=== PATIENT | male | born 1945 | race Caucasian/White ===

== ENCOUNTER 2018-01-16 21:28 | Emergency (ER) | payer MEDICARE, SELFPAY ==
[2016-04-09 09:01] VITALS: BMI 28.3
[2018-01-16 21:29] VITALS: BP 158/81; PULSE 61; RESP 16; TEMP 36.6; O2SAT 98; BMI 26.7
[2018-01-16] MEDS: Fluorescein 1 MG STRIP 1 STRIP RIGHT EYE (21:57)
[2018-01-16] MEDS: Tetracaine 0.5% Ophthalmic Bottle 1 DRP RIGHT EYE (21:57)
--- NOTE | 2018-01-16 22:01 | ED.DCSUM_ITS ---
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 Several hours later he felt a foreign body sensation in his right eye. Family noted a black foreign body and tried to use eyedrops without improvement. Patient denies significant light sensitivity. Patient states he has poor vision at baseline secondary to macular degeneration. Physical Examination: Vital signs unremarkable. Patient sitting well at room in no acute distress. Head neck examination reveals no eyelid edema or erythema. Examination of the right eye reveals a black metallic looking foreign body at approximately 3 o'clock position. There is no significant injection. 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 On exam this appears to be deep in the coloration portion of the eye, not representing an acute foreign body. Test Results: [] Emergency Department Course and Treatment: Blood metallic foreign body was easily removed with a cotton tip swab. Tetracaine is applied to the eye and fluorescein is applied which reveals a small focal area of dye uptake. Tetanus update will be provided and patient be given gentamicin drops. Patient is known to Dr. Schultz and will follow up as needed. Treatment Plan: [] Disposition: Discharge Impression: Foreign body right eye, improved Corneal abrasion This note was generated with [employer] dictation software. It may contain incorrect words, spelling, and punctuation that were not noted in review of the chart prior to signing ED Disposition - Plan for ED Patient: Disposition: Home or Assisted Living Chief Complaint: Eye Problem Instructions: ED Eye Injury Corneal Abrasion, ED Foreign Body Cornea Referrals: Sanjiv Schultz MD [STAFF PHYSICIAN] - 1-2 Days if not improving Additional Instructions: 2 drops Gentamicin to right eye 3 times daily for 3 days
[2018-01-16] MEDS: Gentamicin Sulfate 1 OPTH.BTL 2 DRP RIGHT EYE (22:06)
[2018-01-16] MEDS: Diphth,Pertuss(Acell),Tet Vac 0.5 ML Vial IM (22:10)
[2018-01-16 22:12] VITALS: BP 149/78; PULSE 56; RESP 18; O2SAT 96
[2018-01-16 22:28] VITALS: RESP 16
== END 2018-01-16 22:35 | disposition home or self-care (01) ==
PROVIDERS: Emergency Provider Emergency Medicine; Family Provider Family Medicine; PCP Family Medicine
DX: T15.01XA Foreign body in cornea, right eye, initial encounter (principal); S00.251A Superficial foreign body of right eyelid and periocular area, initial encounter; W45.8XXA Other foreign body or object entering through skin, initial encounter; Y93.9 Activity, unspecified; Y92.89 Other specified places as the place of occurrence of the external cause; Y99.9 Unspecified external cause status; I25.10 Atherosclerotic heart disease of native coronary artery without angina pectoris; I10 Essential (primary) hypertension; E78.00 Pure hypercholesterolemia, unspecified; J44.9 Chronic obstructive pulmonary disease, unspecified; H35.30 Unspecified macular degeneration; I25.2 Old myocardial infarction; Z72.0 Tobacco use; Z85.51 Personal history of malignant neoplasm of bladder; Z95.1 Presence of aortocoronary bypass graft
CPT/HCPCS: 90471; 90715; 99283

== ENCOUNTER → 2018-03-03 10:46 | Outpatient (CLI) | payer MEDICARE, SELFPAY ==
[2016-04-09 09:01] VITALS: BMI 28.3
--- NOTE | 2018-03-03 10:48 | RAD_ITS ---
STUDY: X-RAY - RIGHT HIP REASON FOR EXAM: Male, 73 years old. Pain TECHNIQUE: 3 views of the hip. COMPARISON: None. FINDINGS: Mild degenerative lower lumbar changes. Normal femoral head, neck, intertrochanteric region and visualized proximal femur. Normal acetabulum. Normal hip joint. Normal visualized superior and inferior pubic rami and ischial tuberosities. RAD/HIP, UNI W/ Pelvis 2-3 Views IMPRESSION: No acute bony injury of the hip. Electronically Signed: Vickey Newman DO at 9:13 EST Tel [phone], Service support ,
--- OUTSIDE RECORDS SUMMARY | 2018-04-28 06:52 | XMS RPT_ITS ---
:1945 External Reference #:[id number] Author Organization OHIP Support Name Relationship Address Phone NIDHI VILLANUEVA Unavailable [address] + [place] [address] R Unavailable Unavailable Unavailable VILLANUEVA, NIDHI Unavailable [address] + [place] [address] R Unavailable Unavailable Unavailable VILLANUEVA, NIDHI Unavailable [address] +[phone] [place] [address] R Unavailable Unavailable Unavailable VILLANUEVA, NIDHI Unavailable [address] + [place] [address] R Unavailable Unavailable Unavailable VILLANUEVA, NIDHI Unavailable [address] + [place] [address] R Unavailable Unavailable Unavailable VILLANUEVA, NIDHI Unavailable [address] + [place] [address] R Unavailable Unavailable Unavailable VILLANUEVA, NIDHI Unavailable [address] + [place] [address] R Unavailable Unavailable Unavailable VILLANUEVA, NIDHI Unavailable [address] + [place] [address] R Unavailable Unavailable Unavailable VILLANUEVA, NIDHI Unavailable [address] +[phone] [place] [address] R Unavailable Unavailable Unavailable VILLANUEVA, NIDHI Unavailable [address] + [place] [address] R Unavailable Unavailable Unavailable VILLANUEVA, NIDHI Unavailable [address] + [place] [address] R Unavailable Unavailable Unavailable VILLANUEVA, NIDHI Unavailable [address] + [place] [address] R Unavailable Unavailable Unavailable VILLANUEVA, NIDHI Unavailable [address] + [place] [address] R Unavailable Unavailable Unavailable VILLANUEVA, NIDHI Unavailable [address] + [place] [address] R Unavailable Unavailable Unavailable VILLANUEVA, NIDHI Unavailable [address] + [place] [address] R Unavailable Unavailable Unavailable VILLANUEVA, NIDHI Unavailable [address] + [place] [address] R Unavailable Unavailable Unavailable VILLANUEVA, NIDHI Unavailable [address] + [place] [address] R Unavailable Unavailable Unavailable VILLANUEVA, NIDHI Unavailable [address] + [place] [address] R Unavailable Unavailable Unavailable VILLANUEVA, NIDHI Unavailable [address] + [place] [phone] R Unavailable Unavailable Unavailable VILLANUEVA, NIDHI Unavailable [address] + [place] [address] R Unavailable Unavailable Unavailable Care Team Providers Name Role Phone Hosea Bueno Attending Unavailable Andrea Means Referring Unavailable Hosea Bueno Attending Unavailable Fay Mcnulty Attending Unavailable Hosea Bueno Attending Unavailable Miguelangel, Andrea Primary Care Unavailable Deidre Hudson Attending Unavailable Deidre Hudson Attending Unavailable Deidre Hudson Referring Unavailable Miguelangel, Andrea Primary Care Unavailable Miguelangel, Andrea Primary Care Unavailable Hosea Shukla Admitting Unavailable Faraz Ken Attending Unavailable Hosea Shukla Attending Unavailable Miguelangel, Andrea Primary Care Unavailable Hosea Shukla Admitting Unavailable Faraz Ken Attending Unavailable Miguelangel, Andrea Primary Care Unavailable Faraz Ken Consulting Unavailable Hosea Bueno Attending Unavailable Andrea Means Referring Unavailable Kian Vaughn Attending Unavailable Faraz Ken Referring Unavailable Inez Leger Attending Unavailable Inez Leger Attending Unavailable Fay Mcfadden Attending Unavailable MiguelangelAndrea Referring Unavailable Efe Mcclellan Attending Unavailable Miguelangel, Andrea Referring Unavailable Miguelangel, Andrea Primary Care Unavailable Deidre Hudson Attending Unavailable MiguelangelAndrea Attending Unavailable Miguelangel, Andrea Primary Care Unavailable Aldair Jimenez Attending Unavailable MiguelangelAndrea Referring Unavailable Aldair Jimenez Attending Unavailable JacintotAldair Referring Unavailable Miguelangel, Andrea Primary Care Unavailable Aldair Jimenez Attending Unavailable Jacintot, Aldair Referring Unavailable Miguelangel, Andrea Primary Care Unavailable PROBLEMS PROBLEMS DATE TYPE CONDITION / CODE ATTENDING STATUS SOURCE 03/03/2018 Unknown M25.551 - Pain in Aldair Jimenez right hip / Community M25.551(ICD-10) Hospital Repository 03/03/2018 Unknown M25.571 - Pain in Aldair Jimenez right ankle and Community joints of right foot Hospital / M25.571(ICD-10) Repository 01/30/2018 Unknown I25.10 - Andrea Means Atherosclerotic heart Community disease of [facility] coronary artery Repository without angina pectoris / I25.10(ICD-10) 01/30/2018 Unknown I10 - Essential Andrea Means (primary) [facility] hypertension / Hospital I10(ICD-10) Repository 01/30/2018 Unknown Z12.5 - Encounter for Andrea Means screening for [facility] malignant neoplasm of [facility] prostate / Repository Z12.5(ICD-10) 10/17/2017 Unknown E78.5 - [facility] [place] Hyperlipidemia, [facility] unspecified / Hospital E78.5(ICD-10) Repository 10/17/2017 Unknown I34.0 - Nonrheumatic [facility] [place] mitral (valve) [facility] insufficiency / Hospital I34.0(ICD-10) Repository 10/17/2017 Unknown I48.0 - Paroxysmal [facility] atrial fibrillation / [facility] I48.0(ICD-10) Hospital Repository 10/17/2017 Unknown G47.00 - Insomnia, Efe Mcclellan Active [facility] unspecified / Community G47.00(ICD-10) Hospital Repository 10/17/2017 Unknown I50.31 - Acute [facility] diastolic [facility] (congestive) heart Hospital failure / Repository I50.31(ICD-10) 04/07/2017 Unknown I27.20 - Pulmonary MoodispaHosea michelle Active [facility] hypertension, [facility] unspecified / Hospital I27.20(ICD-10) Repository PROCEDURES PROCEDURES No Procedure Records FoundRESULTS RESULTS ANKLE MIN 3 VIEWS Observed: 03/03/2018 Status: F Source: [place] 11:27 AM [facility] HOSPITAL REPOSITORY [facility] Imaging Services [address] [place] [address] [place] [address] Ankle min 3 Views MR#: [id number] Acct: [id number] Name: JONY VILLANUEVA Rep #: [id number] : 1945 M 73 From: Aldair Iyer MD PCP: Andrea Means DO Status: REG CLI Study: Ankle min 3 Views Date of Exam: 03/03/18 Exam# [id number] Ordering Dr: Aldair Jimenez HISTORY: LATERAL PAIN POST FALLING COMPARISON: None FINDINGS: 3 views right ankle: No fracture or dislocation. The tibiotalar joint space appears preserved. The ankle mortise is not widened. As visualized, the soft tissues are negative. IMPRESSION: Negative for fracture or acute osseous abnormality at 0725 Reported and signed by: Aldair Iyer MD Electronically Signed: Aldair Iyer, at 7:23 EST Tel , Service support , RAD/Ankle min 3 Views CC: ISABEL Jimenez; Andrea Means DO Solar Sales Consultant: Signed HIP, UNI W/ PELVIS Observed: 03/03/2018 Status: F Source: [facility] 2-3 VIEWS 10:48 AM [facility] REPOSITORY [facility] Imaging Services [address] [place] [address] HIP, UNI W/ Pelvis 2-3 Views MR#: [id number] Acct: [id number] Name: JONY VILLANUEVA Rep #: [id number] : 1945 M 73 From: Vickey Newman DO PCP: Andrea Means DO Status: REG CLI Study: HIP, UNI W/ Pelvis 2-3 Views Date of Exam: 03/03/18 Exam# [id number] Ordering Dr: Aldair Jimenez STUDY: X-RAY - RIGHT HIP REASON FOR EXAM: Male, 73 years old. Pain TECHNIQUE: 3 views of the hip. COMPARISON: None. FINDINGS: Mild degenerative lower lumbar changes. Normal femoral head, neck, intertrochanteric region and visualized proximal femur. Normal acetabulum. Normal hip joint. Normal visualized superior and inferior pubic rami and ischial tuberosities. RAD/HIP, UNI W/ Pelvis 2-3 Views IMPRESSION: No acute bony injury of the hip. Electronically Signed: Vickey Newman DO at 9:13 EST Tel [phone], Service support , CC: ISABEL Jimenez; Andrea Means DO Solar Sales Consultant: Signed EMERGENCY DEPARTMENT Observed: 01/16/2018 Status: F Source: [place] SUMMARY 11:38 PM [facility] REPOSITORY [facility] Medical Records Department [address] [place] [address] Emergency Department Summary 01/16/18 2200 MR#: [id number] Acct: [id number] Name: JONY VILLANUEVA Rep #: [id number] : 1945 72 From: Deidre Hudson MD PCP: Andrea Means DO Status: DEP ER - ER Visit Summary Date of Service: 01/16/18 Chief Complaint: Foreign body sensation right eye History of Present Illness: The patient is a 72 M who was using a metal technician and a saw today. Several hours later he felt a foreign body sensation in his right eye. Family noted a black foreign body and tried to use eyedrops without improvement. Patient denies significant light sensitivity. Patient states he has poor vision at baseline secondary to macular degeneration. Physical Examination: Vital signs unremarkable. Patient sitting well at room in no acute distress. Head neck examination reveals no eyelid edema or erythema. Examination of the right eye reveals a black metallic looking foreign body at approximately 3 o'clock position. There is no significant injection. Patient does have a tire design engineer brown speck noted on the 1 o'clock position in the iris. On exam this appears to be deep in the coloration portion of the eye, not representing an acute foreign body. Test Results: [] Emergency Department Course and Treatment: Blood metallic foreign body was easily removed with a cotton tip swab. Tetracaine is applied to the eye and fluorescein is applied which reveals a small focal area of dye uptake. Tetanus update will be provided and patient be given gentamicin drops. Patient is known to Dr. Schultz and will follow up as needed. Treatment Plan: [] Disposition: Discharge Impression: Foreign body right eye, improved Corneal abrasion This note was generated with 8hands dictation software. It may contain incorrect words, spelling, and punctuation that were not noted in review of the chart prior to signing ED Disposition - Plan for ED Patient: Disposition: Home or Assisted Living Chief Complaint: Eye Problem Instructions: ED Eye Injury Corneal Abrasion, ED Foreign Body Cornea Referrals: Sanjiv Schultz MD [STAFF PHYSICIAN] - 1-2 Days if not improving Additional Instructions: 2 drops Gentamicin to right eye 3 times daily for 3 days What to do if you have Problems For any increased pain, shortness of breath, bleeding, nausea or vomiting, chest pain, or any unexpected problems, contact your Primary Care Provider. Call [facility] ([phone]) or report to the closest Emergency Room. Call 911 if necessary. 01/16/18 4288 <Electronically signed by Deidre Hudson MD> Date Deidre Hudson MD Cosigner Signature (If Indicated): Date CC: Andrea Means DO DISCHARGE INSTRUCTION Observed: 01/16/2018 Status: F Source: [place] 10:02 PM [facility] REPOSITORY [facility] Medical Records Department [address] [place] [address] Discharge Instruction 01/16/181 MR#: [id number] Acct: [id number] Name: JONY VILLANUEVA Shruti Rep #: [id number] : 1945 72 From: Deidre Hudson MD PCP: Andrea Means DO Status: PRE ER ED Disposition - Plan for ED Patient: Disposition: Home or Assisted Living Chief Complaint: Eye Problem Instructions: ED Foreign Body Cornea, ED Eye Injury Corneal Abrasion Referrals: Sanjiv Schultz MD [STAFF PHYSICIAN] - 1-2 Days if not improving Additional Instructions: 2 drops Gentamicin to right eye 3 times daily for 3 days What to do if you have Problems For any increased pain, shortness of breath, bleeding, nausea or vomiting, chest pain, or any unexpected problems, contact your Primary Care Provider. Call [facility] ([phone]) or report to the closest Emergency Room. Call 911 if necessary. 01/16/182201 <Electronically signed by Deidre Hudson MD> Date Deidre Hudson MD Cosigner Signature (If Indicated): Date CC: Andrea Means DO CARDIOLOGY VISIT Observed: 10/18/2017 Status: F Source: [place] REPORT 7:19 AM [facility] RE[facility]ITORY [facility] [address] [place] [address] OFFICE VISIT Date of Service: 10/17/17 MR#: [id number] Acct: [id number] Name: JONY VILLANUEVA Rep #: [id number] : 1945 Provider: JORDAN Mcclellan Age/Sex: 72/M [place] [facility] [place]: Signed HPI HPI Details: JONY VILLANUEVA, is a 72 M who presents to the office today for history of underlying CAD status post remote CABG and previous RCA PTCA/YAMILET (April 2016) superimposed upon a history of underlying mitral valve regurgitation, tricuspid valve regurgitation, aortic valve sclerosis, atrial fibrillation-paroxysmal, hyperlipidemia, and hypertension. He states overall from a cardiac standpoint he has been doing well. Pt denies chest, arm, jaw, or neck discomfort. Prior to PCI and he had a heart burn sensation that did not resolve with antacid. His exercise tolerance is stable. Pt denies symptoms of CHF, palpitations, lightheadedness, near syncopal or syncopal episodes. Pt denies edema or claudication issues. Pt. denies orthopnea, PND, fever, chills, blood in urine, blood in stool, myalgia, or unexplainable fatigue. He states one episode of dizziness after working under his truck and stood up quickly. 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 Required: No Accompanied by: Is patient in pain?: No Allergies simvastatin Adverse Reaction (Severe, Verified 10/17/17 09:06) myalgias Medications Amiodarone HCl 200 mg PO DAILY 04/19/17 [History Confirmed 10/17/17] Aspirin [Adult Low Dose Aspirin EC] 81 mg PO DAILY 04/19/17 [History Confirmed 10/17/17] Finasteride [Proscar] 5 mg PO QHS 04/19/17 [History Confirmed 10/17/17] Gabapentin [Neurontin] 300 mg PO QHS 04/19/17 [History Confirmed 10/17/17] Metoprolol Succinate 25 mg PO DAILY 04/19/17 [History Confirmed 10/17/17] Simvastatin [Zocor] 20 mg PO QHS 04/19/17 [History Confirmed 10/17/17] Tamsulosin HCl [Flomax] 0.4 mg PO QHS 04/19/17 [History Confirmed 10/17/17] Temazepam [Restoril] 30 mg PO QHS 04/19/17 [History Confirmed 10/17/17] oxycodone ER 15 mg tablet,crush resistant,extended release 12 hr 7.5 mg PO Q4H PRN tab 10/17/17 [History Confirmed 10/17/17] Ejection fraction %: 65 to 70 PFSH Medical History Hyperlipidemia (Chronic) Atherosclerotic heart disease of ute coronary artery without angina pectoris (Chronic) Long-term use of high-risk medication (Chronic) Nonrheumatic mitral valve insufficiency (Chronic) Pulmonary hypertension (Chronic) Paroxysmal atrial fibrillation (Chronic) COPD (chronic obstructive pulmonary disease) with acute bronchitis (Chronic) HTN (hypertension) (Chronic) CHF NYHA class III (symptoms with mildly strenuous activities) (Chronic) Mitral valve insufficiency (Chronic) Chest pain (Resolved) Aortic dilatation (Acute) BPH (benign prostatic hyperplasia) (Acute) Dysgeusia (Acute) Intercostal myalgia (Acute) Tobacco abuse (Acute) Atherosclerosis of coronary artery of ute heart without angina pectoris (Inactive) Atrial fibrillation with rapid ventricular response (Inactive) Dyslipidemia (Inactive) Surgical History Aortocoronary bypass status (Resolved 06/2006) History of arthroscopic knee surgery (Resolved) History of cystoscopy (Resolved) History of hemorrhoidectomy (Resolved) History of lumbar surgery (Resolved) History of transurethral resection of prostate (Resolved) Family History Mother CVA (cerebral vascular accident) Brother CAD (coronary artery disease) Brother CAD (coronary artery disease) Social History Smoking Status: Current some day smoker alcohol intake: never substance use type: does not use ROS Const Const: Negative for weakness, body ache, fever(s), chills or fatigue ENT ENT: Positive for dizziness Cardio Chest Pain: No Palpitations: No Edema: None Muscle aches with walking: None Resp Respiratory: Negative for SOB with activity, SOB at rest, SOB orthopnea\SOB lying down or paroxysmal nocturnal dyspnea GI GI: Negative nausea, black,tarry stools, bright, red blood in stools or vomiting blood/hematemesis : Negative for hematuria or frequent nighttime urination/ nocturia Musc Musc: Positive for joint pain (back pain); negative for muscle aches/ myalgia Skin Skin: Negative non-healing lesions or rash Neuro Neuro: Positive for dizziness; negative for lightheadedness, near syncope, syncope, orthostatic symptoms or weakness Endo Endo: Negative for fatigue Allergy Allergy/Immunology: Negative for rash Cardiology Exam Const Appearance: cooperative, healthy appearing, well developed, well groomed and other (uncomfortable appearing (secondary to back / hip issues)) Nutritional Appearance: average body habitus and well nourished Orientation: alert, awake and oriented x3 Head Head: normal to inspection and normocephalic Ears: hearing grossly normal bilaterally Nose: external nose normal Face and Sinus: face symmetric Mouth: oral mucosae normal Eyes General: appearance normal, both eyes and all related structures Eyelids: eyelids normal Conjunctivae: conjunctivae normal Pupils: PERRL EOM: EOM intact bilaterally Neck Neck: normal visual inspection Carotids: normal carotid upstroke Chest Chest inspection: normal inspection of the chest and symmetric chest movement Auscultation: Bilateral: Clear to Auscultation Cardio Palpation: normal PMI Rate: regular rate Rhythm: regular rhythm Heart sounds: S1 normal and S2 normal GI GI: normal to inspection, bowel sounds present, soft and no hepatosplenomegaly Neuro General: alert, awake and oriented x3 Skin Skin: no rashes or lesions noted Extremities Pulses: Normal: Right Radial Pulse, Left Radial Pulse Lower Extremity Edema: None: Bilateral Musculoskel Back / hip discomfort Psych Psychological: normal affect Supplemental Info Echocardiogram from April 2017 showed an estimated ejection fraction of 65%, stage I diastolic dysfunction, mildly enlarged left atrium, and no comparison study available Stress test from May 2015 was negative for stress-induced myocardial ischemia or previous myocardial injury/infarction with an ejection fraction reported of 55%. Heart catheterization from April 2016 resulted in YAMILET to RCA. Assessment AND Plan 1. Atherosclerosis of ute coronary artery of ute heart without angina pectoris I25.10 CABG x4; PARKER to LAD, SVG sequentially to 1st and 2nd diag branches of anterior descending and to CX with suture repair of small ASD 06/2006 Plan Patient's most recent echocardiogram in April 2017 showed estimated ejection fraction of 65%. His most recent stress test in May 2015 was negative for stress-induced myocardial ischemia. Patient denies any chest pain, arm pain, jaw pain, neck pain, shortness of breath, or fatigue suggestive of angina at this time. We will continue to monitor this. We will not make any medication regimen changes and will continue risk factor modification. Orders Orders: 2. S/P angioplasty with stent Z95.9 04/08/16, [facility] w/PCI AND YAMILET to RCA X 2; Plan He will continue current treatment plan as outlined above. 3. Paroxysmal atrial fibrillation I48.0 Plan He appears to be maintaining regular rhythm. His heart rate is well controlled. He will continue with antiarrhythmic and beta rema. We will continue to monitor this. Orders Orders: 4. Essential hypertension I10 Plan Patient blood pressure slightly elevated today in office. He states it has been better controlled. He was asked to continue to monitor and contact our office if it increases or remains elevated. Orders Orders: 5. Nonrheumatic mitral valve insufficiency I34.0 Plan Patient's most recent echocardiogram in April 2017 did not show any mitral valve prolapse or stenosis. Patient states this is a old diagnosis. He will continue current medications and we will continue to monitor. Orders Orders: 6. Long-term use of high-risk medication Z79.899 Plan Patient is currently on amiodarone therapy. He will undergo laboratory evaluation with a thyroid function test and liver function test. He has recently undergone chest x-ray and pulmonary function test. He was instructed to contact our office if he developed any unexplainable shortness of breath. 7. Pure hypercholesterolemia E78.00; E78.0 Plan Patient will have both liver and lipid profile laboratory work done for further evaluation. He believes this has been done by primary care physician in the past, but he has no upcoming/scheduled appointment. He will continue with current statin medication. We will wait for the results for further recommendation. Plan Detail Other Orders Orders: Additional Comments Thank you for allowing us to participate in the patients plan of care, if you have any questions please do not hesitate to call. This note was generated using a voice recognition system and there may be incorrect words, spelling or punctuation that were not noted when reviewing the office note prior to saving. Follow Up 12 Months (PFM) Coding Level of Care Code Off vis,est,level 3 Diagnoses Atherosclerosis of ute coronary artery of ute heart without angina pectoris I25.10 [place] vs. transplanted heart: ute heart S/P angioplasty with stent Z95.9 Paroxysmal atrial fibrillation I48.0 Essential hypertension I10 Hypertension type: essential hypertension Nonrheumatic mitral valve insufficiency I34.0 Long-term use of high-risk medication Z79.899 Pure hypercholesterolemia E78.00; E78.0 Hyperlipidemia type: pure hypercholesterolemia Coding Level of Care Code Off vis,est,level 3 Diagnoses Atherosclerosis of ute coronary artery of ute heart without angina pectoris I25.10 [place] vs. transplanted heart: ute heart S/P angioplasty with stent Z95.9 Paroxysmal atrial fibrillation I48.0 Essential hypertension I10 Hypertension type: essential hypertension Nonrheumatic mitral valve insufficiency I34.0 Long-term use of high-risk medication Z79.899 Pure hypercholesterolemia E78.00; E78.0 Hyperlipidemia type: pure hypercholesterolemia 10/18/17 0719 <Electronically signed by Efe H Roof LITIGATION ASSOCIATE-C> Date Efe Owen Roof LITIGATION ASSOCIATE-C Cosigner Signature: Date (if applicable) CC: Andrea Means DO 12 LEAD ELECTROCARDIOGRAM Observed: 04/21/2017 Status: F Source: [place] 11:44 AM [facility] RE[facility] Cardiovascular Services [address] [place] [address] 12 Lead EKG 04/19/17 0008 MR#: [id number] Acct: [id number] Name: JONY VILLANUEVA Rep #: [id number] : 1945 72 From: Kian Vaughn MD Attending Dr: Faraz Ken MD Status: DIS IN Ordering Dr: Anam Morgan MD Date: 04/19/17 Location: [facility] [place] Sex: M C Admitted: 04/19/17 Test Reason : CHEST PAIN Blood Pressure : / mmHG Vent. Rate : 084 BPM Atrial Rate : 084 BPM P-R Int : 130 ms QRS Dur : 086 ms QT Int : 386 ms P-R-T Axes : 031 013 043 degrees QTc Int : 456 ms Normal sinus rhythm Nonspecific ST abnormality Abnormal ECG Confirmed by KIAN VAUGHN ([id number]), video editor CODEY PAUL ([id number]) on 04/21/2017 11:43:33 AM Referred By: Deidre Hudson Confirmed By:KIAN VAUGHN 04/21/17 1143 Date Kian Vaughn MD CC: Andrea Means DO Signed DISCHARGE SUMMARY Observed: 04/21/2017 Status: F Source: [place] 7:15 AM [facility] RE[facility] Medical Records Department [address] [place] [address] Discharge Summary 04/20/17 0931 MR#: [id number] Acct: [id number] Name: JONY VILLANUEVA Rep #: [id number] : 1945 72 From: Faraz Ken MD PCP: Andrea Means DO Status: DIS IN Y Location: [place] [id number] Discharge Date and Diagnosis - Problem List Patient Problems: Active and Suspected Problems (Last Updated 04/20/17 @ 09:29 by Faraz Ken MD) Acute diastolic (congestive) heart failure (Acute) HCAP (healthcare-associated pneumonia) (Acute) Date of Admission: 04/19/17 Date of Discharge: 04/20/17 - Primary Discharge Diagnosis Active and Suspected Problems (Last Reviewed 04/07/17 @ 13:07 by Fay Mcnulty) Acute diastolic (congestive) heart failure (Acute) HCAP (healthcare-associated pneumonia) (Acute) - Secondary Discharge Diagnosis Chronic Problems (Last Reviewed 04/07/17 @ 13:07 by Fay Mcnulty) Smoker (Chronic) Hyperlipidemia (Chronic) Atherosclerotic heart disease of ute coronary artery without angina pectoris (Chronic) CABG x4; PARKER to LAD, SVG sequentially to 1st and 2nd diag branches of anterior descending and to CX with suture repair of small ASD 06/2006 Long-term use of high-risk medication (Chronic) Nonrheumatic mitral valve insufficiency (Chronic) Pulmonary hypertension (Chronic) Paroxysmal atrial fibrillation (Chronic) COPD (chronic obstructive pulmonary disease) with acute bronchitis (Chronic) HTN (hypertension) (Chronic) CHF NYHA class III (symptoms with mildly strenuous activities) (Chronic) Mitral valve insufficiency (Chronic) Hospital Course and Treatment Imaging Results: Clinical Impression(s) from Imaging Studies Chest X-Ray 04/19/17 00:15 IMPRESSION: No acute findings in the lungs. Chronic interstitial changes bilaterally. Mild cardiomegaly. Electronically Signed: Stefano Barnes, at 2:23 EST Tel , Service support , Chest CTA 04/19/17 00:56 IMPRESSION: Normal CTA chest examination, without a demonstrated pulmonary embolism or arterial dissection. Bibasilar consolidations. More on the left than the right. Pneumonia is suspected Electronically Signed: Stefano Barnes, at 2:47 EST Tel , Service support , Operations: None Summary of Care Provided: Patient is a 72-year-old gentleman presented with shortness of breath imaging studies obtained on admission demonstrated bibasilar consolidation suspicious for pneumonia admitted to regular nursing floor patient has been managed as a case of healthcare acquired pneumonia 1. Healthcare acquired pneumonia: Admitted to regular nursing floor managed per protocol in addition to supplemental oxygen after cultures have been sent 2. Acute diastolic congestive heart failure patient was managed with Lasix ordered an echo EF was 65% 3. Recent back surgery adequately start clinic on 04/14/15 4. CAD status post CABG 5. Pulmonary hypertension 6. COPD currently not in exacerbation 7. Dyslipidemia-patient is on statin therapy, continued at home dose 8. BPH patient is on Flomax 9. Hypertension-blood pressure controlled, home medications continued with dose adjustment as needed 10. DVT prophylaxis SCDs Discharge Diet: Low fat/ Low Cholesterol, 8 Cup Fluid Restriciton, 2000 mg Sodium Diet Discharge Activity: May not drive while taking narcotic pain medications. Home Medications: Medications to take at Discharge Amiodarone HCl 200 mg PO DAILY 04/19/17 Aspirin [Adult Low Dose Aspirin EC] 81 mg PO DAILY 04/19/17 Fentanyl [Duragesic] 50 mcg TRANSDERM. Q72H 04/19/17 Finasteride [Proscar] 5 mg PO QHS 04/19/17 Gabapentin [Neurontin] 300 mg PO QHS 04/19/17 Metoprolol Succinate 25 mg PO DAILY 04/19/17 Oxycodone CR [Oxycontin] 15 mg PO Q4H PRN 04/19/17 Simvastatin [Zocor] 20 mg PO QHS 04/19/17 Tamsulosin HCl [Flomax] 0.4 mg PO QHS 04/19/17 Temazepam [Restoril] 30 mg PO QHS 04/19/17 Albuterol IH (ProAir) [Proair Hfa] 2 puff INHALATION Q4H PRN PRN #1 inhaler 04/20/17 Amoxicillin/Potassium Clav [Augmentin 500-125 Tablet] 1 ea PO BID #14 tab 04/20/17 Furosemide [Lasix] 20 mg PO DAILY #30 tab 04/20/17 Guaifenesin [Mucinex] 1,200 mg PO BID #14 tbmp.12hr 04/20/17 Prednisone [Deltasone] 20 mg PO BID #10 tab 04/20/17 Following Prescrptions Were Given to Patient: Albuterol IH (ProAir) [Proair Hfa] 2 puff INHALATION Q4H PRN PRN #1 inhaler PRN Reason: Dyspnea/Wheezing/Sob Amoxicillin/Potassium Clav [Augmentin 500-125 Tablet] 1 ea PO BID #14 tab Furosemide [Lasix] 20 mg PO DAILY #30 tab Guaifenesin [Mucinex] 1,200 mg PO BID #14 tbmp.12hr Prednisone [Deltasone] 20 mg PO BID #10 tab Primary Care Physician: Andrea Means DO [Primary Care Provider] - Please follow up with your Primary Care Physician in: in 5- 7 days Disposition: Home Minutes spent on discharge:: 35 Patient Condition:: Stable Meaningful Use Info Meaningful Use Diagnoses (Choose all that apply): CHF - CHF JOSEMANUEL/ARB ordered at discharge?: No Reason JOSEMANUEL/ARB not ordered?: Worsening renal disease Documented LVEF (%): 65 Code Visit Inpatient E AND M: [id number] Disch Hosp 04/21/17 0715 <Electronically signed by Faraz Ken MD> Date Faraz Ken MD Cosigner Signature (if applicable): Date CC: Faraz Ken MD; Andrea Means DO Signed ECHOCARDIOGRAM COMPLETE Observed: 04/20/2017 Status: F Source: [place] 3:37 PM [facility] Cardiovascular Services [address] [place] [address] Echo Complete 04/20/17 1442 MR#: [id number] Acct: [id number] Name: VILLANUEVAJONY Rep #: [id number] : 1945 72 From: Kian Vaughn MD Attending Dr: Faraz Ken MD Status: ADM IN Ordering Dr: Faraz Ken MD Date: 04/20/17 Location: [facility] Sex: M C Admitted: 04/19/17 Reason For Study: CHF Procedure This was a 2D Doppler, Color Flow transthoracic echocardiogram. Echo done with patient sitting up, patient had back surgery not even one week ago and is still unable to lay on back or side. Exam performed in department. Left Ventricle Normal size and thickness. The estimated ejection fraction is 65 %. Stage 1 diastolic dysfunction. No regional wall motion abnormalities noted. Right Ventricle Normal size and thickness. Normal systolic function. Atria The left atrium is mildly enlarged. Normal right atrium. Normal atrial septum. Mitral Valve The mitral valve is structurally normal. No prolapse or stenosis seen. Tricuspid Valve Normal tricuspid valve. Unable to estimate RV systolic pressure/pulmonary artery pressure due to technically difficult study. Aortic Valve Normal aortic valve. Trisinus/trileaflet aortic valve. Pulmonic Valve Normal pulmonic valve. Great Vessels Normal aortic root. Normal arch. Normal inferior vena cava. Inferior vena cava collapse with sniff. Pericardium/Pleural No pericardial effusion. MMode/2D Measurements AND Calculations LVIDd: 4.1 cm IVSd: 1.6 cm Ao root diam: 3.7 cm LVIDs: 2.2 cm LVPWd: 1.8 cm LA dimension: 3.9 cm FS: 45.5 % LAV(MOD-bp): 83.6 ml LA A4 area: 24.3 cm2 LAV(MOD-bp) Indexed: 41.1 ml/m2 LAV(MOD-sp2): 78.1 ml LAV(MOD-sp4): 76.4 ml Time Measurements MV dec time: 0.24 sec Doppler Measurements AND Calculations MV E max bryon: 81.5 cm/sec Lat Peak E' Bryon: 10.9 cm/sec Med Peak E' Bryon: 12.9 cm/sec MV A max bryon: 93.6 cm/sec E/E' lat: 7.5 E/E' med: 6.3 MV E/A: 0.87 MV V2 max: 108.8 cm/sec MV P1/2t max bryon: 104.0 cm/sec Ao V2 max: 201.3 cm/sec MV max P.7 mmHg MV P1/2t: 56.0 msec Ao max P.2 mmHg MV V2 mean: 66.2 cm/sec MV dec slope: 544.4 cm/sec2 Ao V2 mean: 125.1 cm/sec MV mean P.0 mmHg MVA(P1/2t): 3.9 cm2 Ao mean P.4 mmHg MV V2 VTI: 29.2 cm Ao V2 VTI: 32.6 cm LV V1 max: 119.1 cm/sec PA V2 max: 110.7 cm/sec LV V1 max P.7 mmHg LV V1 mean P.7 mmHg LV V1 mean: 76.4 cm/sec LV V1 VTI: 18.3 cm Interpretation Summary The estimated ejection fraction is 65 %. Stage 1 diastolic dysfunction. The left atrium is mildly enlarged. Unable to estimate RV systolic pressure/pulmonary artery pressure due to technically difficult study. There is no comparison study available. Ordering Physician: Faraz Ken Referring Physician: Deidre Hudson Performed By: Daniel Moreno RCS 04/20/17 1537 Date Kian Vaughn MD CC: Faraz Ken MD; Andrea Means DO Date Dictated: 04/20/17 1442 Date Transcribed: 04/20/17 153 Solar Sales Consultant: Signed DISCHARGE INSTRUCTION Observed: 04/20/2017 Status: F Source: [place] 9:31 AM [facility] Medical Records Department [address] [place] [id number] Instructions for Home/Discharge Instructions 04/20/17 0928 MR#: [id number] Acct: [id number] Name: JONY VILLANUEVA Shruti Rep #: [id number] : 1945 72 From: Faraz Ken MD PCP: Andrea Means DO Status: ADM IN - Discharge Diagnoses Current Active Problems: Current Active and Chronic Problems (Last Reviewed 04/07/17 @ 13:07 by Fay Mcnulty) Smoker (Chronic) You will use the following diet at home:: Fluid restricted (specify 2000 mls, 1500 mls) - 2000 Your food should be the consistency of: Regular Discharge Activity: May not drive while taking narcotic pain medications. Allergies/Adverse Reactions: Allergies simvastatin Adverse Reaction (Severe, Verified 04/19/17 00:12) myalgias Medications to take at Discharge Amiodarone HCl 200 mg PO DAILY 04/19/17 Aspirin [Adult Low Dose Aspirin EC] 81 mg PO DAILY 04/19/17 Fentanyl [Duragesic] 50 mcg TRANSDERM. Q72H 04/19/17 Finasteride [Proscar] 5 mg PO QHS 04/19/17 Gabapentin [Neurontin] 300 mg PO QHS 04/19/17 Metoprolol Succinate 25 mg PO DAILY 04/19/17 Oxycodone CR [Oxycontin] 15 mg PO Q4H PRN 04/19/17 Simvastatin [Zocor] 20 mg PO QHS 04/19/17 Tamsulosin HCl [Flomax] 0.4 mg PO QHS 04/19/17 Temazepam [Restoril] 30 mg PO QHS 04/19/17 Albuterol IH (ProAir) [Proair Hfa] 2 puff INHALATION Q4H PRN PRN #1 inhaler 04/20/17 Amoxicillin/Potassium Clav [Augmentin 500-125 Tablet] 1 ea PO BID #14 tab 04/20/17 Furosemide [Lasix] 20 mg PO DAILY #30 tab 04/20/17 Guaifenesin [Mucinex] 1,200 mg PO BID #14 tbmp.12hr 04/20/17 Prednisone [Deltasone] 20 mg PO BID #10 tab 04/20/17 The following prescriptions were given: Albuterol IH (ProAir) [Proair Hfa] 2 puff INHALATION Q4H PRN PRN #1 inhaler PRN Reason: Dyspnea/Wheezing/Sob Amoxicillin/Potassium Clav [Augmentin 500-125 Tablet] 1 ea PO BID #14 tab Furosemide [Lasix] 20 mg PO DAILY #30 tab Guaifenesin [Mucinex] 1,200 mg PO BID #14 tbmp.12hr Prednisone [Deltasone] 20 mg PO BID #10 tab Primary Care Physician: Andrea Means DO [Primary Care Provider] - Please follow up with your Primary Care Physician in: in 5- 7 days Proposed Discharge Date: 04/20/17 04/20/17 0931 <Electronically signed by Faraz Ken MD> Date Faraz Ken MD CC: Andrea Means DO VENOUS DUPLEX LOWER Observed: 04/19/2017 Status: F Source: [place] EXTREMITY 5:42 PM [facility] [place] Cardiovascular Services [address] [place] [address] Venous Duplex - Timmy Extrem 04/18/17 1052 MR#: [id number] Acct: [id number] Name: JONY VILLANUEVA Rep #: [id number] : 1945 72 From: Dave Moore MD Attending Dr: Deidre Hudson MD Status: REG CLI Ordering Dr: Deidre Hudson MD Date: 04/18/17 Location: [facility] Sex: M C Admitted: Reason For Study: LEG PAIN RIGHT LEFT CFV is compressible, spontaneous, phasic, CFV is compressible, spontaneous, phasic, competent and demonstrates normal competent, and demonstrates normal augmentation. augmentation. FV is compressible, spontaneous, phasic, FV is compressible, spontaneous, phasic, competent and demonstrates normal competent and demonstrates normal augmentation. augmentation. POP V is compressible, spontaneous, phasic, POP V is compressible, spontaneous, phasic, competent and demonstrates normal competent and demonstrates normal augmentation. augmentation. T/P Trunk is compressible. T/P Trunk is compressible. PTV is compressible. PTV is compressible. RT PerV is compressible. LT PerV is compressible. GSV harvested. GSV harvested. Procedure Exam performed in department. Interpretation Summary Deep veins of the lower extremities are bilaterally patent and compressible segmentally. There is no evidence of deep vein thrombosis on either side. Valvular competence appears intact within the proximal deep venous systems bilaterally. The greater saphenous veins are absent bilaterally, having been previously harvested. Ordering Physician: Deidre Hudson Referring Physician: Andrea Means Performed By: Delia Leija RVT 04/19/17 1742 Date Dave Moore MD CC: Deidre Hudson MD; Andrea Means DO Date Dictated: 04/18/17 1052 Date Transcribed: 04/19/171741 Solar Sales Consultant: Signed STREP Observed: 04/19/2017 Status: F Source: [place] PNEUMONIAE ANTIG(UR,CSF) 8:55 AM [facility] S pneumo Ag URINE INTERPRETATION Negative Urine Presumptive negative for pneumococcal pneumonia, suggesting no current or recent pneumococcal infection. Infection due to S pneumoniae cannot be ruled out since the antigen present in the sample may be below the detection limit of the test. Strep pneumo Test Negative URINE (See interpretation below) Performed By: #### [id number] #### [facility] [address] [place], [address] EMERGENCY DEPARTMENT Observed: 04/19/2017 Status: F Source: [place] SUMMARY 3:15 AM [facility] Medical Records Department [address] [place] [address] Emergency Department Summary 04/19/17 0023 MR#: [id number] Acct: [id number] Name: JONY VILLANUEVA Shruti Rep #: [id number] : 1945 72 From: Anam Morgan MD PCP: Andrea Means DO Status: ADM IN - ER Visit Summary Date of Service: 04/19/17 Chief Complaint: Chest pain, shortness of breath History of Present Illness: The patient is a 72 M resents to the emergency department left-sided chest pain and dyspnea. The patient is 5 days status post posterior lumbar discectomy by Dr. Spain at the [facility] in [place]. The patient states that he was actually seen here yesterday. He had some swelling in his right lower extremity. It was after hours and no ultrasound was available. He was ordered an outpatient Doppler. He had a done today and family states it was negative for clot. He still had some pain in his right foot. He states that today, he had sudden onset pain in his left chest with fevers, chills, myalgias. He states that he feels like he cannot take a deep breath because of pain. Patient denies any history of prior DVT or pulmonary embolus. He has had a scant cough. Patient does have significant history of coronary vascular disease. He has had four-vessel CABG. He does follow with Dr. [place]. He states this feels different than his cardiac pain that he had in the past. Physical Examination: Vital signs reviewed General: Well-nourished, well-developed Head: Normocephalic, atraumatic Eyes: Pupils equal and reactive, extraocular muscles intact Neck, supple, no lymphadenopathy Heart: Regular rate and rhythm Respiratory: Mild distress, diminished throughout Abdomen: Soft, nontender, nondistended, no peritoneal signs Back: Incision is clean, dry, intact Extremities: No tenderness right lateral ankle, normal pulses, no edema, no cords Skin: Normal color no rash Neuro: Alert and oriented, no focal or lateralizing deficits Test Results: EKG was sinus rhythm without acute ischemic change. Screening labs relatively unremarkable. Emergency Department Course and Treatment: Presents with left- sided pleuritic chest pain. He Had cough, fever, chills and myalgias. His incision shows no edema or erythema. There is no drainage. Screening labs were obtained. The patient was started on breathing treatments. His x-ray does not show focal infiltrate. Given his pleuritic pain, recent surgery, dyspnea I did obtain a CTA. This does confirm bilateral pneumonia but no evidence of PE. The patient is started on Levaquin. With analgesics, breathing treatments, and steroids his respiratory distress has resolved. He is resting comfortably. With his new oxygen requirement, the patient will be admitted for further respiratory care. He is discussed with the hospitalist. Treatment Plan: [] Disposition: Admission Impression: 1. Bilateral community-acquired pneumonia 2. Dyspnea 3. Left-sided chest pain This note was generated with 8hands dictation software. It may contain incorrect words, spelling, and punctuation that were not noted in review of the chart prior to signing ED Disposition - Plan for ED Patient: Chief Complaint: Shortness of Breath What to do if you have Problems For any increased pain, shortness of breath, bleeding, nausea or vomiting, chest pain, or any unexpected problems, contact your Primary Care Provider. Call [facility] ([phone]) or report to the closest Emergency Room. Call 911 if necessary. 04/19/17 0315 <Electronically signed by Anam Morgan MD> Date Anam oMrgan MD Cosigner Signature (If Indicated): Date CC: Andrea Means DO HISTORY AND PHYSICAL Observed: 04/19/2017 Status: F Source: [place] EXAM 2:53 AM [facility] Medical Records Department [address] [place] [address] History and Physical 04/19/17 0238 MR#: [id number] Acct: [id number] Name: JONY VILLANUEVA Rep #: [id number] : 1945 72 From: Hosea Shukla MD PCP: Andrea Means DO Status: REG ER Y Location: ED Problem List (1) Smoker Status: Chronic (2) Hyperlipidemia Status: Chronic Qualifiers: (3) Atherosclerotic heart disease of ute coronary artery without angina pectoris Status: Chronic Qualifiers: Comment: CABG x4; PARKER to LAD, SVG sequentially to 1st and 2nd diag branches of anterior descending and to CX with suture repair of small ASD 06/2006 (4) Nonrheumatic mitral valve insufficiency Status: Chronic (5) Pulmonary hypertension Status: Chronic (6) Paroxysmal atrial fibrillation Status: Acute (7) COPD (chronic obstructive pulmonary disease) with acute bronchitis Status: Chronic (8) HTN (hypertension) Status: Chronic Qualifiers: (9) Mitral valve insufficiency Status: Chronic (10) Chest pain Status: Acute Qualifiers: Chest pain type: chest pain on breathing Qualified Code(s): R07.1 - Chest pain on breathing; R07.81 - Pleurodynia History of Present Illness Date of Admission: 04/19/17 Chief Complaint: shortness of breath The patient is a 72 year old male patient who had back surgery five days ago at the [facility] who presents for acute shortness of breath and chest pain on the left lower side. He has not been compliant with his spirometer post surgery and continues to smoke despite an extensive cardiac history. Chest X-ray is unremarkable, however, focal consolidation is noted in the left lower lobe. While his CBC is within normal limits the patients is tachypneic and now has an oxygen requirement to maintain his pulse oximetry in the 90% range. He will be admitted for HCAP. Past Medical History Past Medical History (Chronic Problems): Chronic Problems (Last Reviewed 04/07/17 @ 13:07 by Fay Mcnulty) Smoker (Chronic) Hyperlipidemia (Chronic) Atherosclerotic heart disease of ute coronary artery without angina pectoris (Chronic) CABG x4; PARKER to LAD, SVG sequentially to 1st and 2nd diag branches of anterior descending and to CX with suture repair of small ASD 06/2006 Nonrheumatic mitral valve insufficiency (Chronic) Pulmonary hypertension (Chronic) COPD (chronic obstructive pulmonary disease) with acute bronchitis (Chronic) HTN (hypertension) (Chronic) CHF NYHA class III (symptoms with mildly strenuous activities) (Chronic) Mitral valve insufficiency (Chronic) Allergies simvastatin Adverse Reaction (Severe, Verified 04/19/17 00:12) myalgias Home Medications: Ambulatory Orders Medication Instructions Recorded Amiodarone HCl 200 mg PO DAILY 04/19/17 Surgical History: coronary bypass surgery, - - foot surgery, toe surgery, lipoma on wrist. Smoking Status: Current every day smoker - *Family History Maternal Family History: Family History (Last Reviewed 04/07/17 @ 13:07 by Fay Mcnulty) Mother CVA (cerebral vascular accident) Brother CAD (coronary artery disease) Brother CAD (coronary artery disease) History Items: No pertinent history Sibling Family History: Family History (Last Reviewed 04/07/17 @ 13:07 by Fay Mcnulty) Mother CVA (cerebral vascular accident) Brother CAD (coronary artery disease) Brother CAD (coronary artery disease) History Items: - - brothers with heart surgery. Review of Systems Constitutional: Reports: Chills, Fever, Weakness, Fatigue. Denies: Weight Change HEENT: Denies: Head Aches, Sinus Congestion, Sinus Drainage Cardiovascular: Reports: Chest Pain. Denies: Palpitations Respiratory: Reports: Shortness of breath at rest. Denies: Cough, Sputum production Gastrointestinal: Denies: Abdominal Pain, Nausea, Vomiting Genitourinary: Denies: Dysuria Musculoskeletal: Reports: Back Pain. Denies: Joint Pain, Joint Tenderness Skin: Denies: Rash, Wounds Neurological: Denies: Numbness, Tingling, Focal weakness Psychiatric: Denies: Anxiety, Depression, Homicidal Ideations, Suicidal Ideations Hematologic/ Lymphatic: Denies: Easy Bruising, Easy Bleeding VTE Information - Inpt Only VTE Present on Admission: No VTE Mechan Device Prophylaxis: SCD's VTE Pharm Prophylaxis ordered?: No - Physical Exam General: Alert, Oriented x3, Cooperative HEENT: Atraumatic, Normocephalic Neck: Supple Lungs: No wheeze, Diminished, Rhonchi Cardiovascular: Regular rate, Regular Rhythm, Normal S1, Normal S2 Abdomen: Bowel Sounds Present, Soft, Non Tender Extremities: No edema, Capillary Refill Less than 3 Seconds Skin: No rashes Musculoskeletal: No Tenderness to Palpation of Joints or Extremities, Tenderness - lower back Neurological: Neuro grossly intact Psych/Mental Status: Normal Affect, Appropriate Vital Signs Temp Pulse Resp BP Pulse Ox 100.5 F H 99 28 H 145/61 H 94 04/19/17 00:08 04/19/17 02:00 04/19/17 02:00 04/19/17 02:00 04/19/17 02:00 Oxygen Flow Rate 2 Oxygen Delivery Method Nasal Cannula Weight: 180 lb Body Mass Index (BMI) 25.8 Microbiology Past 72 Hours 04/19/17 00:30 Influenza Types A,B Direct FA (TASNEEM) - Final Mucosa - Nasopharyngeal Laboratory Tests Past 24 Hrs WBC RBC Hgb Hct MCV MCH MCHC RDW RDW Differential Plt Count MPV Immature Gran % (Auto) Neut % (Auto) Lymph % (Auto) Assessment/Plan Assessment - hospital acquired pneumonia Chronic Problems (Last Reviewed 04/07/17 @ 13:07 by Fay Mcnulty) Atherosclerotic heart disease of ute coronary artery without angina pectoris (Chronic) CABG x4; PARKER to LAD, SVG sequentially to 1st and 2nd diag branches of anterior descending and to CX with suture repair of small ASD 06/2006 Pulmonary hypertension (Chronic) COPD (chronic obstructive pulmonary disease) with acute bronchitis (Chronic) HTN (hypertension) (Chronic) CHF NYHA class III (symptoms with mildly strenuous activities) (Chronic) Mitral valve insufficiency (Chronic) Plan - admit to medical surgical floor - initiate zosyn and cipro - cbc, bmp in am - duoneb inh q 4 hrs - solumedrol 60mg IV q 6hrs - oxygen per routine - morphine 4mg iv q 2 hrs prn pain - SCDs for DVT prophylaxis - smoking cessation discussed Code Visit Inpatient E AND M: [id number] Init Hosp L3 04/19/17 0253 <Electronically signed by Hosea Shukla MD> Date Hosea Shukla MD [facility] Signature: Date (if applicable) CC: Andrea Means DO; Hosea Shukla MD Signed CTA CHEST W/WO Observed: 04/19/2017 Status: F Source: [place] CONTRAST 12:56 AM [facility] Imaging Services [address] [place] [address] CTA Chest W/WO Contrast MR#: [id number] Acct: [id number] Name: JONY VILLANUEVA Rep #: [id number] : 1945 M 72 From: Stefano Barnes MD PCP: Andrea Means DO Status: REG ER Study: CTA Chest W/WO Contrast Date of Exam: 04/19/17 Exam# [id number] Ordering Dr: Anam Morgan MD STUDY: CTA CHEST REASON FOR EXAM: Male, 72 years old. Shortness of breath. Bladder cancer. RADIATION DOSAGE (If Supplied By Facility): CTDIvol = ( 16.55 ) mGy, DLP = ( 607.40 ) mGycm TECHNIQUE: The examination was performed with the intravenous administration of 100ML ml of Isovue 370 contrast material. Post-processing of the angiographic images was performed, with multiplanar reformation and 3D reconstruction. Individualized dose optimization techniques were used for this CT. COMPARISON: None. FINDINGS: : TRACHEA, THYROID, ESOPHAGUS: No tracheomalacia,stricture or wall thickening. Thyroid and esophagus are normal CARDIOVASCULAR SYSTEM:The thoracic aorta is normal with no aneurysm, dissection or developmental anomalies. The pulmonary trunk and the left and right pulmonary arteries and their lobar and segmental branches do not show any abnormal and persistent filling defects in them. There is therefore no evidence of pulmonary embolism. The heart is normal. There are no venous anomalies AWAIS AND LYMPH NODES: No hilar masses and no mediastinal, hilar, axillary or supraclavicular adenopathy LUNGS, LOW-ATTENUATION: No traction bronchiectasis, honeycombing,emphysema, lung cysts or cavitations LUNGS, HIGH ATTENUATION: There are areas of consolidations in both lung bases. The small the left than the right. LUNGS, MOSAIC/CRAZY PAVING: Not evident PLEURA AND CHEST WALL: No plural effusions, pneumothoraces,rib fractures or any osteolytic/osteoblastic changes . The soft tissue chest wall including the breasts are normal UPPER ABDOMEN: Unremarkable .. CT/CTA Chest W/WO Contrast IMPRESSION: Normal CTA chest examination, without a demonstrated pulmonary embolism or arterial dissection. Bibasilar consolidations. More on the left than the right. Pneumonia is suspected Electronically Signed: Stefano Barnes, at 2:47 EST Tel , Service support , CC: Andrea Means DO; Anam Morgan MD Solar Sales Consultant: Signed LACTIC ACID Collected: 04/19/2017 Status: F Source: [place] 12:40 AM [facility] Order Comment: Yes/No query for Sepsis Lactate Rule Y TYPE CODE TESTS RESULT OUT OF RANGE REFERENCE UNITS LAB L503.6005 0.4-2.0 mmol/L Normal LACTIC ACID 0.6 Performed By: #### L503.6005 #### [facility] [address] [place], [place], [address] Observed: 04/19/2017 Status: F Source: [place] CULTURE, BLOOD (WB) 12:40 AM [facility] BC No growth in 5 days. Performed By: #### M200.1000 #### [facility] [address] [place], [address] Observed: 04/19/2017 Status: F Source: XIMENA CULTURE, BLOOD (WB) 12:35 AM [facility] BC No growth in 5 days. Performed By: #### M200.1000 #### [facility] [address] [place], [address] Observed: 04/19/2017 Status: F Source: [place] INFLUENZA A+B (RAPID 12:30 AM [facility]) REPOSITORY FLU A/B Rapid Negative test results should be confirmed by culture. Order Rapid Viral Culture for Influenzae A+B ([id number]) if clinically indicated. Influenza Ag, Direct Presumptive NEGATIVE for Influenza A/B Antigen (See Note) Performed By: #### M101.0101 #### [facility] [address] [place], [address] CHEST 1 VIEW Observed: 04/19/2017 Status: F Source: [place] (PORTABLE) 12:16 AM [facility] Imaging Services [address] [place] [address] Chest 1 View (Portable) MR#: [id number] Acct: [id number] Name: JONY VILLANUEVA Shruti Rep #: [id number] : 1945 M 72 From: Stefano Barnes MD PCP: Andrea Means DO Status: REG ER Study: Chest 1 View (Portable) Date of Exam: 04/19/17 Exam# [id number] Ordering Dr: Anam Morgan MD STUDY: X-RAY CHEST REASON FOR EXAM: Male, 72 years old. Shortness of breath TECHNIQUE: 1 view COMPARISON: April 07, 2016 FINDINGS: There is no acute pneumonia or failure. Chronic interstitial changes are seen bilaterally. Median sternotomy wires are noted. The heart is slightly enlarged. Normal visualized thoracic spine. Normal visualized ribs, clavicles, and shoulders. There is no demonstrated abnormality of the visualized soft tissue structures of the upper abdomen. RAD/Chest 1 View (Portable) IMPRESSION: No acute findings in the lungs. Chronic interstitial changes bilaterally. Mild cardiomegaly. Electronically Signed: Stefano Barnes, at 2:23 EST Tel , Service support , CC: Andrea Means DO; Anam Morgan MD Solar Sales Consultant: Signed CBC W/DIFF, AUTOMATED Collected: 04/19/2017 Status: F Source: XIMENA 12:15 AM [facility] TYPE CODE TESTS RESULT OUT OF RANGE REFERENCE UNITS LAB L100.1000 4.4-11.0 K/mm3 Normal WBC 10.6 LAB L100.1200 4.6-6.2 M/mm3 Low RBC 4.37 LAB L100.1300 13.0-16.5 g/dl Low HGB 12.8 LAB L100.1400 40-54 % Low HCT 38.3 LAB L100.1500 80-94 fL Normal MCV 87.6 LAB L100.1600 27.0-32.0 pg Normal MCH 29.3 LAB L100.1700 32-36 g/gl Normal MCHC 33.4 LAB L100.1810 11.6-14.6 % Normal RDW CV 13.6 LAB L100.1820 35.1-43.9 fl Normal RDW SD 43.7 LAB L100.1900 150-450 K/mm3 Normal PLT 262 LAB L100.2000 6.2-12.0 fl Normal MPV 9.0 LAB L100.2100 47-70 % Normal NEUT% 69.0 LAB L100.2200 19-41 % Normal LY% 19.1 LAB L100.2300 0-10 % High MONO% 11.0 LAB L100.2400 0-5 % Normal EO% 0.4 LAB L100.2500 0-1 % Normal BASO% 0.1 LAB L100.2550 0.0-0.9 % Normal IM GRAN % 0.400 Result Comment: IG% - Immature Granulocytes (promyelocytes, myelocytes and metamyelocytes) > 1% indicates that a LEFT SHIFT is Present. LAB L100.2620 2.0-7.7 X10 3/uL Normal Absolute Neut 7.3 LAB L100.2720 0.83-4.51 X10 3/ul Normal Absolute Lymph 2.02 Performed By: #### L100.0100 #### [facility] [address] [place], [address] BASIC METABOLIC Collected: 04/19/2017 Status: F Source: [place] PROFILE (BMP) 12:15 AM [facility] Order Comment: 'TROP' Serial specimen #1, #2, #3, or #4: 1 TYPE CODE TESTS RESULT OUT OF RANGE REFERENCE UNITS LAB L501.0100 70-110 mg/dL Normal GLU 102 LAB L501.1000 7-18 mg/dL Normal BUN 16 LAB L501.1100 0.70-1.30 mg/dL Normal 0.90 CREAT,SERUM Result Comment: The validity of the calculated GFR AND GFRAA in patients over 70 years has not been determined. Clinical correlation is essential. LAB L501.1110 >60 mL/min Normal EST GFR 88 Result Comment: Non- GFR Calc LAB L501.1115 >60 mL/min Normal EST GFR - AA 106 Result Comment: GFR Calc LAB L501.1255 ml/min Normal Estimated CRCL 76.60 LAB L501.1300 10-20 RATIO Normal BUN/CRE 17.7 LAB L501.2200 8.5-10 mg/dL Normal .1 CA 8.9 LAB L501.5300 136-14 mmol/L Low 5 NA 135 LAB L501.5600 3.5-5. mmol/L Normal 1 K 4.1 Result Comment: Moderate Hemolysis, Result may be falsely increased. LAB L501.5900 98-107 mmol/L Normal CL 103 LAB L501.6100 21.0-32.0 mmol/L Normal CO2 27.0 LAB L501.6200 5-15 Normal 5 GAP Performed By: #### L500.2500, L501.4010 #### [facility] [address] [place], [address] TROPONIN-I Collected: 04/19/2017 Status: F Source: [place] 12:15 AM [facility] Order Comment: 'TROP' Serial specimen #1, #2, #3, or #4: 1 TYPE CODE TESTS RESULT OUT OF RANGE REFERENCE UNITS LAB L501.4010 <0.06 ng/mL Normal < 0.02 TROPONIN-I Result Comment: TROPONIN-I EXPECTED VALUES <0.05 NEGATIVE 0.06 - 0.59 AT RISK OF TX > OR = 0.60 SUGGEST TX Performed By: #### L500.2500, L501.4010 #### [facility] [address] [place], [address] BNP,B-TYPE NATRIURETIC Collected: 04/19/2017 Status: F Source: [place] PEPTIDE 12:15 AM [facility] TYPE CODE TESTS RESULT OUT OF RANGE REFERENCE UNITS LAB L503.6620 0-100 pg/mL Normal B-TYPE 22.1 SHARATH PEP Performed By: #### L503.6620 #### [facility] [address] [place], [address] EMERGENCY DEPARTMENT Observed: 04/17/2017 Status: F Source: [place] SUMMARY 11:34 PM [facility] Medical Records Department [address] [place] [address] Emergency Department Summary 04/17/172030 MR#: [id number] Acct: [id number] Name: JONY VILLANUEVA Rep #: [id number] : 1945 72 From: Deidre Hudson MD PCP: Andrea Means DO Status: DEP ER - ER Visit Summary Date of Service: 04/17/17 Chief Complaint: Right foot swelling History of Present Illness: The patient is a 72 M who had back surgery 3 days ago the [facility]. Patient today noted increased swelling in his feet right more so than left. He denies chest pain or shortness of breath. Family called [facility] and they advised patient should be seen for possible blood clot. Patient does admit that he has not been elevating his feet as much as normal. He states that the swelling does not seem to be as bad now as it was earlier today. Physical Examination: Vital signs are unremarkable. Head neck examination is normal. Heart is regular rate and rhythm. Lungs are clear. Abdomen is soft nontender. Back examination reveals an incision of the lumbar spine with najma intact. There is no sign of secondary infection. Lower extremity examination reveals 1+ bilateral edema to his feet. There is no erythema or tenderness. He has normal strength and sensation with strong distal pulses. Test Results: [] Emergency Department Course and Treatment: Patient presents on a Tuesday evening when we do not have vascular ultrasound available. This was explained to patient and family. At this point my clinical suspicion for a clot is low and if he does have a clot it is likely below the knee. I feel the risk of giving him an anticoagulant tonight would be greater than observation tonight with outpatient ultrasound tomorrow. Family is in agreement with this. Patient be given a order for outpatient ultrasound return tomorrow for this study. Treatment Plan: [] Disposition: Discharge Impression: Lower extremity edema status post surgery This note was generated with Cirqleation software. It may contain incorrect words, spelling, and punctuation that were not noted in review of the chart prior to signing ED Disposition - Plan for ED Patient: Chief Complaint: Edema Referrals: Andrea Means DO [Primary Care Provider] - What to do if you have Problems For any increased pain, shortness of breath, bleeding, nausea or vomiting, chest pain, or any unexpected problems, contact your Primary Care Provider. Call [facility] ([phone]) or report to the closest Emergency Room. Call 911 if necessary. 04/17/17 1854 <Electronically signed by Deidre Hudson MD> Date Deidre Hudson MD Cosigner Signature (If Indicated): Date CC: Andrea Means DO DISCHARGE INSTRUCTION Observed: 04/17/2017 Status: F Source: XIME[place] 8:35 PM [facility] Medical Records Department [address] [place] [address] Discharge Instruction 04/17/172032 MR#: [id number] Acct: [id number] Name: VILLANUEVAJONY Rep #: [id number] : 1945 72 From: Deidre Hudson MD PCP: Andrea Means DO Status: REG ER ED Disposition - Plan for ED Patient: Disposition: Home or Assisted Living Chief Complaint: Edema Instructions: ED Leg Swelling Bilateral Referrals: Andrea Means DO [Primary Care Provider] - Additional Instructions: Return tomorrow for outpatient ultrasound as discussed. What to do if you have Problems For any increased pain, shortness of breath, bleeding, nausea or vomiting, chest pain, or any unexpected problems, contact your Primary Care Provider. Call [facility] ([phone]) or report to the closest Emergency Room. Call 911 if necessary. 04/17/172034 <Electronically signed by Deidre Hudson MD> Date Deidre Hudson MD Cosigner Signature (If Indicated): Date CC: Andrea Means DO CARDIOLOGY VISIT Observed: 04/07/2017 Status: F Source: [place] REPORT 1:55 PM [facility] [address] [place] [address]. [address] [place] [address] OFFICE VISIT Date of Service: 04/07/17 MR#: [id number] Acct: [id number] Name: JONY VILLANUEVA Rep #: [id number] : 1945 Provider: Hosea Bueno MD Age/Sex: 72/M [place] [facility] [place]: Signed HPI CARDIAC CLEARENCE FOR BACK SURGERY ON 04/14/17: Details: JONY VILLANUEVA, is a 72 M who presents to the office today for for outpatient cardiovascular follow-up and preoperative cardiovascular evaluation. He has a history of underlying CAD status post remote CABG and previous RCA PTCA/YAMILET (April 2016) superimposed upon a history of underlying mitral valve regurgitation, tricuspid valve regurgitation, aortic valve sclerosis, atrial fibrillation-paroxysmal, hyperlipidemia, and hypertension. He states overall from a cardiac standpoint he has been doing well. He is not complaining of any ongoing issues of classic angina pectoris at rest or with exertion. He has not had any overt issues of CHF or pulmonary edema. There has been no near syncope or syncope. He recently developed low back/left hip discomfort. He states it is related to nerve impingement. He is due to have surgery 1 week from today. He states he was evaluated by his primary care physician. An ECG was obtained. Based upon review of a fax copy of the ECG there appeared to be underlying normal sinus rhythm. There were no new acute changes. He did have previous noninvasive and invasive studies performed in 2015 and 2016 respectively. His overall LV systolic function has remained preserved. His last catheter based evaluation and intervention was on 04/08/2016. At that time he underwent RCA YAMILET. He has not required additional cardiovascular studies since that time. Intake Vital Signs04/07/17 Height 5 ft 10 in 04/07/17 Weight: 190 lb 04/07/17 Body Mass Index (BMI) 27.2 04/07/17 Blood Pressure 130/64 Intake Visit Reasons: CARDIAC CLEARENCE FOR BACK SURGERY ON 04/14/17 Allergies simvastatin Adverse Reaction (Severe, Verified 04/06/17 18:26) myalgias Medications Finasteride [Proscar] 5 mg PO QHS 08/04/13 [History Confirmed 04/07/17] Metoprolol(XL)Succ [Toprol Xl (Beta Rema)] 25 mg PO DAILY 08/04/13 [History Confirmed 04/07/17] Tamsulosin HCl [Flomax] 0.4 mg PO DINNER 08/04/13 [History Confirmed 04/07/17] Amiodarone HCl [Cordarone] 200 mg PO DAILY 04/07/16 [History Confirmed 04/07/17] Aspirin E.C. [Ecotrin] 81 mg PO DAILY@0800 tab 04/09/16 [Rx Confirmed 04/07/17] Clopidogrel Bisulfate [Plavix] 75 mg PO DAILY #30 tab 04/09/16 [Rx Confirmed 04/07/17] Gabapentin [Neurontin] 300 mg PO QHS #30 cap 03/11/17 [Rx Confirmed 04/07/17] fentanyl 50 mcg/hr transdermal patch 1 patch TRANSDERMAL Q72H 04/07/17 [History Confirmed 04/07/17] furosemide 20 mg tablet 20 mg PO DAILY PRN tab 04/07/17 [History] oxycodone 15 mg tablet 15 mg PO Q4H PRN tab 04/07/17 [History Confirmed 04/07/17] simvastatin 20 mg tablet 20 mg PO QPM 04/07/17 [History Confirmed 04/07/17] temazepam 15 mg capsule 30 mg PO QHS PRN cap 04/07/17 [History Confirmed 04/07/17] PFSH Medical History Hyperlipidemia (Acute) Atherosclerotic heart disease of ute coronary artery without angina pectoris (Chronic) Long-term use of high-risk medication (Acute) Nonrheumatic mitral valve insufficiency (Acute) Pulmonary hypertension (Chronic) Paroxysmal atrial fibrillation (Acute) COPD (chronic obstructive pulmonary disease) with acute bronchitis (Chronic) HTN (hypertension) (Chronic) CHF NYHA class III (symptoms with mildly strenuous activities) (Chronic) Mitral valve insufficiency (Chronic) Chest pain (Acute) Aortic dilatation (Acute) BPH (benign prostatic hyperplasia) (Acute) Tobacco abuse (Acute) Atherosclerosis of coronary artery of ute heart without angina pectoris (Inactive) Atrial fibrillation with rapid ventricular response (Inactive) BPH (benign prostatic hyperplasia) (Inactive) CAD (coronary artery disease) (Inactive) Dyslipidemia (Inactive) Gupta catheter problem (Inactive) History of coronary artery disease (Inactive) Pneumonia (Inactive) Tobacco dependence (Inactive) Surgical History Aortocoronary bypass status (Resolved 06/2006) History of arthroscopic knee surgery (Resolved) History of cystoscopy (Resolved) History of hemorrhoidectomy (Resolved) History of transurethral resection of prostate (Resolved) Family History Mother CVA (cerebral vascular accident) Brother CAD (coronary artery disease) Brother CAD (coronary artery disease) Social History Smoking Status: Current every day smoker alcohol intake: never substance use type: does not use ROS Const Const: Negative for fatigue, weakness, weight gain, weight loss, frequent falls or excessive sweating Eyes Eyes: Negative for change in vision, blurry vision or transient loss of vision ENT ENT: Negative for dizziness, Negative for balance problems Cardio Chest Pain: No Palpitations: Positive for No Edema: None Muscle aches with walking: None Additional Details: Patient in for cardiac clearance for back surgery; pinched nerve. Patient states that he has been feeling well. Resp Respiratory: Negative for SOB with activity or SOB at rest GI GI: Negative vomiting or vomiting blood/hematemesis : Negative for hematuria Musc Musc: Positive for muscle aches/ myalgia (bilat LE ); negative for balance problems, muscle weakness or joint pain Skin Skin: Negative non-healing lesions or rash Neuro Neuro: Negative for weakness, Negative for blurry vision, Negative for dizziness, Negative for lightheadedness, Negative for frequent falls, Negative for orthostatic symptoms Darvin Hematologic/Lymphatic: Negative for easy bleeding Endo Endo: Negative for fatigue or excessive sweating Psych Psych: Negative for anxiety or depression Allergy Allergy/Immunology: Negative for hives, Negative for rash Cardiology Exam Const Appearance: cooperative, healthy appearing, well developed, well groomed and other (uncomfortable appearing (secondary to back / hip issues)) Nutritional Appearance: average body habitus and well nourished Orientation: alert, awake and oriented x3 Head Head: normal to inspection and normocephalic Ears: hearing grossly normal bilaterally Nose: external nose normal Face and Sinus: face symmetric Mouth: oral mucosae normal Eyes General: appearance normal, both eyes and all related structures Eyelids: eyelids normal Conjunctivae: conjunctivae normal Pupils: PERRL EOM: EOM intact bilaterally Neck Neck: normal visual inspection Carotids: normal carotid upstroke Chest Chest inspection: normal inspection of the chest and symmetric chest movement Auscultation: Bilateral: Clear to Auscultation Cardio Palpation: normal PMI Rate: regular rate Rhythm: regular rhythm Heart sounds: S1 normal and S2 normal GI GI: normal to inspection, bowel sounds present, soft and no hepatosplenomegaly Neuro General: alert, awake and oriented x3 Skin Skin: no rashes or lesions noted Extremities Pulses: Normal: Right Radial Pulse, Left Radial Pulse Lower Extremity Edema: None: Bilateral Musculoskel Back / hip discomfort Psych Psychological: normal affect Assessment AND Plan 1. Atherosclerosis of ute coronary artery of ute heart without angina pectoris I25.10; I25.10; I25.10 CABG x4; PARKER to LAD, SVG sequentially to 1st and 2nd diag branches of anterior descending and to CX with suture repair of small ASD 06/2006 Plan He does have a history of underlying CAD. He is undergone revascularization in the past as previously noted. He has been doing well without any recurrent clinical events. The present time ideally he would continue risk factor modification medical management. Theoretically he is now 1 year out from his most recent PCI and should be able to interrupt his antiplatelet therapy with respect to his clopidogrel/Plavix. With respect to his upcoming noncardiac surgical procedure he states he has been asked to interrupt all agents that affect his blood. Thus he will be allowed to temporarily interrupt his aspirin therapy and his clopidogrel/Plavix therapy. Following his surgery he should resume his aspirin therapy. Ideally he should be able to remain off of his Medical/Plavix therapy now that he is 1 year out from his most recent PCI without additional cardiovascular events. Orders Orders: 2. Nonrheumatic mitral valve insufficiency I34.0 Plan He does have a history of mitral valve regurgitation. He appears to be symptomatically and hemodynamically stable at this time. He will continue to be followed. Orders Orders: 3. Aortic valve sclerosis I35.8 Plan He also has a history of aortic valve sclerosis. He will continue evaluation care and follow-up as deemed appropriate. 4. Paroxysmal atrial fibrillation I48.0 Plan He has a history of paroxysmal atrial fibrillation. It appears he is remaining in sinus rhythm. He will continue rate control therapy and his anti- arrhythmic therapy. He will resume his antiplatelet therapy as soon as possible following his surgical procedure. Orders Orders: 5. Hyperlipidemia, unspecified hyperlipidemia type E78.5; E78.5; E78.5 Plan He does have a history of hyperlipidemia. His previous lipid labs were reviewed. He will continue medical management and follow-up. Orders Orders: 6. Essential hypertension I10; I10; I10 Plan His blood pressure appears to be under good control at this time. He will continue medical therapy and follow-up. Orders Orders: 7. COPD (chronic obstructive pulmonary disease) with acute bronchitis J44.0; J20.9 Plan He has a history of underlying COPD. He will continue to follow with his primary care physician for this. Plan Detail Other Orders Orders: Other Medications Discontinued: Additional Comments Overall, with respect to his upcoming noncardiac surgery, he should have continued close monitoring of his cardiac rate and rhythm and blood pressure. Attempt should be made to avoid significant fluctuations in his vital signs and his volume status. He should continue medical management with exception of temporary interruption of his anti-platelet therapy with respect to his aspirin and his clopidogrel/Plavix therapy. He should resume his aspirin therapy as soon as possible following his surgical procedure. Ideally he should be able to remain off of his clopidogrel/Plavix therapy at this time. He should continue his other cardiovascular medicines in and around the time of his surgery as best as possible. He is at a higher risk for adverse cardiovascular events from noncardiac surgery based upon his previous condition. Hopefully based upon what appears to be a stable clinical course without acute symptoms or objective changes, with close monitoring and follow-up, his risks for adverse cardiovascular events from noncardiac surgery will be kept at a minimum. The above was discussed with the patient. He was agreeable to this approach. Thank you for allowing me to participate in the care of your patient. Please don't hesitate to call if any issues arise. This note was generated using a voice recognition system and there may be incorrect words, spelling or punctuation that were not noted when reviewing the office note prior to saving. Follow Up 6 Months (PA/LITIGATION ASSOCIATE) 04/07/17 8315 <Electronically signed by Hosea Bueno MD> Date Hosea Bueno MD Cosigner Signature: Date (if applicable) CC: Andrea Means DO ALLERGIES ALLERGIES DATE TYPE / CODE NAME / CODE REACTION SEVERITY SOURCE 01/16/2018 Drug No Known Unknown [facility]/4160 Allergies/F00 [place] [id number](SNOMED 7454124(RXNOR Repository CT) M) 10/17/2017 Drug simvastatin/F MYALGIAS SV [facility] Allergy/4160 [id number]([facility] 29199(SNOMED ORM) Repository CT) ENCOUNTERS ENCOUNTERS ADMIT/DISCHARGE ACCOUNT ADMITTING ENCOUNTER LOCATION SOURCE NUMBER CLASS 03/03/2018 [id number] Ambulatory [address] ing:HPRAD Repository 03/03/2018 [id number] Ambulatory [address] ing:HPRAD Repository 03/03/2018/ [id number] Ambulatory BMSBuilding:B [place] [facility] 5 [facility] Repository 01/30/2018 [id number] Ambulatory [place] [facility] ing:LAB.FUTUR Repository E 01/16/2018/ [id number] Emergency [place] [facility] 9 [facility] ing:ED Repository 10/17/2017/ [id number] Ambulatory BMSBuilding:B [place] [facility] 2 [facility] Repository 07/07/2017 [id number] Ambulatory BMSBuilding:B [place] [facility] [place] Repository 07/05/2017 [id number] Ambulatory BMS [place] 2 [facility] Repository 07/05/2017 [id number] Ambulatory BMS [place] 5 [facility] Repository 06/27/2017 [id number] Ambulatory BMSBuilding:B [place] 0 [place] Repository 04/19/2017/ [id number] Hosea Shukla Inpatient [place] [facility] 2 [facility] ing:XG7Corh: Repository [id number]: 1 04/19/2017 [id number] Hosea Shukla Ambulatory BMSBuilding:B [place] [facility] Repository 04/19/2017/ [id number] Ambulatory BMSBuilding:W [place] [facility] 5 [facility] Repository 04/19/2017 [id number] Ambulatory BMSBuilding:B [place] 7 [facility] Repository 04/18/2017 [id number] Ambulatory [place] 1 [facility] ing:[facility] Repository 04/17/2017/ [id number] Emergency [place] [address] 0 [facility] ing:ED Repository 04/08/2017 [id number] Ambulatory BMSBuilding:B [place] 9 [facility] Repository 04/07/2017/ [id number] Ambulatory BMSBuilding:B [place] [facility] 1 [place] [facility] Repository 04/06/2017 [id number] Ambulatory BMSBuilding:B [place] 0 [place].[facility] Repository 04/06/2017 [id number] Ambulatory BMSBuilding:B [place] 9 [place].[facility] Repository PAYERS PAYERS ENCOUNTER GUARANTOR PAYER SUBSCRIBER SOURCE 03/03/2018 JONY Bahena Primary JONY Bueno [id number] Insurance:HUMANA MAGI LYNNSONDOB: [address] MEDICAREPolicy [id number] Number: Repository [address]Bvl: 419 [id number] [phone] (HP) Date:4409-17-26MD [address] [place] [address]WP: 03/03/2018 Secondary NOT GIVENUNK [place] Insurance:SELF PAY [facility] Number: Effective Repository Date:2018-03-03 03/03/2018 JONY Bahena Primary JONY Shruti [place] [id number] Insurance:HUMANA MAGI LYNNSONDOB: [address] MEDICAREPolicy [id number] Number: Repository [id number]: 419 [id number] [phone] (HP) Date:2380-87-89WR [address] [place] [address]SI: 03/03/2018 Secondary NOT GIVENUNK [place] Insurance:SELF PAY [facility] Number: Effective Repository Date:2018-03-03 03/03/2018 JONY Bahena Primary JONY Shruti CordobaXimena [id number] Insurance:HUMANA MAGI LYNNSONDOB: [address] MEDICAREPolicy [id number] Number: Repository [id number]: 419 [id number] [phone] (HP) Date:8209-75-00IA [address] [place] [address]QA: 03/03/2018 Secondary NOT GIVENUNK [place] Insurance:SELF PAY [facility] Number: Effective Repository Date:2018-03-03 01/30/2018 JONY Bahena Primary JONY Cordobaoster [id number] Insurance:HUMANA MAGI LYNNSONDOB: [address] MEDICAREPolicy [id number] Number: Repository [id number]: ([phone] [id number] [phone] (HP) Date:7084-77-96BA [address] [address]EJ: 01/30/2018 Secondary NOT GIVENUNK [place] Insurance:SELF PAY [facility] Number: Effective Repository Date:2018-01-30 01/16/2018 JONY Shruti Primary JONY J [place] [id number] Insurance:HUMANA GOLD DAWSONDOB: [address] MEDICAREPolicy [id number] Number: Repository [id number]: 419 [id number] [phone] (HP) Date:2581-91-86RZ [address] [address]CW: 01/16/2018 Secondary NOT GIVENUNK [place] Insurance:SELF PAY [facility] Number: Effective Repository Date:2018-01-16 10/17/2017 JONY Bahena Primary JONY J [place] [id number] Insurance:HUMANA MAGI DAWSONDOB: [address] MEDICAREPolicy [id number] Number: Repository [id number]: ([phone] [id number] [phone] (HP) Date:6688-90-90EO [address] [address]WH: 10/17/2017 Secondary NOT GIVENUNK [place] Insurance:SELF PAY [facility] Number: Effective Repository Date:2017-10-17 07/07/2017 Jony Bahena Primary Jony J [place] [id number] Cr Insurance:HUMANA GOLD DawsonDOB: [address], [place] MEDICAREPolicy [id number] [address]Naa: (419) Number: Repository [phone] () [id number] Date:4100-78-91XT [address] [address]RS: 07/07/2017 Secondary NOT GIVENUNK [place] Insurance:SELF PAY [facility] Number: Effective Repository Date:2017-05-13 07/05/2017 Jony Bahena Primary Jony Bueno [id number] Cr Insurance:HUMANA MAGI DawsonDOB: [address], [place] MEDICAREPolicy [id number] [address]Cpj: (419) Number: Repository [phone] () [id number] Date:6346-96-93LK [address]: 07/05/2017 Secondary NOT GIVENUNK [place] Insurance:SELF PAY [facility] Number: Effective Repository Date:2017-07-05 07/05/2017 Jony Bahena Primary Jony Bueno [id number] [address] Insurance:HUMANA MAGI DawsonDOB: [address], [place] MEDICAREPolicy [id number] [address]Tel: (419) Number: Repository [phone] () [id number] Date:8709-56-92VG [place] [address]WP: 07/05/2017 Secondary NOT GIVENUNK [place] Insurance:SELF PAY [facility] Number: Effective Repository Date:2017-07-05 06/27/2017 Jony Bahena Primary Jony Bueno [id number] [address] Insurance:HUMANA MAGI DawsonDOB: [address] MEDICAREPolicy [id number] [address]Iim: (419) Number: Repository [phone] () [id number] Date:7938-88-77HM [address] [address]FN: 06/27/2017 Secondary NOT GIVENUNK [place] Insurance:SELF PAY [facility] Number: Effective Repository Date:2017-03-16 04/19/2017 Jony Bahena Primary Jony Bueno [id number] [address] Insurance:HUMANA GOLD DawsonDOB: [address] MEDICAREPolicy [id number] [address]Zpu: (419) Number: Repository [phone] () [id number] Date:6218-20-10ZR [address] [address]TL: 04/19/2017 Secondary NOT GIVENUNK [place] Insurance:SELF PAY [facility] Number: Effective Repository Date:2017-04-19 04/19/2017 Jony Bahena Primary Jony Bueno [id number] [address] Insurance:HUMANA GOLD DawsonDOB: [address] MEDICAREPolicy [id number] [address]Tme: (419) Number: Repository [phone] () [id number] Date:8496-89-35SC [address] [address]KY: 04/19/2017 Secondary NOT GIVENUNK [place] Insurance:SELF PAY [facility] Number: Effective Repository Date:2017-04-19 04/19/2017 Jony Bahena Primary Jony Bahena [place] [id number] [address] Insurance:HUMANA GOLD DawsonDOB: [address], [place] MEDICAREPolicy 1945[address] [address]Tel: (419) Number: Repository [phone] () [id number] Date:3248-97-58LK [address] [address]VZ: 04/19/2017 Secondary NOT GIVENUNK [place] Insurance:SELF PAY [facility] Number: Effective Repository Date:2017-04-19 04/19/2017 Jony Bahena Primary Jony Bahena [place] [id number] [address] Insurance:HUMANA GOLD DawsonDOB: [address] MEDICAREPolicy [id number] [address]Pkl: (419) Number: Repository [phone] () [id number] Date:3370-32-95EE [address] [address]SJ: 04/19/2017 Secondary NOT GIVENUNK [place] Insurance:SELF PAY [facility] Number: Effective Repository Date:2017-04-19 04/18/2017 Jony J Primary Jony Bahena [place] [id number] Cr Insurance:HUMANA GOLD DawsonDOB: [address] MEDICAREPolicy [id number] Hospital [address]Jxl: (419) Number: Repository [phone] () [id number] Date:5096-50-76AQ [address]46[address]WP: 04/18/2017 Secondary NOT GIVENUNK [place] Insurance:SELF PAY [facility] Number: Effective Repository Date:2017-04-18 04/17/2017 Jony J Primary Jony J [place] [id number] Cr Insurance:HUMANMahi VillanuevaDOB: [address] MEDICAREPolicy [id number] Hospital [address]Yuq: (419) Number: Repository [phone] () [id number] Date:5674-93-86RX [address]46[address]WP: 04/17/2017 Secondary NOT GIVENUNK [place] Insurance:SELF PAY [facility] Number: Effective Repository Date:2017-04-17 04/08/2017 Jony J Primary Jony J [place] [id number] Cr Insurance:FELISHA LynnsonDOB: [address] MEDICAREPolicy [id number] Hospital [address]Mvs: (419) Number: Repository [phone] () [id number] Date:3605-93-72TO [address] [address]PS: 04/08/2017 Secondary NOT GIVENUNK [place] Insurance:SELF PAY [facility] Number: Effective Repository Date:2017-03-25 04/07/2017 Jony J Primary Jony J [place] [id number] Cr Insurance:FELISHA VillanuevaDOB: [address] MEDICAREPolicy [id number] Hospital [address]Vxd: (419) Number: Repository [phone] () [id number] Date:1699-42-04PU [address] [address]BW: 04/07/2017 Secondary NOT GIVENUNK [place] Insurance:SELF PAY [facility] Number: Effective Repository Date:2017-03-25 04/06/2017 Jony Bueno [id number] [address] Insurance:FELISHA VillanuevaDOB: [address] MEDICAREPolicy [id number] Hospital [address]Egn: (419) Number: Repository [phone] () [id number] Date:3353-56-06IT [address] [address]PD: 04/06/2017 Secondary NOT GIVENUNK [place] Insurance:SELF PAY [facility] Number: Effective Repository Date:2017-04-06 04/06/2017 Jony Bueno [id number] [address] Insurance:FELISHA VillanuevaDOB: [address] MEDICAREPolicy [id number] Hospital [address]Xhm: (419) Number: Repository [phone] () [id number] Date:9669-41-89GY[address] [address]JZ: 04/06/2017 Secondary NOT GIVENUNK [place] Insurance:SELF PAY [facility] Number: Effective Repository Date:2017-03-16
== END ==
PROVIDERS: Family Provider Family Medicine; PCP Family Medicine; Referring Provider Physician Assistant; Visit Provider Physician Assistant
DX: M25.551 Pain in right hip (principal)
CPT/HCPCS: 73502

== ENCOUNTER → 2018-03-03 11:23 | Outpatient (CLI) | payer MEDICARE, SELFPAY ==
[2016-04-09 09:01] VITALS: BMI 28.3
--- NOTE | 2018-03-03 11:27 | RAD_ITS ---
HISTORY: LATERAL PAIN POST FALLING COMPARISON: None FINDINGS: 3 views right ankle: No fracture or dislocation. The tibiotalar joint space appears preserved. The ankle mortise is not widened. As visualized, the soft tissues are negative. IMPRESSION: Negative for fracture or acute osseous abnormality at 1271 Reported and signed by: Aldair Iyer MD Electronically Signed: Aldair Iyer, at 7:23 EST Tel , Service support , RAD/Ankle min 3 Views
--- OUTSIDE RECORDS SUMMARY | 2018-04-28 09:42 | XMS RPT_ITS ---
:1945 External Reference #:[id number] Author Organization OHIP Support Name Relationship Address Phone NIDHI VILLANUEVA Unavailable [address] + [place] [address] R Unavailable Unavailable Unavailable VILLANUEVA, NIDHI Unavailable [address] + [place] [address] R Unavailable Unavailable Unavailable VILLANUEVA, NIDHI Unavailable [address] +[phone] [place] [address] R Unavailable Unavailable Unavailable VILLANUEVA, NIDHI Unavailable [address] + [place] [address] R Unavailable Unavailable Unavailable VILLANUEVA, NIDHI Unavailable [address] + [place] [address] R Unavailable Unavailable Unavailable VILLANUEVA, NIDHI Unavailable [address] + [place] [address] R Unavailable Unavailable Unavailable VILLANUEVA, NIDHI Unavailable [address] + [place] [address] R Unavailable Unavailable Unavailable VILLANUEVA, NIDHI Unavailable [address] + [place] [address] R Unavailable Unavailable Unavailable VILLANUEVA, NIDHI Unavailable [address] +[phone] [place] [address] R Unavailable Unavailable Unavailable VILLANUEVA, NIDHI Unavailable [address] + [place] [address] R Unavailable Unavailable Unavailable VILLANUEVA, NIDHI Unavailable [address] + [place] [address] R Unavailable Unavailable Unavailable VILLANUEVA, NIDHI Unavailable [address] + [place] [address] R Unavailable Unavailable Unavailable VILLANUEVA, NIDHI Unavailable [address] + [place] [address] R Unavailable Unavailable Unavailable VILLANUEVA, NIDHI Unavailable [address] + [place] [address] R Unavailable Unavailable Unavailable VILLANUEVA, NIDHI Unavailable [address] + [place] [address] R Unavailable Unavailable Unavailable VILLANUEVA, NIDHI Unavailable [address] + [place] [address] R Unavailable Unavailable Unavailable VILLANUEVA, NIDHI Unavailable [address] + [place] [address] R Unavailable Unavailable Unavailable VILLANUEVA, NIDHI Unavailable [address] + [place] [address] R Unavailable Unavailable Unavailable VILLANUEVA, NIDHI Unavailable [address] + [place] [phone] R Unavailable Unavailable Unavailable VILLANUEVA, NIDHI Unavailable [address] + [place] [address] R Unavailable Unavailable Unavailable Care Team Providers [...] Unknown I10 - Essential Andrea Means (primary) [facility] hypertension / Hospital I10(ICD-10) Repository 01/30/2018 Unknown Z12.5 - Encounter for Andrea Means screening for [facility] malignant neoplasm of [facility] prostate / Repository Z12.5(ICD-10) 10/17/2017 Unknown E78.5 - RoofEfe Active [place] Hyperlipidemia, [facility] unspecified / Hospital E78.5(ICD-10) Repository 10/17/2017 Unknown I34.0 - Nonrheumatic RoofEfe Active [place] mitral (valve) [facility] insufficiency / Hospital I34.0(ICD-10) Repository 10/17/2017 Unknown I48.0 - Paroxysmal RoofEfe Active [place] atrial fibrillation / [facility] I48.0(ICD-10) Hospital Repository 10/17/2017 Unknown G47.00 - Insomnia, Efe Mcclellan Active [place] unspecified / Community G47.00(ICD-10) Hospital Repository 10/17/2017 Unknown I50.31 - Acute RoofEfe Active [place] diastolic [facility] (congestive) heart Hospital failure / Repository I50.31(ICD-10) 04/07/2017 Unknown I27.20 - Pulmonary MoodispaHosea michelle Active [place] hypertension, [facility] unspecified / Hospital I27.20(ICD-10) Repository PROCEDURES PROCEDURES No Procedure Records FoundRESULTS RESULTS ANKLE MIN 3 VIEWS Observed: 03/03/2018 Status: F Source: [place] 11:27 AM [facility] REPOSITORY [facility] Imaging Services [address] [place] [address] [place] [address] Ankle min 3 Views MR#: [id number] Acct: [id number] Name: JONY VILLANUEVA Rep #: [id number] : 1945 M 73 From: Aldair Iyer MD PCP: Andrea Means DO Status: REG CLI Study: Ankle min 3 Views Date of Exam: 03/03/18 Exam# [id number] Ordering Dr: Aldair Jimenez HISTORY: LATERAL PAIN [...] Views CC: ISABEL Jimenez; Andrea Means DO Chemical Maker: Signed HIP, UNI W/ PELVIS Observed: 03/03/2018 Status: F Source: [place] 2-3 VIEWS 10:48 AM [facility] REPOSITORY [facility] Imaging Services [address] [place] [address] HIP, UNI W/ Pelvis 2-3 Views MR#: [id number] Acct: [id number] Name: JONY VILLANUEVA Rep #: [id number] : 1945 M 73 From: Vickey Newman DO PCP: Andrea Means DO Status: REG CLI Study: HIP, UNI W/ Pelvis 2-3 Views Date of Exam: 03/03/18 Exam# [id number] Ordering Dr: Aldair Jimenez STUDY: X-RAY - [...] Vickey Newman DO at 9:13 EST Tel [phone], Service support , CC: ISABEL Jimenez; Andrea Means DO Chemical Maker: Signed EMERGENCY DEPARTMENT Observed: 01/16/2018 Status: F Source: [place] SUMMARY 11:38 PM [facility] REPOSITORY [facility] Medical Records Department [address] [place] [address] Emergency Department Summary 01/16/18 2200 MR#: [id number] Acct: [id number] Name: JONY VILLANUEVA Rep #: [id number] : 1945 72 From: Deidre Hudson MD PCP: Andrea Means DO Status: DEP ER - ER Visit Summary Date of Service: 01/16/18 Chief Complaint: Foreign body sensation right eye History of Present Illness: The patient is a 72 M who was using a metal sorter and a saw today. Several hours later [...] no significant injection. 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 It may contain incorrect words, [...] your Primary Care Provider. Call [facility] ([phone]) or report to the closest Emergency Room. Call 911 if necessary. 01/16/18 8878 <Electronically signed by Deidre Hudson MD> Date Deidre Hudson MD Cosigner Signature (If Indicated): Date CC: Andrea Means DO DISCHARGE INSTRUCTION Observed: 01/16/2018 Status: F Source: [place] 10:02 PM [facility] REPOSITORY [facility] Medical Records Department [address] [place] [address] Discharge Instruction 01/16/181 MR#: [id number] Acct: [id number] Name: JONY VILLANUEVA Shruti Rep #: [id number] : 1945 72 From: Deidre Hudson MD [...] your Primary Care Provider. Call [facility] ([phone]) or report to the closest Emergency Room. Call 911 if necessary. 01/16/182201 <Electronically signed by Deidre Hudson MD> Date Deidre Hudson MD Cosigner Signature (If Indicated): Date CC: Andrea Means DO CARDIOLOGY VISIT Observed: 10/18/2017 Status: F Source: [place] REPORT 7:19 AM [facility] REPOSITORY [facility] 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 Assessment AND Plan 1. 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 vs. 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 [place] vs. transplanted heart: sycuan heart S/P angioplasty with stent Z95.9 Paroxysmal atrial fibrillation I48.0 Essential hypertension I10 Hypertension type: essential hypertension Nonrheumatic mitral valve insufficiency I34.0 Long-term use of high-risk medication Z79.899 Pure hypercholesterolemia E78.00; E78.0 Hyperlipidemia type: pure hypercholesterolemia 10/18/17 0719 <Electronically signed by Efe H Roof DIRECTOR OF GRANTS-C> Date Efe Owen Roof DIRECTOR OF GRANTS-C Cosigner Signature: Date (if applicable) CC: Andrea Means DO 12 LEAD ELECTROCARDIOGRAM Observed: 04/21/2017 Status: F Source: [place] 11:44 AM [facility] REPOSITORY [facility] Cardiovascular Services [address] [place] [address] 12 Lead EKG 04/19/17 0008 MR#: [id number] Acct: [id number] Name: JONY VILLANUEVA Rep #: [id number] : 1945 72 From: Kian Vaughn MD Attending Dr: Faraz Ken MD Status: DIS IN Ordering Dr: Anam Morgan MD Date: 04/19/17 [place] [facility] [place] M C Admitted: 04/19/17 Test Reason [...] Abnormal ECG Confirmed by KIAN VAUGHN ([id number]), multimedia editor CODEY PAUL ([id number]) on 04/21/2017 11:43:33 AM Referred By: Deidre Hudson Confirmed By:KIAN VAUGHN 04/21/17 1143 Date Kian Vaughn MD CC: Andrea Means DO Signed DISCHARGE SUMMARY Observed: 04/21/2017 Status: F Source: [place] 7:15 AM [facility] REPOSITORY [facility] Medical Records Department [address] [place] [address] Discharge Summary 04/20/17 0931 MR#: [id number] Acct: [id number] Name: JONY VILLANUEVA Rep #: [id number] : 1945 72 From: Faraz Ken MD PCP: Andrea Means DO Status: DIS IN Y Location: [place] [id number] Discharge Date and Diagnosis - Problem List [...] (Chronic) Hyperlipidemia (Chronic) 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 Mild cardiomegaly. Electronically Signed: Stefano Barens, at 2:23 EST Tel , Service support [...] 65 Code Visit Inpatient E AND M: 36932 Disch Hosp 04/21/17 0715 <Electronically signed by Faraz Ken MD> Date Faraz Ken MD Cosigner Signature (if applicable): Date CC: Faraz Ken MD; Andrea Means DO Signed ECHOCARDIOGRAM COMPLETE Observed: 04/20/2017 Status: F Source: [place] 3:37 PM [facility] REPOSITORY [facility] Cardiovascular Services [address] [place] [address] Echo Complete 04/20/17 1442 MR#: [id number] Acct: [id number] Name: VILLANUEVAJONY Rep #: [id number] : 1945 72 From: Kian Vaughn MD [...] Dictated: 04/20/17 1442 Date Transcribed: 04/20/17 153 Chemical Maker: Signed DISCHARGE INSTRUCTION Observed: 04/20/2017 Status: F Source: [place] 9:31 AM [facility] REPOSITORY [facility] Medical Records Department [address] [place] [address] Instructions for Home/Discharge Instructions 04/20/17 0928 MR#: [id number] Acct: [id number] Name: JONY VILLANUEVA Shruti Rep #: [id number] : 1945 72 From: Faraz Ken MD [...] Status: F Source: [place] EXTREMITY 5:42 PM [facility] REPOSITORY [facility] Cardiovascular Services [address] [place] [address] Venous Duplex - Timmy Extrem 04/18/17 1052 MR#: [id number] Acct: [id number] Name: JONY VILLANUEVA Rep #: [id number] : 1945 72 From: Dave Moore MD [...] Date Dictated: 04/18/17 1052 Date Transcribed: 04/19/171741 Chemical Maker: Signed STREP Observed: 04/19/2017 Status: F Source: [place] PNEUMONIAE ANTIG(UR,CSF) 8:55 AM [facility] REPOSITORY S pneumo Ag URINE INTERPRETATION Negative Urine Presumptive negative for pneumococcal pneumonia, suggesting no current or recent pneumococcal infection. Infection due to S pneumoniae cannot be ruled out since the antigen present in the sample may be below the detection limit of the test. Strep pneumo Test Negative URINE (See interpretation below) Performed By: #### M300.4600 #### [facility] [address] [facility] [place], [address] EMERGENCY DEPARTMENT Observed: 04/19/2017 Status: F Source: [place] SUMMARY 3:15 AM [facility] REPOSITORY [facility] Medical Records Department [address] [address] Emergency Department Summary 04/19/17 0023 MR#: [id number] Acct: [id number] Name: JONY VILLANUEVA Shruti Rep #: [id number] : 1945 72 From: Anam Morgan MD [...] lumbar discectomy by Dr. Spain at the [facility] in [place]. The patient states that he was actually [...] chest pain This note was generated with Pycno dictation software. It may contain incorrect words, [...] your Primary Care Provider. Call [facility] ([phone]) or report to the closest Emergency Room. Call 911 if necessary. 04/19/17 0315 <Electronically signed by Anam Morgan MD> Date Anam Morgan MD Cosigner Signature (If Indicated): Date CC: Andrea Means DO HISTORY AND PHYSICAL Observed: 04/19/2017 Status: F Source: [place] EXAM 2:53 AM [facility] REPOSITORY [facility] Medical Records Department [address] [place] [address] History and Physical 04/19/17 0238 MR#: [id number] Acct: [id number] Name: JONY VILLANUEVA Rep #: [id number] : 1945 72 From: Hosea Shukla MD PCP: Andrea Means DO Status: REG ER Y Location: ED Problem List (1) Smoker Status: Chronic (2) Hyperlipidemia Status: Chronic Qualifiers: (3) 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 Status: Chronic [...] back surgery five days ago at the [facility] who presents for acute shortness of breath [...] (Chronic) Hyperlipidemia (Chronic) 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) CABG [...] by Fay Mcnulty) 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) CABG [...] discussed Code Visit Inpatient E AND M: 14310 Init Hosp L3 04/19/17 0253 <Electronically signed by Hosea Shukla MD> Date Hosea Shukla MD [facility] Signature: Date (if applicable) CC: Andrea Means DO; Hosae Shukla MD Signed CTA CHEST W/WO Observed: 04/19/2017 Status: F Source: [place] CONTRAST 12:56 AM [facility] REPOSITORY [facility] Imaging Services [address] [place] [address] CTA Chest W/WO Contrast MR#: [id number] Acct: [id number] Name: JONY VILLANUEVA Rep #: [id number] : 1945 M 72 From: Stefano Barnes MD PCP: Andrea Means DO Status: REG ER Study: CTA Chest W/WO Contrast Date of Exam: 04/19/17 Exam# [id number] Ordering Dr: Anam Morgan MD STUDY: CTA [...] CC: Andrea Means DO; Anam Morgan MD Chemical Maker: Signed LACTIC ACID Collected: 04/19/2017 Status: F Source: [place] 12:40 AM [facility] REPOSITORY Order Comment: Yes/No query for Sepsis Lactate Rule Y TYPE CODE TESTS RESULT OUT OF RANGE REFERENCE UNITS LAB L503.6005 0.4-2.0 mmol/L Normal LACTIC ACID 0.6 Performed By: #### L503.6005 #### [facility] [address] [place], [place], [address] Observed: 04/19/2017 Status: F Source: [place] CULTURE, BLOOD (WB) 12:40 AM [facility] REPOSITORY BC No growth in 5 days. Performed By: #### M200.1000 #### [facility] [address] [place], [address] Observed: 04/19/2017 Status: F Source: [place] CULTURE, BLOOD (WB) 12:35 AM [facility] REPOSITORY BC No growth in 5 days. Performed By: #### M200.1000 #### [facility] [address] [place], [address] Observed: 04/19/2017 Status: F Source: [place] INFLUENZA A+B (RAPID 12:30 AM [facility] DRE) REPOSITORY FLU A/B Rapid Negative test results should be confirmed by culture. Order Rapid Viral Culture for Influenzae A+B (857517) if clinically indicated. Influenza Ag, Direct Presumptive NEGATIVE for Influenza A/B Antigen (See Note) Performed By: #### M101.0101 #### [facility] [address] [place], [address] CHEST 1 VIEW Observed: 04/19/2017 Status: F Source: [place] (PORTABLE) 12:16 AM [facility] REPOSITORY [facility] Imaging Services [address] [place] [address] Chest 1 View (Portable) MR#: [id number] Acct: [id number] Name: JONY VILLANUEVA Shruti Rep #: [id number] : 1945 M 72 From: Stefano Barnes MD PCP: Andrea Means DO Status: REG ER Study: Chest 1 View (Portable) Date of Exam: 04/19/17 Exam# [id number] Ordering Dr: Anam Morgan MD STUDY: X-RAY [...] CC: Andrea Means DO; Anam Morgan MD Chemical Maker: Signed CBC W/DIFF, AUTOMATED Collected: 04/19/2017 Status: F Source: [place] 12:15 AM [facility] REPOSITORY TYPE CODE TESTS RESULT OUT OF [...] Lymph 2.02 Performed By: #### L100.0100 #### [facility] [address] [place], [address] BASIC METABOLIC Collected: 04/19/2017 Status: F Source: [place] PROFILE (BMP) 12:15 AM [facility] REPOSITORY Order Comment: 'TROP' Serial specimen #1, [...] GAP Performed By: #### L500.2500, L501.4010 #### [facility] [address] [place], [address] TROPONIN-I Collected: 04/19/2017 Status: F Source: [place] 12:15 AM [facility] REPOSITORY Order Comment: 'TROP' Serial specimen #1, #2, #3, or #4: 1 TYPE CODE TESTS RESULT OUT OF RANGE REFERENCE UNITS LAB L501.4010 <0.06 ng/mL Normal < 0.02 TROPONIN-I Result Comment: TROPONIN-I EXPECTED VALUES <0.05 NEGATIVE 0.06 - 0.59 AT RISK OF MS > OR = 0.60 SUGGEST MS Performed By: #### L500.2500, L501.4010 #### [facility] [address] [place], [address] BNP,B-TYPE NATRIURETIC Collected: 04/19/2017 Status: F Source: [place] PEPTIDE 12:15 AM [facility] REPOSITORY TYPE CODE TESTS RESULT OUT OF RANGE REFERENCE UNITS LAB L503.6620 0-100 pg/mL Normal B-TYPE 22.1 SHARATH PEP Performed By: #### L503.6620 #### [facility] [address] [place], [address] EMERGENCY DEPARTMENT Observed: 04/17/2017 Status: F Source: [place] SUMMARY 11:34 PM [facility] REPOSITORY [facility] Medical Records Department [address] [facility] [place] [address] Emergency Department Summary 04/17/172030 MR#: [id number] Acct: [id number] Name: JONY VILLANUEVA Rep #: [id number] : 1945 72 From: Deidre Hudson MD PCP: Andrea Means DO Status: DEP ER - ER Visit Summary Date of Service: 04/17/17 Chief Complaint: Right foot swelling History of Present Illness: The patient is a 72 M who had back surgery 3 days ago the [facility]. Patient today noted increased swelling in his feet right more so than left. He denies chest pain or shortness of breath. Family called [facility] and they advised patient should be seen [...] post surgery This note was generated with Revance Therapeuticsation software. It may contain incorrect words, spelling, [...] problems, contact your Primary Care Provider. Call [facility] ([phone]) or report to the closest Emergency Room. Call 911 if necessary. 04/17/17 0174 <Electronically signed by Deidre Hudson MD> Date Deidre Hudson MD Cosigner Signature (If Indicated): Date CC: Andrea Means DO DISCHARGE INSTRUCTION Observed: 04/17/2017 Status: F Source: [place] 8:35 PM [facility] REPOSITORY [facility] Medical Records Department [address] [place] [address] Discharge Instruction 04/17/172032 MR#: [id number] Acct: [id number] Name: VILLANUEVAJONY Rep #: [id number] : 1945 72 From: Deidre Hudson MD [...] your Primary Care Provider. Call [facility] ([phone]) or report to the closest Emergency Room. Call 911 if necessary. 04/17/172034 <Electronically signed by Deidre Hudson MD> Date Deidre Hudson MD Cosigner Signature (If Indicated): Date CC: Andrea Means DO CARDIOLOGY VISIT Observed: 04/07/2017 Status: F Source: [place] REPORT 1:55 PM [facility] REPOSITORY [facility] [address] [place] [address]. 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 Atherosclerosis of sycuan coronary artery of sycuan heart without angina pectoris I25.10; I25.10; I25.10 [...] prior to saving. Follow Up 6 Months (PA/DIRECTOR OF GRANTS) 04/07/17 9248 <Electronically signed by Hosea Bueno MD> Date Hosea Bueno MD Cosigner Signature: Date (if applicable) CC: Andrea Means DO ALLERGIES ALLERGIES DATE TYPE / CODE NAME / CODE REACTION SEVERITY SOURCE 01/16/2018 Drug No Known Unknown [facility] Allergy/4160 Allergies/F00 [place] 0652902(SNOMED 9693875(RXNOR Repository CT) M) 10/17/2017 Drug simvastatin/F MYALGIAS SV [facility] Allergy/4160 481703479([facility] [address](SNOMED ORM) Repository CT) ENCOUNTERS ENCOUNTERS ADMIT/DISCHARGE ACCOUNT ADMITTING ENCOUNTER LOCATION SOURCE NUMBER CLASS 03/03/2018 [id number] Ambulatory [address] ing:HPRAD Repository 03/03/2018 [id number] Ambulatory [address] ing:HPRAD Repository 03/03/2018/ [id number] Ambulatory BMSBuilding:B [place] 8 5 [facility] Repository 01/30/2018 [id number] Ambulatory [place] 5 [facility] ing:LAB.FUTUR Repository E 01/16/2018/ [id number] Emergency [place] 8 9 [facility] ing:ED Repository 10/17/2017/ [id number] Ambulatory BMSBuilding:B [place] 8 2 [facility] Repository 07/07/2017 [id number] Ambulatory BMSBuilding:B [place] 4 [facility] Repository 07/05/2017 [id number] Ambulatory BMS [place] 2 [facility] Repository 07/05/2017 [id number] Ambulatory BMS [place] 5 [facility] Repository 06/27/2017 [id number] Ambulatory BMSBuilding:B [place] 0 [facility] Repository 04/19/2017/ [id number] Hosea Shukla Inpatient [place] 8 2 [facility] ing:CT1Qarv: Repository TE232Yqm: 1 04/19/2017 [id number] Hosea Shukla Ambulatory BMSBuilding:B [place] 7 [facility] Repository 04/19/2017/ [id number] Ambulatory BMSBuilding:W [place] [address] [facility] Repository 04/19/2017 [id number] Ambulatory BMSBuilding:B [place] 7 [facility] Repository 04/18/2017 [id number] Ambulatory [place] 1 [facility] ing:[facility]S Repository 04/17/2017/ [id number] Emergency [place] 8 0 [facility] ing:ED Repository 04/08/2017 [id number] Ambulatory BMSBuilding:B [place] 9 [facility] Repository 04/07/2017/ [id number] Ambulatory BMSBuilding:B [place] 8 1 [facility] Repository 04/06/2017 [id number] Ambulatory BMSBuilding:B [place] 0 [facility] Repository 04/06/2017 [id number] Ambulatory BMSBuilding:B [place] 9 [place] Repository PAYERS PAYERS ENCOUNTER GUARANTOR PAYER SUBSCRIBER SOURCE 03/03/2018 JONY Bahena Primary JONY Bueno [id number] Insurance:HUMANA MAGI LYNNSONDOB: [address] MEDICAREPolicy [id number] Number: Repository [id number]: [id number] [phone] (HP) Date:[id number] [address] [place] [address]WP: 03/03/2018 Secondary NOT GIVENUNK [place] Insurance:SELF PAY [facility] [place] Number: Effective Repository Date:2018-03-03 03/03/2018 JONY Bahena Primary JONY Shruti Milan [id number] Insurance:HUMANA MAGI LYNNSONDOB: [address] MEDICAREPolicy [id number] Number: Repository [phone]: [phone] [id number] [phone] (HP) Date:4769-87-95OS [address] [place] [address]XX: 03/03/2018 Secondary NOT GIVENUNK [place] Insurance:SELF PAY [facility] Number: Effective Repository Date:2018-03-03 03/03/2018 JONY Bahena Primary JONY Shruti CordobaXimena [id number] Insurance:HUMANA MAGI LYNNSONDOB: [address] MEDICAREPolicy [id number] Number: Repository [phone]: [phone] [id number] [phone] (HP) Date:3073-55-06PY [address] [place] [address]PL: 03/03/2018 Secondary NOT GIVENUNK Ximena Insurance:SELF PAY [facility] Number: Effective Repository Date:2018-03-03 01/30/2018 JONY Bahena Primary JONY Cordobaoster [id number] Insurance:HUMANA MAGI LYNNSONDOB: [address] MEDICAREPolicy [id number] Number: Repository [phone]: [phone] [id number] [phone] (HP) Date:8533-18-56UH [address] [address]EF: 01/30/2018 Secondary NOT GIVENUNK [place] Insurance:SELF PAY [facility] Number: Effective Repository Date:2018-01-30 01/16/2018 JONY Shruti Primary JONY J Milan [id number] Insurance:HUMANA GOLD DAWSONDOB: Community [address] MEDICAREPolicy [id number] Number: Repository [phone]: [phone] [id number] [phone] (HP) Date:4796-15-68HC [address] [address]UR: 01/16/2018 Secondary NOT GIVENUNK [place] Insurance:SELF PAY [facility] Number: Effective Repository Date:2018-01-16 10/17/2017 JONY Bahena Primary JONY J Ximena [id number] Insurance:HUMANA MAGI DAWSONDOB: [address] MEDICAREPolicy [id number] Number: Repository [phone]: [phone] [id number] [phone] (HP) Date:2543-93-58EM [address] [address]DJ: 10/17/2017 Secondary NOT GIVENUNK Ximena Insurance:SELF PAY [facility] Number: Effective Repository Date:2017-10-17 07/07/2017 Jony Bahena Primary Jony J [place] [id number] [address] Insurance:HUMANA GOLD DawsonDOB: [place] [address], [place] MEDICAREPolicy [id number] [address]Gmt: (419) Number: Repository [phone] () [id number] Date:9462-21-13OU [address] [address]TG: 07/07/2017 Secondary NOT GIVENUNK Ximena Insurance:SELF PAY [facility] Number: Effective Repository Date:2017-05-13 07/05/2017 Jony Bahena Primary Jony Bueno [id number] [address] Insurance:HUMANA MAGI DawsonDOB: [address], [place] MEDICAREPolicy [id number] [address]Pix: (419) Number: Repository [phone] () [id number] Date:8119-44-04WL [address]: 07/05/2017 Secondary NOT GIVENUNK [place] Insurance:SELF PAY [facility] Number: Effective Repository Date:2017-07-05 07/05/2017 Jony Bahena Primary Jony Bueno [id number] [address] Insurance:HUMANA MAGI DawsonDOB: [address], [place] MEDIC[place]Policy [id number] [address]12[address]Tel: (419) Number: Repository [phone] () [id number] Date:9370-80-30HM [place] [address]WP: 07/05/2017 Secondary NOT GIVENUNK [place] Insurance:SELF PAY [facility] Number: Effective Repository Date:2017-07-05 06/27/2017 Jony Bahena Primary Jony Bueno [id number] [address] Insurance:HUMANA MAGI DawsonDOB: [address], [place] MEDICAREPolicy [id number] [address]Evk: (419) Number: Repository [phone] () [id number] Date:3307-91-81JU [address] [address]WA: 06/27/2017 Secondary NOT GIVENUNK Ximena Insurance:SELF PAY [facility] Number: Effective Repository Date:2017-03-16 04/19/2017 Jony Bahena Primary Jony Bueno [id number] [address] Insurance:HUMANA GOLD DawsonDOB: [address], [place] MEDICAREPolicy [id number] [address]Kcb: (419) Number: Repository [phone] () [id number] Date:9631-18-71FX [address] [address]QZ: 04/19/2017 Secondary NOT GIVENUNK [place] Insurance:SELF PAY [facility] Number: Effective Repository Date:2017-04-19 04/19/2017 Jony Bahena Primary Jony Bueno [id number] [address] Insurance:HUMANA GOLD DawsonDOB: [address] MEDICAREPolicy [id number] [address]Fnk: (419) Number: Repository [phone] () [id number] Date:1494-04-92WW [address] [address]JZ: 04/19/2017 Secondary NOT GIVENUNK Ximena Insurance:SELF PAY [facility] Number: Effective Repository Date:2017-04-19 04/19/2017 Jony Bahena Primary Jony Bahena Ximena [id number] [address] Insurance:HUMANA GOLD DawsonDOB: [place] [address], [place] MEDICAREPolicy [id number] [address]12[address]Tel: (419) Number: Repository [phone] () [id number] Date:3365-98-20QO [address] [address]NM: 04/19/2017 Secondary NOT GIVENUNK Ximena Insurance:SELF PAY [facility] Number: Effective Repository Date:2017-04-19 04/19/2017 Jony Bahena Primary Jony Bahena Ximena [id number] [address] Insurance:HUMANA GOLD DawsonDOB: [place] [address], [place] MEDICAREPolicy [id number] [address]Ohs: (419) Number: Repository [phone] () [id number] Date:8507-16-86WM [address] [address]JE: 04/19/2017 Secondary NOT GIVENUNK [place] Insurance:SELF PAY [facility] Number: Effective Repository Date:2017-04-19 04/18/2017 Jony J Primary Jony Bahena [place] [id number] Cr Insurance:HUMANA GOLD DawsonDOB: [place] [address], [place] MEDICAREPolicy [id number] [address]Bhh: (419) Number: Repository [phone] () [id number] Date:7155-54-67SH [address]46[address]WP: 04/18/2017 Secondary NOT GIVENUNK [place] Insurance:SELF PAY [facility] Number: Effective Repository Date:2017-04-18 04/17/2017 Jony J Primary Jony J Ximena [id number] Cr Insurance:HUMANMahi VillanuevaDOB: [address], [place] MEDICAREPolicy [id number] [address]Fhh: (419) Number: Repository [phone] () [id number] Date:1124-51-06QQ [address]46[address]WP: 04/17/2017 Secondary NOT GIVENUNK Ximena Insurance:SELF PAY [facility] Number: Effective Repository Date:2017-04-17 04/08/2017 Jony J Primary Jony J Ximena [id number] Cr Insurance:FELISHA LynnsonDOB: [address], [place] MEDICAREPolicy [id number] [address]Krv: (419) Number: Repository [phone] () [id number] Date:5090-98-76UO [address] [address]GJ: 04/08/2017 Secondary NOT GIVENUNK [place] Insurance:SELF PAY [facility] Number: Effective Repository Date:2017-03-25 04/07/2017 Jony J Primary Jony J [place] [id number] Cr Insurance:FELISHA VillanuevaDOB: [address], [place] MEDICAREPolicy [id number] [facility] [address]Lzh: (419) Number: Repository [phone] () [id number] Date:9631-81-30EC [address] [address]CQ: 04/07/2017 Secondary NOT GIVENUNK [place] Insurance:SELF PAY [facility] Number: Effective Repository Date:2017-03-25 04/06/2017 Jony Bueno [id number] Cr Insurance:FELISHA VillanuevaDOB: [address] MEDICAREPolicy [id number] [address]Eea: (419) Number: Repository [phone] () [id number] Date:7164-79-89KK [address] [address]KC: 04/06/2017 Secondary NOT GIVENUNK [place] Insurance:SELF PAY [facility] Number: Effective Repository Date:2017-04-06 04/06/2017 Jony Bueno [id number] Cr Insurance:FELISHA VillanuevaDOB: [place] [address] MEDICAREPolicy [id number] [address]Rfc: (419) Number: Repository [phone] () [id number] Date:9363-47-04YY[address] [address]JY: 04/06/2017 Secondary NOT GIVENUNK [place] Insurance:SELF PAY [facility] Number: Effective Repository Date:2017-03-16
== END ==
PROVIDERS: Family Provider Family Medicine; PCP Family Medicine; Referring Provider Physician Assistant; Visit Provider Physician Assistant
DX: M25.571 Pain in right ankle and joints of right foot (principal); M25.551 Pain in right hip
CPT/HCPCS: 73502; 73610

== ENCOUNTER → 2018-04-19 09:14 | Outpatient (CLI) | payer MEDICARE, SELFPAY ==
[2016-04-09 09:01] VITALS: BMI 28.3
[2018-04-19 09:38] LABS: Absolute Lymphocyte Count 2.61 X10^3/ul (0.83-4.51); Absolute Neutrophil Count 5.6 X10^3/uL (2.0-7.7); Basophil# 0.03 X10^3/uL; Basophil% 0.3 % (0-1); Eosinophils% 1.1 % (0-5); Hemoglobin 14.4 g/dl (13.0-16.5); Lymphocyte # 2.61 X10^3/ul (4.0); Lymphocyte % 28.3 % (19-41); Mean Corp Hgb Conc 32.7 g/gl (32-36); Mean Corpuscular Hgb 28.7 pg (27.0-32.0); Mean Corpuscular Volume 87.8 fL (80-94); Mean Platelet Vol. 9.2 fl (6.2-12.0); Monocyte# 0.89 X10^3/uL; Monocyte% 9.6 % (0-10); Neutrophil # 5.57 X10^3/uL (2.7-7.7); Neutrophil % 60.4 % (47-70); POSITIVE COUNT NO; POSITIVE DIFFERENTIAL NO; POSITIVE MORPHOLOGY NO; Platelet Count 293 K/mm3 (150-450); RBC Distribution Width CV 14.6 % (11.6-14.6); RBC Distribution Width SD 46.8 fl (35.1-43.9); Red Blood Count 5.01 M/mm3 (4.6-6.2); White Blood Count 9.2 K/mm3 (4.4-11.0)
[2018-04-19 10:17] LABS: AST(SGOT) 15 U/L (15-37); Alanine Aminotransfer ALT/SGPT 29 U/L (16-61); Albumin, Serum 3.8 g/dL (3.2-5.0); Alkaline Phosphatase 76 U/L (45-117); Anion Gap 8 (5-15); BUN 19 mg/dL (7-18); BUN/Creat Ratio 19.4 RATIO (10-20); Chloride 107 mmol/L (98-107); Cholesterol 202 mg/dL (200); Creatinine, Serum 0.98 mg/dL (0.70-1.30); EST Glomerular Filtration Rate 80 mL/min (>60); Est Glom Filt Rate - Afr Amer 96 mL/min (>60); Glucose 84 mg/dL (74-106); High Density Lipoprotein 55 mg/dL; PSA,Total - Annual Screen 0.81 ng/mL (0.00-4.00); Potassium 4.1 mmol/L (3.5-5.1); Protein, Total 7.8 g/dL (6.4-8.2); Sodium Level 142 mmol/L (136-145); T4 Free Direct 1.14 ng/dL (0.76-1.46); Thyroid Stim Hormone (TSH) 4.39 uIU/mL (0.358-3.74); Triglycerides 117 mg/dL; Very Low Density Lipoprotein 23 mg/dL (5-40)
--- OUTSIDE RECORDS SUMMARY | 2018-06-24 00:48 | XMS RPT_ITS ---
:1945 External Reference #:[id number] Author Organization OHIP Support Name Relationship Address Phone NIDHI VILLANUEVA Unavailable [address] + [place] [address] R Unavailable Unavailable Unavailable VILLANUEVA, NIDHI Unavailable [address] + [place] [address] R Unavailable Unavailable Unavailable VILLANUEVA, NIDHI Unavailable [address] + [place] [address] R Unavailable Unavailable Unavailable VILLANUEVA, NIDHI Unavailable [address] + [place] [address] R Unavailable Unavailable Unavailable VILLANUEVA, NIDHI Unavailable [address] + [place] [address] R Unavailable Unavailable Unavailable VILLANUEVA, NIDHI Unavailable [address] + [place] [address] R Unavailable Unavailable Unavailable VILLANUEVA, NIDHI Unavailable [address] + [place] [address] R Unavailable Unavailable Unavailable VILLANUEVA, NIDHI Unavailable [address] + [place] [address] R Unavailable Unavailable Unavailable VILLANUEVA, NIDHI Unavailable [address] + [place] [address] R Unavailable Unavailable Unavailable VILLANUEVA, NIDHI Unavailable [address] + [place] [address] R Unavailable Unavailable Unavailable Care Team Providers Name Role Phone Hosea Bueno Attending Unavailable Andrea Means Referring Unavailable Inez Leger Attending Unavailable Inez Leger Attending Unavailable Fay Mcfadden Attending Unavailable Andrea Means Referring Unavailable Efe Mcclellan Attending Unavailable Andrea Means Referring Unavailable Andrea Means Primary Care Unavailable Deidre Hudson Attending Unavailable Andrea Means Primary Care Unavailable Efe Mcclellan Attending Unavailable Efe Mcclellan H Referring Unavailable Wayjovi, Aldair Attending Unavailable Miguelangel, Andrea Referring Unavailable Wayt, Aldair Attending Unavailable Wayt, Aldair Referring Unavailable Miguelangel, Andrea Primary Care Unavailable Wayt, Aldari Attending Unavailable Wayt, Aldair Referring Unavailable Miguelangel, Andrea Primary Care Unavailable PROBLEMS PROBLEMS DATE TYPE CONDITION / CODE ATTENDING STATUS SOURCE 04/19/2018 Unknown I25.10 - Efe Mcclellan Active [place] 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 without angina pectoris / I25.10(ICD-10) 04/19/2018 Unknown I10 - Essential Efe Mcclellan Active [place] (primary) [facility] hypertension / Hospital I10(ICD-10) Repository 04/19/2018 Unknown Z12.5 - Encounter for Efe Mcclellan Active [place] screening for [facility] malignant neoplasm of [facility] prostate / Repository Z12.5(ICD-10) 03/03/2018 Unknown M25.551 - [facility] [place] right hip / [facility] M25.551(ICD-10) Hospital Repository 03/03/2018 Unknown M25.571 - Pain in [facility] [place] right ankle and [facility] joints of right foot Hospital / M25.571(ICD-10) Repository 10/17/2017 Unknown G47.00 - Insomnia, Efe Mcclellan Active [place] unspecified / Community G47.00(ICD-10) Hospital Repository 10/17/2017 Unknown I48.0 - Paroxysmal Efe Mcclellan atrial fibrillation / [facility] I48.0(ICD-10) Hospital Repository 10/17/2017 Unknown E78.5 - Efe Mcclellan Active [place] Hyperlipidemia, [facility] unspecified / Hospital E78.5(ICD-10) Repository 10/17/2017 Unknown I34.0 - Nonrheumatic Efe Mcclellan Active [place] mitral (valve) [facility] insufficiency / Hospital I34.0(ICD-10) Repository 10/17/2017 Unknown I50.31 - Acute Efe Mcclellan Active [place] diastolic [facility] (congestive) heart Hospital failure / Repository I50.31(ICD-10) PROCEDURES PROCEDURES No Procedure Records FoundRESULTS RESULTS CBC W/DIFF, AUTOMATED Collected: 04/19/2018 Status: F Source: [place] 9:20 AM [facility] REPOSITORY Order Comment: CMP,CBCD,PSA FOR DR MEANS TYPE CODE TESTS RESULT OUT OF RANGE REFERENCE UNITS LAB L100.1000 4.4-11.0 K/mm3 Normal WBC 9.2 LAB L100.1200 4.6-6.2 M/mm3 Normal RBC 5.01 LAB L100.1300 13.0-16.5 g/dl Normal HGB 14.4 LAB L100.1400 40-54 % Normal HCT 44.0 LAB L100.1500 80-94 fL Normal MCV 87.8 LAB L100.1600 27.0-32.0 pg Normal MCH 28.7 LAB L100.1700 32-36 g/gl Normal MCHC 32.7 LAB L100.1810 11.6-14.6 % Normal RDW CV 14.6 LAB L100.1820 35.1-43.9 fl High RDW SD 46.8 LAB L100.1900 150-450 K/mm3 Normal PLT 293 LAB L100.2000 6.2-12.0 fl Normal MPV 9.2 LAB L100.2100 47-70 % Normal NEUT% 60.4 LAB L100.2200 19-41 % Normal LY% 28.3 LAB L100.2300 0-10 % Normal MONO% 9.6 LAB L100.2400 0-5 % Normal EO% 1.1 LAB L100.2500 0-1 % Normal BASO% 0.3 LAB L100.2550 0.0-0.9 % Normal IM GRAN % 0.300 Result Comment: IG% - Immature Granulocytes (promyelocytes, myelocytes and metamyelocytes) > 1% indicates that a LEFT SHIFT is Present. LAB L100.2620 2.0-7.7 X10 3/uL Normal Absolute Neut 5.6 LAB L100.2720 0.83-4.51 X10 3/ul Normal Absolute Lymph 2.61 Performed By: #### L100.0100 #### [facility] [place], [address] COMPREHENSIVE METABOLIC Collected: 04/19/2018 Status: F [facility] [facility] REPOSITORY Order Comment: CMP,CBCD,PSA FOR DR MEANS TYPE CODE TESTS RESULT OUT OF RANGE REFERENCE UNITS LAB L501.0100 74-106 mg/dL Normal GLU 84 Result Comment: Please note revised GLUCOSE reference range effective 2017. LAB L501.1000 7-18 mg/dL High BUN 19 LAB L501.1100 0.70-1.30 mg/dL Normal CREAT,SERUM 0.98 Result Comment: The validity of the calculated GFR AND GFRAA in patients over 70 years has not been determined. Clinical correlation is essential. LAB L501.1110 >60 mL/min Normal EST GFR 80 Result Comment: Non- GFR Calc LAB L501.1115 >60 mL/min Normal EST GFR - AA 96 Result Comment: GFR Calc LAB L501.1300 10-20 RATIO Normal BUN/CRE 19.4 LAB L501.1500 6.4-8.2 g/dL T Normal PROT 7.8 LAB L501.1800 3.2-5.0 g/dL Normal ALB 3.8 LAB L501.1950 2.2-4.2 g/dL Normal GLOB 4.0 LAB L501.2000 0.9-2.4 RATIO Normal A/G 1.0 LAB L501.2200 8.5-10.1 mg/dL CA Normal 9.0 LAB L501.4100 15-37 U/L Normal AST 15 LAB L501.4305 45-117 U/L Normal ALK P 76 LAB L501.4405 16-61 U/L Normal ALT 29 LAB L501.4600 0.20-1.00 mg/dL T Normal BILI 0.40 LAB L501.5300 136-145 mmol/L NA Normal 142 LAB L501.5600 3.5-5.1 mmol/L K Normal 4.1 LAB L501.5900 98-107 mmol/L CL Normal 107 LAB L501.6100 21.0-32.0 mmol/L Normal CO2 27.0 LAB L501.6200 5-15 Normal GAP 8 Performed By: #### L500.4050, L500.4100, L501.4700, L501.9520, L501.9910, L506.0400 #### [facility] [address] [place], [address] LIPID PROFILE Collected: 04/19/2018 Status: F Source: [place] 9:[address] [facility] REPOSITORY Order Comment: CMP,CBCD,PSA FOR DR MEANS TYPE CODE TESTS RESULT OUT OF RANGE REFERENCE UNITS LAB L501.4900 200 mg/dL High CHOL 202 Result Comment: <200 mg/dL Desirable 200-240 mg/dL Borderline >240 mg/dL High Risk LAB L501.5000 mg/dL Normal TRIG 117 Result Comment: The drugs N-Acetylcysteine and Metamizole may falsely depress this assay. Serum Triglycerides Reference Interval Normal <150 mg/dL Borderline high 150 - 199 mg/dL High 200 - 499 mg/dL Very High > or = 500 mg/dL LAB L501.6400 mg/dL Normal HDL 55 Result Comment: The drugs N-Acetylcysteine and Metamizole may falsely depress this assay. Reference Range HDL <40 mg/dL Low HDL Cholesterol HDL >or= 60 mg/dL High HDL Cholesterol LAB L501.6500 0-130 mg/dL Normal LDL 124 LAB L501.6600 5-40 mg/dL Normal VLDL 23 Performed By: #### L500.4050, L500.4100, L501.4700, L501.9520, L501.9910, L506.0400 #### [facility] [address] [place], [place], [address] BILIRUBIN, DIRECT Collected: 04/19/2018 Status: F Source: [place] 9:[address] [facility] REPOSITORY Order Comment: CMP,CBCD,PSA FOR DR MEANS TYPE CODE TESTS RESULT OUT OF RANGE REFERENCE UNITS LAB L501.4700 0.00-0.30 mg/dL Normal D BILI 0.10 Performed By: #### L500.4050, L500.4100, L501.4700, L501.9520, L501.9910, L506.0400 #### [facility] [address] [place], [place], [address] THYROID STIM HORMONE Collected: 04/19/2018 Status: F Source: [place] (TSH) 9:[address] [facility] REPOSITORY Order Comment: CMP,CBCD,PSA FOR DR MEANS TYPE CODE TESTS RESULT OUT OF RANGE REFERENCE UNITS LAB L501.9520 0.358-3.74 uIU/mL High TSH 4.39 Performed By: #### L500.4050, L500.4100, L501.4700, L501.9520, L501.9910, L506.0400 #### [facility] [address] [place], [address] PSA,TOTAL - ANNUAL Collected: 04/19/2018 Status: F Source: [place] SCREEN 9:[address] [facility] REPOSITORY Order Comment: CMP,CBCD,PSA FOR DR MEANS TYPE HANSA TESTS RESULT OUT OF RANGE REFERENCE UNITS LAB L501.9910 0.00-4.00 ng/mL Normal PSA,TOT 0.81 SCREEN Result Comment: This test was performed using the TPSA assay method for the [employer] chemistry system. Values obtained with different assay methods cannot be used interchangably. When changing PSA assays in the course of monitoring a patient, additional sequential testing should be carried out to confirm baseline values. Performed By: #### L500.4050, L500.4100, L501.4700, L501.9520, L501.9910, L506.0400 #### [facility] [address] [place], [address] T4 FREE DIRECT Collected: 04/19/2018 Status: F Source: [place] 9:[address] [facility] REPOSITORY Order Comment: CMP,CBCD,PSA FOR DR MIGUELANGEL SANTO TESTS RESULT OUT OF RANGE REFERENCE UNITS LAB L506.0400 0.76-1.46 ng/dL Normal T4 FREE 1.14 DIRECT Performed By: #### L500.4050, L500.4100, L501.4700, L501.9520, L501.9910, L506.0400 #### [facility] [address] [place], [address] ORTHOPEDIC VISIT Observed: 04/11/2018 Status: F Source: [place] REPORT 10:[address] [facility] REPOSITORY [facility] [address] [place] [address] OFFICE VISIT Date of Service: 03/03/18 MR#: [id number] Acct: [id number] Name: JONY VILLANUEVA Rep #: [id number] : 1945 Provider: ISABEL Jimenez Age/Sex: 73/M Location: BMS.SMO Status: Signed Intake Intake Visit Reasons: RIGHT HIP Is patient in pain?: Yes Pain scale (1-10): 5 Allergies No Known Allergies Allergy (Verified 01/16/18 21:31) Medications Aspirin [Adult Low Dose Aspirin EC] 81 mg PO DAILY 04/19/17 [History Confirmed 01/16/18] Finasteride [Proscar] 5 mg PO QHS 04/19/17 [History Confirmed 01/16/18] Gabapentin [Neurontin] 300 mg PO BID 04/19/17 [History Confirmed 01/16/18] Metoprolol Succinate 25 mg PO DAILY 04/19/17 [History Confirmed 01/16/18] Simvastatin [Zocor] 20 mg PO QHS 04/19/17 [History Confirmed 01/16/18] Tamsulosin HCl [Flomax] 0.4 mg PO QHS 04/19/17 [History Confirmed 01/16/18] Temazepam [Restoril] 30 mg PO QHS 04/19/17 [History Confirmed 01/16/18] oxycodone ER 15 mg tablet,crush resistant,extended release 12 hr 7.5 mg PO Q4H PRN tab 10/17/17 [History Confirmed 01/16/18] amiodarone 200 mg tablet 200 mg PO DAILY #90 tab 02/16/18 [Rx] PFSH Medical History Hyperlipidemia (Chronic) Atherosclerotic heart disease of [place] coronary artery without angina pectoris (Chronic) Long-term [...] abuse (Acute) Atherosclerosis of coronary artery of [place] heart without angina pectoris (Inactive) Atrial fibrillation [...] never substance use type: does not use HPI RIGHT HIP: Details: JONY VILLANUEVA is a 73 year old M here today for right hip pain. He has history of lumbar spine surgery a year ago at the [facility], he has not had much relief of radiculopathy or back pain since his surgery and does not wish to see his surgeon again. He is here because two weeks ago we was on his mower working on leaves and he bent over to pick remover a stick, his right foot slipped and he hyperextended his hip. He was unable to move it for some time and stayed seated on the mower. Today he has lateral right hip and thigh pain. He has calf pain and foot numbness but that is unchanged since the hip injury. He has increased pain with sitting. ROS Musc Reports abnormal walking, Reports joint pain, Reports muscle weakness, Reports stiffness, Reports body aches, Reports limited joint movement, Reports as per HPI Neuro Yes abnormal walking Ortho Exam Right Ankle Skin/Wound: No Ecchymosis or Soft Tissue Swelling Exam: present TTP Lateral Malleolus; absent TTP ATFL, TTP Medial Malleolus or TTP Deltoid Ligament Compartments: Compartments: soft Tests: Squeeze Test: 1 Motor: Ankle Dorsiflextion: 5, Ankle Plantar Flexion: 5 ANKLE: Patient has no evident abnormalities on inspection of the ankle. He does have some localized tenderness on the distal fibula. No tenderness over the adjacent ATFL. He has normal range of motion and strength comparable to the left ankle. Right Hip Contralateral Normal: Yes Hip: absent eccymosis, absent soft tissue swelling, absent TTP Greater Troch, absent erythema Impingement Test: 1 Special Tests: No pain with log roll, No iliopsoas snap, No IT band snap, No IGLESIA test Homans Sign: No HIP: Patient has no acute abnormalities of the hip. He has no localized or generalized swelling of the hip. His range of motion is actually comparable to the left hip. He has normal 5/5 strength that also again is comparable to the left hip. Patient has no tenderness over the greater trochanter or bursa. He has no tenderness or tightness over the IT band however does point to the lateral thigh as where he has his tenderness. He has no pains with flexion against resistance, no pains with extension against resistance, and no pains with abduction against resistance. He states he does not really have any pains with abduction against resistance but still points to the lateral thigh as where he feels the discomfort Assessment AND Plan Problems 1. Right hip pain M25.551 Plan Obtained Xrays of patient's right hip. Personally reviewed Xrays. There is no obvious fracture, dislocation, or lucency noted. There is minimal degenerative changes of the hip joint. See chart for further details. At this point patient in the office today really does not have any evident abnormalities of the hip. He does not have any groin pains to indicate any arthritic pains of the hip. There is not any evidence of so as snapping/involvement or IT band involvement. He has a full range of motion and strength that is comparable to the left hip. There is no evident greater trochanter bursa pain. He has continued to see improvement since the incident. At this time have to think that this is possibly related more to the back of the hip at this time. Patient really needs to follow-up with his spine surgeon for evaluation of the back. He does have stretches that were given to him previously for his back that I think he needs to continue with at home. I would like to recheck him in 4-6 weeks to make sure he is seeing continued improvement. He can return to the office sooner if he has any increasing pains, swelling, difficulties with gait, any worsening of his numbness and tingling into the leg, Saddleback paresthesias, or any changes in his urinary habits. All of patient's questions were answered today. This note was generated with [employer] dictation software. It may contain incorrect words, spelling, and punctuation that were not noted in checking the note before signing. Orders Orders: Plan Detail Follow Up 6 Weeks Coding Level of Care Code Off vis,est,level 3 Diagnoses Right hip pain M25.551 04/11/18 1017 <Electronically signed by Aldair HALL> Date Aldair HALL Cosigner Signature: Date (if applicable) CC: ANKLE MIN 3 VIEWS Observed: 03/03/2018 Status: F Source: [place] 11:[address] [facility] REPOSITORY [facility] Imaging Services [address] [place] [address] Ankle min 3 Views MR#: [id number] Acct: [id number] Name: JONY VILLANUEVA Rep #: [id number] : 1945 M 73 From: Aldair Iyer MD PCP: Andrea Means DO Status: REG CLI Study: Ankle min 3 Views Date of Exam: 03/03/18 Exam# [id number] Ordering Dr: Aldair Jimenez HISTORY: LATERAL PAIN POST FALLING COMPARISON: None FINDINGS: 3 views right ankle: No fracture or dislocation. The tibiotalar joint space appears preserved. The ankle mortise is not widened. As visualized, the soft tissues are negative. IMPRESSION: Negative for fracture or acute osseous abnormality at 0725 Reported and signed by: Aldair Iyer MD Electronically Signed: Aldari Iyer, at 7:23 EST Tel , Service support , RAD/Ankle min 3 Views CC: ISABEL Jimenez; Andrea Means DO Emblem Maker: Signed HIP, UNI W/ PELVIS Observed: 03/03/2018 Status: F Source: [place] 2-3 VIEWS 10:[address] [facility] REPOSITORY [facility] Imaging Services [address] [place] [address] HIP, UNI W/ Pelvis 2-3 Views MR#: [id number] Acct: [id number] Name: JNOY VILLANUEVA Rep #: [id number] : 1945 M 73 From: Vickey Newman DO PCP: Andrea Means DO Status: REG CLI Study: HIP, UNI W/ Pelvis 2-3 Views Date of Exam: 03/03/18 Exam# [id number] Ordering Dr: Aldair Jimenez STUDY: X-RAY - [...] Vickey Newman DO at 9:13 EST Tel [phone], Service support , CC: ISABEL Jimenez; Andrea Means DO Emblem Maker: Signed EMERGENCY DEPARTMENT Observed: 01/16/2018 Status: F Source: [place] SUMMARY 11:[address] [facility] REPOSITORY [facility] Medical Records Department [address] [place] [address] Emergency Department Summary 01/16/18 2200 MR#: [id number] Acct: [id number] Name: JONY VILLANUEVA Rep #: [id number] : 1945 72 From: Deidre Hudson MD PCP: Andrea Means DO Status: DEP ER - ER Visit Summary Date of Service: 01/16/18 Chief Complaint: Foreign body sensation right eye History of Present Illness: The patient is a 72 M who was using a metal stamper and a saw today. Several hours later [...] no significant injection. 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 It may contain incorrect words, [...] your Primary Care Provider. Call [facility] ([phone]) or report to the closest Emergency Room. Call 911 if necessary. 01/16/18 9665 <Electronically signed by Deidre Hudson MD> Date Deidre Hudson MD Cosigner Signature (If Indicated): Date CC: Andrea Means DO DISCHARGE INSTRUCTION Observed: 01/16/2018 Status: F Source: [place] 10:[address] [facility] REPOSITORY [facility] Medical Records Department [address] [place] [address] Discharge Instruction 01/16/182200 MR#: [id number] Acct: [id number] Name: JONY VILLANUEVA Rep #: [id number] : 1945 72 From: Deidre Hudson MD [...] problems, contact your Primary Care Provider. Call [facility] ([phone]) or report to the closest Emergency Room. Call 911 if necessary. 01/16/182201 <Electronically signed by Deidre Hudson MD> Date Deidre Hudson MD Cosigner Signature (If Indicated): Date CC: Andrea Means DO CARDIOLOGY VISIT Observed: 10/18/2017 Status: F Source: [place] REPORT 7:[address] [facility] REPOSITORY [facility] [address] [place] [address] OFFICE VISIT Date of Service: 10/17/17 MR#: [id number] Acct: [id number] Name: JONY VILLANUEVA Rep #: [id number] : 1945 Provider: JORDAN Mcclellan Age/Sex: 72/M [place] [facility] Status: Signed HPI HPI Details: JONY VILLANUEVA, [...] brachial Intake Visit Reasons: 6 M FU Weigher And Crusher Required: No Accompanied by: Is patient in [...] History Hyperlipidemia (Chronic) Atherosclerotic heart disease of [place] coronary artery without angina pectoris (Chronic) Long-term [...] abuse (Acute) Atherosclerosis of coronary artery of [place] heart without angina pectoris (Inactive) Atrial fibrillation [...] RCA. Assessment AND Plan 1. Atherosclerosis of [place] coronary artery of [place] heart without angina pectoris I25.10 CABG x4; [...] 2. S/P angioplasty with stent Z95.9 04/08/16, [facility] w/PCI AND YAMILET to RCA X 2; Plan He will continue current treatment plan as outlined above. 3. Paroxysmal atrial fibrillation I48.0 Plan He appears to be maintaining regular rhythm. His heart rate is well controlled. He will continue with antiarrhythmic and beta shun. We will continue to monitor this. Orders [...] Code Off vis,est,level 3 Diagnoses Atherosclerosis of [place] coronary artery of [place] heart without angina pectoris I25.10 [place] vs. transplanted heart: [place] heart S/P angioplasty with stent Z95.9 Paroxysmal atrial fibrillation I48.0 Essential hypertension I10 Hypertension type: essential hypertension Nonrheumatic mitral valve insufficiency I34.0 Long-term use of high-risk medication Z79.899 Pure hypercholesterolemia E78.00; E78.0 Hyperlipidemia type: pure hypercholesterolemia Coding Level of Care Code Off vis,est,level 3 Diagnoses Atherosclerosis of [place] coronary artery of [place] heart without angina pectoris I25.10 [place] vs. transplanted heart: [place] heart S/P angioplasty with stent Z95.9 Paroxysmal atrial fibrillation I48.0 Essential hypertension I10 Hypertension type: essential hypertension Nonrheumatic mitral valve insufficiency I34.0 Long-term use of high-risk medication Z79.899 Pure hypercholesterolemia E78.00; E78.0 Hyperlipidemia type: pure hypercholesterolemia 10/18/17 0719 <Electronically signed by Efe ALLISON> Date Efe ALLISON Cosigner Signature: Date (if applicable) CC: Andrea Means DO ALLERGIES ALLERGIES DATE TYPE / CODE NAME / CODE REACTION SEVERITY SOURCE 01/16/2018 Drug No Known Unknown [facility] Allergy/4160 Allergies/F00 [place] [address](SNOMED 3997492(RXNOR Repository CT) M) 10/17/2017 Drug simvastatin/F MYALGIAS SV [facility] Allergy/4160 [id number]([place] [address](SNOMED ORM) Repository CT) ENCOUNTERS ENCOUNTERS ADMIT/DISCHARGE ACCOUNT ADMITTING ENCOUNTER LOCATION SOURCE NUMBER CLASS 04/19/2018 [id number] Ambulatory [place] 5 [facility] ing:LAB.DAYANNA Repository E 03/03/2018 [id number] Ambulatory [place] [facility] ing:HPRAD Repository 03/03/2018 [id number] Ambulatory [place] [facility] ing:HPRAD Repository 03/03/2018/ [id number] Ambulatory BMSBuilding:B [place] 8 5 [facility] Repository 01/16/2018/ [id number] Emergency [place] 8 9 [facility] ing:ED Repository 10/17/2017/ [id number] Ambulatory B[facility]:B [place] 8 2 [facility] Repository 07/07/2017 [id number] Ambulatory [facility]:B [place] 4 [facility] Repository 07/05/2017 [id number] Ambulatory [facility] [address] [facility] Repository 07/05/2017 [id number] Ambulatory [facility] [address] [facility] Repository 06/27/2017 [id number] Ambulatory BMSBuilding:B [place] 0 [facility] Repository PAYERS PAYERS ENCOUNTER GUARANTOR PAYER SUBSCRIBER SOURCE 04/19/2018 JONY [place] Primary JONY [place] [id number] [address] Insurance:HUMANMahi [place]: [place] MEDICAREPolicy [id number] [place] [address]Guu: Number: Repository [id number] (HP) Date:[id number] [address] [address]DO: 04/19/2018 Secondary NOT GIVENUNK [place] Insurance:SELF PAY [facility] Number: Effective Repository Date:2018-01-30 03/03/2018 JONY Bahena Primary JONY [place] [id number] Insurance:HUMANA MAGI WRIGHTSONDOB: Community [address] MEDICAREPolicy 1945[facility], [place] Number: Repository [address]Elz: ([phone] [id number] [phone] (HP) Date:[id number] [address] [address]FW: 03/03/2018 Secondary NOT GIVENUNK [place] Insurance:SELF PAY [facility] Number: Effective Repository Date:2018-03-03 03/03/2018 JONY Bahena Primary JONY Bueno [id number] Insurance:HUMANA MAGI WRIGHTSONDOB: [address] MEDICAREPolicy [id number] Number: Repository [id number]: (673) [id number] [phone] (HP) Date:0531-95-08[address] [place] [address]YV: 03/03/2018 Secondary NOT GIVENUNK [place] Insurance:SELF PAY [facility] Number: Effective Repository Date:2018-03-03 03/03/2018 JONY Bahena Primary JONY Bueno [id number] Insurance:HUMANA GOLD DAWSONDOB: [address] MEDICAREPolicy [id number] Number: Repository [id number]: 419 [id number] [phone] (HP) Date:0541-33-31YX [address] [address]CF: 03/03/2018 Secondary NOT GIVENUNK [place] Insurance:SELF PAY [facility] Number: Effective Repository Date:2018-03-03 01/16/2018 JONY Bahena Primary JONY Moreiraoster [id number] Insurance:HUMANA GOLD DAWSONDOB: [address] MEDICAREPolicy [id number] Number: Repository [id number]: 419 [id number] [phone] (HP) Date:6481-36-60II [address] [address]XF: 01/16/2018 Secondary NOT GIVENUNK [place] Insurance:SELF PAY [facility] Number: Effective Repository Date:2018-01-16 10/17/2017 JONY Bahena Primary JONY Bueno [id number] Insurance:HUMANA GOLD DAWSONDOB: [address] MEDICAREPolicy [id number] Number: Repository [id number]: 419 [id number] [phone] (HP) Date:7940-71-39IV [address] [address]MF: 10/17/2017 Secondary NOT GIVENUNK [place] Insurance:SELF PAY [facility] Number: Effective Repository Date:2017-10-17 07/07/2017 Jony Bahena Primary Jony Bueno [id number] [address] Insurance:HUMANA GOLD DawsonDOB: [place] [address] MEDICAREPolicy [id number] [address]Bxx: (419) Number: Repository [phone] () [id number] Date:3774-27-12YE [address]46[address]WP: 07/07/2017 Secondary NOT GIVENUNK [place] Insurance:SELF PAY [facility] Number: Effective Repository Date:2017-05-13 07/05/2017 Jony J Primary Jony J [place] [id number] [address] Insurance:FELISHA VillanuevaDOB: [place] [address], [place] MEDICAREPolicy [id number] [address]Ech: (419) Number: Repository [phone] () [id number] Date:2192-95-08OC [place] [address]WP: 07/05/2017 Secondary NOT GIVENUNK [place] Insurance:SELF PAY [facility] Number: Effective Repository Date:2017-07-05 07/05/2017 Jony J Primary Jony J [place] [id number] [address] Insurance:FELISHA VillanuevaDOB: [place] [address] MEDICAREPolicy [id number] [address]Dyw: (419) Number: Repository [phone] () [id number] Date:1704-43-66BN [place] [address]WP: 07/05/2017 Secondary NOT GIVENUNK [place] Insurance:SELF PAY [facility] Number: Effective Repository Date:2017-07-05 06/27/2017 Jony J Primary Jony J [place] [id number] [address] Insurance:FELISHA VillanuevaDOB: [place] [address] MEDICAREPolicy [id number] [address]Akm: (419) Number: Repository [phone] () [id number] Date:0770-40-84CH [place] [address]WP: 06/27/2017 Secondary NOT GIVENUNK [place] Insurance:SELF PAY [facility] Effective Repository Date:2017-03-16
== END ==
PROVIDERS: Family Provider Family Medicine; PCP Family Medicine; Referring Provider Nurse Practitioner Family; Visit Provider Nurse Practitioner Family
DX: I25.10 Atherosclerotic heart disease of native coronary artery without angina pectoris (principal); I10 Essential (primary) hypertension; Z12.5 Encounter for screening for malignant neoplasm of prostate; G47.00 Insomnia, unspecified; I48.0 Paroxysmal atrial fibrillation; E78.5 Hyperlipidemia, unspecified; I34.0 Nonrheumatic mitral (valve) insufficiency
CPT/HCPCS: 36415; 80053; 80061; 82248; 84153; 84439; 84443; 85025; G0103

== ENCOUNTER → 2019-02-24 08:17 | Outpatient (CLI) | payer MEDICARE, SELFPAY ==
[2016-04-09 09:01] VITALS: BMI 28.3
--- NOTE | 2019-02-24 08:30 | CT_ITS ---
STUDY: CT CHEST WITHOUT CONTRAST- LOW DOSE SCREENING PROTOCOL REASON FOR EXAM: Male, 74 years old. Current smoker. 55 pack per year history. No current symptoms of lung cancer or pulmonary infection. Shared decision-making with referring PCP documented in patient's record. RADIATION DOSAGE (If Supplied By Facility): CTDIvol = ( 3.02 ) mGy, DLP = ( 110.23 ) mGycm TECHNIQUE: Low dose screening CT examination performed from the base of the neck to the upper abdomen. Sagittal and coronal reformatted images performed. Sagittal and coronal MIP images provided. The measurements provided are average, rounded measurements per ACR guidelines. Individualized dose optimization techniques were used for this CT. COMPARISON: CT chest from 03/05/2015, CTA chest of 04/19/2017 FINDINGS: Moderate centrilobular and paraseptal emphysematous changes predominantly in the mid and upper lung zones. Reticular nodular density in the posterior lingula has an average diameter of 7 mm. No additional pulmonary nodule or localized groundglass opacity. There are granulomata of the right lower lobe. There is no demonstrated pleural abnormality. Normal heart and pericardium. Sternal wires and mediastinal surgical clips compatible with prior CABG. Normal mediastinum. Normal hilar regions. Normal unenhanced pulmonary arteries. There is atherosclerotic calcification of the aortic arch with tortuosity and elongation of the aortic arch and descending thoracic aorta. There are multi-level degenerative changes of the thoracic spine and left shoulder. There is no demonstrated abnormality of the visualized upper abdomen. CT/Low Dose CT Lung Screening IMPRESSION: 1. No significant indeterminate incidental findings requiring additional imaging. 2. Incidental findings include emphysema, CABG, degenerative changes of thoracic spine. ASSESSMENT CATEGORY: LungRADS 4A - Suspicious. New 7 mm (average diameter) nodule in the posterior lingula. Recommend follow up LDCT in 3 months. Electronically Signed: Eliazar Bonds MD (Bro[place]) at 16:43 EST , Service support ,
[2019-02-24 08:55] LABS: Absolute Lymphocyte Count 2.62 X10^3/uL (0.83-4.51); Basophil# 0.04 X10^3/uL; Basophil% 0.4 % (0-1); Eosinophil# 0.16 X10^3/uL; Eosinophils% 1.5 % (0-5); Hematocrit 39.6 % (40-54); Lymphocyte # 2.62 X10^3/ul (4.0); Lymphocyte % 23.9 % (19-41); Mean Corp Hgb Conc 32.8 g/dL (32-36); Mean Corpuscular Hgb 28.8 pg (27.0-32.0); Mean Corpuscular Volume 87.8 fL (80-94); Mean Platelet Vol. 9.3 fl (6.2-12.0); Monocyte# 1.11 X10^3/uL; Monocyte% 10.1 % (0-10); NRBC Flagged by Analyzer 0 % (0-5); Neutrophil # 6.99 X10^3/uL (2.7-7.7); Neutrophil % 63.6 % (47-70); Platelet Count 277 K/mm3 (150-450); RBC Distribution Width CV 14.1 % (11.6-14.6); RBC Distribution Width SD 45.1 fl (35.1-43.9); Red Blood Count 4.51 M/mm3 (4.6-6.2)
[2019-02-24 09:31] LABS: Albumin, Serum 3.4 g/dL (3.2-5.0); BUN 18 mg/dL (7-18); BUN/Creat Ratio 19.2 RATIO (10-20); Creatinine, Serum 0.94 mg/dL (0.70-1.30); EST Glomerular Filtration Rate 84 mL/min (>60); Est Glom Filt Rate - Afr Amer 101 mL/min (>60); Glucose 84 mg/dL (74-106); Protein, Total 7.6 g/dL (6.4-8.2)
[2019-02-24 09:32] LABS: ALB/GLOB Ratio 0.8 RATIO (0.9-2.4); AST(SGOT) 12 U/L (15-37); Alanine Aminotransfer ALT/SGPT 17 U/L (16-61); Alkaline Phosphatase 78 U/L (45-117); Anion Gap 5 (5-15); Calcium,Total 8.9 mg/dL (8.5-10.1); Chloride 106 mmol/L (98-107); Cholesterol 188 mg/dL (200); Globulin 4.2 g/dL (2.2-4.2); High Density Lipoprotein 45 mg/dL; Potassium 3.8 mmol/L (3.5-5.1); Sodium Level 140 mmol/L (136-145); Thyroid Stim Hormone (TSH) 5.02 uIU/mL (0.358-3.74); Triglycerides 135 mg/dL; Very Low Density Lipoprotein 27 mg/dL (5-40)
== END ==
PROVIDERS: Family Provider Family Medicine; PCP Family Medicine; Referring Provider Family Medicine; Visit Provider Family Medicine
DX: Z12.2 Encounter for screening for malignant neoplasm of respiratory organs (principal); Z87.891 Personal history of nicotine dependence; I10 Essential (primary) hypertension; I25.10 Atherosclerotic heart disease of native coronary artery without angina pectoris; E78.5 Hyperlipidemia, unspecified; Z12.5 Encounter for screening for malignant neoplasm of prostate; Z51.81 Encounter for therapeutic drug level monitoring
CPT/HCPCS: 36415; 80053; 80061; 84443; 85025; G0297

== ENCOUNTER 2019-04-03 00:36 | Emergency (ER) | payer MEDICARE, SELFPAY ==
[2016-04-09 09:01] VITALS: BMI 28.3
[2019-04-03 00:38] VITALS: BP 180/82; PULSE 56; RESP 17; TEMP 37; O2SAT 99; BMI 27.8
--- NOTE | 2019-04-03 01:08 | ED.VIS.GEN ---
History of Present Illness Chief Complaint: Back Informant: Patient Narrative: Presents with chronic back pain worsened over the last 5 days. No new injury. He has chronic radiculopathy. He had surgery to repair this 2 years ago but is left with radicular type pain. He does not see pain management but takes 4 Percocet per day. That has not seemed to been helping him over the last 5 days. No loss of bowel or bladder symptoms. No fevers or chills. This feels like similar pain only worse. There is a aching throbbing pain. Requesting pain control so he can rest tonight. - Past Medical History (1) Acute diastolic (congestive) heart failure Status: Acute (2) Atherosclerotic heart disease of [place] coronary artery without angina pectoris Status: Chronic Comment: CABG x4; PARKER to LAD, SVG sequentially to 1st and 2nd diag branches of anterior descending and to CX with suture repair of small ASD 06/2006 (3) CHF NYHA class III (symptoms with mildly strenuous activities) Status: Chronic (4) COPD (chronic obstructive pulmonary disease) with acute bronchitis Status: Chronic (5) Essential hypertension Status: Chronic (6) History of coronary artery bypass surgery Status: Chronic Comment: CABG x4; PARKER to LAD, SVG sequentially to 1st and 2nd diag branches of anterior descending and to CX with suture repair of small ASD 06/2006 (7) Long-term use of high-risk medication Status: Chronic (8) Mitral valve insufficiency Status: Chronic (9) Nonrheumatic mitral valve insufficiency Status: Chronic (10) Paroxysmal atrial fibrillation Status: Chronic (11) Presence of stent in coronary artery Status: Chronic Comment: PCI/YAMILET to RCA X 2 04/08/16 (12) Pulmonary hypertension Status: Chronic (13) Pure hypercholesterolemia Status: Chronic (14) Chest pain Status: Resolved Past Medical History - Allergies and Home Meds Allergies/Adverse Reactions: Allergies No Known Allergies Allergy (Verified 04/03/19 00:37) Primary Care Physician: Andrea Means DO [Primary Care Provider] - Surgical History: coronary bypass surgery, - - foot surgery, toe surgery, lipoma on wrist. Lives: With Family Smoking Status: Current every day smoker Alcohol: None Drugs: None - Family History Maternal Family History: Family History (Last Reviewed 10/17/17 @ 09:07 by Debby Nelson) Mother CVA (cerebral vascular accident) Brother CAD (coronary artery disease) Brother CAD (coronary artery disease) Family History: Reports: No pertinent history Sibling Family History: Family History (Last Reviewed 10/17/17 @ 09:07 by Debby Nelson) Mother CVA (cerebral vascular accident) Brother CAD (coronary artery disease) Brother CAD (coronary artery disease) Family History: Reports: - - brothers with heart surgery. Review of Systems General: Denies: Chills, Fever, Sweats Eyes: Denies: Visual changes - bilaterally, Diplopia ENT: Denies: Rhinorrhea, Sore throat Cardiovascular: Denies: Chest pain, Palpitations Respiratory: Denies: Dyspnea, Cough, Dyspnea on exertion Gastrointestinal: Denies: Abdominal pain, Nausea, Vomiting, Diarrhea, Melena, Hematochezia Genitourinary: Denies: Dysuria, Hematuria, Frequency Musculoskeletal: Reports: Back pain. Denies: Extremity Pain Skin: Denies: Rash, Wounds Neurological: Denies: Headache, Weakness, Numbness Physical Exam Vital Signs/Narrative: Vital Signs Temp Pulse Resp BP Pulse Ox 04/03/19 00:38 98.6 F 56 L 17 180/82 H 99 General: Well nourished, Well developed, No Acute Distress Head: Normocephalic, Atraumatic Eyes: Perrl, EOMI ENT: Moist mucous membranes, No rhinorrhea Neck: Supple, Nontender Cardiovascular: Regular rate, Regular rhythm, No murmurs Respiratory: No distress, CTA bilaterally, Chest nontender Abdomen: Soft, Nontender, Nondistended, Normal bowel sounds Back: Normal Inspection, - - Tender to palpation lumbar right paraspinals without swelling or deformity decreased range of motion secondary to pain.. Negative for: Nontender Extremities: Nontender, No edema Skin: Normal color, No rash Neurological: Alert, Oriented x3, Cranial nerves II-XII grossly intact, Normal Strength, Normal Sensation Psychological: Normal affect, Normal Mood Diagnostic/Tx/Re-eval - Medical Decision Making Appears to be an exacerbation of this chronic musculoskeletal low back pain. I do not think he has an acute aortic aneurysm that would warrant imaging study at this time. I feel that this is similar to his previous pain. He was given injection of morphine and Toradol. He was given a dose of Zofran to prevent nausea. He will follow-up as an outpatient to continue his pain medicine. He may need outpatient MRI or physical therapy ED Disposition - Plan for ED Patient: Disposition: Psych[facility] Hospital [facility] Unit Diagnosis: Acute exacerbation of chronic low back pain Instructions: BACK PAIN (Acute or Chronic) Prescriptions: MethylPREDNISolone DosePak [Medrol DosePak] 4 mg PO UD #1 box Prescription Printed Ondansetron [Zofran Odt] 4 mg PO Q8H PRN PRN #10 tab PRN Reason: Nausea Prescription Printed Referrals: Andrea Means DO [Primary Care Provider] -
[2019-04-03] MEDS: Ondansetron ODT 4 MG Tablet 8 MG PO (01:18)
[2019-04-03] MEDS: Ketorolac 15 MG/ML Vial IM (01:18)
[2019-04-03] MEDS: morphine 8 MG/ML Syringe IM (01:18)
[2019-04-03 01:55] VITALS: BP 149/79; PULSE 60; RESP 17; O2SAT 98
== END 2019-04-03 02:08 | disposition home or self-care (01) ==
LOC: ED 01:15
PROVIDERS: Emergency Provider Emergency Medicine; Family Provider Family Medicine; PCP Family Medicine
DX: M54.5 Low back pain (principal); G89.29 Other chronic pain; I11.0 Hypertensive heart disease with heart failure; I50.31 Acute diastolic (congestive) heart failure; I25.10 Atherosclerotic heart disease of native coronary artery without angina pectoris; J44.9 Chronic obstructive pulmonary disease, unspecified; I34.0 Nonrheumatic mitral (valve) insufficiency; I48.0 Paroxysmal atrial fibrillation; I27.20 Pulmonary hypertension, unspecified; E78.00 Pure hypercholesterolemia, unspecified; Z95.1 Presence of aortocoronary bypass graft; Z79.82 Long term (current) use of aspirin; Z79.899 Other long term (current) drug therapy; F17.200 Nicotine dependence, unspecified, uncomplicated
CPT/HCPCS: 96372; 99282

== ENCOUNTER → 2019-04-19 12:58 | Outpatient (CLI) | payer MEDICARE, SELFPAY ==
[2016-04-09 09:01] VITALS: BMI 28.3
[2019-04-03 00:38] VITALS: BMI 27.8
--- NOTE | 2019-04-19 13:05 | MRI_ITS ---
STUDY: MRI LUMBAR SPINE WITHOUT CONTRAST REASON FOR EXAM: Male, 74 years old. increased low back pain, lower extremity weakness TECHNIQUE: Standardized fat and water weighted pulse sequences were obtained in the sagittal and axial planes. COMPARISON: 02/25/2017 FINDINGS: T12-L1: Normal endplates. Normal disc height, hydration and morphology. Normal bilateral facet joints. Normal central canal and bilateral lateral recesses. Normal bilateral intervertebral neural foramina. Normal lumbar lordosis. There is no substantial scoliosis. Normal conus medullaris that terminates at the T12/L1. L1-2: Mild bilateral facet hypertrophy and moderate ligament flavum hypertrophy. No change in the mild bilobed disc protrusion which produces mild spinal stenosis and mild bilateral neural foraminal stenosis. L2-3: Moderate bilateral facet hypertrophy and severe ligament flavum hypertrophy. No change in a mild broad disc protrusion which produces moderate spinal stenosis and mild bilateral neural foraminal stenosis. L3-4: Mild bilateral facet hypertrophy and moderate ligament flavum hypertrophy. No change in the mild broad disc protrusion which produces mild spinal stenosis and mild bilateral neural foraminal stenosis. L4-5: Mild bilateral facet hypertrophy. No change in the mild broad disc protrusion which produces mild spinal stenosis and mild bilateral neural foraminal stenosis. L5-S1: Normal endplates. Normal disc height, hydration and morphology. Normal bilateral facet joints. Normal central canal and bilateral lateral recesses. Normal bilateral intervertebral neural foramina. Normal visualized sacral ala. Normal visualized paraspinous soft tissue structures. MRI/Spine Lumbar (Routine) IMPRESSION: No change from 02/25/2017. Electronically Signed: Milton Lares MD at 15:28 EST Tel , Service support ,
== END ==
LOC: MRI 13:00
PROVIDERS: Family Provider Family Medicine; PCP Family Medicine; Referring Provider Family Medicine; Visit Provider Family Medicine
DX: M51.16 Intervertebral disc disorders with radiculopathy, lumbar region (principal)
CPT/HCPCS: 72148

== ENCOUNTER → 2019-09-05 | Outpatient (CLI) | payer MEDICARE, SELFPAY ==
[2016-04-09 09:01] VITALS: BMI 28.3
[2019-07-02 11:50] VITALS: BMI 27.8
[2019-09-05 09:40] LABS: Anion Gap 5 (5-15); BUN 13 mg/dL (7-18); BUN/Creat Ratio 15.7 RATIO (10-20); Calcium,Total 9.4 mg/dL (8.5-10.1); Chloride 106 mmol/L (98-107); Creatinine, Serum 0.83 mg/dL (0.70-1.30); EST Glomerular Filtration Rate 97 mL/min (>60); Est Glom Filt Rate - Afr Amer 117 mL/min (>60); Glucose 89 mg/dL (74-106); Potassium 3.9 mmol/L (3.5-5.1); Sodium Level 140 mmol/L (136-145)
== END | disposition home or self-care (01) ==
LOC: LAB 08:46
PROVIDERS: PCP Family Medicine; Referring Provider Internal Medicine Cardiovascular Disease; Visit Provider Internal Medicine Cardiovascular Disease
DX: I10 Essential (primary) hypertension (principal); I25.10 Atherosclerotic heart disease of native coronary artery without angina pectoris; Z95.1 Presence of aortocoronary bypass graft; Z95.5 Presence of coronary angioplasty implant and graft
CPT/HCPCS: 36415; 80048

== ENCOUNTER → 2019-10-02 | Outpatient (CLI) | payer MEDICARE, SELFPAY ==
[2016-04-09 09:01] VITALS: BMI 28.3
[2019-07-02 11:50] VITALS: BMI 27.8
--- NOTE | 2019-10-02 09:00 | ART_ITS ---
Reason For Study: claudication Procedure A bilateral lower extremity continuous wave Doppler with analog waveform analysis,segmental pressures,and ankle brachial indexes with exercise. Left Segmental Pressures Left brachial= 149mmHg. Left posterior tibial artery = 154mmHg. Left dorsalis pedis artery = 147mmHg. The left posterior tibial artery waveforms are triphasic. The left dorsalis pedis waveforms are biphasic. Right Segmental Pressures Right brachial= 139mmHg. Right posterior tibial artery = 151mmHg. Right dorsalis pedis artery = 148mmHg. The right posterior tibial artery waveforms are triphasic. The right dorsalis pedis waveforms are biphasic. Indices The right ankle brachial index by the dorsalis pedis is .99. The right ankle brachial index by the posterior tibial artery is 1.01. The right post exercise ankle brachial index is .94. The left ankle brachial index by the dorsalis pedis is .99. The left ankle brachial index by the posterior tibial artery is 1.03. The left post exercise ankle brachial index is .92. Interpretation Summary Triphasic and biphasic Doppler waveforms are noted at ankle level bilaterally. Pulse-volume recordings appear satisfactory at low-thigh, calf, and ankle levels bilaterally. Resting ankle- brachial indices are normal bilaterally. The patient ambulated for 3 minutes at a moderate pace, following which ankle pressures augmented bilaterally. There is no evidence of significant arterial occlusive disease in the lower extremities bilaterally. Ordering Physician: Medina Calloway Performed By: YVONNE SAHU T
[2019-10-02 11:10] LABS: Creatinine, Serum 0.91 mg/dL (0.70-1.30); EST Glomerular Filtration Rate 87 mL/min (>60); Est Glom Filt Rate - Afr Amer 105 mL/min (>60)
== END | disposition home or self-care (01) ==
PROVIDERS: PCP Family Medicine; Referring Provider Nurse Practitioner Acute Care; Visit Provider Nurse Practitioner Acute Care
DX: I73.9 Peripheral vascular disease, unspecified (principal); M48.062 Spinal stenosis, lumbar region with neurogenic claudication
CPT/HCPCS: 36415; 82565; 93924

== ENCOUNTER → 2019-10-09 | Outpatient (CLI) | payer MEDICARE, SELFPAY ==
[2016-04-09 09:01] VITALS: BMI 28.3
[2019-07-02 11:50] VITALS: BMI 27.8
--- NOTE | 2019-10-09 10:45 | MRI_ITS ---
STUDY: MRI LUMBAR SPINE WITH AND WITHOUT CONTRAST REASON FOR EXAM: Male, 74 years old. Congenital stenosis of lumbar spine, low back pain, bilat leg pain, hx 2 prior surgeries- most recent 05/2019 TECHNIQUE: Standardized fat and water weighted pulse sequences were obtained in the sagittal and axial planes. IV yes yes was administered for the contrast portion of the examination. COMPARISON: April 19, 2019 FINDINGS: Normal lumbar lordosis. There is no substantial scoliosis. Normal conus medullaris that terminates at the T12 L1-2: There is mild disc space narrowing and endplates spondylosis. There is mild disc bulge and moderate facet arthropathy with mild central canal stenosis. There is mild right and mild left foraminal stenosis. There is minimal grade 1 anterolisthesis. Findings are stable since prior examination. L2-3: There is mild disc space narrowing and endplates spondylosis. There is mild disc bulge and moderate facet arthropathy and minimal central canal stenosis. There is mild right and minimal left foraminal stenosis. There is a decompression laminectomy now with improved central patency. L3-4: There is mild disc space narrowing and endplates spondylosis. There is moderate disc bulge and facet arthropathy without central canal stenosis. There is a decompression laminectomy now. There is mild right and mild left foraminal stenosis. L4-5: There is moderate disc space narrowing and endplates spondylosis. There is a moderate disc osteophyte complex and facet arthropathy without central canal stenosis. There is a decompression laminectomy. There is stable moderate right and moderate left foraminal stenosis. L5-S1: There is mild disc space narrowing and endplates spondylosis. There is a moderate disc osteophyte complex and facet arthropathy asymmetric to the right with moderate right foraminal stenosis. There is decompression laminectomy now. There is no significant central canal or left foraminal stenosis. Normal visualized sacral ala. MRI/Spine Lumbar W/WO Contrast IMPRESSION: Interval decompression laminectomies. Electronically Signed: Arely Lyon MD at 10:13 EDT Tel , Service support ,
== END | disposition home or self-care (01) ==
LOC: MRI 10:25
PROVIDERS: PCP Family Medicine; Referring Provider Nurse Practitioner Acute Care; Visit Provider Nurse Practitioner Acute Care
DX: Q76.49 Other congenital malformations of spine, not associated with scoliosis (principal); Z48.89 Encounter for other specified surgical aftercare
CPT/HCPCS: 72158; A9575

== ENCOUNTER 2019-10-25 19:44 | Inpatient (IN) | payer MEDICARE, SELFPAY ==
[2016-04-09 09:01] VITALS: BMI 28.3
[2019-07-02 11:50] VITALS: BMI 27.8
[2019-10-25 19:45] VITALS: BP 202/89; PULSE 78; RESP 19; TEMP 38.1; O2SAT 97; BMI 27.2
[2019-10-25 20:03] VITALS: PULSE 86; RESP 22; O2SAT 94
--- NOTE | 2019-10-25 20:27 | RAD_ITS ---
STUDY: X-RAY CHEST REASON FOR EXAM: Male, 74 years old. Recently diagnosed with pneumonia and three cracked ribs on the right side. Increased shortness of breath and cough. Fever. TECHNIQUE: AP portable COMPARISON: 04-19-17 FINDINGS: Is prominence of the interstitial markings with diffusely increased density in the right upper and lower lobes as well as to a lesser extent the left lower lobe. There is no demonstrated pleural abnormality. Normal size heart. Normal mediastinum and [place]. Normal visualized pulmonary arteries. Normal visualized aortic arch and descending thoracic aorta. Postop change status post median sternotomy and CABG Dorsal spine and shoulders demonstrate degenerative change. Normal visualized ribs, and clavicles There is no demonstrated abnormality of the visualized soft tissue structures of the upper abdomen. RAD/Chest 1 View (Portable) IMPRESSION: Findings highly suggestive of Covid nineteen pneumonia greater on the right. No definitive evidence for focal right rib fracture. Oblique views of the ribs would be helpful for further evaluation if clinically warranted. Electronically Signed: Roney Hunt MD at 21:22 EDT , Service support ,
--- NOTE | 2019-10-25 20:27 | ED.VIS.GEN ---
History of Present Illness Chief Complaint: Shortness of Breath Narrative: Patient presents with fever and cough as well as a subjective feeling of shortness of breath. He states that earlier this week on Tuesday he was cutting a from a tree in ER he had a tied off. This inadvertently hit him in the right side of his chest and he fell off of a ladder. He went to [facility] and was diagnosed with 3 broken ribs. Sent home ultimately and he had pain medication at home which he takes chronically for his back. He states he returned yesterday because he had cough and fever. They did a CT scan of his chest and noted that he had the cracked ribs as well as adjacent pneumonia. They admitted him overnight and gave him an IV antibiotics. I did a COVID swab but not resulted. And continues to have fever and shortness of breath. Past Medical History - Allergies and Home Meds Allergies/Adverse Reactions: Allergies No Known Allergies Allergy (Verified 10/25/19 19:48) Surgical History: coronary bypass surgery, - - foot surgery, toe surgery, lipoma on wrist. Smoking Status: Current every day smoker - Family History Maternal Family History: Family History (Last Reviewed 05/08/19 @ 13:18 by ISABEL Echeverria) Mother CVA (cerebral vascular accident) Brother CAD (coronary artery disease) Brother CAD (coronary artery disease) Family History: Reports: No pertinent history Sibling Family History: Family History (Last Reviewed 05/08/19 @ 13:18 by ISABEL Echeverria) Mother CVA (cerebral vascular accident) Brother CAD (coronary artery disease) Brother CAD (coronary artery disease) Family History: Reports: - - brothers with heart surgery. Review of Systems General: Reports: Chills, Fever Eyes: Denies: Visual changes - bilaterally, Diplopia ENT: Denies: Rhinorrhea, Sore throat Cardiovascular: Reports: Chest pain - Sided Respiratory: Reports: Dyspnea, Cough Gastrointestinal: Denies: Abdominal pain, Nausea Genitourinary: Denies: Dysuria Musculoskeletal: Denies: Myalgias Skin: Denies: Rash Neurological: Denies: Headache Hematologic: Denies: Easy bruising, Easy bleeding Allergy: Denies: Uticaria Physical Exam Vital Signs/Narrative: Vital Signs Temp Pulse Resp BP Pulse Ox 10/25/19 20:03 86 22 H 94 10/25/19 19:45 100.6 F H 78 19 H 202/89 H 97 Inital Vital Signs reviewed: Yes General: Obese, No Acute Distress Head: Normocephalic, Atraumatic Eyes: Perrl ENT: Moist mucous membranes Cardiovascular: Regular rate, Regular rhythm Respiratory: Decreased Air Movement Abdomen: Soft Extremities: Nontender Skin: Normal color, No rash Neurological: Alert, Oriented x3 Psychological: Normal affect Diagnostic/Tx/Re-eval Clinical Impression(s) from Imaging Studies Chest X-Ray 10/25/19 20:27 IMPRESSION: Findings highly suggestive of Covid nineteen pneumonia greater on the right. No definitive evidence for focal right rib fracture. Oblique views of the ribs would be helpful for further evaluation if clinically warranted. Electronically Signed: Roney Hunt MD at 21:22 EDT , Service support , Laboratory Data 10/25/19 10/25/19 10/25/19 20:10 20:48 20:50 WBC 12.2 H RBC 3.99 L Hgb 11.1 L Hct 34.0 L MCV 85.2 MCH 27.8 MCHC 32.6 RDW Std Deviation 45.9 H RDW Coeff of [place] 14.7 H Plt Count 242 MPV 10.0 Immature Gran % (Auto) 0.400 Neut % (Auto) 76.8 H Lymph % (Auto) 14.2 L [place] % (Auto) 8.2 Eos % (Auto) 0.2 Baso % (Auto) 0.2 Absolute Neuts (auto) 9.4 H Absolute Lymphs (auto) 1.73 Nucleated RBC % 0 Sodium Potassium Chloride Carbon Dioxide Anion Gap BUN Creatinine Estim Creat Clear Calc Est GFR (MDRD) Af Amer Est GFR (MDRD) Non-Af BUN/Creatinine Ratio Glucose Lactic Acid Calcium Total Bilirubin AST ALT Alkaline Phosphatase Troponin I Total Protein Albumin Globulin Albumin/Globulin Ratio Procalcitonin Urine Color Yellow Urine Clarity Clear Urine pH 6.0 Ur Specific [employer] 1.010 Urine Protein 30 H Urine Glucose (UA) Normal Urine Ketones 15 H Urine Occult Blood 25 H Urine Nitrite Negative Urine Bilirubin Negative Urine Urobilinogen Normal Ur Leukocyte Esterase Negative COVID-19 ([place]) Negative 0710/25/19 10/25/19 20:50 20:50 22:40 WBC RBC Hgb Hct MCV MCH MCHC RDW Std Deviation RDW Coeff of [place] Plt Count MPV Immature Gran % (Auto) Neut % (Auto) Lymph % (Auto) [place] % (Auto) Eos % (Auto) Baso % (Auto) Absolute Neuts (auto) Absolute Lymphs (auto) Nucleated RBC % Sodium 138 Potassium 3.9 Chloride 109 H Carbon Dioxide 24.0 Anion Gap 5 BUN 20 H Creatinine 0.95 Estim Creat Clear Calc 70.44 Est GFR (MDRD) Af Amer 100 Est GFR (MDRD) Non-Af 82 BUN/Creatinine Ratio 21.1 H Glucose 95 Lactic Acid 0.7 Calcium 9.0 Total Bilirubin 0.60 AST 13 L ALT 20 Alkaline Phosphatase 74 Troponin I < 0.015 Total Protein 7.3 Albumin 3.1 L Globulin 4.2 Albumin/Globulin Ratio 0.7 L Procalcitonin 0.05 Urine Color Urine Clarity Urine pH Ur Specific [employer] Urine Protein Urine Glucose (UA) Urine Ketones Urine Occult Blood Urine Nitrite Urine Bilirubin Urine Urobilinogen Ur Leukocyte Esterase COVID-19 ([place]) - Rhythm Strip Rhythm Strip: Sinus Rhythm Rate: 76 - EKG Initial EKG Interpretation: Sinus Rhythm, No Acute Injury Pattern - Medical Decision Making Patient presents with right-sided chest pain. He states this was traumatic after being struck in the chest with a tree branch. On day of this week and states he had a chest x-ray done which showed rib fractures. He was sent home with no new medication because he is already on medication for pain chronically in his back. He states he developed fevers and cough went back to the ED and had a CT scan which showed these fractures again as well as a pneumonia. He was admitted overnight for IV antibiotics and then tested for COVID and sent home. He has not received the results of his COVID testing. Today with continued right-sided chest pain cough and fever. After further talking to him he states that his pain started a couple of days before he actually was struck in the chest. He had coughing at that time as well. This would make this day 7 a rate for him. And the patient's multiple comorbidities and risk factors for possible having COVID. He was swabbed again with a rapid swab. He will be admitted to the hospital for IV antibiotics. Given that he was recently admitted he will be treated with vancomycin and Zosyn. I discussed this with the hospitalist team was amenable to admission. Patient was admitted for the floor in stable condition. Impression: 1. Pneumonia H CAP versus COVID?19 2. Right-sided chest pain with reported history of rib fractures 3. Febrile illness ED Disposition - Plan for ED Patient: Disposition: Acute Care Hospital [facility]
--- NOTE | 2019-10-25 20:29 | EKG12_ITS ---
Test Reason : SOB Blood Pressure : / mmHG Vent. Rate : 076 BPM Atrial Rate : 076 BPM P-R Int : 154 ms QRS Dur : 088 ms QT Int : 408 ms P-R-T Axes : 055 047 065 degrees QTc Int : 459 ms Normal sinus rhythm Normal ECG Confirmed by RADHA VAUGHN ([id number]), editor in chief newspaper CODEY PAUL ([id number]) on 10/29/2019 11:47:07 AM Referred By: Confirmed By:RADHA VAUGHN
[2019-10-25 20:41] LABS: Color, Urine Yellow (Yellow); Glucose, Dipstick Normal (Normal); Ketone-Dipstick 15 mg/dl (Negative); Leukocyte Esterase-Dipstick Negative /ul (Negative); Nitrite-Dipstick Negative (Negative); Occult Blood-Urine 25 /ul (Negative); Protein-Dipstick 30 mg/dl (Negative); Urine Bilirubin Dipstick Negative (Negative); Urine Clarity Clear (Clear); Urine Urobilinogen Normal (Normal)
[2019-10-25] MEDS: fentaNYL 100 MCG/2 ML Ampul 50 MCG IV (20:48)
[2019-10-25] MEDS: Ondansetron 4 MG/2 ML Vial IV ×2 (20:48→22:40)
[2019-10-25 21:02] LABS: Absolute Lymphocyte Count 1.73 X10^3/uL (0.83-4.51); Absolute Neutrophil Count 9.4 X10^3/uL (2.0-7.7); Basophil# 0.02 X10^3/uL; Basophil% 0.2 % (0-1); Eosinophil# 0.02 X10^3/uL; Eosinophils% 0.2 % (0-5); Hemoglobin 11.1 g/dL (13.0-16.5); Lymphocyte # 1.73 X10^3/ul (4.0); Lymphocyte % 14.2 % (19-41); Mean Corp Hgb Conc 32.6 g/dL (32-36); Mean Corpuscular Hgb 27.8 pg (27.0-32.0); Mean Corpuscular Volume 85.2 fL (80-94); Monocyte% 8.2 % (0-10); NRBC Flagged by Analyzer 0 % (0-5); Neutrophil # 9.35 X10^3/uL (2.7-7.7); Neutrophil % 76.8 % (47-70); Platelet Count 242 K/mm3 (150-450); RBC Distribution Width CV 14.7 % (11.6-14.6); RBC Distribution Width SD 45.9 fl (35.1-43.9); Red Blood Count 3.99 M/mm3 (4.6-6.2); White Blood Count 12.2 K/mm3 (4.4-11.0)
[2019-10-25 21:28] LABS: ALB/GLOB Ratio 0.7 RATIO (0.9-2.4); AST(SGOT) 13 U/L (15-37); Alanine Aminotransfer ALT/SGPT 20 U/L (16-61); Albumin, Serum 3.1 g/dL (3.2-5.0); Alkaline Phosphatase 74 U/L (45-117); Anion Gap 5 (5-15); BUN 20 mg/dL (7-18); BUN/Creat Ratio 21.1 RATIO (10-20); Chloride 109 mmol/L (98-107); Creatinine, Serum 0.95 mg/dL (0.70-1.30); EST Glomerular Filtration Rate 82 mL/min (>60); Est Glom Filt Rate - Afr Amer 100 mL/min (>60); Estimated Creatinine Clearance 70.44 ml/min; Globulin 4.2 g/dL (2.2-4.2); Glucose 95 mg/dL (74-106); Potassium 3.9 mmol/L (3.5-5.1); Protein, Total 7.3 g/dL (6.4-8.2); Sodium Level 138 mmol/L (136-145)
[2019-10-25 21:33] LABS: Procalcitonin 0.05 ng/mL (0.00-0.09)
[2019-10-25 22:00] VITALS: RESP 18
--- NOTE | 2019-10-25 22:04 | PCM.HP.STD ---
Problem List (1) Presence of stent in coronary artery Status: Chronic Comment: PCI/YAMILET to RCA X 2 04/08/16 (2) Pure hypercholesterolemia Status: Chronic (3) History of coronary artery bypass surgery Status: Chronic Comment: CABG x4; PARKER to LAD, SVG sequentially to 1st and 2nd diag branches of anterior descending and to CX with suture repair of small ASD 06/2006 (4) Essential hypertension Status: Chronic (5) Atherosclerotic heart disease of [place] coronary artery without angina pectoris Status: Chronic Qualifiers: [place] vs. transplanted heart: [place] heart Qualified Code(s): I25.10 - Atherosclerotic heart disease of [place] coronary artery without angina pectoris Comment: CABG x4; PARKER to LAD, SVG sequentially to 1st and 2nd diag branches of anterior descending and to CX with suture repair of small ASD 06/2006 (6) Long-term use of high-risk medication Status: Chronic (7) Nonrheumatic mitral valve insufficiency Status: Chronic (8) Pulmonary hypertension Status: Chronic (9) Paroxysmal atrial fibrillation Status: Chronic (10) COPD (chronic obstructive pulmonary disease) with acute bronchitis Status: Chronic (11) CHF NYHA class III (symptoms with mildly strenuous activities) Status: Chronic Qualifiers: Congestive heart failure type: unspecified Qualified Code(s): I50.9 - Heart failure, unspecified (12) Sepsis Status: Acute (13) Pneumonia Status: Acute (14) SARS-associated coronavirus infection Status: Suspected History of Present Illness Date of Admission: 10/25/19 Chief Complaint: Fever The patient is a 74 year old M with a significant history of diastolic heart failure (CHF NYHA Class III);; COPD; paroxysmal A. fib; CAD status post coronary stents and quadruple bypass; and tobacco abuse who presents emergency department with fever. His fever on the day of presentation 103 Fahrenheit. A day before presentation his temperature was about 101 Fahrenheit. Also patient reports right sided chest pain and a productive cough. He is unable to expectorate his sputum. Importantly about 4 days ago; and after his symptoms of, productive cough and right-sided chest pain started he was doing some yard work at home, cutting a tree and on a ladder. A part of the cut branch of the tree fell on his chest causing him to fall from the ladder and injuring his chest. He went to [facility] where he was diagnosed with pneumonia and rib fracture. He has been at [facility] two times this week of presentation. On one of his visit to [facility] he stayed overnight. He was discharged home on cefuroxime. COVID test was ordered at [facility] but the results was not available to patient. Past Medical History Past Medical History (Chronic Problems): Chronic Problems (Last Reviewed 10/26/19 @ 00:[address] Patrice Taylor MD) Presence of stent in coronary artery (Chronic ~04/08/16) PCI/YAMILET to RCA X 2 04/08/16 Pure hypercholesterolemia (Chronic) History of coronary artery bypass surgery (Chronic ~07/01/06) CABG x4; PARKER to LAD, SVG sequentially to 1st and 2nd diag branches of anterior descending and to CX with suture repair of small ASD 06/2006 Essential hypertension (Chronic) Atherosclerotic heart disease of [place] coronary artery without angina pectoris (Chronic) CABG x4; PARKER to LAD, SVG sequentially to 1st and 2nd diag branches of anterior descending and to CX with suture repair of small ASD 06/2006 Long-term use of high-risk medication (Chronic) Nonrheumatic mitral valve insufficiency (Chronic) Pulmonary hypertension (Chronic) Paroxysmal atrial fibrillation (Chronic) COPD (chronic obstructive pulmonary disease) with acute bronchitis (Chronic) CHF NYHA class III (symptoms with mildly strenuous activities) (Chronic) Medical History: Medical History (Last Reviewed 10/26/19 @ 07:[address] Patrcie Taylor MD) Presence of stent in coronary artery (Chronic) Onset Date: ~04/08/16 Z95.5 PCI/YAMILET to RCA X 2 04/08/16 Pure hypercholesterolemia (Chronic) E78.00 Essential hypertension (Chronic) I10 Acute diastolic (congestive) heart failure (Inactive) I50.31 Atherosclerotic heart disease of [place] coronary artery without angina pectoris (Chronic) I25.10 CABG x4; PARKER to LAD, SVG sequentially to 1st and 2nd diag branches of anterior descending and to CX with suture repair of small ASD 06/2006 Long-term use of high-risk medication (Chronic) Z79.899 Nonrheumatic mitral valve insufficiency (Chronic) I34.0 Pulmonary hypertension (Chronic) I27.20 Paroxysmal atrial fibrillation (Chronic) I48.0 COPD (chronic obstructive pulmonary disease) with acute bronchitis (Chronic) J44.0 CHF NYHA class III (symptoms with mildly strenuous activities) (Chronic) I50.9 Aortic dilatation I77.819 Dysgeusia R43.2 Intercostal myalgia M79.1 Tobacco abuse Z72.[address] R93.8 BPH (benign prostatic hyperplasia) N40.0 Emphysema of lung J43.9 Insomnia G47.00 Smoker F17.200 Chest pain R07.9 Mitral valve insufficiency (Inactive) I34.0 Allergies No Known Allergies Allergy (Verified 10/25/19 19:48) Home Medications: Ambulatory Orders Medication Instructions Recorded Aspirin [Adult Low Dose Aspirin EC] 81 mg PO DAILY 04/19/17 Finasteride [Proscar] 5 mg PO QHS 04/19/17 Simvastatin [Zocor] 20 mg PO QHS 04/19/17 Tamsulosin HCl [Flomax] 0.4 mg PO QHS 04/19/17 amiodarone 200 mg tablet 200 mg PO DAILY #90 tab 04/09/19 metoprolol succinate 25 mg 25 mg PO DAILY #90 tab 05/08/19 tablet,extended release 24 hr vit C,E,zinc,copper-[id number] 250 2 cap PO DAILY cap 07/02/19 mg-lutein 5 mg-zeaxanthin 1 mg capsule zolpidem 10 mg tablet 10 mg PO QHS tab 07/02/19 lisinopril 20 mg tablet 20 mg PO DAILY #30 tab 09/06/19 Cefuroxime Axetil [Cefuroxime] 250 mg PO BID 10/25/19 Oxycodone HCl/Acetaminophen 1 - 2 ea PO Q4H PRN 10/25/19 [Percocet 7.5-325 mg Tablet] Pregabalin [Lyrica] 75 mg PO BID 10/25/19 Surgical History: Surgical History (Last Reviewed 10/26/19 @ 07:[address] Patrice Taylor MD) History of coronary artery bypass surgery (Chronic) Onset Date: ~07/01/06 Z95.1 CABG x4; PARKER to LAD, SVG sequentially to 1st and 2nd diag branches of anterior descending and to CX with suture repair of small ASD 06/2006 Presence of coronary angioplasty implant and graft Onset Date: ~04/08/16 Z95.5 PCI/YAMILET to RCA X 2 04/08/16 Aortocoronary bypass status Onset Date: ~06/2006 Z95.1 History of arthroscopic knee surgery Z98.890 History of cystoscopy Z98.890 History of hemorrhoidectomy Z98.890 History of lumbar surgery Z98.890 [facility] april 2017 History of transurethral resection of prostate Z98.890, Z90.79 Surgical History: coronary bypass surgery, - - foot surgery, toe surgery, lipoma on wrist. Smoking Status: Current every day smoker Tobacco Use: Cigarettes - *Family History Maternal Family History: Family History (Last Reviewed 10/26/19 @ 00:[address] Patrice Taylor MD) Mother CVA (cerebral vascular accident) Brother CAD (coronary artery disease) Brother CAD (coronary artery disease) History Items: No pertinent history Sibling Family History: Family History (Last Reviewed 10/26/19 @ 00:[address] Patrice Taylor MD) Mother CVA (cerebral vascular accident) Brother CAD (coronary artery disease) Brother CAD (coronary artery disease) History Items: - - brothers with heart surgery. Review of Systems Constitutional: Reports: Fever, Malaise, Weakness, Fatigue. Denies: Chills, Weight Change HEENT: Denies: Head Aches, Sinus Congestion, Sinus Drainage Cardiovascular: Reports: Chest Pain. Denies: Palpitations Respiratory: Reports: Cough, Shortness of Breath, Sputum production Gastrointestinal: Denies: Abdominal Pain, Nausea, Vomiting Genitourinary: Denies: Dysuria Musculoskeletal: Denies: Joint Pain, Joint Tenderness Skin: Denies: Rash, Wounds Neurological: Denies: Numbness, Tingling, Focal weakness Psychiatric: Denies: Anxiety, Depression, Homicidal Ideations, Suicidal Ideations Hematologic/ Lymphatic: Denies: Easy Bruising, Easy Bleeding VTE Information - Inpt Only VTE Present on Admission: No VTE Mechan Device Prophylaxis: None VTE Pharm Prophylaxis ordered?: Yes Patient Problems: Active and Suspected Problems (Last Reviewed 10/26/19 @ 00:[address] Patrice Taylor MD) Sepsis (Acute) Pneumonia (Acute) SARS-associated coronavirus infection (Suspected) - Physical Exam Vitals/I&O's: Vital Signs Temp Pulse Resp BP Pulse Ox 100.6 F H 86 22 H 202/89 H 94 10/25/19 19:45 10/25/19 20:03 10/25/19 20:03 10/25/19 19:45 10/25/19 20:03 Oxygen Delivery Method Room Air Weight: 86.183 kg Body Mass Index (BMI) 27.2 General: Alert, Oriented x3, Cooperative HEENT: Atraumatic, PERRLA, EOMI, Normocephalic Neck: Supple, No JVD, Negative Carotid Bruits Lungs: No rhonchi, Rales - Left base Cardiovascular: Regular rate, Normal S1, Normal S2, No murmurs Abdomen: Bowel Sounds Present, Soft, Non Tender Extremities: No edema, Capillary Refill Less than 3 Seconds Skin: No rashes, Excoriated - Top of forehead ( attributes to patient scratching)., - Musculoskeletal: No Tenderness to Palpation of Joints or Extremities Neurological: Cranial nerves II-XII grossly intact Psych/Mental Status: Normal Affect, Appropriate Laboratory Results 10/25/19 20:10: Urine Color Yellow, Urine Clarity Clear, Urine pH 6.0, Ur Specific [place] 1.010, Urine Protein 30 H, Urine Glucose (UA) Normal, Urine Ketones 15 H, Urine Occult Blood 25 H, Urine Nitrite Negative, Urine Bilirubin Negative, Urine Urobilinogen Normal, Ur Leukocyte Esterase Negative 10/25/19 20:48: COVID-19 ([place]) Pending 10/25/19 20:50: WBC 12.2 H, RBC 3.99 L, Hgb 11.1 L, Hct 34.0 L, MCV 85.2, MCH 27.8, MCHC 32.6, RDW Std Deviation 45.9 H, RDW Coeff of [place] 14.7 H, Plt Count 242, MPV 10.0, Immature Gran % (Auto) 0.400, Neut % (Auto) 76.8 H, Lymph % (Auto) 14.2 L, [place] % (Auto) 8.2, Eos % (Auto) 0.2, Baso % (Auto) 0.2, Absolute Neuts (auto) 9.4 H, Absolute Lymphs (auto) 1.73, Nucleated RBC % 0 10/25/19 20:50: Sodium 138, Potassium 3.9, Chloride 109 H, Carbon Dioxide 24.0, Anion Gap 5, BUN 20 H, Creatinine 0.95, Estim Creat Clear Calc 70.44, Est GFR (MDRD) Af Amer 100, Est GFR (MDRD) Non-Af 82, BUN/Creatinine Ratio 21.1 H, Glucose 95, Calcium 9.0, Total Bilirubin 0.60, AST 13 L, ALT 20, Alkaline Phosphatase 74, Troponin I < 0.015, Total Protein 7.3, Albumin 3.1 L, Globulin 4.2, Albumin/Globulin Ratio 0.7 L 10/25/19 20:50: Procalcitonin 0.05 Assessment/Plan All Active Problems (Last Reviewed 10/26/19 @ 00:[address] Patrice Taylor MD) Sepsis (Acute) Pneumonia (Acute) HCAP (healthcare-associated pneumonia) (Resolved) The patient is a 74 year old M with a significant history of diastolic heart failure (CHF NYHA Class III);; COPD; paroxysmal A. fib; CAD status post coronary stents and quadruple bypass; and tobacco abuse who presents emergency department with fever; productive cough and found to meet SIRS criteria; also with bilateral lung infiltrates. Sepsis secondary to pneumonia Possible Gram positive or gram-negative bacteria. SIRS criteria: Respiratory rate of more than 20; temperature of 100.6 Fahrenheit; white count of 12,200. Noted to have neutrophilic leukocytosis; and lymphopenia. Blood culture x2 ordered at emergency department follow results. Discussed with emergent department doctor to order lactic acid. Chest x-ray: Actual chest x-ray image was reviewed. It showed bilateral lung infiltrates. Per radiologist CXR is highly suggestive of a COVID-19 pneumonia greater on the right. Pulmonary contusion unlikely since patient symptoms actually started before the branch of a tree hitting his chest. Since patient stayed overnight at [facility], can not rule out multidrug-resistant pneumonia. Patient was given vancomycin and Zosyn at the ED. Will get MRSA nasal swab. Vancomycin and Zosyn ordered inpatient. Albuterol as needed Legionella antigen screen and Strep antigen ordered Mucinex ordered. Tylenol for fever. Probable severe acute respiratory syndrome secondary to COVID-19 COVID-19 [place] negative at emergency department. With a fever and chest x-ray finding consistent with viral pneumonia cannot rule out COVID at this time. Will maintain on enhanced droplet precaution. Will consult infectious disease and pulmonary medicine. Discussed emergent department doctor to give dexamethasone x1. Dexamethasone daily. Check procalcitonin; triglycerides and ferritin. Check respiratory pathogen panel. Multiple rib fractures Reportedly patient was diagnosed with rib fractures at [facility]. PRN oxycodone ordered. Continue Lidoderm patch on right chest. Incentive spirometer and chest physiotherapy ordered. Obtain records from [facility]. Tobacco abuse Counseled. Paroxysmal A. fib Amiodarone continued Metoprolol continued. Unclear why patient is not on anticoagulation. DVT prophylaxis Lovenox per covid protocol. Inpatient E&M: 09954 Init Hosp L3
[2019-10-25] MEDS: Morphine 4 MG/ML Syringe IV (22:40)
[2019-10-25] MEDS: Acetaminophen 500 MG Tablet 1000 MG PO (22:40)
[2019-10-25] MEDS: dexAMETHasone 10 MG/ML Vial 6 MG IV (22:57)
[2019-10-25 22:59] VITALS: BP 157/83; PULSE 73; RESP 20; TEMP 37.3; O2SAT 92
[2019-10-25 23:00] VITALS: BP 157/83; PULSE 73; RESP 20; TEMP 37.3; O2SAT 92
[2019-10-25 23:16] LABS: Lactic Acid 0.7 mmol/L (0.4-1.9)
[2019-10-25 23:40] VITALS: BP 127/78; PULSE 80; RESP 22; TEMP 36.7; O2SAT 98
[2019-10-25 23:44] VITALS: BMI 28.5; BMI 28.6
[2019-10-26] VITALS (15 sets, daily range): BP systolic 139–146; BP diastolic 62–75; PULSE 61–80; RESP 14–18; TEMP 36.6–36.9; O2SAT 92–99
[2019-10-26 00:48] LABS: Ferritin 128 ng/mL (26-388); LDH 183 U/L (87-241); Triglycerides 87 mg/dL
[2019-10-26 00:55] LABS: International Normalized Ratio 1.1
[2019-10-26] MEDS: Zolpidem Tartrate 5 MG Tablet PO ×2 (01:06→21:28)
[2019-10-26] MEDS: guaiFENesin 10 ML UDC (200MG/10ML) PO (01:06)
[2019-10-26] MEDS: oxyCODONE 5 MG Tablet PO ×4 (01:07→19:54)
--- NOTE | 2019-10-26 01:08 | PCM.RX.CS ---
Consult Pharmacy has been consulted to manage selected antiobiotic: Vancomycin Type of Consult: New start Suspected Infection: Sepsis, Pneumonia Prior Doses of Antibiotics Received/Current Regimen: Medications Vancomycin HCl 1,250 mg/ (Sodium Chloride) 275 mls @ 167 mls/hr IV Q12H ARABELLA Discontinued Medications Vancomycin HCl 1,250 mg/ (Sodium Chloride) 275 mls @ 167 mls/hr IV X1 ONE Stop: 10/25/19 23:53 Last Admin: 10/26/19 00:43 Dose: Infused Labs: Sodium 138 mmol/L (136-145) 10/25/19 20:50 Potassium 3.9 mmol/L (3.5-5.1) 10/25/19 20:50 Chloride 109 mmol/L (98-107) H 10/25/19 20:50 Carbon Dioxide 24.0 mmol/L (21.0-32.0) 10/25/19 20:50 Anion Gap 5 (5-15) 10/25/19 20:50 BUN 20 mg/dL (7-18) H 10/25/19 20:50 Creatinine 0.95 mg/dL (0.70-1.30) 10/25/19 20:50 Est GFR (MDRD) Af Amer 100 mL/min (>60) 10/25/19 20:50 Est GFR (MDRD) Non-Af 82 mL/min (>60) 10/25/19 20:50 BUN/Creatinine Ratio 21.1 RATIO (10-20) H 10/25/19 20:50 Glucose 95 mg/dL (74-106) 10/25/19 20:50 Weight used for dosin.3 kg Estimated Creatinine Clearance: 70.4 Goal Trough: 15-20 mcg/mL Pharmacy Plan for Drug Dosing: Pharmacy Service will continue to monitor and adjust dosing as required. Follow-Up Labs: Trough Vancomycin Labs to be done on [date and time ordered]: 10/27/19 @1030
[2019-10-26 01:58] LABS: Fibrinogen 719 mg/dl (203-444)
[2019-10-26 02:21] LABS: M R Staph aureus DNA By PCR Negative (Negative); Probe Check PASS; Specimen Processing Control PASS
[2019-10-26] MEDS: guaiFENesin 1,200 MG Tablet 1200 MG PO ×2 (05:13→21:26)
[2019-10-26] MEDS: 0.9% Saline Lock 10 ML Syringe IV ×2 (05:23→10:26)
[2019-10-26 05:34] LABS: Absolute Lymphocyte Count 0.83 X10^3/uL (0.83-4.51); Absolute Neutrophil Count 9.5 X10^3/uL (2.0-7.7); Basophil# 0.02 X10^3/uL; Basophil% 0.2 % (0-1); Differential Indicated SCAN CRITERIA MET; Hematocrit 32.7 % (40-54); Hemoglobin 10.5 g/dL (13.0-16.5); Lymphocyte # 0.83 X10^3/ul (4.0); Lymphocyte % 7.8 % (19-41); Mean Corp Hgb Conc 32.1 g/dL (32-36); Mean Corpuscular Hgb 27.7 pg (27.0-32.0); Mean Corpuscular Volume 86.3 fL (80-94); Mean Platelet Vol. 10.1 fl (6.2-12.0); Monocyte# 0.27 X10^3/uL; Monocyte% 2.5 % (0-10); NRBC Flagged by Analyzer 0 % (0-5); Neutrophil # 9.52 X10^3/uL (2.7-7.7); Neutrophil % 88.9 % (47-70); POSITIVE MORPHOLOGY YES; Platelet Count 218 K/mm3 (150-450); RBC Distribution Width CV 14.5 % (11.6-14.6); RBC Distribution Width SD 45.6 fl (35.1-43.9); Red Blood Count 3.79 M/mm3 (4.6-6.2); White Blood Count 10.7 K/mm3 (4.4-11.0)
[2019-10-26 05:52] LABS: ALB/GLOB Ratio 0.7 RATIO (0.9-2.4); AST(SGOT) 13 U/L (15-37); Alanine Aminotransfer ALT/SGPT 20 U/L (16-61); Albumin, Serum 2.8 g/dL (3.2-5.0); Alkaline Phosphatase 70 U/L (45-117); Anion Gap 3 (5-15); BUN 17 mg/dL (7-18); BUN/Creat Ratio 19.6 RATIO (10-20); Calcium,Total 8.9 mg/dL (8.5-10.1); Chloride 110 mmol/L (98-107); Creatinine, Serum 0.87 mg/dL (0.70-1.30); EST Glomerular Filtration Rate 91 mL/min (>60); Est Glom Filt Rate - Afr Amer 111 mL/min (>60); Estimated Creatinine Clearance 76.92 ml/min; Globulin 4.2 g/dL (2.2-4.2); Glucose 148 mg/dL (74-106); Potassium 4.3 mmol/L (3.5-5.1); Sodium Level 139 mmol/L (136-145)
[2019-10-26 06:29] LABS: Atypical Lymphocyte RARE %; Differential Comment SCANNED
[2019-10-26] MEDS: Ipratropium/Albuterol Sulfate 3 ML AMPUL.NEB INHALATION ×3 (07:06→19:04)
--- NOTE | 2019-10-26 08:45 | PCM.CONS.PUL ---
Problem List (1) Ribs, multiple fractures Status: Acute Qualifiers: Encounter type: subsequent encounter Fracture type: closed Laterality: right Fracture healing: with routine healing Qualified Code(s): S22.41XD - Multiple fractures of ribs, right side, subsequent encounter for fracture with routine healing (2) Presence of stent in coronary artery Status: Chronic Comment: PCI/YAMILET to RCA X 2 04/08/16 (3) Pure hypercholesterolemia Status: Chronic (4) History of coronary artery bypass surgery Status: Chronic Comment: CABG x4; PARKER to LAD, SVG sequentially to 1st and 2nd diag branches of anterior descending and to CX with suture repair of small ASD 06/2006 (5) Essential hypertension Status: Chronic (6) Atherosclerotic heart disease of [place] coronary artery without angina pectoris Status: Chronic Qualifiers: [place] vs. transplanted heart: [place] heart Qualified Code(s): I25.10 - Atherosclerotic heart disease of [place] coronary artery without angina pectoris Comment: CABG x4; PARKER to LAD, SVG sequentially to 1st and 2nd diag branches of anterior descending and to CX with suture repair of small ASD 06/2006 (7) Nonrheumatic mitral valve insufficiency Status: Chronic (8) Pulmonary hypertension Status: Chronic (9) Paroxysmal atrial fibrillation Status: Chronic Reason for Consult Date of Consultation: 10/26/19 Reason for Consultation: Hypoxia, concern for COVID History of Present Illness: The patient is a 74 year old M, with past medical history listed below, who presented to [facility] on 10/25/2019 secondary to fever, cough and a subjective feeling of dyspnea. Patient reports that earlier in the week he had presented to an outside emergency department after being hit by a branch that he was cutting from a tree. Patient estimated that he was 12 feet in the air and the branch fell and hit him in his right axilla. Patient fell off the ladder and was diagnosed with multiple rib fractures. Patient was sent home and had pain medications. Patient reportedly had developed a cough and fever, so came to the ER for evaluation. Patient's rib fractures were reportedly diagnosed by CT scan and he was admitted overnight and given IV antibiotics. Patient reports no prodromal symptoms prior to the acute fracture. In the ER, patient was mildly hypoxic. Laboratory work-up was relatively unremarkable except for a leukocytosis of 12.2. However, given comorbidities and concern for COVID-19, patient was admitted for observation to the cohort unit. Patient was also given vancomycin and Zosyn secondary to recent antibiotics and hospitalization. This morning, patient states that he feels almost back to baseline. Patient does have significant pain in his right side, but feels this is grossly unchanged from previous. Patient believes his breathing is close to normal. Patient does report a cough, especially with deep inhalation, but otherwise has been doing well. Patient states he has been told that he has COPD, but he does not routinely follow with a topper packer. Patient does not use supplemental oxygen at home at baseline. Patient also reports that he is not using any bronchodilator therapy. Review of systems otherwise negative from a constitutional, HEENT, respiratory, cardiovascular, GI, genitourinary, musculoskeletal, skin, neurologic, psychiatric and hematologic system unless stated above. Past Medical History Past Medical History (Chronic Problems): Chronic Problems (Last Reviewed 10/26/19 @ 07:[address] Patrice Taylor MD) Presence of stent in coronary artery (Chronic ~04/08/16) PCI/YAMILET to RCA X 2 04/08/16 Pure hypercholesterolemia (Chronic) History of coronary artery bypass surgery (Chronic ~07/01/06) CABG x4; PARKER to LAD, SVG sequentially to 1st and 2nd diag branches of anterior descending and to CX with suture repair of small ASD 06/2006 Essential hypertension (Chronic) Atherosclerotic heart disease of [place] coronary artery without angina pectoris (Chronic) CABG x4; PARKER to LAD, SVG sequentially to 1st and 2nd diag branches of anterior descending and to CX with suture repair of small ASD 06/2006 Long-term use of high-risk medication (Chronic) Nonrheumatic mitral valve insufficiency (Chronic) Pulmonary hypertension (Chronic) Paroxysmal atrial fibrillation (Chronic) COPD (chronic obstructive pulmonary disease) with acute bronchitis (Chronic) CHF NYHA class III (symptoms with mildly strenuous activities) (Chronic) Medical History: Medical History (Last Reviewed 10/26/19 @ 07:[address] Patrice Taylor MD) Presence of stent in coronary artery (Chronic) Onset Date: ~04/08/16 Z95.5 PCI/YAMILET to RCA X 2 04/08/16 Pure hypercholesterolemia (Chronic) E78.00 Essential hypertension (Chronic) I10 Acute diastolic (congestive) heart failure (Inactive) I50.31 Atherosclerotic heart disease of [place] coronary artery without angina pectoris (Chronic) I25.10 CABG x4; PARKER to LAD, SVG sequentially to 1st and 2nd diag branches of anterior descending and to CX with suture repair of small ASD 06/2006 Long-term use of high-risk medication (Chronic) Z79.899 Nonrheumatic mitral valve insufficiency (Chronic) I34.0 Pulmonary hypertension (Chronic) I27.20 Paroxysmal atrial fibrillation (Chronic) I48.0 COPD (chronic obstructive pulmonary disease) with acute bronchitis (Chronic) J44.0 CHF NYHA class III (symptoms with mildly strenuous activities) (Chronic) I50.9 Aortic dilatation I77.819 Dysgeusia R43.2 Intercostal myalgia M79.1 Tobacco abuse Z72.[address] R93.8 BPH (benign prostatic hyperplasia) N40.0 Emphysema of lung J43.9 Insomnia G47.00 Smoker F17.200 Chest pain R07.9 Mitral valve insufficiency (Inactive) I34.0 Allergies No Known Allergies Allergy (Verified 10/25/19 19:48) Home Medications: Ambulatory Orders Medication Instructions Recorded Aspirin [Adult Low Dose Aspirin EC] 81 mg PO DAILY 04/19/17 Finasteride [Proscar] 5 mg PO QHS 04/19/17 Simvastatin [Zocor] 20 mg PO QHS 04/19/17 Tamsulosin HCl [Flomax] 0.4 mg PO QHS 04/19/17 amiodarone 200 mg tablet 200 mg PO DAILY #90 tab 04/09/19 metoprolol succinate 25 mg 25 mg PO DAILY #90 tab 05/08/19 tablet,extended release 24 hr vit C,E,zinc,copper-yvkyh7l 250 2 cap PO DAILY cap 07/02/19 mg-lutein 5 mg-zeaxanthin 1 mg capsule zolpidem 10 mg tablet 10 mg PO QHS tab 07/02/19 lisinopril 20 mg tablet 20 mg PO DAILY #30 tab 09/06/19 Cefuroxime Axetil [Cefuroxime] 250 mg PO BID 10/25/19 Oxycodone HCl/Acetaminophen 1 - 2 ea PO Q4H PRN 10/25/19 [Percocet 7.5-325 mg Tablet] Pregabalin [Lyrica] 75 mg PO BID 10/25/19 Surgical History: Surgical History (Last Reviewed 10/26/19 @ 07:[address] Patrice Taylor MD) History of coronary artery bypass surgery (Chronic) Onset Date: ~07/01/06 Z95.1 CABG x4; PARKER to LAD, SVG sequentially to 1st and 2nd diag branches of anterior descending and to CX with suture repair of small ASD 06/2006 Presence of coronary angioplasty implant and graft Onset Date: ~04/08/16 Z95.5 PCI/YAMILET to RCA X 2 04/08/16 Aortocoronary bypass status Onset Date: ~06/2006 Z95.1 History of arthroscopic knee surgery Z98.890 History of cystoscopy Z98.890 History of hemorrhoidectomy Z98.890 History of lumbar surgery Z98.890 [facility] april 2017 History of transurethral resection of prostate Z98.890, Z90.79 Surgical History: coronary bypass surgery, - - foot surgery, toe surgery, lipoma on wrist. Smoking Status: Current every day smoker Tobacco Use: Cigarettes - *Family History Maternal Family History: Family History (Last Reviewed 10/26/19 @ 00:[address] Patrice Taylor MD) Mother CVA (cerebral vascular accident) Brother CAD (coronary artery disease) Brother CAD (coronary artery disease) History Items: No pertinent history Sibling Family History: Family History (Last Reviewed 10/26/19 @ 00:[address] Patrice Taylor MD) Mother CVA (cerebral vascular accident) Brother CAD (coronary artery disease) Brother CAD (coronary artery disease) History Items: - - brothers with heart surgery. Review of Systems Comment: See HPI Patient Problems: Active and Suspected Problems (Last Reviewed 10/26/19 @ 07:[address] Patrice Taylor MD) Sepsis (Acute) Pneumonia (Acute) SARS-associated coronavirus infection (Suspected) Ribs, multiple fractures (Acute) Objective: Chest x-ray was personally reviewed. Patient has findings consistent with a pulmonary contusion on the right. Patient does not have an echocardiogram or pulmonary function tests available for review. - Physical Exam Vitals/I&O's: Vital Signs Temp Pulse Resp BP Pulse Ox 36.6 C 61 14 139/75 H 95 10/26/19 05:29 10/26/19 07:06 10/26/19 07:06 10/26/19 05:29 10/26/19 07:06 Oxygen Flow Rate (L/min) 2 Oxygen Delivery Method Nasal Cannula Weight: 90.3 kg Body Mass Index (BMI) 28.5 Intake and Output for Last 24 Hours 10/24/19 10/25/19 10/26/19 23:59 23:59 23:59 Intake Total 550 / 550 765 / 765 Output Total 850 / 850 Balance 550 / 550 -85 / -85 General: Alert, Oriented x3, Cooperative, No apparent distress, - - No conversational dyspnea. HEENT: Atraumatic, PERRLA, EOMI, Normocephalic, - - No scleral icterus or injection noted Oral: Moist Mucosa, No Gingival or Mucosal Lesions/ Ulcerations Neck: Supple, No JVD, No Nodes, Trachea Midline Lungs: No rhonchi, Diminished, Rales - Right base, Wheezes - End expiratory, - - Slight decreased expansion on the right Cardiovascular: Regular rate, Regular Rhythm, Normal S1, Normal S2, No murmurs, No rub noted, No Gallop Abdomen: Bowel Sounds Present, Soft, Non Tender, Non-Distended Extremities: No clubbing, No cyanosis, No edema, - - Onychomycosis Skin: - - Significant bruising and abrasions noted on right arm, axilla and thorax Musculoskeletal: Tenderness - Palpation in right axilla Lymphatic: No Cervical, Supraclavicular, or Inguinal Adenopathy Neurological: Cranial nerves II-XII grossly intact, Neuro grossly intact, Motor Exam 5/5 strength throughout Psych/Mental Status: Alert and oriented to time, place, person, mood and affect Microbiology Past 72 Hours 10/26/19 00:30 Mucosa - Nasopharyngeal Respiratory Panel (PCR) - Final 10/25/19 20:10 Urine, Clean Catch Streptococcus pneumoniae Antigen (M - Final 10/25/19 20:10 Urine, Clean Catch Legionella Antigen - Final Laboratory Results 10/25/19 20:10: Urine Color Yellow, Urine Clarity Clear, Urine pH 6.0, Ur Specific [place] 1.010, Urine Protein 30 H, Urine Glucose (UA) Normal, Urine Ketones 15 H, Urine Occult Blood 25 H, Urine Nitrite Negative, Urine Bilirubin Negative, Urine Urobilinogen Normal, Ur Leukocyte Esterase Negative 10/25/19 20:48: COVID-19 ([place]) Negative 10/25/19 20:50: WBC 12.2 H, RBC 3.99 L, Hgb 11.1 L, Hct 34.0 L, MCV 85.2, MCH 27.8, MCHC 32.6, RDW Std Deviation 45.9 H, RDW Coeff of [place] 14.7 H, Plt Count 242, MPV 10.0, Immature Gran % (Auto) 0.400, Neut % (Auto) 76.8 H, Lymph % (Auto) 14.2 L, [place] % (Auto) 8.2, Eos % (Auto) 0.2, Baso % (Auto) 0.2, Absolute Neuts (auto) 9.4 H, Absolute Lymphs (auto) 1.73, Nucleated RBC % 0 10/25/19 20:50: Sodium 138, Potassium 3.9, Chloride 109 H, Carbon Dioxide 24.0, Anion Gap 5, BUN 20 H, Creatinine 0.95, Estim Creat Clear Calc 70.44, Est GFR (MDRD) Af Amer 100, Est GFR (MDRD) Non-Af 82, BUN/Creatinine Ratio 21.1 H, Glucose 95, Calcium 9.0, Total Bilirubin 0.60, AST 13 L, ALT 20, Alkaline Phosphatase 74, Troponin I < 0.015, Total Protein 7.3, Albumin 3.1 L, Globulin 4.2, Albumin/Globulin Ratio 0.7 L 10/25/19 20:50: Procalcitonin 0.05 10/25/19 20:50: PT 14.0, INR 1.1, Fibrinogen 719 H 10/25/19 22:40: Lactic Acid 0.7 10/26/19 00:10: Ferritin 128, Lactate Dehydrogenase 183, Troponin I < 0.015, Triglycerides 87 10/26/19 00:10: MRSA (PCR) Negative 10/26/19 05:25: WBC 10.7, RBC 3.79 L, Hgb 10.5 L, Hct 32.7 L, MCV 86.3, MCH 27.7, MCHC 32.1, RDW Std Deviation 45.6 H, RDW Coeff of [place] 14.5, Plt Count 218, MPV 10.1, Immature Gran % (Auto) 0.600, Neut % (Auto) 88.9 H, Lymph % (Auto) 7.8 L, Bates % (Auto) 2.5, Eos % (Auto) 0.0, Baso % (Auto) 0.2, Absolute Neuts (auto) 9.5 H, Absolute Lymphs (auto) 0.83, Nucleated RBC % 0, Differential Comment SCANNED, Atypical Lymphocytes RARE 10/26/19 05:25: Sodium 139, Potassium 4.3, Chloride 110 H, Carbon Dioxide 26.0, Anion Gap 3 L, BUN 17, Creatinine 0.87, Estim Creat Clear Calc 76.92, Est GFR (MDRD) Af Amer 111, Est GFR (MDRD) Non-Af 91, BUN/Creatinine Ratio 19.6, Glucose 148 H, Calcium 8.9, Total Bilirubin 0.40, AST 13 L, ALT 20, Alkaline Phosphatase 70, Total Protein 7.0, Albumin 2.8 L, Globulin 4.2, Albumin/Globulin Ratio 0.7 L Current Medications Acetaminophen (Tylenol) 650 mg PO Q6H PRN PRN PRN Reason: Pain Score 1-10/Temp > 100.7 F Al Hydroxide/Mg Hydroxide (Mylanta Ii) 30 ml PO Q6H PRN PRN PRN Reason: Gastric Burning Albuterol Sulfate (Ventolin Aerosols) 2.5 mg INHALATION Q2H PRN PRN PRN Reason: Shortness of Breath/Wheezing Albuterol/Ipratropium (Duoneb) 3 ml INHALATION Q6H.RT [facility] Last Admin: 10/26/19 07:06 Dose: 3 ml Documented by: Amiodarone HCl (Cordarone) 200 mg PO DAILY [facility] Aspirin (Ecotrin) 81 mg PO DAILYCM [facility] Atorvastatin Calcium (Lipitor) 10 mg PO QHS [facility] Dextrose (D50w Syringe) 0 gm IV X1 PRN; Protocol PRN Reason: Hypoglycemia Enoxaparin Sodium (Lovenox) 30 mg SC BID [facility] Finasteride (Proscar) 5 mg PO QHS [facility] Glucagon () 1 mg IM .X1 PRN PRN Reason: Hypoglycemia Guaifenesin (Mucinex) 1,200 mg PO BID [facility] Last Admin: 10/26/19 05:13 Dose: 1,200 mg Documented by: Vancomycin IV Pharmacy to Dose (1 ea/ Sodium Chloride) 500 mls @ 250 mls/hr IV PRN PRN; Protocol PRN Reason: Rx to Dose Piperacillin Sod/Tazobactam (Sod 3.375 gm/ Sodium Chloride) 50 mls @ 12.5 mls/hr IV Q8@0200,1000,1800 [facility] Sodium Chloride () 250 mls @ 15 mls/hr IV .[id number] PRN PRN Reason: Saline Flush Sodium Chloride () 250 mls @ 15 mls/hr IV .[id number] PRN PRN Reason: Additional IVPB Infusion Vancomycin HCl 1,250 mg/ (Sodium Chloride) 275 mls @ 167 mls/hr IV Q12H [facility] Lidocaine (Lidoderm Patch) 1 patch TOPICAL DAILY [facility]; Protocol Lisinopril (Zestril) 20 mg PO DAILY [facility] Methylprednisolone (Solu-Medrol) 40 mg IV 0400,1000,1600,2200 [facility] Metoprolol Succinate (Toprol Xl (Beta Rema)) 25 mg PO DAILY [facility] Multivitamins/Minerals (Healthy Eyes (Bkc)) 2 capsule PO DAILYCM [facility] Ondansetron HCl (Zofran) 4 mg IV Q8H PRN PRN PRN Reason: NAUSEA/VOMITING Oxycodone HCl (Oxyir) 5 - 10 mg PO Q4H PRN PRN PRN Reason: Pain Score 4-10/10 Last Admin: 10/26/19 05:13 Dose: 10 mg Documented by: Pregabalin (Lyrica) 75 mg PO BID [facility] Senna/Docusate Sodium (Senokot-S, Laura-Colace) 2 tablet PO BID PRN PRN PRN Reason: Constipation Sodium Chloride () 10 - 40 ml IV UD PRN PRN Reason: SALINE FLUSH Last Admin: 10/26/19 05:23 Dose: 20 ml Documented by: Tamsulosin HCl (Flomax) 0.4 mg PO QHS [facility] Zolpidem Tartrate (Ambien (Generic)) 5 mg PO QHS [facility] Last Admin: 10/26/19 01:31 Dose: Not Given Documented by: Clinical Impression(s) from Imaging Studies Chest X-Ray 10/25/19 20:27 IMPRESSION: Findings highly suggestive of Covid nineteen pneumonia greater on the right. No definitive evidence for focal right rib fracture. Oblique views of the ribs would be helpful for further evaluation if clinically warranted. Electronically Signed: Roney Hunt MD at 21:22 EDT , Service support , Assessment/Plan All Active Problems (Last Reviewed 10/26/19 @ 07:[address] Patrice Taylor MD) Sepsis (Acute) Pneumonia (Acute) Ribs, multiple fractures (Acute) HCAP (healthcare-associated pneumonia) (Resolved) RECOMMENDATIONS: 1. Okay to discontinue COVID precautions 2. Initiate bronchodilator therapy 3. Discontinue antibiotics after 48 hours if cultures negative 4. Walking oximetry prior to discharge 5. Outpatient PFT for quantification clarification of lung function IMPRESSIONS: 1. Acute hypoxic respiratory insufficiency secondary to pulmonary contusion with multiple rib fractures secondary to fall Clinical suspicion for infiltrate on chest x-ray being consistent with pulmonary contusion, not active infection. Patient can continue antibiotics for now, but procalcitonin is low. Leukocytosis likely secondary to stress response. Patient advised to continue with incentive spirometer. Aggressive pain control. If cultures negative at 48 hours, antibiotics are likely not indicated. Current situation may be complicated by underlying COPD, but this has not been verified. 2. Advanced age/paroxysmal A. fib/tobacco abuse/CAD status post bypass/chronic diastolic CHF Complicates care, management, recovery and prognosis. Low clinical suspicion for cardiac etiology. Okay to continue with baseline medications from my perspective. Patient can be transferred out of the intensive care unit/COVID cohort unit from my perspective. Patient not on anticoagulation at baseline, but initiation at this point with known rib fractures would be questionable. Reevaluation after healing would be appropriate. Inpatient E&M: [id number] Init Hosp L3
--- NOTE | 2019-10-26 09:59 | PCM.PROGNOTE ---
Patient Problems: Active and Suspected Problems (Last Reviewed 10/26/19 @ 07:[address] Patrice Taylor MD) Pneumonia (Suspected) Ribs, multiple fractures (Acute) Subjective: Chief complaint: Follow-up after admission for suspected pneumonia, right side rib fractures, acute hypoxic respiratory sufficiency. Patient seen and examined. No acute events overnight. This morning, he is feeling better. He has no more right-sided chest pain. Shortness of breath significantly improved. He reported mild cough, no sputum production. He has been afebrile overnight. Blood pressure and heart rate are stable, pulse ox is 98% on 2 L of oxygen. - Physical Exam Vitals/I&O's: Vital Signs Temp Pulse Resp BP Pulse Ox 98 F 61 14 139/75 H 95 10/26/19 05:29 10/26/19 07:06 10/26/19 07:06 10/26/19 05:29 10/26/19 07:06 Oxygen Flow Rate (L/min) 2 Oxygen Delivery Method Nasal Cannula Weight: 199 lb 1.239 oz Body Mass Index (BMI) 28.5 Intake and Output for Last 24 Hours 10/24/19 10/25/19 10/26/19 23:59 23:59 23:59 Intake Total 550 / 550 765 / 765 Output Total 850 / 850 Balance 550 / 550 -85 / -85 General: Alert, Oriented x3, Cooperative, No apparent distress HEENT: Atraumatic, PERRLA, EOMI, Normocephalic Oral: Moist Mucosa, No Gingival or Mucosal Lesions/ Ulcerations Neck: Supple, No JVD, Negative Carotid Bruits, Trachea Midline, Thyroid Normal Size and Texture Lungs: No rales, Diminished, Rhonchi, Wheezes, - - Decreased breath sounds bilateral, bilateral rhonchi, occasional wheezes. Cardiovascular: Regular rate, Regular Rhythm, Normal S1, Normal S2, PMI Normal Abdomen: Bowel Sounds Present, Soft, Non Tender, Non-Distended, No Hepato-splenomegaly Extremities: No clubbing, No cyanosis, No edema Skin: No rashes, No breakdown Lymphatic: No Cervical, Supraclavicular, or Inguinal Adenopathy Neurological: Cranial nerves II-XII grossly intact, Motor Exam 5/5 strength throughout Psych/Mental Status: Normal Affect, Appropriate Microbiology Past 72 Hours 10/26/19 00:30 Mucosa - Nasopharyngeal Respiratory Panel (PCR) - Final 10/25/19 20:10 Urine, Clean Catch Streptococcus pneumoniae Antigen (M - Final 10/25/19 20:10 Urine, Clean Catch Legionella Antigen - Final Laboratory Results 10/25/19 20:10: Urine Color Yellow, Urine Clarity Clear, Urine pH 6.0, Ur Specific [place] 1.010, Urine Protein 30 H, Urine Glucose (UA) Normal, Urine Ketones 15 H, Urine Occult Blood 25 H, Urine Nitrite Negative, Urine Bilirubin Negative, Urine Urobilinogen Normal, Ur Leukocyte Esterase Negative 10/25/19 20:48: COVID-19 ([place]) Negative 10/25/19 20:50: WBC 12.2 H, RBC 3.99 L, Hgb 11.1 L, Hct 34.0 L, MCV 85.2, MCH 27.8, MCHC 32.6, RDW Std Deviation 45.9 H, RDW Coeff of Logan 14.7 H, Plt Count 242, MPV 10.0, Immature Gran % (Auto) 0.400, Neut % (Auto) 76.8 H, Lymph % (Auto) 14.2 L, [place] % (Auto) 8.2, Eos % (Auto) 0.2, Baso % (Auto) 0.2, Absolute Neuts (auto) 9.4 H, Absolute Lymphs (auto) 1.73, Nucleated RBC % 0 10/25/19 20:50: Sodium 138, Potassium 3.9, Chloride 109 H, Carbon Dioxide 24.0, Anion Gap 5, BUN 20 H, Creatinine 0.95, Estim Creat Clear Calc 70.44, Est GFR (MDRD) Af Amer 100, Est GFR (MDRD) Non-Af 82, BUN/Creatinine Ratio 21.1 H, Glucose 95, Calcium 9.0, Total Bilirubin 0.60, AST 13 L, ALT 20, Alkaline Phosphatase 74, Troponin I < 0.015, Total Protein 7.3, Albumin 3.1 L, Globulin 4.2, Albumin/Globulin Ratio 0.7 L 10/25/19 20:50: Procalcitonin 0.05 10/25/19 20:50: PT 14.0, INR 1.1, Fibrinogen 719 H 10/25/19 22:40: Lactic Acid 0.7 10/26/19 00:10: Ferritin 128, Lactate Dehydrogenase 183, Troponin I < 0.015, Triglycerides 87 10/26/19 00:10: MRSA (PCR) Negative 10/26/19 05:25: WBC 10.7, RBC 3.79 L, Hgb 10.5 L, Hct 32.7 L, MCV 86.3, MCH 27.7, MCHC 32.1, RDW Std Deviation 45.6 H, RDW Coeff of [place] 14.5, Plt Count 218, MPV 10.1, Immature Gran % (Auto) 0.600, Neut % (Auto) 88.9 H, Lymph % (Auto) 7.8 L, [place] % (Auto) 2.5, Eos % (Auto) 0.0, Baso % (Auto) 0.2, Absolute Neuts (auto) 9.5 H, Absolute Lymphs (auto) 0.83, Nucleated RBC % 0, Differential Comment SCANNED, Atypical Lymphocytes RARE 10/26/19 05:25: Sodium 139, Potassium 4.3, Chloride 110 H, Carbon Dioxide 26.0, Anion Gap 3 L, BUN 17, Creatinine 0.87, Estim Creat Clear Calc 76.92, Est GFR (MDRD) Af Amer 111, Est GFR (MDRD) Non-Af 91, BUN/Creatinine Ratio 19.6, Glucose 148 H, Calcium 8.9, Total Bilirubin 0.40, AST 13 L, ALT 20, Alkaline Phosphatase 70, Total Protein 7.0, Albumin 2.8 L, Globulin 4.2, Albumin/Globulin Ratio 0.7 L Clinical Impression(s) from Imaging Studies Chest X-Ray 10/25/19 20:27 IMPRESSION: Findings highly suggestive of Covid nineteen pneumonia greater on the right. No definitive evidence for focal right rib fracture. Oblique views of the ribs would be helpful for further evaluation if clinically warranted. Electronically Signed: Roney Hunt MD at 21:22 EDT , Service support , Current Medications Acetaminophen (Tylenol) 650 mg PO Q6H PRN PRN PRN Reason: Pain Score 1-10/Temp > 100.7 F Al Hydroxide/Mg Hydroxide (Mylanta Ii) 30 ml PO Q6H PRN PRN PRN Reason: Gastric Burning Albuterol Sulfate (Ventolin Aerosols) 2.5 mg INHALATION Q2H PRN PRN PRN Reason: Shortness of Breath/Wheezing Albuterol/Ipratropium (Duoneb) 3 ml INHALATION Q6H.RT [facility] Last Admin: 10/26/19 07:06 Dose: 3 ml Documented by: Amiodarone HCl (Cordarone) 200 mg PO DAILY [facility] Aspirin (Ecotrin) 81 mg PO DAILYCM [facility] Atorvastatin Calcium (Lipitor) 10 mg PO QHS [facility] Dextrose (D50w Syringe) 0 gm IV X1 PRN; Protocol PRN Reason: Hypoglycemia Enoxaparin Sodium (Lovenox) 30 mg SC BID [facility] Finasteride (Proscar) 5 mg PO QHS [facility] Glucagon () 1 mg IM .X1 PRN PRN Reason: Hypoglycemia Guaifenesin (Mucinex) 1,200 mg PO BID [facility] Last Admin: 10/26/19 05:13 Dose: 1,200 mg Documented by: Vancomycin IV Pharmacy to Dose (1 ea/ Sodium Chloride) 500 mls @ 250 mls/hr IV PRN PRN; Protocol PRN Reason: Rx to Dose Piperacillin Sod/Tazobactam (Sod 3.375 gm/ Sodium Chloride) 50 mls @ 12.5 mls/hr IV Q8@0200,1000,1800 [facility] Sodium Chloride () 250 mls @ 15 mls/hr IV .[id number] PRN PRN Reason: Saline Flush Sodium Chloride () 250 mls @ 15 mls/hr IV .[id number] PRN PRN Reason: Additional IVPB Infusion Vancomycin HCl 1,250 mg/ (Sodium Chloride) 275 mls @ 167 mls/hr IV Q12H [facility] Lidocaine (Lidoderm Patch) 1 patch TOPICAL DAILY [facility]; Protocol Lisinopril (Zestril) 20 mg PO DAILY [facility] Methylprednisolone (Solu-Medrol) 40 mg IV 0400,1000,1600,2200 [facility] Metoprolol Succinate (Toprol Xl (Beta Rema)) 25 mg PO DAILY [facility] Multivitamins/Minerals (Healthy [facility] (Bkc)) [facility] Ondansetron HCl (Zofran) 4 mg IV Q8H PRN PRN PRN Reason: NAUSEA/VOMITING Oxycodone HCl (Oxyir) 5 - 10 mg PO Q4H PRN PRN PRN Reason: Pain Score 4-10/10 Last Admin: 10/26/19 05:13 Dose: 10 mg Documented by: Pregabalin (Lyrica) 75 mg PO BID [facility] Senna/Docusate Sodium (Senokot-S, Laura-Colace) 2 tablet PO BID PRN PRN PRN Reason: Constipation Sodium Chloride () 10 - 40 ml IV UD PRN PRN Reason: SALINE FLUSH Last Admin: 10/26/19 05:23 Dose: 20 ml Documented by: Tamsulosin HCl (Flomax) 0.4 mg PO QHS [facility] Zolpidem Tartrate (Ambien (Generic)) 5 mg PO QHS [facility] Last Admin: 10/26/19 01:31 Dose: Not Given Documented by: Medical Necessity - Tobacco Use Smoking Status: Current every day smoker Tobacco Use: Cigarettes Assessment/Plan All Active Problems (Last Reviewed 10/26/19 @ 07:[address] Patrice Taylor MD) Ribs, multiple fractures (Acute) This is a 74 years old male patient presented to the emergency room because of shortness of breath, found to have questionable diffuse infiltrate on the right mid and lower lung, patient had a fall from a ladder and landed on his right side chest, has been having chest pain since then and he was admitted for possible pneumonia with hypoxia. #1 acute hypoxic respiratory sufficiency: This is due to lung contusion, possible atelectasis as well as pleuritic pain due to her right side rib fractures. Patient does have COPD but never been on oxygen at home. Today, he is feeling better, remained on oxygen at 2 L. He had no more fever since admission, WBC is back to normal. Chest x-ray reviewed. Plan: DC IV Solu-Medrol, start p.o. prednisone, switch antibiotics to IV Rocephin and Zithromax, repeat chest x-ray tomorrow morning, ambulatory pulse oximetry tomorrow morning, transferred to [facility] floor. #2 suspected community-acquired pneumonia: Chest x-ray reviewed, chest x-ray findings is corresponded to the site of the chest trauma and those changes are due to lung contusion. Overlying pneumonia cannot be ruled out. Patient has spike of low-grade fever. Leukocytosis resolved. He is on IV vancomycin and Zosyn. Pneumococcal and Legionella antigen were negative. Respiratory panel for viruses were negative. COVID-19 PCR was negative. Plan: DC IV vancomycin and Zosyn, start IV Rocephin and Zithromax, encourage using incentive spirometer, wean off oxygen as tolerated. #3 right-sided rib fractures: Plan for pain control, he is on OxyIR PRN for pain. Encourage ambulation and using incentive spirometer. #4 COPD: Currently, he is on 2 L, symptoms improved. He is on IV Solu-Medrol and IV antibiotics. Plan to discontinue IV Solu-Medrol, start p.o. prednisone, adjust antibiotics as above. #5 CAD status post CABG and stents: Stable, no acute issues. Troponin was negative x2. EKG showed no acute segment changes. Continue aspirin, statins, lisinopril and metoprolol. #6 paroxysmal atrial fibrillation: Rate is controlled, continue amiodarone and metoprolol for rate control, he is not on anticoagulation. #7 hypertension: Blood pressure stable, continue metoprolol and lisinopril. #8 chronic diastolic CHF: Clinically stable, compensated. Continue lisinopril and metoprolol, he is not on diuretics. #9 benign prostatic hypertrophy: Continue Flomax and Proscar. #10 DVT prophylaxis: Subcu Lovenox. This note was generated with [employer] dictation software. It may contain incorrect words, spelling, and punctuation that were not noted in checking the note before signing. Inpatient E&M: 52181 Subs Hosp L2
[2019-10-26] MEDS: Aspirin E.C. 81 MG Tablet PO (10:21)
[2019-10-26] MEDS: Multivitamin (Healthy Eyes) Capsule 2 CAP PO (10:21)
[2019-10-26] MEDS: Lisinopril 20 MG Tablet PO (10:21)
[2019-10-26] MEDS: Pregabalin 75 MG Capsule PO ×2 (10:22→21:25)
[2019-10-26] MEDS: Amiodarone 200 MG Tablet PO (10:22)
[2019-10-26] MEDS: Metoprolol(XL)Succ 25 MG Tablet PO (10:22)
[2019-10-26] MEDS: Lidocaine 5% Patch 1 PATCH TOPICAL (10:28)
[2019-10-26] MEDS: Enoxaparin 30 MG/0.3 ML Syringe SC (10:32)
--- NOTE | 2019-10-26 10:44 | CASEMGMT ---
RN CM Assessment Note Introduced role of CM to patient in room. Pt is awake, alert, mildly [place], but able to participate in assessment. Pt is anxious to go home. States he was independent prior to admission and fall. Pt is currently on 2L NC, but does not wear oxygen @ home. Presentation: Fall from ladder while cutting tree branches. Now with R sided chest pain and cough. [facility] and [facility]. Diagnosis: Pulmonary Contusion with multiple rib fractures secondary to fall. PCP: Dr. Andrea Means Specialists: Dr. Bueno Insurance: [employer] [facility] PPO Preferred Pharmacy: [facility] Prescription Benefit: yes LNOK: Cindy Villanueva Living Arrangements: Tranportation: drives DME: none HHC: none SNF: none Patient DC Goals: Home DC Plan: Home. CM available for discharge planning coordination. Contact CM for any concerns/needs that may arise. Ludwin HUGHESN RN ACM
[2019-10-26] MEDS: Finasteride 5 MG Tablet PO (21:25)
[2019-10-26] MEDS: Tamsulosin HCl 0.4 MG Capsule PO (21:25)
[2019-10-26] MEDS: Atorvastatin Calcium 10 MG Tablet PO (21:26)
[2019-10-27] VITALS (9 sets, daily range): BP systolic 148–151; BP diastolic 67–75; PULSE 65–85; RESP 16–20; TEMP 36.4–36.5; O2SAT 93–97
[2019-10-27] MEDS: oxyCODONE 5 MG Tablet PO (02:20)
[2019-10-27] MEDS: Acetaminophen 325 MG Tablet 650 MG PO (02:20)
[2019-10-27] MEDS: Albuterol 2.5 MG/3 ML VIAL.NEB. INHALATION (02:38)
--- NOTE | 2019-10-27 02:40 | CPS ---
patient recieved prn treatment due to wheezes.
--- NOTE | 2019-10-27 05:45 | RAD_ITS ---
STUDY: X-RAY CHEST REASON FOR EXAM: Male, 74 years old. Current pneumonia. Sob and chest pain. TECHNIQUE: PA and lateral views of the chest. COMPARISON: Comparison is made with prior study dated 10-25-19. FINDINGS: EKG electrodes are seen. Stable increased interstitial markings in the right upper and right lower lobe as well as left lower lobe. There are areas of confluence. Further follow-up is recommended. There is no demonstrated pleural abnormality. Sternal cerclage wires and vascular clips are present from a prior sternotomy and coronary artery bypass graft procedure (CABG). Normal mediastinum and savanna. Normal visualized pulmonary arteries. There is atherosclerotic calcification of the aortic arch with tortuosity. There are diffuse degenerative changes of the visualized thoracic spine. Normal visualized ribs, clavicles, and shoulders. There is no demonstrated abnormality of the visualized soft tissue structures of the upper abdomen. RAD/Chest PA and Lateral IMPRESSION: Stable appearance. Electronically Signed: Fernando Barrett, at 9:06 EDT , Service support ,
[2019-10-27] MEDS: Ipratropium/Albuterol Sulfate 3 ML AMPUL.NEB INHALATION (07:04)
[2019-10-27] MEDS: predniSONE 20 MG Tablet 40 MG PO (08:08)
[2019-10-27] MEDS: Multivitamin (Healthy Eyes) Capsule 2 CAP PO (08:08)
[2019-10-27] MEDS: Aspirin E.C. 81 MG Tablet PO (08:08)
--- NOTE | 2019-10-27 08:45 | PCM.DC ---
- Discharge Diagnoses Current Active Problems: Current Active and Chronic Problems (Last Updated 10/26/19 @ 10:[address] Xavi Sanabria MD) Ribs, multiple fractures (Acute) You will use the following diet at home:: Cardiac Your food should be the consistency of: Regular Discharge Activity: Return to Normal Activity, May not drive while taking narcotic pain medications. Weight Bearing Status: Weight bearing as tolerated Call your doctor if you observe: Fever of 101 or Higher, Shortness of breath, Dizziness, Fainting spells, Chest pain, Increased palpitations (irregular heartbeat), Uncontrolled pain Allergies/Adverse Reactions: Allergies No Known Allergies Allergy (Verified 10/25/19 19:48) Medications to take at Discharge Aspirin [Adult Low Dose Aspirin EC] 81 mg PO DAILY 04/19/17 Finasteride [Proscar] 5 mg PO QHS 04/19/17 Simvastatin [Zocor] 20 mg PO QHS 04/19/17 Tamsulosin HCl [Flomax] 0.4 mg PO QHS 04/19/17 amiodarone 200 mg tablet 200 mg PO DAILY #90 tab 04/09/19 metoprolol succinate 25 mg tablet,extended release 24 hr 25 mg PO DAILY #90 tab 05/08/19 vit C,E,zinc,copper-hazdm1m 250 mg-lutein 5 mg-zeaxanthin 1 mg capsule 2 cap PO DAILY cap 07/02/19 zolpidem 10 mg tablet 10 mg PO QHS tab 07/02/19 lisinopril 20 mg tablet 20 mg PO DAILY #30 tab 09/06/19 Oxycodone HCl/Acetaminophen [Percocet 7.5-325 mg Tablet] 1 - 2 ea PO Q4H PRN 10/25/19 Pregabalin [Lyrica] 75 mg PO BID 10/25/19 Albuterol IH (ProAir) [Proair Hfa (SP)Vent Pts] 2 puff INHALATION Q4H PRN PRN #2 inhaler 10/27/19 Levofloxacin [Levaquin] 750 mg PO DAILY #7 tab 10/27/19 predniSONE tablet 40 mg PO DAILY@0800 #8 tab 10/27/19 The following prescriptions were given: Levofloxacin [Levaquin] 750 mg PO DAILY #7 tab Transmission Status: Pending to [facility] 1454 predniSONE tablet 40 mg PO DAILY@0800 #8 tab Transmission Status: Pending to [facility]24 Albuterol IH (ProAir) [Proair Hfa (SP)Vent Pts] 2 puff INHALATION Q4H PRN PRN #2 inhaler PRN Reason: Shortness of breath, wheezing Transmission Status: Pending to [facility] Primary Care Physician: Andrea Means DO [Primary Care Provider] - Please follow up with your Primary Care Physician in: 1 week. Test Results: Test results from this visit will be discussed in further detail at your follow-up appointment, if applicable.
--- NOTE | 2019-10-27 08:56 | PN_ITS ---
Patient Problems: Active and Suspected Problems (Last Updated 10/26/19 @ 10:[address] Xavi Sanabria MD) Pneumonia (Suspected) Ribs, multiple fractures (Acute) Subjective: Patient did well overnight. No acute issues were reported. Patient tolerating room air and feels back to normal. - Physical Exam Vitals/I&O's: Vital Signs Temp Pulse Resp BP Pulse Ox 36.4 C L 65 20 H 151/75 H 94 10/27/19 08:05 10/27/19 08:10 10/27/19 08:10 10/27/19 08:05 10/27/19 08:10 Oxygen Flow Rate (L/min) 2 Oxygen Delivery Method Room Air Weight: 90.3 kg Body Mass Index (BMI) 28.5 Intake and Output for Last 24 Hours 10/25/19 10/26/19 10/27/19 23:59 23:59 23:59 Intake Total 550 / 550 1717 / 1717 Output Total 850 / 850 200 / 200 Balance 550 / 550 867 / 867 -200 / -200 General: Alert, Oriented x3, Cooperative, No apparent distress, Well developed, Well nourished, - - Speaking in full sentences HEENT: Atraumatic, PERRLA, EOMI, Normocephalic, - - No scleral icterus or injection noted Oral: Moist Mucosa, No Gingival or Mucosal Lesions/ Ulcerations Neck: Supple, No JVD, No Nodes, Trachea Midline Lungs: No wheeze, No rales, Diminished, Rales - Right chest Cardiovascular: Regular rate, Regular Rhythm, Normal S1, Normal S2, No murmurs, No rub noted, No Gallop Abdomen: Bowel Sounds Present, Soft, Non Tender, Non-Distended Extremities: No clubbing, No cyanosis, No edema Skin: - - No change from previous Musculoskeletal: No Tenderness to Palpation of Joints or Extremities Lymphatic: No Cervical, Supraclavicular, or Inguinal Adenopathy Neurological: Cranial nerves II-XII grossly intact, Neuro grossly intact, Motor Exam 5/5 strength throughout Psych/Mental Status: Alert and oriented to time, place, person, mood and affect Microbiology Past 72 Hours 10/26/19 00:30 Mucosa - Nasopharyngeal Respiratory Panel (PCR) - Final 10/25/19 20:10 Urine, Clean Catch Streptococcus pneumoniae Antigen (M - Final 10/25/19 20:10 Urine, Clean Catch Legionella Antigen - Final Current Medications Acetaminophen (Tylenol) 650 mg PO Q6H PRN PRN PRN Reason: Pain Score 1-10/Temp > 100.7 F Last Admin: 10/27/19 02:20 Dose: 650 mg Documented by: Al Hydroxide/Mg Hydroxide (Mylanta Ii) 30 ml PO Q6H PRN PRN PRN Reason: Gastric Burning Albuterol Sulfate (Ventolin Aerosols) 2.5 mg INHALATION Q2H PRN PRN PRN Reason: Shortness of Breath/Wheezing Last Admin: 10/27/19 02:38 Dose: 2.5 mg Documented by: Albuterol/Ipratropium (Duoneb) 3 ml INHALATION Q6HWA.RT [facility] Last Admin: 10/27/19 07:04 Dose: 3 ml Documented by: Amiodarone HCl (Cordarone) 200 mg PO DAILY [facility] Last Admin: 10/26/19 10:22 Dose: 200 mg Documented by: [facility] Last Admin: 10/27/19 08:08 Dose: 81 mg Documented by: Atorvastatin Calcium (Lipitor) 10 mg PO QHS [facility] Last Admin: 10/26/19 21:26 Dose: 10 mg Documented by: Dextrose (D50w Syringe) 0 gm IV X1 PRN; Protocol PRN Reason: Hypoglycemia Enoxaparin Sodium (Lovenox) 40 mg SC DAILY [facility] Finasteride (Proscar) 5 mg PO QHS [facility] Last Admin: 10/26/19 21:25 Dose: 5 mg Documented by: Glucagon () 1 mg IM .X1 PRN PRN Reason: Hypoglycemia Guaifenesin (Mucinex) 1,200 mg PO BID [facility] Last Admin: 10/26/19 21:26 Dose: 1,200 mg Documented by: Sodium Chloride () 250 mls @ 15 mls/hr IV .[id number] PRN PRN Reason: Saline Flush Last Infusion: 10/26/19 19:00 Dose: 0 mls/hr Documented by: Sodium Chloride () 250 mls @ 15 mls/hr IV .[id number] PRN PRN Reason: Additional IVPB Infusion Azithromycin 500 mg/ Dextrose 255 mls @ 250 mls/hr IV Q24 [facility] Last Infusion: 10/26/19 15:30 Dose: Infused Documented by: Ceftriaxone Sodium (Rocephin) 1 gm in 50 mls @ 100 mls/hr IV Q24 [facility] Lidocaine (Lidoderm Patch) 1 patch TOPICAL DAILY [facility]; Protocol Last Admin: 10/26/19 10:28 Dose: 1 patch Documented by: Lisinopril (Zestril) 20 mg PO DAILY [facility] Last Admin: 10/26/19 10:21 Dose: 20 mg Documented by: Metoprolol Succinate (Toprol Xl (Beta Rema)) 25 mg PO DAILY [facility] Last Admin: 10/26/19 10:22 Dose: 25 mg Documented by: Multivitamins/Minerals (Healthy Eyes (Bkc)) [facility] Last Admin: 10/27/19 08:08 Dose: 2 capsule Documented by: Ondansetron HCl (Zofran) 4 mg IV Q8H PRN PRN PRN Reason: NAUSEA/VOMITING Oxycodone HCl (Oxyir) 5 - 10 mg PO Q4H PRN PRN PRN Reason: Pain Score 4-10/10 Last Admin: 10/27/19 02:20 Dose: 10 mg Documented by: Prednisone () 40 mg PO DAILY@0800 [facility] Last Admin: 10/27/19 08:08 Dose: 40 mg Documented by: Pregabalin (Lyrica) 75 mg PO BID [facility] Last Admin: 10/26/19 21:25 Dose: 75 mg Documented by: Senna/Docusate Sodium (Senokot-S, [place]-Colace) 2 tablet PO BID PRN PRN PRN Reason: Constipation Sodium Chloride () 10 - 40 ml IV UD PRN PRN Reason: SALINE FLUSH Last Admin: 10/26/19 10:26 Dose: 10 ml Documented by: Tamsulosin HCl (Flomax) 0.4 mg PO QHS [facility] Last Admin: 10/26/19 21:25 Dose: 0.4 mg Documented by: Zolpidem Tartrate (Ambien (Generic)) 5 mg PO QHS [facility] Last Admin: 10/26/19 21:28 Dose: 5 mg Documented by: Medical Necessity - Tobacco Use Smoking Status: Current every day smoker Tobacco Use: Cigarettes Assessment/Plan All Active Problems (Last Updated 10/26/19 @ 10:[address] Xavi Sanabria MD) Ribs, multiple fractures (Acute) RECOMMENDATIONS: 1. Consider discharge with Combivent as needed 2. Repeat chest x-ray in 6 to 8 weeks 3. Follow-up with pulmonary if chest x-ray not resolved 4. Walking oximetry prior to discharge 5. Outpatient PFT for quantification clarification of lung function IMPRESSIONS: 1. Acute hypoxic respiratory insufficiency secondary to pulmonary contusion with multiple rib fractures secondary to fall Clinical suspicion for infiltrate on chest x-ray being consistent with pulmonary contusion, not active infection. Reasonable to complete a 5-day course of Levaquin. Leukocytosis likely secondary to stress response and is improving. Patient advised to continue with incentive spirometer. Aggressive pain control. Current situation may be complicated by underlying COPD, but this has not been verified. Patient should have a repeat chest x-ray in 6 to 8 weeks to ensure resolution. If not resolved, evaluation with CT scan for possible malignancy would be appropriate. 2. Advanced age/paroxysmal A. fib/tobacco abuse/CAD status post bypass/chronic diastolic CHF Complicates care, management, recovery and prognosis. Low clinical suspicion for cardiac etiology. Okay to continue with baseline medications from my perspective. Reevaluation after healing would be appropriate. Inpatient E&M: 44118 Subs Hosp L2
[2019-10-27] MEDS: Lidocaine 5% Patch 1 PATCH TOPICAL (11:15)
[2019-10-27] MEDS: Enoxaparin 40 MG/0.4 ML Syringe SC (11:16)
[2019-10-27] MEDS: guaiFENesin 1,200 MG Tablet 1200 MG PO (11:16)
[2019-10-27] MEDS: Lisinopril 20 MG Tablet PO (11:16)
[2019-10-27] MEDS: Metoprolol(XL)Succ 25 MG Tablet PO (11:17)
[2019-10-27] MEDS: Amiodarone 200 MG Tablet PO (11:17)
[2019-10-27] MEDS: Pregabalin 75 MG Capsule PO (11:19)
--- NOTE | 2019-10-27 12:43 | DS.PCM_ITS ---
Discharge Date and Diagnosis - Problem List Patient Problems: Active and Suspected Problems (Last Updated 10/26/19 @ 10:[address] Xavi Sanabria MD) Pneumonia (Suspected) Ribs, multiple fractures (Acute) Date of Admission: 10/25/19 Date of Discharge: 10/27/19 - Primary Discharge Diagnosis Acute Problems: Active Problems (Last Updated 10/26/19 @ 10:[address] Xavi Sanabria MD) #1 acute hypoxic respiratory insufficiency, resolved. #2 Possible community-acquired pneumonia. #3 right pulmonary contusion. #4 right-sided rib fractures. #5 COPD. Suspected Problems: Suspected Problems (Last Updated 10/26/19 @ 10:[address] Xavi Sanabria MD) Pneumonia (Suspected) - Secondary Discharge Diagnosis Chronic Problems: Chronic Problems (Last Updated 10/26/19 @ 10:[address] Xavi Sanabria MD) Presence of stent in coronary artery (Chronic ~04/08/16) PCI/YAMILET to RCA X 2 04/08/16 Pure hypercholesterolemia (Chronic) History of coronary artery bypass surgery (Chronic ~07/01/06) CABG x4; PARKER to LAD, SVG sequentially to 1st and 2nd diag branches of anterior descending and to CX with suture repair of small ASD 06/2006 Essential hypertension (Chronic) Atherosclerotic heart disease of [place] coronary artery without angina pectoris (Chronic) CABG x4; PARKER to LAD, SVG sequentially to 1st and 2nd diag branches of anterior descending and to CX with suture repair of small ASD 06/2006 Long-term use of high-risk medication (Chronic) Nonrheumatic mitral valve insufficiency (Chronic) Pulmonary hypertension (Chronic) Paroxysmal atrial fibrillation (Chronic) COPD (chronic obstructive pulmonary disease) with acute bronchitis (Chronic) CHF NYHA class III (symptoms with mildly strenuous activities) (Chronic) Hospital Course and Treatment Imaging Results: 10/27/19 05:45 CXR [Chest PA and Lateral] [RAD] AM (NON MEDS) Clinical Impression(s) from Imaging Studies Chest X-Ray 10/25/19 20:27 IMPRESSION: Findings highly suggestive of Covid nineteen pneumonia greater on the right. No definitive evidence for focal right rib fracture. Oblique views of the ribs would be helpful for further evaluation if clinically warranted. Electronically Signed: Roney Hunt MD at 21:22 EDT , Service support , Dr. Urias, pulmonology. Operations: None Procedures: None Summary of Care Provided: Patient seen and examined on the day of discharge and appeared to be stable to be discharged home. He denied any more shortness of breath, has been off oxygen since yesterday evening. Complaining of mild cough, no sputum production. Pain on the right lateral chest improved. His vital signs are stable. The patient is a 74 year old M presented to the emergency room because of shortness of breath and right lateral pleuritic chest pain and he was found to have questionable diffuse infiltrate on the right mid and lower lung. Patient had a fall from a ladder and landed on the right side of his chest, was diagno sed with rib fractures 1 day before admission. He had a spike of fever in the emergency department. He was started on IV antibiotics for suspected pneumonia. Initially, there was a concern that patient may have COVID-19 pneumonia. COVID-19 PCR done and it was negative. Patient also was given IV Solu-Medrol. After admission, patient symptoms improved. He remained afebrile, leukocytosis resolved. Pneumococcal and Legionella antigen negative. Respiratory panel for viruses were negative. Repeat chest x-ray done and showed same findings which is consistent with pulmonary contusion although underlying pneumonia cannot be ruled out. Patient was kept on IV antibiotics. He remained afebrile. He was able to come off oxygen. Ambulatory pulse oximetry performed and his pulse ox did not drop less than 95% on room air with ambulation and he did not qualify for home oxygen. Patient discharged home in a stable medical condition, discharged on Levaquin 750 mg p.o. daily for 7 days, discharged on prednisone 40 mg p.o. 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 Patient Problems: Active and Suspected Problems (Last Updated 10/26/19 @ 10:[address] Xavi Sanabria MD) Pneumonia (Suspected) Ribs, multiple fractures (Acute) - Physical Exam Vitals/I&O's: Vital Signs Temp Pulse Resp BP Pulse Ox 97.5 F L 69 20 H 151/75 H 94 10/27/19 08:05 10/27/19 11:17 10/27/19 08:10 10/27/19 08:05 10/27/19 08:10 Oxygen Flow Rate (L/min) 2 Oxygen Delivery Method Room Air Weight: 199 lb 1.239 oz Body Mass Index (BMI) 28.5 Intake and Output for Last 24 Hours 10/25/19 10/26/19 10/27/19 23:59 23:59 23:59 Intake Total 550 / 550 1717 / 1717 Output Total 850 / 850 200 / 200 Balance 550 / 550 867 / 867 -200 / -200 General: Alert, Oriented x3, Cooperative, No apparent distress HEENT: Atraumatic, PERRLA, EOMI, Normocephalic Oral: Moist Mucosa, No Gingival or Mucosal Lesions/ Ulcerations Neck: Supple, No JVD, Negative Carotid Bruits, Trachea Midline, Thyroid Normal Size and Texture Lungs: Clear to auscultation, No wheeze, No rales, Diminished, Rhonchi Cardiovascular: Regular rate, Regular Rhythm, Normal S1, Normal S2, PMI Normal Abdomen: Bowel Sounds Present, Soft, Non Tender, Non-Distended, No Hepato- splenomegaly Extremities: No clubbing, No cyanosis, No edema Skin: No rashes, No breakdown Lymphatic: No Cervical, Supraclavicular, or Inguinal Adenopathy Neurological: Cranial nerves II-XII grossly intact, Neuro grossly intact Psych/Mental Status: Normal Affect, Appropriate Microbiology Past 72 Hours 10/26/19 00:30 Mucosa - Nasopharyngeal Respiratory Panel (PCR) - Final 10/25/19 20:10 Urine, Clean Catch Streptococcus pneumoniae Antigen (M - Final 10/25/19 20:10 Urine, Clean Catch Legionella Antigen - Final Current Medications Acetaminophen (Tylenol) 650 mg PO Q6H PRN PRN PRN Reason: Pain Score 1-10/Temp > 100.7 F Last Admin: 10/27/19 02:20 Dose: 650 mg Documented by: Al Hydroxide/Mg Hydroxide (Mylanta Ii) 30 ml PO Q6H PRN PRN PRN Reason: Gastric Burning Albuterol Sulfate (Ventolin Aerosols) 2.5 mg INHALATION Q2H PRN PRN PRN Reason: Shortness of Breath/Wheezing Last Admin: 10/27/19 02:38 Dose: 2.5 mg Documented by: Albuterol/Ipratropium (Duoneb) 3 ml INHALATION Q6HWA.RT [facility] Last Admin: 10/27/19 07:04 Dose: 3 ml Documented by: Amiodarone HCl (Cordarone) 200 mg PO DAILY [facility] Last Admin: 10/27/19 11:17 Dose: 200 mg Documented by: Aspirin (Ecotrin) 81 mg PO DAILYCM [facility] Last Admin: 10/27/19 08:08 Dose: 81 mg Documented by: Atorvastatin Calcium (Lipitor) 10 mg PO QHS [facility] Last Admin: 10/26/19 21:26 Dose: 10 mg Documented by: Dextrose (D50w Syringe) 0 gm IV X1 PRN; Protocol PRN Reason: Hypoglycemia Enoxaparin Sodium (Lovenox) 40 mg SC DAILY [facility] Last Admin: 10/27/19 11:16 Dose: 40 mg Documented by: Finasteride (Proscar) 5 mg PO QHS [facility] Last Admin: 10/26/19 21:25 Dose: 5 mg Documented by: Glucagon () 1 mg IM .X1 PRN PRN Reason: Hypoglycemia Guaifenesin (Mucinex) 1,200 mg PO BID [facility] Last Admin: 10/27/19 11:16 Dose: 1,200 mg Documented by: Sodium Chloride () 250 mls @ 15 mls/hr IV .[id number] PRN PRN Reason: Saline Flush Last Infusion: 10/26/19 19:00 Dose: 0 mls/hr Documented by: Sodium Chloride () 250 mls @ 15 mls/hr IV .[id number] PRN PRN Reason: Additional IVPB Infusion Azithromycin 500 mg/ Dextrose 255 mls @ 250 mls/hr IV Q24 [facility] Last Admin: 10/27/19 11:14 Dose: Not Given Documented by: Ceftriaxone Sodium (Rocephin) 1 gm in 50 mls @ 100 mls/hr IV Q24 [facility] Last Admin: 10/27/19 11:14 Dose: Not Given Documented by: Lidocaine (Lidoderm Patch) 1 patch TOPICAL DAILY [facility]; Protocol Last Admin: 10/27/19 11:15 Dose: 1 patch Documented by: Lisinopril (Zestril) 20 mg PO DAILY [facility] Last Admin: 10/27/19 11:16 Dose: 20 mg Documented by: Metoprolol Succinate (Toprol Xl (Beta Rema)) 25 mg PO DAILY [facility] Last Admin: 10/27/19 11:17 Dose: 25 mg Documented by: Multivitamins/Minerals (Healthy Eyes (Bkc)) 2 capsule PO DAILYCM [facility] Last Admin: 10/27/19 08:08 Dose: 2 capsule Documented by: Ondansetron HCl (Zofran) 4 mg IV Q8H PRN PRN PRN Reason: NAUSEA/VOMITING Oxycodone HCl (Oxyir) 5 - 10 mg PO Q4H PRN PRN PRN Reason: Pain Score 4-10/10 Last Admin: 10/27/19 02:20 Dose: 10 mg Documented by: Prednisone () 40 mg PO DAILY@0800 [facility] Last Admin: 10/27/19 08:08 Dose: 40 mg Documented by: Pregabalin (Lyrica) 75 mg PO BID [facility] Last Admin: 10/27/19 11:19 Dose: 75 mg Documented by: Senna/Docusate Sodium (Senokot-S, Laura-Colace) 2 tablet PO BID PRN PRN PRN Reason: Constipation Sodium Chloride () 10 - 40 ml IV UD PRN PRN Reason: SALINE FLUSH Last Admin: 10/26/19 10:26 Dose: 10 ml Documented by: Tamsulosin HCl (Flomax) 0.4 mg PO QHS [facility] Last Admin: 10/26/19 21:25 Dose: 0.4 mg Documented by: Zolpidem Tartrate (Ambien (Generic)) 5 mg PO QHS [facility] Last Admin: 10/26/19 21:28 Dose: 5 mg Documented by: Discharge Activity: Return to Normal Activity, May not drive while taking narcotic pain medications. Weight Bearing Status: Weight bearing as tolerated Call your doctor if you observe: Fever of 101 or Higher, Shortness of breath, Dizziness, Fainting spells, Chest pain, Increased palpitations (irregular heartbeat), Uncontrolled pain Home Medications: Medications to take at Discharge Aspirin [Adult Low Dose Aspirin EC] 81 mg PO DAILY 04/19/17 Finasteride [Proscar] 5 mg PO QHS 04/19/17 Simvastatin [Zocor] 20 mg PO QHS 04/19/17 Tamsulosin HCl [Flomax] 0.4 mg PO QHS 04/19/17 amiodarone 200 mg tablet 200 mg PO DAILY #90 tab 04/09/19 metoprolol succinate 25 mg tablet,extended release 24 hr 25 mg PO DAILY #90 tab 05/08/19 vit C,E,zinc,copper-[id number] 250 mg-lutein 5 mg-zeaxanthin 1 mg capsule 2 cap PO DAILY cap 07/02/19 zolpidem 10 mg tablet 10 mg PO QHS tab 07/02/19 lisinopril 20 mg tablet 20 mg PO DAILY #30 tab 09/06/19 Oxycodone HCl/Acetaminophen [Percocet 7.5-325 mg Tablet] 1 - 2 ea PO Q4H PRN 10/25/19 Pregabalin [Lyrica] 75 mg PO BID 10/25/19 Albuterol IH (ProAir) [Proair Hfa (SP)Vent Pts] 2 puff INHALATION Q4H PRN PRN #2 inhaler 10/27/19 Levofloxacin [Levaquin] 750 mg PO DAILY #7 tab 10/27/19 predniSONE tablet 40 mg PO DAILY@0800 #8 tab 10/27/19 Following Prescrptions Were Given to Patient: Levofloxacin [Levaquin] 750 mg PO DAILY #7 tab Transmission Status: Received by [id number] predniSONE tablet 40 mg PO DAILY@0800 #8 tab Transmission Status: Received by [facility] Albuterol IH (ProAir) [Proair Hfa (SP)Vent Pts] 2 puff INHALATION Q4H PRN PRN #2 inhaler PRN Reason: Shortness of breath, wheezing Transmission Status: Received by [facility] Primary Care Physician: Andrea Means DO [Primary Care Provider] - Please follow up with your Primary Care Physician in: 1 week. Disposition: Home Minutes spent on discharge:: 32 Patient Condition:: Stable Medical Necessity - Tobacco Use Smoking Status: Current every day smoker Tobacco Use: Cigarettes Meaningful Use Info Meaningful Use Diagnoses (Choose all that apply): None applicable Inpatient E&M: [id number] [facility]
--- NOTE | 2019-10-29 13:33 | CASEMGMT ---
TRINO CM DC PHONE CALL DC DATE: 10/27/2019 DC DISPOSITION: Home DC DIAGNOSIS: Pneumonia LACE/STRATA: 01/04 F/U APPTS MADE PRIOR TO DC: no, weekend discharge Attempted call to phone. No answer and messaging did not have patient's name identifier. Ludwin HUGHESN RN ACM
== END 2019-10-27 11:35 | disposition home or self-care (01) | DRG 204 ==
LOC: ED 20:45 → ICU 10-26 03:20 → MS3 10-26 11:26
PROVIDERS: Admitting Provider Hospitalist; Emergency Provider Student in an Organized Health Care Education/Training Program; PCP Family Medicine; Visit Provider Hospitalist
DX: R06.89 Other abnormalities of breathing (principal); J18.9 Pneumonia, unspecified organism; J44.0 Chronic obstructive pulmonary disease with (acute) lower respiratory infection; I50.32 Chronic diastolic (congestive) heart failure; R09.02 Hypoxemia; S27.321D Contusion of lung, unilateral, subsequent encounter; S22.41XD Multiple fractures of ribs, right side, subsequent encounter for fracture with routine healing; I11.0 Hypertensive heart disease with heart failure; W20.8XXD Other cause of strike by thrown, projected or falling object, subsequent encounter; E66.9 Obesity, unspecified; Z95.5 Presence of coronary angioplasty implant and graft; E78.00 Pure hypercholesterolemia, unspecified; Z95.1 Presence of aortocoronary bypass graft; I25.10 Atherosclerotic heart disease of native coronary artery without angina pectoris; I48.0 Paroxysmal atrial fibrillation; Z79.82 Long term (current) use of aspirin; Z79.899 Other long term (current) drug therapy; F17.210 Nicotine dependence, cigarettes, uncomplicated; Z68.27 Body mass index [BMI] 27.0-27.9, adult; N40.0 Benign prostatic hyperplasia without lower urinary tract symptoms
CPT/HCPCS: 71045; 71046; 80053; 81002; 82728; 83605; 83615; 84145; 84478; 84484; 85025; 85384; 85610; 87040; 87449; 87633; 87635; 87641; 93005; 94640; 94667; 94668; 94799; 99251; 99285; 99406; J7040; J7050; A4216; G0463; J2405; U0003

== ENCOUNTER 2019-11-26 21:44 | Emergency (ER) | payer MEDICARE, SELFPAY ==
[2016-04-09 09:01] VITALS: BMI 28.3
[2019-10-25 23:44] VITALS: BMI 28.5
[2019-11-26 21:45] VITALS: BP 184/84; PULSE 62; RESP 18; TEMP 36.2; O2SAT 100; BMI 27.2
--- NOTE | 2019-11-26 22:50 | ED.DCSUM_ITS ---
History of Present Illness Chief Complaint: Back Informant: Patient Onset: Weeks Context: Gradual Onset Timing: Waxes and wanes Current Severity: Moderate Maximum Severity: Severe Narrative: She presents with exacerbation of chronic back pain. He has had 2 prior back surgeries, the most recent being 6 months ago. He is still left with radiculopathy and paresthesias in his feet. Patient was injured approximately month ago where he fell off a ladder and broke some ribs. He was then hospitalized with pneumonia. Over the past 2 weeks patient has had increased low back pain. He is not sure if it was from his recent fall. He states he has chronic throbbing pain in his legs that has not worsened with movement. He has had no falls since he was last hospitalized. Patient is currently taking oxycodone 7.5 mg tabs. Last dose was 18 hours ago. Patient states he has not been able to sleep secondary to pain. - Past Medical History (1) Ribs, multiple fractures Status: Resolved (2) CHF NYHA class III (symptoms with mildly strenuous activities) Status: Chronic (3) COPD (chronic obstructive pulmonary disease) with acute bronchitis Status: Chronic (4) Essential hypertension Status: Chronic (5) History of coronary artery bypass surgery Status: Chronic Comment: CABG x4; PARKER to LAD, SVG sequentially to 1st and 2nd diag branches of anterior descending and to CX with suture repair of small ASD 06/2006 (6) Paroxysmal atrial fibrillation Status: Chronic (7) Presence of stent in coronary artery Status: Chronic Comment: PCI/YAMILET to RCA X 2 04/08/16 (8) Pulmonary hypertension Status: Chronic (9) Pure hypercholesterolemia Status: Chronic (10) Previous back surgery Status: Chronic Past Medical History - Allergies and Home Meds Allergies/Adverse Reactions: Allergies No Known Allergies Allergy (Verified 11/26/19 21:48) Primary Care Physician: Andrea Means DO [Primary Care Provider] - Prior records reviewed: Yes Surgical History: coronary bypass surgery, - - foot surgery, toe surgery, lipoma on wrist. Lives: Spouse/ Significant Other Smoking Status: Current every day smoker - Family History Maternal Family History: Family History (Last Reviewed 10/26/19 @ 00:[address] Patrice Taylor MD) Mother CVA (cerebral vascular accident) Brother CAD (coronary artery disease) Brother CAD (coronary artery disease) Family History: Reports: No pertinent history Sibling Family History: Family History (Last Reviewed 10/26/19 @ 00:[address] Patrice Taylor MD) Mother CVA (cerebral vascular accident) Brother CAD (coronary artery disease) Brother CAD (coronary artery disease) Family History: Reports: - - brothers with heart surgery. Review of Systems General: Denies: Chills, Fever Eyes: Denies: Visual changes - bilaterally ENT: Denies: Bilateral ear pain Cardiovascular: Denies: Chest pain Respiratory: Denies: Dyspnea Gastrointestinal: Reports: Nausea. Denies: Abdominal pain, Vomiting Genitourinary: Denies: Dysuria Musculoskeletal: Reports: Back pain, Extremity Pain Skin: Denies: Rash, Wounds Neurological: Reports: Parasthesia - Chronic neuropathy Hematologic: Denies: Easy bruising, Easy bleeding Allergy: Denies: Uticaria Physical Exam Vital Signs/Narrative: Vital Signs Temp Pulse Resp BP Pulse Ox 11/26/19 21:45 97.2 F L 62 18 184/84 H 100 Inital Vital Signs reviewed: Yes General: Well nourished, Well developed Head: Normocephalic ENT: Moist mucous membranes Neck: Supple Cardiovascular: Regular rate, Regular rhythm Respiratory: No distress, CTA bilaterally Abdomen: Soft, Nontender, Normal bowel sounds Back: - - Reproducible tenderness in the low lumbar midline and paraspinal muscles. No overlying skin changes. Extremities: Nontender - No focal tenderness to palpation. Skin: Normal color Neurological: Alert, Oriented x3, - - 1+ bilateral patellar reflexes. Strong distal pulses. Psychological: Normal affect Diagnostic/Tx/Re-eval Impressions Lumbar Spine X-Ray 11/26/19 23:00 IMPRESSION: Degenerative changes of the spine, as detailed above. Status post laminectomy of L3-L5. Electronically Signed: Rolando Daniels MD at 23:25 EDT , Service support , 11/26/19 23:00 Lumbar Spine 2 or 3 Views [RAD] Stat - Medical Decision Making Patient reports doing well with the pain medication that he got last time he was here for back pain. I reviewed the records he had gotten 8 mg of IM morphine, 50 mg of IM Toradol, and 8 mg of p.o. Zofran. He was given similar tonight. After 1 hour he does report some improvement, but still does have pain. He will be given a dose of Flexeril and prednisone as well. Patient will continue his oxycodone at home and will be given prednisone as well as Flexeril. Patient's states that she was planning to contact the PCP tomorrow to discuss getting him into pain management. ED Disposition - Plan for ED Patient: Disposition: Home or Assisted Living Diagnosis: Back pain Instructions: ED Back Pain Acute or Chronic Prescriptions: Prednisone [Deltasone] 40 mg PO DAILY #10 tab [id number] cycloBENZAPRine HCl [Flexeril] 10 mg PO TID PRN #20 tab PRN Reason: Muscle Spasm [facility] Referrals: Andrea Means, [Primary Care Provider] - As soon as possible
--- NOTE | 2019-11-26 23:00 | RAD_ITS ---
STUDY: X-RAY - LUMBAR SPINE REASON FOR EXAM: Male, 74 years old. CHRONIC LOWER BACK PAIN. HX OF LOWER BACK SURGERY. TECHNIQUE: 3 view(s) of the lumbar spine were obtained. COMPARISON: Previous study of 07/11/2015 FINDINGS: There is straightening of the normal lumbar lordosis. There is no substantial scoliosis. There is a normal alignment of the vertebrae. There is multilevel endplate spondylosis of the lumbar vertebrae. There is multi-level degenerative disc disease with multi-level disc space narrowing. There are status post laminectomy changes at L3, L4, and L5. There is atherosclerotic calcification of the abdominal aorta without a demonstrated aneurysm. RAD/Lumbar Spine 2 or 3 Views IMPRESSION: Degenerative changes of the spine, as detailed above. Status post laminectomy of L3-L5. Electronically Signed: Rolando Daniels MD at 23:25 EDT , Service support ,
[2019-11-26] MEDS: Ondansetron ODT 4 MG Tablet PO (23:59)
[2019-11-26] MEDS: morphine 8 MG/ML Syringe IM (23:59)
[2019-11-27] MEDS: Ketorolac 15 MG/ML Vial IM
[2019-11-27] MEDS: cycloBENZAPRine HCl 10 MG Tablet PO (01:10)
[2019-11-27] MEDS: predniSONE 20 MG Tablet 60 MG PO (01:11)
[2019-11-27 01:12] VITALS: BP 151/76; PULSE 64; RESP 18; O2SAT 98
== END 2019-11-27 01:15 | disposition home or self-care (01) ==
PROVIDERS: Emergency Provider Emergency Medicine; PCP Family Medicine
DX: M54.5 Low back pain (principal); G89.29 Other chronic pain; I11.0 Hypertensive heart disease with heart failure; I50.9 Heart failure, unspecified; I27.20 Pulmonary hypertension, unspecified; Z95.1 Presence of aortocoronary bypass graft; Z95.5 Presence of coronary angioplasty implant and graft; F17.200 Nicotine dependence, unspecified, uncomplicated
CPT/HCPCS: 72100; 96372; 99283; A4216

== ENCOUNTER → 2020-03-26 08:06 | Outpatient (CLI) | payer MEDICARE, SELFPAY ==
[2016-04-09 09:01] VITALS: BMI 28.3
[2020-03-19 10:43] VITALS: BMI 28.0
[2020-03-26 09:47] LABS: AST(SGOT) 15 U/L (15-37); Alanine Aminotransfer ALT/SGPT 30 U/L (16-61); Albumin, Serum 3.6 g/dL (3.2-5.0); Alkaline Phosphatase 78 U/L (45-117); Bilirubin, Direct 0.11 mg/dL (0.00-0.30); Cholesterol 207 mg/dL (200); Globulin 3.9 g/dL (2.2-4.2); High Density Lipoprotein 54 mg/dL; Protein, Total 7.5 g/dL (6.4-8.2); T4 Free Direct 1.18 ng/dL (0.76-1.46); Thyroid Stim Hormone (TSH) 4.11 uIU/mL (0.358-3.74); Triglycerides 150 mg/dL; Very Low Density Lipoprotein 30 mg/dL (5-40)
--- NOTE | 2020-03-26 15:32 | PFTCOMP_ITS ---
COMPLETE PULMONARY FUNCTION TEST INTERPRETATION Brief HPI: Patient is a 75 year old male, currently under the care of Dr. Bueno, who presents to [facility] for complete pulmonary function tests secondary to diagnosis of high risk med use. Respiratory therapist reports good effort and reproducible results. Interpretation: Forced expiration spirometry shows a mild large airways obstructive ventilatory defect with an FEV1 of 75% predicted. There is a significant bronchodilator response in FVC by strict ATS criteria. Spirograms are of good quality and plateau slowly, indicating slowly emptying areas of the lungs. The respiratory flow volume loop shows decreased expiratory flow rates at all lung volumes consistent with airway obstruction. Lung volumes by body plethysmography show a normal total lung capacity at 6.12 L, 95% predicted. All other lung volumes are within normal limits. Diffusion capacity by carbon monoxide is decreased at 55% predicted. The airway resistance is elevated. Compared to previous pulmonary function tests from 11/18/2016, there has been no significant change. Impression: Partial reversible mild large airways obstructive ventilatory defect with a dissymmetric reduction diffusion capacity
== END ==
PROVIDERS: PCP Family Medicine; Referring Provider Internal Medicine Cardiovascular Disease; Visit Provider Internal Medicine Cardiovascular Disease
DX: E78.00 Pure hypercholesterolemia, unspecified (principal); I10 Essential (primary) hypertension; I25.10 Atherosclerotic heart disease of native coronary artery without angina pectoris; I27.20 Pulmonary hypertension, unspecified; I34.0 Nonrheumatic mitral (valve) insufficiency; I48.0 Paroxysmal atrial fibrillation; J20.9 Acute bronchitis, unspecified; J44.0 Chronic obstructive pulmonary disease with (acute) lower respiratory infection; Z95.1 Presence of aortocoronary bypass graft; Z95.5 Presence of coronary angioplasty implant and graft
CPT/HCPCS: 36415; 80061; 80076; 84439; 84443; 94060; 94726; 94729

== ENCOUNTER → 2020-11-10 | Outpatient (CLI) | payer MEDICARE, SELFPAY ==
[2016-04-09 09:01] VITALS: BMI 28.3
[2020-09-24 10:04] VITALS: BMI 30.1
--- NOTE | 2020-11-10 | SOF_PTH ---
PATIENT: CHRISTIANO REED LOC: [facility] U#:[id number] AGE/SX: 75/M ROOM: RE11/10/[address]: Dr. Parvez Hawkins MD : 1945 BED: DIS: 11/10/2020 SPEC #: [id number] RECD: 11/10/20 15:14 STATUS: ION REKeyanna #: [id number] IVA: 11/10/20 00:[address]: Parvez Hawkins DEPT: SURGICAL PATHOLOGY RECD BY: Lakshmi Ibrahim ENTERED: 11/11/20 13:12 SP TYPE: SOFT TISS OTHR DR: Dr. Andrea Means, DO Tissues: Soft tissues, NOS Procedures: Surgery Specimen Level III HEADER OPERATION: Left hand mass excision PRE-OP DIAGNOSIS: Left hand mass TISSUE SUBMITTED: Left hand mass MICROSCOPIC DIAGNOSIS Mass of left hand, biopsy: Epidermal inclusion cyst with rupture and associated reactive and reparative change. AM:roma 11/12/2020 MICROSCOPIC DESCRIPTION Slides are reviewed. GROSS DESCRIPTION Received in fixative is one container labeled with the patient's name and designated left hand mass. The specimen consists of a firm, ovoid, cystic, white-jane tissue measuring 3 x 1.5 x 1.2 cm. The specimen is sectioned and totally submitted in one cassette. / AM:roma 11/11/20 TC:5 CPT: 68543
== END | disposition home or self-care (01) ==
LOC: LABSPEC 15:39
PROVIDERS: PCP Family Medicine; Referring Provider Orthopaedic Surgery; Visit Provider Orthopaedic Surgery
DX: R22.32 Localized swelling, mass and lump, left upper limb (principal)
CPT/HCPCS: 88304; 88305

== ENCOUNTER 2021-01-17 01:39 | Emergency (ER) | payer MEDICARE, SELFPAY ==
[2016-04-09 09:01] VITALS: BMI 28.3
[2021-01-17 01:40] VITALS: BP 193/91; PULSE 67; RESP 18; TEMP 36.6; O2SAT 98; BMI 29.7
[2021-01-17] MEDS: HYDROmorphone 1 MG/ML Syringe 2 MG IM (02:21)
--- NOTE | 2021-01-17 02:45 | ED.VIS.BACK ---
HPI History of Present Illness Chief Complaint: Back Informant: patient and spouse/S.O. Onset/Context/Timing Onset: - (Acute on chronic, worsened yesterday) Injury: - (No recent injury) Timing: Waxes and wanes Quality: Aching and Throbbing Location: Lumbar Current Severity: Moderate Maximum Severity: Severe Narrative Narrative: Patient presents secondary to worsened back pain. He has chronic back pain and has had prior surgery as well as injections. He is currently on oxycodone 10 mg every 4 hours. He states for the last day or so he has had increased back pain and tonight had trouble finding a comfortable position. He did not have relief with his oxycodone so came to the emergency room. No problems of bowel or bladder control. No fever or chills. Last injection in his back was several months ago. 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 Dysgeusia Emphysema of lung Essential hypertension Insomnia Intercostal myalgia Long-term use of high-risk medication Mitral valve insufficiency Nonrheumatic mitral valve insufficiency Paroxysmal atrial fibrillation Presence of stent in coronary artery (~04/08/16) Pulmonary hypertension Pure hypercholesterolemia Smoker Tobacco abuse Home Medications aspirin 81 mg PO DAILY 04/19/17 [History Last Taken Unknown] finasteride 5 mg PO QHS 04/19/17 [History Last Taken Unknown] tamsulosin 0.4 mg PO QHS 04/19/17 [History Last Taken Unknown] nitroglycerin 0.4 mg sublingual tablet 0.4 mg SUBLINGUAL Q5-15M PRN #25 tab 03/19/20 [Rx Last Taken Unknown] pravastatin 40 mg tablet 40 mg PO QHS #30 tab 03/31/20 [Rx Last Taken Unknown] amiodarone 200 mg tablet 200 mg PO DAILY #90 tab 06/25/20 [Rx Last Taken Unknown] albuterol sulfate 90 mcg/actuation aerosol inhaler 2 puff INHALATION Q4H PRN gm 07/10/20 [History Last Taken Unknown] pregabalin 75 mg capsule 75 mg PO TID cap 09/24/20 [History Last Taken Unknown] losartan 50 mg tablet 50 mg PO DAILY #30 tab 10/14/20 [Rx Last Taken Unknown] oxycodone-acetaminophen 10 mg-325 mg tablet tab PO 01/14/21 [History Last Taken Unknown] trazodone 50 mg tablet mg PO 01/14/21 [History Last Taken Unknown] Allergy/AdvReac Type Severity Reaction Status Date / Time lisinopril AdvReac Severe Cough Verified 01/17/21 01:44 Family History Mother CVA (cerebral vascular accident) Brother CAD (coronary artery disease) Brother CAD (coronary artery disease) Surgical History Aortocoronary bypass status (~06/2006) History of arthroscopic knee surgery History of coronary artery bypass surgery (~07/01/06) History of cystoscopy History of hemorrhoidectomy History of lumbar surgery History of transurethral resection of prostate Presence of coronary angioplasty implant and graft (~04/08/16) Social History Smoking Status: Former smoker quit date: 06/02/20 alcohol intake: never substance use type: does not use ROS ROS ED Constitutional Constitutional ED: Denies fever(s) or subjective Eyes Eyes: Denies change in vision ENT ENT ED: Denies sore throat Cardiovascular Cardiovascular: Denies chest pain or palpitations Respiratory/Chest Respiratory/Chest: Denies dyspnea or sputum Gastrointestinal Gastrointestinal: Denies abdominal pain, diarrhea or vomiting Genitourinary Genitourinary ED: Denies dysuria or urinary frequency Musculoskeletal Musculoskeletal: Reports back pain Integumentary Denies rash Neurologic Neurologic: Reports paresthesias Psychiatric Psychiatric: Denies anxiety or depression Endocrine Endocrinology: Denies polydipsia or polyuria Hematologic/Lymphatic Hematologic/Lymphatic: Denies easy bleeding or easy bruising Allergic/Immunologic Allergic/Immunologic ED: Denies urticaria EXAM Physical Exam Const Vital Signs: 01/17/21 01:40 Temperature 97.8 F Temperature Source Temporal Pulse Rate 67 Respiratory Rate 18 Blood Pressure 193/91 H Blood Pressure Mean 125 Pulse Ox 98 Oxygen Delivery Method Room Air Positive well nourished and well developed General Appearance ED: well developed HEENT Reports normocephalic and head/scalp atraumatic Eyes PERRL and EOMs intact bilaterally Neck supple Chest Wall inspection of chest normal and palpation of chest normal Resp normal respiratory effort and clear to auscultation bilaterally Cardio regular rate and regular rhythm GI normal to inspection, nondistended, normoactive bowel sounds Palpation: soft Back/Spine no CVA tenderness Back/Spine Narrative: Well-healed midline lumbar surgical scar. No erythema or warmth. Diffuse tenderness throughout the bilateral paraspinal muscles. Extremity Extremity Narrative: 3+ bilateral lower extremity edema. No erythema or excessive warmth. General Extremety ED: Yes edema General Extremity: edema Neuro oriented x3 Neuro Narrative: Good strength noted in the lower extremities. 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 Sensorium / Orientation: alert Psych mental status grossly normal Skin no rashes or lesions noted MDM MDM MDM Narrative Medical decision making narrative: Due to patient's baseline narcotic intake he was given 2 mg of IM Dilaudid. Treatment and Re-Evaluation Comments:: Patient observed for over an hour. Patient states his pain is improved. He will be discharged home to continue his current pain regimen. He will discuss his medications with Dr. Byrd who he sees for injections. Return instructions provided. Discharge Plan Triage Chief Complaint: Back ED Provider: Deidre Hudson Dx/Rx/DC Orders Clinical Impression: Back pain Instructions: ED Back Pain (Acute or Chronic) Prescriptions: No Action nitroglycerin 0.4 mg tablet, sublingual 0.4 mg SUBLINGUAL Q5-15M PRN (Reason: chest pain) Qty: 25 RF: 1 oxycodone-acetaminophen 10-325 mg tablet PO RF: 0 trazodone 50 mg tablet PO RF: 0 tamsulosin 0.4 MG capsule 0.4 mg PO QHS RF: 0 finasteride 5 MG tablet 5 mg PO QHS RF: 0 aspirin 81 MG tablet,delayed release (DR/EC) 81 mg PO DAILY RF: 0 pregabalin 75 mg capsule 75 mg PO TID RF: 0 pravastatin 40 mg tablet 40 mg PO QHS Qty: 30 RF: 12 amiodarone 200 mg tablet 200 mg PO DAILY Qty: 90 RF: 3 albuterol sulfate [ProAir HFA] 90 mcg/actuation HFA aerosol inhaler 2 puff INHALATION Q4H PRNRF: 0 losartan 50 mg tablet 50 mg PO DAILY Qty: 30 RF: 11 Primary Care Provider: Andrea Means Referrals: Roney Seay MD [STAFF PHYSICIAN] - Andrea Means DO [Primary Care Provider] - 3-5 Days if not improving Disposition Disposition: Home, Self Care
[2021-01-17 03:36] VITALS: BP 188/88; PULSE 72; RESP 18; O2SAT 98
== END 2021-01-17 03:38 | disposition home or self-care (01) ==
PROVIDERS: Emergency Provider Emergency Medicine; PCP Family Medicine
DX: M54.9 Dorsalgia, unspecified (principal); G89.29 Other chronic pain; I25.10 Atherosclerotic heart disease of native coronary artery without angina pectoris; J44.9 Chronic obstructive pulmonary disease, unspecified; I11.0 Hypertensive heart disease with heart failure; I50.9 Heart failure, unspecified; Z79.51 Long term (current) use of inhaled steroids; Z79.899 Other long term (current) drug therapy; Z87.891 Personal history of nicotine dependence
CPT/HCPCS: 96372; 99283

== ENCOUNTER 2021-01-17 11:36 | Observation (INO) | payer MEDICARE, SELFPAY ==
[2016-04-09 09:01] VITALS: BMI 28.3
[2021-01-17] VITALS (9 sets, daily range): BP systolic 126–210; BP diastolic 67–99; PULSE 73–90; RESP 16–19; TEMP 36.1–36.9; O2SAT 95–99; BMI 30.1; BMI 29.0
--- NOTE | 2021-01-17 11:47 | ED.RN ---
chronic back pain. seen last night for back pain.
--- NOTE | 2021-01-17 12:19 | RAD_ITS ---
STUDY: X-RAY CHEST REASON FOR EXAM: Male, 75 years old. Shortness of Breath TECHNIQUE: Frontal portable view of the chest COMPARISON: 27 October 2019 FINDINGS: There are ill-defined irregular bilateral opacities, improved since prior, possibly residual or recurrent pneumonia or post pneumonic inflammatory changes. There is no pneumothorax, pulmonary edema pleural effusions. Heart is mildly enlarged with prior open heart surgery. RAD/Chest 1 View (Portable) IMPRESSION: Ill-defined bilateral opacities with a wide differential diagnosis. Recommend CT chest for definitive evaluation. These can be both acute such as recurrent pneumonia versus postinflammatory. Electronically Signed: Su Salazar MD at 14:25 EDT Tel , Service support ,
--- NOTE | 2021-01-17 12:20 | EKG12_ITS ---
Test Reason : Blood Pressure : / mmHG Vent. Rate : 066 BPM Atrial Rate : 066 BPM P-R Int : 200 ms QRS Dur : 088 ms QT Int : 440 ms P-R-T Axes : 062 041 070 degrees QTc Int : 461 ms Normal sinus rhythm Normal ECG Confirmed by MORRIS MARIE, MARY ([id number]), video editor SITA RONDON ([id number]) on 01/20/2021 8:52:50 AM Referred By: Rahul Redd Confirmed By:MARY CACERES MD
[2021-01-17] MEDS: Morphine 4 MG/ML Syringe IV (12:44)
[2021-01-17 12:47] LABS: Absolute Lymphocyte Count 1.69 X10^3/uL (0.83-4.51); Absolute Neutrophil Count 7.6 X10^3/uL (2.0-7.7); Basophil# 0.04 X10^3/uL; Basophil% 0.4 % (0-1); Eosinophil# 0.13 X10^3/uL; Eosinophils% 1.3 % (0-5); Hematocrit 38.6 % (40-54); Hemoglobin 12.7 g/dL (13.0-16.5); Lymphocyte # 1.69 X10^3/ul (0.83-4.51); Lymphocyte % 16.3 % (19-41); Mean Corp Hgb Conc 32.9 g/dL (32-36); Mean Corpuscular Hgb 27.9 pg (27.0-32.0); Mean Corpuscular Volume 84.8 fL (80-94); Mean Platelet Vol. 9.3 fl (6.2-12.0); Monocyte# 0.84 X10^3/uL; Monocyte% 8.1 % (0-10); NRBC Flagged by Analyzer 0 % (0-5); Neutrophil # 7.64 X10^3/uL (2.7-7.7); Neutrophil % 73.3 % (47-70); Platelet Count 260 K/mm3 (150-450); RBC Distribution Width SD 43.7 fl (35.1-43.9); Red Blood Count 4.55 M/mm3 (4.6-6.2); White Blood Count 10.4 K/mm3 (4.4-11.0)
[2021-01-17] MEDS: Ondansetron 4 MG/2 ML Vial IV ×2 (12:48→16:15)
[2021-01-17 13:07] LABS: Anion Gap 5 (5-15); BUN 14 mg/dL (7-18); Calcium,Total 9.4 mg/dL (8.5-10.1); Chloride 106 mmol/L (98-107); EST Glomerular Filtration Rate 77 mL/min (>60); Est Glom Filt Rate - Afr Amer 93 mL/min (>60); Glucose 95 mg/dL (74-106); Sodium Level 138 mmol/L (136-145); Troponin-I HS 13 pg/mL (3.0-78.0)
[2021-01-17 13:24] LABS: BNP,B-Type NATRIURETIC PEPTIDE 84.2 pg/mL (0-100)
--- NOTE | 2021-01-17 14:48 | ED.VIS.DYS ---
HPI History of Present Illness Chief Complaint: Shortness of Breath Narrative Narrative: Patient presents with shortness of breath since last evening. He states he has chronic back pain and was seen in the emergency department last evening. He states he got a shot for his back pain, and now after he had been discharged, developed fever and shortness of breath. He states his problems with chronic leg swelling. He has had an occasional cough. He states his shortness of breath was not addressed last evening, because he was mainly here for his back pain, which still continues. 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 Dysgeusia Emphysema of lung Essential hypertension Insomnia Intercostal myalgia Long-term use of high-risk medication Mitral valve insufficiency Nonrheumatic mitral valve insufficiency Paroxysmal atrial fibrillation Presence of stent in coronary artery (~04/08/16) Pulmonary hypertension Pure hypercholesterolemia Smoker Tobacco abuse Home Medications aspirin 81 mg PO DAILY 04/19/17 [History Last Taken Unknown] finasteride 5 mg PO QHS 04/19/17 [History Last Taken Unknown] tamsulosin 0.4 mg PO QHS 04/19/17 [History Last Taken Unknown] nitroglycerin 0.4 mg sublingual tablet 0.4 mg SUBLINGUAL Q5-15M PRN #25 tab 03/19/20 [Rx Last Taken Unknown] pravastatin 40 mg tablet 40 mg PO QHS #30 tab 03/31/20 [Rx Last Taken Unknown] amiodarone 200 mg tablet 200 mg PO DAILY #90 tab 06/25/20 [Rx Last Taken Unknown] albuterol sulfate 90 mcg/actuation aerosol inhaler 2 puff INHALATION Q4H PRN gm 07/10/20 [History Last Taken Unknown] pregabalin 75 mg capsule 75 mg PO TID cap 09/24/20 [History Last Taken Unknown] losartan 50 mg tablet 50 mg PO DAILY #30 tab 10/14/20 [Rx Last Taken Unknown] oxycodone-acetaminophen 10 mg-325 mg tablet tab PO 01/14/21 [History Last Taken Unknown] trazodone 50 mg tablet mg PO 01/14/21 [History Last Taken Unknown] Allergy/AdvReac Type Severity Reaction Status Date / Time lisinopril AdvReac Severe Cough Verified 01/17/21 11:37 Family History Mother CVA (cerebral vascular accident) Brother CAD (coronary artery disease) Brother CAD (coronary artery disease) Surgical History Aortocoronary bypass status (~06/2006) History of arthroscopic knee surgery History of coronary artery bypass surgery (~07/01/06) History of cystoscopy History of hemorrhoidectomy History of lumbar surgery History of transurethral resection of prostate Presence of coronary angioplasty implant and graft (~04/08/16) Social History Smoking Status: Former smoker quit date: 06/02/20 alcohol intake: never substance use type: does not use ROS ROS ED ROS Narrative Constitutional: No fever, no chills. HEENT: No sore throat. No neck pain. No loss of vision. No rhinorrhea. Cardiovascular: No chest pain. No palpitations. Chronic pedal edema. Respiratory: Occasional cough, positive shortness of breath. Abdominal: No abdominal pain. No nausea. No vomiting. Genitourinary: No dysuria. No hematuria. Musculoskeletal: No myalgias. No arthralgias. Chronic back pain Neurologic: No headaches. No dizziness. No lightheadedness. Skin: No rash. No change in color. Psychiatric: No depression. No anxiety. EXAM Physical Exam Narrative Exam Narrative: Afebrile. Vital signs noted. HEENT: Normocephalic. Atraumatic. PERRL, EOMI. Neck soft and supple. No point tenderness or step off. Cardiovascular: Regular rate and rhythm. No murmurs, rubs, or gallops appreciated. Respiratory: No tachypnea. Diminished breath sounds bilateral bases. Gastrointestinal: Abdomen soft, nontender, with normoactive bowel sounds. No rebound or guarding. Neurological: Awake. Alert. Nonfocal, nonlateralizing. Skin: No rash. Normal color. No pallor. Musculoskeletal: No pedal edema. Full range of motion extremities. Const Vital Signs: 01/17/21 11:38 01/17/21 11:40 01/17/21 11:46 Temperature 97 F L 97 F L Temperature Source Temporal Temporal Pulse Rate 74 73 73 Respiratory Rate 18 19 H 19 H Respiratory Effort Blood Pressure 210/99 H 198/89 H 198/89 H Blood Pressure Mean 136 125 125 Pulse Ox 99 99 99 Oxygen Delivery Method Room Air Room Air Room Air 01/17/21 11:47 Temperature Temperature Source Pulse Rate Respiratory Rate Respiratory Effort Short of Breath Blood Pressure Blood Pressure Mean Pulse Ox Oxygen Delivery Method Room Air MDM MDM MDM Narrative Medical decision making narrative: Comprehensive work-up was pursued. He has normal white count at 10.4, hemoglobin stable at 12.7. High-sensitivity troponin is negative. BNP normal at 84. CMP is grossly unremarkable. Chest x-ray demonstrates bilateral infiltrates. They recommend CT of the chest. The patient still complains of back pain. In review of his prior visit last evening/early this morning, he did receive Dilaudid 2 mg intravenously because he is on chronic pain medication in the form of oxycodone 10 mg orally. He was given Dilaudid 1 mg intravenously here after he had been given morphine 4 mg initially. He complains that something is stuck in his throat and he feels short of breath, almost like phlegm. He was given guaifenesin. His blood pressure is elevated above 200 systolic so he was administered hydralazine 20 mg intravenously. Given his continued back pain without radiation, and at the suggestion for further evaluation of his chest x-ray because of the bilateral infiltrates that could be inflammatory or post residual pneumonia, I will obtain a CTA of the chest, abdomen, and pelvis. I did review his EMR and he did have pneumonia back in October of this year. His Covid swab was negative and so was his influenza a/B swab. As his blood pressure is uncontrolled and he is having continued, intractable low back pain, I will obtain the CTA imaging to rule out dissection. This is currently pending. At this point in time, he will be signed out to the oncoming physician, Dr. Nath, to make final disposition on this patient which I anticipate may be admission given his intractable back pain and shortness of breath. Currently, patient is in stable condition. Lab Data Attestation: I reviewed the patient's lab results. Labs: Laboratory Results - last 24 hr 01/17/21 01/17/21 01/17/21 12:35 12:35 12:35 WBC 10.4 RBC 4.55 L Hgb 12.7 L Hct 38.6 L MCV 84.8 MCH 27.9 MCHC 32.9 RDW Std Deviation 43.7 RDW Coeff of [place] 14.0 Plt Count 260 MPV 9.3 Immature Gran % (Auto) 0.600 Neut % (Auto) 73.3 H Lymph % (Auto) 16.3 L [place] % (Auto) 8.1 Eos % (Auto) 1.3 Baso % (Auto) 0.4 Absolute Neuts (auto) 7.6 Absolute Lymphs (auto) 1.69 Nucleated RBC % 0 Sodium 138 Potassium 4.0 Chloride 106 Carbon Dioxide 27.0 Anion Gap 5 BUN 14 Creatinine 1.00 Estim Creat Clear Calc 65.90 Est GFR (MDRD) Af Amer 93 Est GFR (MDRD) Non-Af 77 BUN/Creatinine Ratio 14.0 Glucose 95 Calcium 9.4 Troponin I High Sens 13 B-Natriuretic Peptide 84.2 Radiography Diagnostic Testing: Clinical Impression(s) from Imaging Studies Chest X-Ray 01/17/21 12:19 IMPRESSION: Ill-defined bilateral opacities with a wide differential diagnosis. Recommend CT chest for definitive evaluation. These can be both acute such as recurrent pneumonia versus postinflammatory. Electronically Signed: Su Salazar MD at 14:25 EDT Tel , Service support , Discharge Plan Triage Chief Complaint: Shortness of Breath ED Provider: Tommy Valladares Dx/Rx/DC Orders Prescriptions: No Action nitroglycerin 0.4 mg tablet, sublingual 0.4 mg SUBLINGUAL Q5-15M PRN (Reason: chest pain) Qty: 25 RF: 1 oxycodone-acetaminophen 10-325 mg tablet PO RF: 0 trazodone 50 mg tablet PO RF: 0 tamsulosin 0.4 MG capsule 0.4 mg PO QHS RF: 0 finasteride 5 MG tablet 5 mg PO QHS RF: 0 aspirin 81 MG tablet,delayed release (DR/EC) 81 mg PO DAILY RF: 0 pregabalin 75 mg capsule 75 mg PO TID RF: 0 pravastatin 40 mg tablet 40 mg PO QHS Qty: 30 RF: 12 amiodarone 200 mg tablet 200 mg PO DAILY Qty: 90 RF: 3 albuterol sulfate [ProAir HFA] 90 mcg/actuation HFA aerosol inhaler 2 puff INHALATION Q4H PRNRF: 0 losartan 50 mg tablet 50 mg PO DAILY Qty: 30 RF: 11 Primary Care Provider: Andrea Means
--- NOTE | 2021-01-17 15:11 | CT_ITS ---
STUDY: CTA CHEST AND CT ABDOMEN/PELVIS WITH CONTRAST REASON FOR EXAM: Male, 75 years old. pain IN BACK RADIATION DOSAGE (If Supplied By Facility): CTDIvol = ( 14.86 ) mGy, DLP = ( 1219.34 ) mGycm TECHNIQUE: The examination was performed with the intravenous administration of IV 100mL [id number]-[id number]. Post-processing of the angiographic images was performed, with multiplanar reformation and 3D reconstruction. Individualized dose optimization techniques were used for this CT. COMPARISON: No relevant priors. FINDINGS: CTA Chest Normal enhancement of the main pulmonary artery and right and left pulmonary arteries. Normal enhancement of the bilateral peripheral pulmonary arteries. There is no demonstrated pulmonary embolism. There is atherosclerotic calcification of the aortic arch with tortuosity. There is no demonstrated aortic dissection. Sternal cerclage wires and vascular clips are present from a prior sternotomy and coronary artery bypass graft procedure (CABG). Normal heart size. Normal mediastinum. Normal hilar regions. Normal visualized trachea and bronchi. The lungs are well expanded. Diffuse cystic emphysematous changes are present throughout both lungs. No visualized consolidation or active pulmonary edema. No pleural effusion is present. Normal pleura. Normal chest wall structures. There are degenerative changes of thoracic spine. Normal visualized upper abdomen. CTA OF ABDOMEN AND PELVIS: Descriptors of Narrowing: None (0%) Mild (< 50%) Moderate (50-70%) Severe (70-90%) Subtotal/Total Occlusion (90-100%) Non-Evaluable (technically non-diagnostic FINDINGS: Mixed calcified and noncalcified at sclerotic plaque is present throughout the abdominal aorta and its branches. Abdominal aorta: There is mild diffuse narrowing. Celiac and superior mesenteric arteries: No demonstrated narrowing. Inferior mesenteric artery: No demonstrated narrowing. Right renal artery(arteries): There is mild origin narrowing. Left renal artery(arteries): There is mild origin narrowing. Right common iliac artery: There is mild diffuse narrowing. Right external iliac artery: There is mild diffuse narrowing. Right internal iliac artery: No demonstrated narrowing. Left common iliac artery: There is mild diffuse narrowing. Left external iliac artery: There is mild diffuse narrowing. Left internal iliac artery: There is mild diffuse narrowing. RIGHT LOWER EXTREMITY Right common femoral artery: No demonstrated narrowing. LEFT LOWER EXTREMITY Left common femoral artery: No demonstrated narrowing. NONVASCULAR FINDINGS: Normal liver. No intrahepatic biliary duct dilatation or liver mass. Normal gallbladder and extrahepatic biliary system. Normal spleen. Normal pancreas. Normal bilateral adrenal glands. Normal right kidney. Normal left kidney. No hydronephrosis or renal masses. No large stones. Normal visualized stomach. Normal small intestine. Normal colon. No bowel dilatation or obstruction. No free air or free fluid. The appendix is visualized and appears normal. There is diffuse atherosclerotic calcification of the abdominal aorta, without a demonstrated aneurysm. Normal inferior vena cava. Normal retroperitoneum. Normal urinary bladder. There is moderate enlargement of the prostate gland which herniates into the base of the bladder. Small bilateral fat-containing inguinal hernias are present. Normal abdominal wall. There are diffuse degenerative changes of the visualized lumbar spine. CT/CTA Chst, Abd, Pel W and/or WO IMPRESSION: 1. No a demonstrated pulmonary embolism or arterial dissection. 2. Diffuse cystic emphysematous changes are present throughout both lungs. No visualized consolidation or active pulmonary edema. No pleural effusion is present. 3. No occlusion or hemodynamically significant stenosis of the abdominal aorta or its major branches. 4. Moderately enlarged prostate gland. Electronically Signed: Christian Brannon MD at 16:53 EDT , Service support ,
[2021-01-17] MEDS: hydrALAZINE 20 MG/ML Vial IV (15:23)
[2021-01-17] MEDS: HYDROmorphone 1 MG/ML Syringe IV ×3 (15:23→22:55)
[2021-01-17] MEDS: guaiFENesin 600 MG Tablet PO (15:37)
[2021-01-17] MEDS: diazePAM 5 MG Tablet PO (18:00)
--- NOTE | 2021-01-17 18:11 | HP.PCM.HOS_ITS ---
HPI - General HPI Narrative CHRISTIANO REED, is a 75 M with history of chronic back pain, lumbar degenerative disc disorder status post 2 lumbar decompression surgery in [facility] in the past came to ER for intractable back pain twice today. Patient follows pain management Dr. Byrd and gets lumbar spinal analgesia every few months. He had last about 2 to 3 months ago and is due in 1 or 2 weeks. Patient has chronic sciatica pain with radiation to left buttock and ends above knee. His radiation in the right leg has improved/resolved after second lumbar surgery. Denies any new neurological symptoms including weakness, paresthesia, numbness/tingling. Denies loss of bowel or bladder control including overflow incontinence or retention of urine. Patient has chronic constipation secondary to chronic opioid use. 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 Dysgeusia Emphysema of lung Essential hypertension Insomnia Intercostal myalgia Long-term use of high-risk medication Mitral valve insufficiency Nonrheumatic mitral valve insufficiency Paroxysmal atrial fibrillation Presence of stent in coronary artery (~04/08/16) Pulmonary hypertension Pure hypercholesterolemia Smoker Tobacco abuse Home Medications aspirin 81 mg PO DAILY 04/19/17 [History Last Taken Unknown] finasteride 5 mg PO QHS 04/19/17 [History Last Taken Unknown] tamsulosin 0.4 mg PO QHS 04/19/17 [History Last Taken Unknown] nitroglycerin 0.4 mg sublingual tablet 0.4 mg SUBLINGUAL Q5-15M PRN #25 tab 03/19/20 [Rx Last Taken Unknown] pravastatin 40 mg tablet 40 mg PO QHS #30 tab 03/31/20 [Rx Last Taken Unknown] amiodarone 200 mg tablet 200 mg PO DAILY #90 tab 06/25/20 [Rx Last Taken Unknown] albuterol sulfate 90 mcg/actuation aerosol inhaler 2 puff INHALATION Q4H PRN gm 07/10/20 [History Last Taken Unknown] pregabalin 75 mg capsule 75 mg PO TID cap 09/24/20 [History Last Taken Unknown] losartan 50 mg tablet 50 mg PO DAILY #30 tab 10/14/20 [Rx Last Taken Unknown] oxycodone-acetaminophen 10 mg-325 mg tablet tab PO 01/14/21 [History Last Taken Unknown] trazodone 50 mg tablet mg PO 01/14/21 [History Last Taken Unknown] Allergy/AdvReac Type Severity Reaction Status Date / Time lisinopril AdvReac Severe Cough Verified 01/17/21 11:37 Family History Mother CVA (cerebral vascular accident) Brother CAD (coronary artery disease) Brother CAD (coronary artery disease) Surgical History Aortocoronary bypass status (~06/2006) History of arthroscopic knee surgery History of coronary artery bypass surgery (~07/01/06) History of cystoscopy History of hemorrhoidectomy History of lumbar surgery History of transurethral resection of prostate Presence of coronary angioplasty implant and graft (~04/08/16) Social History Smoking Status: Former smoker quit date: 06/02/20 alcohol intake: never substance use type: does not use ROS ROS Narrative Constitutional: Intractable back pain. Any movement increases pain. HEENT: Reports something stuck in the neck, chronic problem. Has hacking cough to clear it but is still sensation does not go away. Respiratory/Chest: Denies chest pain, shortness of breath at rest or with exertion. COPD. Ex-smoker. CABG history Gastrointestinal: Denies coffee ground emesis, hematemesis or vomiting Genitourinary: Denies burning urination or new urinary tract symptoms Musculoskeletal: Range of motion of spine is restricted. Cannot stand up or sit up. Neurologic: Denies seizure-like activity skin: No ulcer. No rash Endocrinology: Reports systems reviewed and no addt'l complaints, except as documented Hematologic/Lymphatic: Reports systems reviewed and no addt'l complaints, except as documented Rest 12 ROS are negative except as mentioned in HPI Vital Signs Vital Signs Vital Signs: 01/17/21 11:38 01/17/21 11:40 01/17/21 11:46 Temperature 97 F L 97 F L Temperature Source Temporal Temporal Pulse Rate 74 73 73 Respiratory Rate 18 19 H 19 H Respiratory Effort Blood Pressure 210/99 H 198/89 H 198/89 H Blood Pressure Mean 136 125 125 Pulse Ox 99 99 99 Oxygen Delivery Method Room Air Room Air Room Air 01/17/21 11:47 01/17/21 16:30 01/17/21 17:35 Temperature Temperature Source Pulse Rate 90 85 Respiratory Rate 16 18 Respiratory Effort Short of Breath Blood Pressure 126/88 H 142/67 H Blood Pressure Mean 100 92 Pulse Ox 99 96 Oxygen Delivery Method Room Air Room Air Room Air Weight Weight: 210 lb Body Mass Index (BMI) 30.1 Physical Exam Narrative General: Alert, Oriented x3, Cooperative HEENT: Atraumatic, PERRLA, EOMI, Normocephalic Oral: No Gingival or Mucosal Lesions/ Ulcerations Neck: Supple, No JVD, Negative Carotid Bruits Lungs: Air entry diminished in bilateral lung bases. Bilateral expiratory rhonchi. Cardiovascular: Sinus rhythm, Normal S1, Normal S2, No murmurs. CABG scar Abdomen: Bowel Sounds Present, Soft, Non Tender, Non-Distended : No renal angle tenderness. No suprapubic tenderness. Extremities: No edema, Capillary Refill Less than 3 Seconds Skin: No rashes, No breakdown Musculoskeletal: Lumbar spine surgical scar. Spinal ROM restricted. Tenderness of lumbar spine and paraspinal muscles. Mild weakness of left leg due to intr actable pain. No weakness at ankle or knee joint Neurological: Cranial nerves II-XII grossly intact, DTR 2+/4 and Symmetrical, Neuro grossly intact Psych/Mental Status: Normal Affect, Appropriate. Results Lab / Micro Data Result Diagrams: 01/17/21 12:35 01/17/21 12:35 Labs: Laboratory Results - last 24 hr 01/17/21 12:35: WBC 10.4, RBC 4.55 L, Hgb 12.7 L, Hct 38.6 L, MCV 84.8, MCH 27.9, MCHC 32.9, RDW Std Deviation 43.7, RDW Coeff of [place] 14.0, Plt Count 260, MPV 9.3, Immature Gran % (Auto) 0.600, Neut % (Auto) 73.3 H, Lymph % (Auto) 16.3 L, Hughes % (Auto) 8.1, Eos % (Auto) 1.3, Baso % (Auto) 0.4, Absolute Neuts (auto) 7.6, Absolute Lymphs (auto) 1.69, Nucleated RBC % 0 01/17/21 12:35: Sodium 138, Potassium 4.0, Chloride 106, Carbon Dioxide 27.0, Anion Gap 5, BUN 14, Creatinine 1.00, Estim Creat Clear Calc 65.90, Est GFR (MDRD) Af Amer 93, Est GFR (MDRD) Non-Af 77, BUN/Creatinine Ratio 14.0, Glucose 95, Calcium 9.4, Troponin I High Sens 13 01/17/21 12:35: B-Natriuretic Peptide 84.2 Micro: Microbiology 01/17/21 12:40 Nasal Secretion SARS-CoV-2 Antigen (Rapid) - Final 01/17/21 12:40 Mucosa - Nose Influenza Types A,B Direct FA (TASNEEM) - Final Radiology Impression Chest X-Ray 01/17/21 12:19 IMPRESSION: Ill-defined bilateral opacities with a wide differential diagnosis. Recommend CT chest for definitive evaluation. These can be both acute such as recurrent pneumonia versus postinflammatory. Electronically Signed: Su Salazar MD at 14:25 EDT Tel , Service support , Chest/Abdomen/Pelvis CTA 01/17/21 15:11 IMPRESSION: 1. No a demonstrated pulmonary embolism or arterial dissection. 2. Diffuse cystic emphysematous changes are present throughout both lungs. No visualized consolidation or active pulmonary edema. No pleural effusion is present. 3. No occlusion or hemodynamically significant stenosis of the abdominal aorta or its major branches. 4. Moderately enlarged prostate gland. Electronically Signed: Christian Brannon MD at 16:53 EDT , Service support , Assessment & Plan Assessment/Plan (1) Back pain: QUALIFIERS: Back pain location: low back pain Chronicity: acute Back pain laterality: bilateral Sciatica presence: with sciatica Sciatica laterality: sciatica of left side Qualified Code(s): M54.42 - Lumbago with sciatica, left side PLAN: 1. Acute on chronic intractable back pain with history of lumbar degenerative disc disorder status post lumbar decompression surgery: Patient is being admitted MedSurg floor. Pain control with low-dose NSAID for 2 days along with opioids medication as per pain scale. On PPI. Flexeril as needed ordered. PT and OT ordered. Patient had twice lumbar spinal surgery in [facility]. Most probably last 1 in April 2015. 2. Coronary artery disease status post CABG and PCI: Cardiac medications continued. No chest pain or shortness of breath. EKG normal sinus rhythm at 60 bpm. QTc 402 ms. 3. Hypertension-blood pressure uncontrolled but it fluctuates. Probably due to pain. Most recent 142/67. Monitor BP and adjust blood pressure medications accordingly 5. Pulmonary hypertension 6. COPD currently not in exacerbation: Patient follows in pulmonary clinic. Home inhalers continued. Patient also sticking sensation in throat probably due to mucous but denies any swallowing difficulty with food or pills. Speech therapy evaluation. 7. Dyslipidemia-patient is on statin therapy, continued at home dose 8. BPH patient is on Flomax 9. DVT prophylaxis SCDs Living will/advanced directive/end of life care: Patient does not have living will or advanced directive or designated power of patent prosecution attorney for health. His is next to kin. After discussion of benefits/risks procedures involved with full code, DNR CC arrest and DNR CC, the patient does not want life support for long time, if no meaningful recovery but want to try initially. Therefore full code. Patient does want artificial life support including intubation, tube feed, ventilator and/chest compression, central venous catheter, vasopressor and DC shock if needed Total time spent in [id number] encounter in discussion of advanced directive 16 minutes. Charges/Coding Visit Charges OBSV E&M: 44466 Initial observation care L3 Procedures Hospitalists Procedures: 90950 Advncd Care Plan 30 Min
[2021-01-17] MEDS: Acetaminophen 325 MG Tablet 650 MG PO (18:55)
[2021-01-17] MEDS: Senna/Docusate Sodium 1 Tablet 2 TABLET PO (22:35)
[2021-01-17] MEDS: Tamsulosin HCl 0.4 MG Capsule PO (22:36)
[2021-01-17] MEDS: Finasteride 5 MG Tablet PO (22:36)
[2021-01-17] MEDS: Pravastatin 40 MG Tablet PO (22:36)
[2021-01-17] MEDS: traZODone 50 MG Tablet PO (22:37)
[2021-01-17] MEDS: Enoxaparin 40 MG/0.4 ML Syringe SC (22:37)
[2021-01-17] MEDS: Pantoprazole Sodium 40 MG Tablet PO (22:37)
[2021-01-17] MEDS: 0.9% Saline Lock 10 ML Syringe IV (22:55)
[2021-01-18] MEDS: Acetaminophen 325 MG Tablet 650 MG PO ×2 (00:47→09:12)
--- NOTE | 2021-01-18 02:19 | PCS.PANDOC ---
PANDEMIC DOCUMENTATION INITIATED: Date: 11/17/2020 Time: 190
[2021-01-18 03:36] VITALS: BP 141/68; PULSE 68; RESP 18; TEMP 36.8; O2SAT 97
[2021-01-18] MEDS: 0.9% Saline Lock 10 ML Syringe IV (05:58)
[2021-01-18] MEDS: HYDROmorphone 1 MG/ML Syringe IV (05:58)
[2021-01-18 07:35] VITALS: O2SAT 92
[2021-01-18 08:33] VITALS: BP 155/70; PULSE 62; RESP 16; TEMP 36.4; O2SAT 97
[2021-01-18] MEDS: Pantoprazole Sodium 40 MG Tablet PO (08:51)
[2021-01-18] MEDS: Senna/Docusate Sodium 1 Tablet 2 TABLET PO (08:51)
[2021-01-18] MEDS: Psyllium 1 PACKET PO (08:52)
[2021-01-18] MEDS: Aspirin E.C. 81 MG Tablet PO (08:52)
[2021-01-18] MEDS: Losartan Potassium 50 MG Tablet PO (08:52)
[2021-01-18] MEDS: Amiodarone 200 MG Tablet PO (08:52)
[2021-01-18] MEDS: oxyCODONE 5 MG Tablet PO (09:11)
--- NOTE | 2021-01-18 10:21 | PCM.DC ---
Discharge Instructions Diet Discharge Diet: No restrictions Activity Discharge Activity: Return to Normal Activity Weight Bearing Status: Full weight bearing Follow Up Care Test Results: Test results from this visit will be discussed in further detail at your follow-up appointment, if applicable. Discharge Plan Admission Admit Date/Time: 01/17/21 19:23 Primary Reason for Your Visit: lumbago, radicular back pain Attending Provider: Andrea Simmons Primary Care Provider: Andrea Means Instructions Additional Instructions / Restrictions: Talk to your primary care physician about changing your losartan if possible to another blood pressure medicine such as Norvasc Discharge Orders/Prescriptions Prescriptions: New prednisone 20 mg tablet 20 mg PO BID Qty: 14 RF: 0 Continued nitroglycerin 0.4 mg tablet, sublingual 0.4 mg SUBLINGUAL Q5-15M PRN (Reason: chest pain) Qty: 25 RF: 1 oxycodone-acetaminophen 10-325 mg tablet PO RF: 0 trazodone 50 mg tablet PO RF: 0 tamsulosin 0.4 MG capsule 0.4 mg PO QHS RF: 0 finasteride 5 MG tablet 5 mg PO QHS RF: 0 aspirin 81 MG tablet,delayed release (DR/EC) 81 mg PO DAILY RF: 0 pregabalin 75 mg capsule 75 mg PO TID RF: 0 pravastatin 40 mg tablet 40 mg PO QHS Qty: 30 RF: 12 amiodarone 200 mg tablet 200 mg PO DAILY Qty: 90 RF: 3 albuterol sulfate [ProAir HFA] 90 mcg/actuation HFA aerosol inhaler 2 puff INHALATION Q4H PRN (Reason: Shortness Of Breath Or Wheezing) RF: 0 losartan 50 mg tablet 50 mg PO DAILY Qty: 30 RF: 11 Referrals / Follow Up: Andrea Means DO [Primary Care Provider] - Within 2 Weeks Disposition Disposition (needs filled in before D/C Order can be placed): Home, Self Care
--- NOTE | 2021-01-18 19:18 | DS.PCM_ITS ---
Providers Date of Admission: 01/17/21 Date of Discharge: 01/18/21 Primary Care Physician: Dr. Andrea Means DO Reason For Visit: INTRACTABLE BACK PAIN, SCIATICA Diagnosis Discharge Diagnosis (1) Back pain: Status: Acute Code(s): M54.9 - Dorsalgia, unspecified Qualifiers: Back pain laterality: bilateral Back pain location: low back pain Chronicity: acute Sciatica laterality: sciatica of left side Sciatica presence: with sciatica Qualified Code(s): M54.42 - Lumbago with sciatica, left side Plan: Final diagnosis: #1 intractable back pain secondary to degenerative disc disease of the lumbar spine #2 coronary artery disease #3 essential hypertension #4 COPD #5 pulmonary hypertension Medications at Discharge Home Medications aspirin 81 mg PO DAILY 04/19/17 finasteride 5 mg PO QHS 04/19/17 tamsulosin 0.4 mg PO QHS 04/19/17 nitroglycerin 0.4 mg sublingual tablet 0.4 mg SUBLINGUAL Q5-15M PRN #25 tab 03/19/20 pravastatin 40 mg tablet 40 mg PO QHS #30 tab 03/31/20 amiodarone 200 mg tablet 200 mg PO DAILY #90 tab 06/25/20 albuterol sulfate 90 mcg/actuation aerosol inhaler 2 puff INHALATION Q4H PRN gm 07/10/20 pregabalin 75 mg capsule 75 mg PO TID cap 09/24/20 losartan 50 mg tablet 50 mg PO DAILY #30 tab 10/14/20 oxycodone-acetaminophen 10 mg-325 mg tablet tab PO 01/14/21 trazodone 50 mg tablet mg PO 01/14/21 prednisone 20 mg PO BID #14 tab 01/18/21 Hospital Course Operations None Procedures None Summary of Care Provided Minutes Spent on Discharge: 30 Hospital Course: This 75-year-old white male was seen in the emergency room with complaints of severe low back pain, he has a history of degenerative joint disease of the lumbar spine with previous back surgery. Patient had a work-up in the emergency room which included labs which showed normal white blood cell count, hemoglobin was 12.7, CMP was grossly unremarkable, and patient was given IV Dilaudid after initially receiving IV morphine. A CT of the chest abdomen pelvis was obtained which showed emphysematous changes throughout both lungs but no acute process. Patient was placed in observation status on U and given IV pain medications. He was evaluated on 01/18/2021 and he was felt to be improved. On 01/18/2021, patient was seen and examined: On examination he appeared in good health and spirits. Vital signs as documented. Skin warm and dry and without overt rashes. Neck without JVD, neck was supple, trachea midline, thyroid was normal. Lungs clear bilaterally, normal air movement was noted. Heart exam notable for regular rhythm, normal sounds and absence of murmurs, rubs or gallops. Abdomen unremarkable and without evidence of organomegaly, masses, or abdominal aortic enlargement. Bowel sounds are present, abdomen is not distended. Extremities nonedematous, no cyanosis was noted, no clubbing was noted. Neuro: Cranial nerves II through XII are grossly intact, no focal motor deficits were noted, sensation to light touch and pinpri ck intact, motor exam 5/5 throughout. Psych: Patient is alert and oriented x3, he does not appear anxious or depressed, he does not appear agitated. Patient was discharged home in stable condition on 01/18/2021. Weight / BMI Weight Weight: 93 kg Body Mass Index (BMI) 29.0 ABG / Lab / Microbiology Data Result Diagrams: 01/17/21 12:35 01/17/21 12:35 Microbiology: Microbiology 01/17/21 12:40 Nasal Secretion SARS-CoV-2 Antigen (Rapid) - Final 01/17/21 12:40 Mucosa - Nose Influenza Types A,B Direct FA (TASNEEM) - Final D/C Instructions Discharge Diet: No restrictions Weight Bearing Status: Full weight bearing Meaningful Use Info Meaningful Use Diagnoses (Choose all that apply): None applicable Discharge Plan Admission Admit Date/Time: 01/17/21 19:23 Primary Reason for Your Visit: lumbago, radicular back pain Attending Provider: Andrea Simmons Primary Care Provider: Andrea Means Instructions Additional Instructions / Restrictions: Talk to your primary care physician about changing your losartan if possible to another blood pressure medicine such as Norvasc Discharge Orders/Prescriptions Prescriptions: New prednisone 20 mg tablet 20 mg PO BID Qty: 14 RF: 0 Continued nitroglycerin 0.4 mg tablet, sublingual 0.4 mg SUBLINGUAL Q5-15M PRN (Reason: chest pain) Qty: 25 RF: 1 oxycodone-acetaminophen 10-325 mg tablet PO RF: 0 trazodone 50 mg tablet PO RF: 0 tamsulosin 0.4 MG capsule 0.4 mg PO QHS RF: 0 finasteride 5 MG tablet 5 mg PO QHS RF: 0 aspirin 81 MG tablet,delayed release (DR/EC) 81 mg PO DAILY RF: 0 pregabalin 75 mg capsule 75 mg PO TID RF: 0 pravastatin 40 mg tablet 40 mg PO QHS Qty: 30 RF: 12 amiodarone 200 mg tablet 200 mg PO DAILY Qty: 90 RF: 3 albuterol sulfate [ProAir HFA] 90 mcg/actuation HFA aerosol inhaler 2 puff INHALATION Q4H PRN (Reason: Shortness Of Breath Or Wheezing) RF: 0 losartan 50 mg tablet 50 mg PO DAILY Qty: 30 RF: 11 Referrals / Follow Up: Andrea Means DO [Primary Care Provider] - Within 2 Weeks Disposition Disposition (needs filled in before D/C Order can be placed): Home, Self Care Charges/Coding Visit Charges OBSV E&M: 67367 Observation care discharge
== END 2021-01-18 10:44 | disposition home or self-care (01) ==
LOC: ED 19:37 → PCU 20:21
PROVIDERS: Emergency Medicine; Admitting Provider Internal Medicine; Emergency Provider Emergency Medicine; PCP Family Medicine; Referring Provider Internal Medicine; Visit Provider Internal Medicine
DX: M51.36 Other intervertebral disc degeneration, lumbar region (principal); M54.42 Lumbago with sciatica, left side; I27.20 Pulmonary hypertension, unspecified; I25.10 Atherosclerotic heart disease of native coronary artery without angina pectoris; N40.0 Benign prostatic hyperplasia without lower urinary tract symptoms; I50.9 Heart failure, unspecified; I11.0 Hypertensive heart disease with heart failure; J43.9 Emphysema, unspecified; I48.0 Paroxysmal atrial fibrillation; E78.5 Hyperlipidemia, unspecified; Z95.1 Presence of aortocoronary bypass graft; Z79.899 Other long term (current) drug therapy; Z79.82 Long term (current) use of aspirin; Z87.891 Personal history of nicotine dependence
CPT/HCPCS: 71045; 71275; 74174; 80048; 83880; 84484; 85025; 87426; 87804; 93005; 96372; 96374; 96375; 96376; 97162; 97166; 99218; 99251; 99283; 99285; 99406; Q9967; A4216; G0378; G0463; J2405

== ENCOUNTER → 2021-02-06 06:40 | Outpatient (CLI) | payer MEDICARE, SELFPAY ==
[2016-04-09 09:01] VITALS: BMI 28.3
--- NOTE | 2021-02-06 12:52 | STRESSREP ---
Stress Test Report Date: 02-06-2021 Procedure: Pharmacologic stress nuclear imaging study Indications: Chest discomfort; CAD; PCI; CABG Consent: Per the patient Procedure: The patient underwent pharmacologic (Regadenoson 0.4mg ) evaluation with a peak heart rate of 83 beats per minute (57%predicted maximal heart rate) and a peak blood pressure of 150/78 mmHg. The baseline ECG demonstrated normal sinus rhythm. The peak pharmacologic ECG demonstrated no obvious ECG changes. There was a rare PAC during recovery. There was no complaint of chest discomfort during pharmacologic infusion or recovery. The examination was discontinued secondary to completion of protocol. Impression: 1. Pharmacologic (Regadenoson) evaluation 2. Peak pharmacologic ECG with no obvious ECG changes. 3. There was a rare PAC during recovery. 4. Nuclear images pending Myocardial perfusion imaging study: Technique: The patient was injected with 14.3 millicuries of technetium 99m Cardiolite and subsequently rest SPECT Cardiolite nuclear imaging was obtained in the horizontal long, vertical long, and short axis views. The patient underwent pharmacologic (Regadenoson) evaluation with a peak heart rate of 83 beats per minute (57% percent predicted maximal heart rate) and a peak blood pressure of 150/78 mmHg. The patient was injected with 44.6 millicuries of technetium 99m Cardiolite and subsequently stress SPECT Cardiolite nuclear imaging was obtained in the horizontal long, vertical long, and short axis views. A gated Cardiolite study at peak stress was obtained. Interpretation: Rest and stress SPECT Cardiolite nuclear imaging status post realignment, normalization, and attenuation correction demonstrate relative uniform tracer uptake and myocardial perfusion appearing within normal limits. There is end systolic thickening and brightening. The gated Cardiolite study demonstrates myocardial thickening and inward wall motion. The reported LVEF is 61%. Impression: 1. Rest and stress SPECT Cardiolite nuclear imaging demonstrate relative uniform tracer uptake and myocardial perfusion appearing within normal limits. 2. The gated Cardiolite study reports an LVEF of 61%. This note was generated with [employer] software. It may contain incorrect words, spelling, and punctuation that were not noted in checking the note before signing.
== END ==
PROVIDERS: PCP Family Medicine; Referring Provider Physician Assistant Medical; Visit Provider Physician Assistant Medical
DX: I25.111 Atherosclerotic heart disease of native coronary artery with angina pectoris with documented spasm (principal); I25.10 Atherosclerotic heart disease of native coronary artery without angina pectoris; Z95.1 Presence of aortocoronary bypass graft
CPT/HCPCS: 78452; 93017; A9500; A4216; J2785

== ENCOUNTER → 2021-02-11 12:46 | Outpatient (CLI) | payer MEDICARE, SELFPAY ==
[2016-04-09 09:01] VITALS: BMI 28.3
== END ==
PROVIDERS: PCP Family Medicine; Referring Provider Nurse Practitioner Family; Visit Provider Nurse Practitioner Family
DX: I73.9 Peripheral vascular disease, unspecified (principal); I25.111 Atherosclerotic heart disease of native coronary artery with angina pectoris with documented spasm; Z95.1 Presence of aortocoronary bypass graft
CPT/HCPCS: 93923

== ENCOUNTER → 2021-03-23 15:28 | Outpatient (CLI) | payer MEDICARE, SELFPAY ==
[2016-04-09 09:01] VITALS: BMI 28.3
--- NOTE | 2021-03-23 15:42 | MRI_ITS ---
STUDY: MRI LUMBAR SPINE WITH AND WITHOUT CONTRAST REASON FOR EXAM: Male, 76 years old. LLE DEFICIT, 2 PRIOR SX TECHNIQUE: Standardized fat and water weighted pulse sequences were obtained in the sagittal and axial planes. IV 19 cc dotrem was administered for the contrast portion of the examination. COMPARISON: MRI of the lumbar spine dated October 09, 2019. Lumbar spine x-ray dated November 26, 2019 FINDINGS: No visualized marrow edema or fracture or compression deformity. No demonstrated aggressive or malignant-appearing lesions. Normal lumbar lordosis. There is no substantial scoliosis. Normal conus medullaris that terminates at the T12-L1 level. L1-2: Mild disc space narrowing without bulging or herniation of the disc. Minimal anterior endplate spurring is present. Facet joints are mildly hypertrophied. Normal central canal and bilateral lateral recesses. Normal bilateral intervertebral neural foramina. L2-3: Normal endplates. Mild to moderate disc space narrowing with minimal diffuse disc bulging and anterior endplate spur formation. A superimposed right paracentral disc protrusion is also present. 1.15 cm enhancing focus of fibrotic material anterior to the left facet joint and the left lateral epidural space/lateral recess results in left lateral recess stenosis and compression of descending nerve root, see image #25/36 series 8 and 5/15 series 2. Mild left foraminal stenosis is present but without nerve root compression. There is moderate hypertrophy and degeneration of the left facet joint. The right facet joint is normal. Normal central canal and bilateral lateral recesses. Normal bilateral intervertebral neural foramina. L3-4: Posterior decompressive defect noted. Mild disc space narrowing with a minimal disc spur complex. The facet joints are mildly hypertrophied. Normal central canal and bilateral lateral recesses. Normal bilateral intervertebral neural foramina. L4-5: Posterior decompressive defect noted. Moderate disc space narrowing with a minimal disc spur complex. The facet joints are mildly hypertrophied. Normal central canal and bilateral lateral recesses. Normal bilateral intervertebral neural foramina. L5-S1: A posterior decompressive defect is present. Mild posterior disc space narrowing is present without bulging or herniation of the disc. Minimal endplate degenerative changes are seen. Normal bilateral facet joints. Normal central canal and bilateral lateral recesses. Normal bilateral intervertebral neural foramina. Normal visualized sacral ala. Chronic scarring seen in the paraspinal and supraspinous tissues of the surgical beds from L3 down to L5-S1. Mild fatty atrophy of the paraspinal muscles noted. No demonstrated arachnoiditis. MRI/Spine Lumbar W/WO Contrast IMPRESSION: 1. Multilevel degenerative changes, as described above. 2. L2-L3 -1.15 cm enhancing focus of fibrotic material anterior to the left facet joint and the left lateral epidural space/lateral recess results in left lateral recess stenosis and compression of descending nerve root, see image #25/36 series 8 and / series 2. Mild left foraminal stenosis is present but without nerve root compression. There is moderate hypertrophy and degeneration of the left facet joint. The right facet joint is normal. 3. No central canal stenosis. 4. Chronic scarring seen in the paraspinal and supraspinous tissues of the surgical beds from L3 down to L5-S1. Mild fatty atrophy of the paraspinal muscles noted. Electronically Signed: Christian Brannon MD at 16:40 EST , Service support ,
[2021-03-23 16:01] LABS: EGFR FINGERSTICK > 60.0000 mL/min (>60)
== END ==
PROVIDERS: PCP Family Medicine; Visit Provider Family Medicine
DX: M54.16 Radiculopathy, lumbar region (principal); Z98.890 Other specified postprocedural states
CPT/HCPCS: 72158; A9575

== ENCOUNTER 2021-04-21 16:44 | Outpatient (CLI) | payer MEDICARE, SELFPAY ==
[2016-04-09 09:01] VITALS: BMI 28.3
--- NOTE | 2021-04-21 13:23 | CYSPIN_PTH ---
PATIENT: CHRISTIANO REED LOC: [facility] U#:[id number] AGE/SX: 76/M ROOM: RE04/21/[address]: Dr. Ivan Duong MD : 1945 BED: DIS: 04/21/2021 SPEC #: [id number] RECD: 04/22/21 08:49 STATUS: ION REQ #: [id number] IVA: 04/21/21 13:[address]: Ivan Duong DEPT: CYTOLOGY RECD BY: Lakshmi Ibrahim ENTERED: 04/22/21 08:50 SP TYPE: CYSPIN FL OTHR DR: Dr. Andrea Means, DO Tissues: Urine Procedures: Pap Stain (control) Special Stain Group II Cytospin Fluid HEADER OPERATION: Not noted PRE-OP DIAGNOSIS: History of malignant neoplasm bladder TISSUE SUBMITTED: Urine for cytology DIAGNOSIS CYTOLOGY Urine for cytology (cytospin): Negative for malignant cells. AM:roma 04/22/2021 CYTOLOGY STUDY Slides are reviewed. CYTOLOGY GROSS Received is 60 ml of yellow-orange cloudy fluid labeled with the patient's name and and designated per the requisition as urine. Submitted for cytology preparation. / roma 04/22/2021 TC:5 CPT: 70870
[2021-04-21 17:42] LABS: Cytology, Body Fluid / CSF SEE PATHOLOGY REPORT
== END 2021-04-21 23:59 | disposition short-term general hospital (02) ==
LOC: LABSPEC 16:45
PROVIDERS: PCP Family Medicine; Visit Provider Urology
DX: Z85.51 Personal history of malignant neoplasm of bladder (principal)
CPT/HCPCS: 88108; 88313

== ENCOUNTER 2021-10-19 08:57 | Day surgery (SDC) | payer MEDICARE, SELFPAY ==
[2016-04-09 09:01] VITALS: BMI 28.3
[2021-10-19] VITALS (8 sets, daily range): BP systolic 153–189; BP diastolic 81–99; PULSE 65–78; RESP 16–18; TEMP 36.1–36.4; O2SAT 93–100; BMI 28.7
[2021-10-19] MEDS: Lactated Ringers 1,000 ML 15 ML IV ×2 (10:40→12:30)
--- NOTE | 2021-10-19 10:40 | RAD_ITS ---
PROCEDURE: Permanent pump implant. DATE OF EXAMINATION: 10/19/2021 INDICATION: Male, 76 years old. Chronic back pain. FLUOROSCOPY TIME (if supplied): (55.4 seconds) minutes/seconds. 5 images were obtained. RAD/Spine 1 View Any Level IMPRESSION: Intraoperative imaging provided for permanent pump implant placement. Electronically Signed: Fernando Barrett MD at 12:50 EDT ,
[2021-10-19] MEDS: Cefazolin 2 GM in 0.9% Normal Saline 100 ML IV (10:58)
[2021-10-19] MEDS: Bupivacaine 0.25% 30 ML Vial (11:14)
[2021-10-19] MEDS: Lidocaine 2% (20 ml mdv) 20 ML Vial (11:14)
[2021-10-19] MEDS: morphine PF (epidural) 5 MG/10 ML Vial ×2 (11:45)
--- NOTE | 2021-10-19 12:19 | OP.PCM_ITS ---
Report of Operation Date of Procedure: 10/19/21 Description of Surgical Findings:: Description of Surgical Findings:: Description of Surgical Findings:: Pre-Operative Diagnosis: Chronic pain, opioid dependent, lumbosacral radiculopathy, lumbosacral degenerative disc disease, lumbosacral spinal stenosis, postlaminectomy syndrome of the lumbar spine Post-Operative Diagnosis: Chronic pain, opioid dependent, Lumbosacral radiculopathy, lumbosacral degenerative disc disease, lumbosacral spinal stenosis, postlaminectomy syndrome of the lumbar spine PROCEDURES: 1.? Implant of an intrathecal targeted drug delivery pump and catheter and creation of a pocket at the right lower quadrant of the abdomen. 2-fluoroscopic guidance of intrathecal catheter implant. ANESTHESIA: General ETA COMPLICATIONS: None BLOOD LOSS: Minimal Implanted device: SynchroMed II pump, serial number [id number], Ascenda catheter serial number [id number], Total implanted catheter is 111.3 cm, spine segment is 86.4 cm -3 cm cut and disposed,? remaining segment 83.4 cm, pump segment is 27.9 cm 0 removed. PROCEDURE IN DETAIL: History and physical today was reviewed. Risks and benefits of procedure explained. The patient understood, agreed to procedure, informed consent was obtained. IV inserted per routine protocol. The patient was taken to the operating room, placed in the left lateral decubitus? position on a beanbag with the patient left arm extended pressure points were checked per anesthesia and myself no pressure was indicated a pillow was placed between the patient's legs and patient placed in the position with a small flexion. A 2 g of Ancef IV piggyback was infused per anesthesia. The lower back and in the right abdominal wall was prepped and draped in a sterile fashion using iodine x3 followed by Ioban once the area was draped in a sterile fashion and the patient in a good positioning and satisfactory positioning the C arm was brought in in a sterile technique on an lateral view positioning an AP view to the patient the L2-3 interlaminar space was identified the skin and subcutaneous tissue anesthetized with approximately 10 cc of of 0.25% Marcaine and 2% lidocaine mixture 50-50 the needle was advanced on AP view under direct visualization with fluoroscopy to the interlaminar space at L2-3 using a 16-gauge introducer needle 3-1/2 inch once the tip of the needle was engaged into the interlaminar ligament the needle was then advanced on the lateral view towards the intrathecal space multiple c hecks until CSF was reached once free flow of CSF was visualized a ascending catheter was then inserted through the introducer needle and advanced under direct visualization with fluoroscopy on the lateral as well as AP view with the opaque tip at T9 once confirmation on AP as well as lateral view the catheter was then laid freely with positive CSF flowing from the catheter the skin and subcutaneous tissue adjacent to the needle was then reanesthetized with a total of 10 cc of the above mixture and the right lower quadrant area was then anesthetized with the another 10 cc of the above mixture the skin and subcutaneous tissue of both sides were taken down with an 11gauge plate hemostasis was maintained with pressure as well as Bovie the area was then dissected in a blunt fashion and taken down to a thickness of approximately 4 cm once fascia as well as the muscle layer underneath was palpated hemostasis was maintained during the entire dissection the introducer needle was then removed u nder direct visualization with fluoroscopy life view and the catheter was advanced and readjusted to the tip of T9 once the introducer needle is out of the area the anchor was then introduced on top of the catheter and secured to the fascia with a biwinged with a 2-0 silk to the fascia ensuring a free flow of CSF at the tip of the catheter as well as no kinking of the catheter at the anchor site a curved tunneler was then used provided by the [employer] kit making sure its subcutaneous spread and advanced in a curve matter towards the created pocket at the tip of the pocket at the level of the right lower abdominal quadrant the catheter then was then introduced through the tunneler and advanced towards the pocket that it was previously created once past the tunneler was then removed and the catheter remained intact at the created pocket free flow of clear CSF was then confirmed the spine segment was then cut 3 cm with remaining 83.4 cm at the tip catheter with a total implanted catheter of 111.3 cm the pump segment at 27.97 cm with nothing cut, the pump segment was then reattached to the spine segment once confirmed tightness a 2 pulls at the site was then performed without any apparent dislocation of the catheter the pump tip was then adjusted towards the superior aspect inferior to the 12th rib on the right side the tip then was connected once confirmed locking of the tip with confirmation of CSF free flow through the sutureless connection to the pump a four 2-0 silk sutures were then taken down to the fascia and the muscles at the 2:00 10:00 8:00 as well as 4:00 o'clock sites the sutures were then secured to the pump wings and the catheter was then rolled under the pump, prior to which the pump was primed with a total of 20 cc of preservative-free 0.5 mg/mL morphine and the area was then secured with a suture down to the fascia making sure the pump port is headed cephalad towards the rib as well as to the lateral portion of her right lower quadrant once repeated confirmation the skin and subcutaneous tissue were then sutured in a running 3-0 Vicryl followed by a 4-0 Vicryl hemostasis was maintained during the entire procedure, the procedure was completed without any apparent difficulty or any complication the patient was then awakened by anesthesia and transferred to the PACU in a stable condition, the intrathecal pump was then programmed at a running rate of 100 MCG per day. ESTIMATED BLOOD LOSS: Minimal less than 25 mL ASSESSMENT AND PLAN: This is a 74-year-old male with chronic pain, opioid dependency, lumbosacral radiculopathy lumbosacral degenerative disc disease lumbosacral spinal stenosis, postlaminectomy syndrome of the lumbar spine status post? 1.? Implant of an intrathecal targeted drug delivery pump and catheter and creation of a pocket at the right lower quadrant of the abdomen. 2-fluoroscopic guidance of intrathecal catheter implant.patient will continue his current medications a prescription was provided to the patient? Keflex 500 mg 1 p.o. every 8 hours for 7 days postop instruction were given in writing to the patient and his as well as verbally and in writing, patient will follow approximately 1 week for reevaluation. Surgeon: Roney Seay Type of Anesthesia: General
[2021-10-19] MEDS: Bacitracin 500 UNITS/GM PACKET (12:21)
== END 2021-10-19 14:45 | disposition home or self-care (01) ==
LOC: SDC 09:00 → AC 09:24
PROVIDERS: PCP Family Medicine; Referring Provider Anesthesiology Pain Medicine; Visit Provider Anesthesiology Pain Medicine
PROC: (CPT 62362; principal; 2021-10-19 10:25)
DX: M96.1 Postlaminectomy syndrome, not elsewhere classified (principal); J44.9 Chronic obstructive pulmonary disease, unspecified; I27.20 Pulmonary hypertension, unspecified; I11.0 Hypertensive heart disease with heart failure; I50.9 Heart failure, unspecified; I73.9 Peripheral vascular disease, unspecified; I48.0 Paroxysmal atrial fibrillation; M51.17 Intervertebral disc disorders with radiculopathy, lumbosacral region; M48.07 Spinal stenosis, lumbosacral region; G89.29 Other chronic pain; I25.10 Atherosclerotic heart disease of native coronary artery without angina pectoris; Z95.1 Presence of aortocoronary bypass graft; I34.0 Nonrheumatic mitral (valve) insufficiency; E78.00 Pure hypercholesterolemia, unspecified; Z79.82 Long term (current) use of aspirin; Z79.899 Other long term (current) drug therapy; N40.0 Benign prostatic hyperplasia without lower urinary tract symptoms; F32.A Depression, unspecified; G25.81 Restless legs syndrome; Z79.891 Long term (current) use of opiate analgesic
CPT/HCPCS: 62362; 01992; 72020; 76000; J7120; J3490

== ENCOUNTER 2021-10-22 20:20 | Emergency (ER) | payer MEDICARE, SELFPAY ==
[2016-04-09 09:01] VITALS: BMI 28.3
[2021-10-22 20:21] VITALS: BP 214/87; PULSE 83; RESP 18; TEMP 36.9; O2SAT 99; BMI 28.7
--- NOTE | 2021-10-22 20:31 | EDS_ITS ---
HPI History of Present Illness Chief Complaint: Complaint Narrative Narrative: 76-year-old male presents with dysuria and difficulty urinating. He states he has a history of BPH. He is on Flomax and finasteride. Patient states that it feels like he is not completely voiding. He is able to spontaneously void and did so prior to arrival. He states he is not constipated is having bowel movements. Patient status post morphine pump placement 10/19/[address] Byrd for chronic pain. He states he has some bruising and edema to the right flank where this was placed. He is not had any fevers or chills. No nausea or vomiting. He does feel like he has a suprapubic fullness. He feels otherwise well. He does not have flank pain. Patient states he is currently on 500 mg 3 times daily. 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 Depression Dysgeusia Essential hypertension Former smoker High cholesterol History of atrial fibrillation History of pain when walking History of steroid therapy History of stress test Insomnia Intercostal myalgia Long-term use of high-risk medication Loss of hearing Mitral valve insufficiency Nonrheumatic mitral valve insufficiency Paroxysmal atrial fibrillation Presence of stent in coronary artery (~04/08/16) Prostate disease Pulmonary hypertension Pure hypercholesterolemia Restless legs Tobacco abuse Wears dentures Wears glasses Home Medications aspirin 81 mg tablet,delayed release 81 mg PO DAILY heart 04/19/17 [History Last Taken 10/18/21] finasteride 5 mg tablet 5 mg PO QHS prostate 04/19/17 [History Last Taken Unknown] tamsulosin 0.4 mg capsule 0.4 mg PO QHS urinary issues 04/19/17 [History Last Taken Unknown] nitroglycerin 0.4 mg sublingual tablet 0.4 mg sublingual Q5-15M PRN chest pain #25 tabs 03/19/20 [Rx Last Taken Unknown] albuterol sulfate 90 mcg/actuation aerosol inhaler (ProAir HFA) 2 puff inhalation Q4H PRN Shortness Of Breath Or Wheezing 07/10/20 [History Last Taken Unknown] amlodipine 5 mg tablet 5 mg PO DAILY #90 tabs 02/25/21 [Rx Last Taken 10/19/21] pravastatin 40 mg tablet 40 mg PO QHS #90 tabs 03/26/21 [Rx Last Taken Unknown] amiodarone 200 mg tablet 200 mg PO DAILY heart #90 tabs 06/24/21 [Rx Last Taken 10/19/21] duloxetine 60 mg capsule,delayed release (Cymbalta) 60 mg PO DAILY 07/27/21 [History Last Taken 10/19/21] oxycodone-acetaminophen 10 mg-325 mg tablet 1 tab PO Q4H 07/27/21 [History Last Taken 10/19/21] promethazine 25 mg tablet 25 mg PO TID PRN Nausea 07/27/21 [History Last Taken Unknown] trazodone 100 mg tablet 100 mg PO QHS 07/27/21 [History Last Taken Unknown] Allergy/AdvReac Type Severity Reaction Status Date / Time lisinopril AdvReac Severe Cough Verified 10/22/21 20:21 Family History Mother CVA (cerebral vascular accident) Brother CAD (coronary artery disease) Brother CAD (coronary artery disease) Surgical History Aortocoronary bypass status (~06/2006) History of arthroscopic knee surgery History of cardiac catheterization History of coronary artery bypass surgery (~07/01/06) History of cystoscopy History of hemorrhoidectomy History of lumbar surgery Hx of lumbar discectomy Hx of surgical amputation of finger Hx of transurethral destruction of bladder lesion Presence of coronary angioplasty implant and graft (~04/08/16) Social History Smoking Status: Former smoker quit date: 06/02/20 alcohol intake: never substance use type: does not use caffeine: Yes Type: coffee Number of servings: 2 ROS ROS ED Constitutional Constitutional ED: Denies chills, fever(s) or sweats Eyes Eyes: Denies blurry vision or change in vision ENT ENT ED: Denies ear pain or sore throat Cardiovascular Cardiovascular: Denies chest pain, palpitations or racing heartbeat Respiratory/Chest Respiratory/Chest: Denies cough, dyspnea or sputum Gastrointestinal Gastrointestinal: Denies abdominal pain, constipation, diarrhea, nausea or vomiting Genitourinary Genitourinary ED: Denies dysuria, hematuria or urinary frequency Musculoskeletal Musculoskeletal: Denies arthralgias, myalgias or neck pain Integumentary Reports other Details: Sutures in the lumbar region postoperatively and sutures in the right flank where morphine pump was placed ; Denies abscess, Abrasions or rash Neurologic Neurologic: Denies headache(s), paresthesias or weakness Psychiatric Psychiatric: Denies anxiety, depression, suicidal ideation or suicidal thoughts Endocrine Endocrinology: Denies polydipsia or polyuria EXAM Physical Exam Const Vital Signs: 10/22/21 20:21 Temperature 98.5 F Temperature Source Temporal Pulse Rate 83 Respiratory Rate 18 Blood Pressure 214/87 H Blood Pressure Mean 129 Pulse Ox 99 Oxygen Delivery Method Room Air Positive well nourished General Appearance ED: NAD HEENT Reports moist mucous membranes normocephalic Eyes PERRL and EOMs intact bilaterally Resp normal respiratory effort Auscultation: Negative for rales, rhonchi or wheezes Cardio regular rate and regular rhythm GI GI Narrative: Suprapubic fullness. Abdomen not peritoneal. No rebound or guarding Auscultation: normoactive bowel sounds Palpation: Negative for guarding Neuro oriented x3 Psych mental status grossly normal Skin Skin Narrative: Sutures adjacent to L2-L3. Be clean dry intact. There is some mild erythema in the very lateral aspect of the right hip but is between the pump and the sutures adjacent to the spine. There is very small area. There is no induration. Nontender to palpation. The sutures were on the pain pump. Be clean dry intact. There is no dehiscence of any of the wounds. There is no drainage. No crusting. MDM MDM MDM Narrative Medical decision making narrative: Patient presenting with urinary retention. He states that he has been having trouble urinating. He is able to void although it is difficult. He does have a history of BPH is on Flomax and finasteride. Bladder scan reveals he has greater than 1000 cc of urine in his bladder. Gupta catheter will be placed for comfort and to help him void. Urinalysis is negative for infection, occult blood. and is essentially normal. I spoke with Dr. Byrd who stated that intrathecal morphine pump is known to cause urinary retention. He counseled the patient on this and this is why he is here today. Since his urinalysis is normal he recommended keep him on the Keflex which she is on postoperatively. He states he did do this out of caution because the patient did seem to be prone to infection. Patient has not had any systemic signs or symptoms. His wounds look good. He will be given a leg bag for home. He can follow-up with Dr. Duong. He has a visit with Dr. Byrd tomorrow for wound check. Impression: 1. Postop wound check 2. Acute urinary retention Lab Data Attestation: I reviewed the patient's lab results. Labs: Laboratory Results - last 24 hr 10/22/21 20:50 Urine Color Yellow Urine Clarity Clear Urine pH 6.0 Ur Specific [place] 1.015 Urine Protein Negative Urine Glucose (UA) Normal Urine Ketones Negative Urine Occult Blood Negative Urine Nitrite Negative Urine Bilirubin Negative Urine Urobilinogen Normal Ur Leukocyte Esterase Negative Urine RBC 0 SEEN Urine WBC 0 SEEN Ur Squamous Epith Cells 0 SEEN Urine Bacteria RARE Urine Mucus 0 SEEN Discharge Plan Triage Chief Complaint: Complaint Other Complaint: Fall Wound Check ED Provider: Bob Jorgensen Dx/Rx/DC Orders Instructions: ED Post Op Wound Check, General, ED Urinary Retention, Male Prescriptions: No Action nitroglycerin 0.4 mg tablet, sublingual 0.4 mg SUBLINGUAL Q5-15M PRN (Reason: chest pain) Qty: 25 1RF Rx Instructions: do not exceed 3 doses per episode amlodipine 5 mg tablet 5 mg PO DAILY Qty: 90 3RF duloxetine [Cymbalta] 60 mg capsule,delayed release(DR/EC) 60 mg PO DAILY trazodone 100 mg tablet 100 mg PO QHS promethazine 25 mg tablet 25 mg PO TID PRN (Reason: Nausea) oxycodone-acetaminophen 10-325 mg tablet 1 tab PO Q4H tamsulosin 0.4 MG capsule 0.4 mg PO QHS finasteride 5 MG tablet 5 mg PO QHS aspirin 81 MG tablet,delayed release (DR/EC) 81 mg PO DAILY albuterol sulfate [ProAir HFA] 90 mcg/actuation HFA aerosol inhaler 2 puff INHALATION Q4H PRN (Reason: Shortness Of Breath Or Wheezing) pravastatin 40 mg tablet 40 mg PO QHS Qty: 90 3RF amiodarone 200 mg tablet 200 mg PO DAILY Qty: 90 3RF Primary Care Provider: Andrea Means Referrals: Ivan Duong MD [STAFF PHYSICIAN] - As soon as possible Roney Seay MD [STAFF PHYSICIAN] - 1 Day Andrea Means DO [Primary Care Provider] - Disposition Disposition: Home, Self Care
[2021-10-22 20:56] LABS: Mucous, Urine 0 SEEN /hpf (<or=2+); Red Blood Cells-Urine 0 SEEN /hpf (0-5); Squamous Epithelial Cells - UA 0 SEEN /hpf (0-5); White Blood Cells 0 SEEN /hpf (0-5)
[2021-10-22 21:03] LABS: Color, Urine Yellow (Yellow); Glucose, Dipstick Normal (Normal); Ketone-Dipstick Negative (Negative); Leukocyte Esterase-Dipstick Negative /ul (Negative); Nitrite-Dipstick Negative (Negative); Occult Blood-Urine Negative /ul (Negative); Protein-Dipstick Negative (Negative); Specific Gravity, Urine 1.015 (1.002-1.030); Urine Bilirubin Dipstick Negative (Negative); Urine Clarity Clear (Clear); Urine Urobilinogen Normal (Normal)
[2021-10-22 21:13] LABS: Bacteria RARE /hpf (None Seen)
== END 2021-10-22 22:02 | disposition home or self-care (01) ==
PROVIDERS: Emergency Provider Student in an Organized Health Care Education/Training Program; PCP Family Medicine; Visit Provider Student in an Organized Health Care Education/Training Program
DX: R33.9 Retention of urine, unspecified (principal); J44.9 Chronic obstructive pulmonary disease, unspecified; I25.10 Atherosclerotic heart disease of native coronary artery without angina pectoris; I10 Essential (primary) hypertension; G89.29 Other chronic pain; E78.00 Pure hypercholesterolemia, unspecified; R30.0 Dysuria; M19.90 Unspecified osteoarthritis, unspecified site; Z87.430 Personal history of prostatic dysplasia; Z79.899 Other long term (current) drug therapy; Z79.82 Long term (current) use of aspirin; Z87.891 Personal history of nicotine dependence
CPT/HCPCS: 51702; 81001; 87086; 99283

== ENCOUNTER → 2021-12-09 | Outpatient (CLI) | payer MEDICARE, SELFPAY ==
[2016-04-09 09:01] VITALS: BMI 28.3
[2021-12-09 15:43] LABS: AST(SGOT) 15 U/L (15-37); Alanine Aminotransfer ALT/SGPT 26 U/L (16-61); Albumin, Serum 3.8 g/dL (3.2-5.0); Alkaline Phosphatase 83 U/L (45-117); Cholesterol 190 mg/dL (200); Globulin 4.2 g/dL (2.2-4.2); High Density Lipoprotein 49 mg/dL; Thyroid Stim Hormone (TSH) 6.09 uIU/mL (0.358-3.74); Triglycerides 152 mg/dL; Very Low Density Lipoprotein 30 mg/dL (5-40)
== END | disposition home or self-care (01) ==
LOC: LAB 14:06
PROVIDERS: PCP Family Medicine; Visit Provider Internal Medicine Cardiovascular Disease
DX: I25.10 Atherosclerotic heart disease of native coronary artery without angina pectoris (principal); I50.9 Heart failure, unspecified; I48.0 Paroxysmal atrial fibrillation; E78.00 Pure hypercholesterolemia, unspecified; I12.9 Hypertensive chronic kidney disease with stage 1 through stage 4 chronic kidney disease, or unspecified chronic kidney disease; Z95.5 Presence of coronary angioplasty implant and graft; Z95.1 Presence of aortocoronary bypass graft
CPT/HCPCS: 36415; 80061; 80076; 84443

== ENCOUNTER 2021-12-24 11:02 | Emergency (ER) | payer MEDICARE, SELFPAY ==
[2016-04-09 09:01] VITALS: BMI 28.3
[2021-12-24 11:03] VITALS: BP 146/69; PULSE 62; RESP 18; TEMP 36.7; O2SAT 99; BMI 27.9
[2021-12-24 11:06] VITALS: BP 146/69; PULSE 62; RESP 18; TEMP 36.7; O2SAT 99
--- NOTE | 2021-12-24 12:59 | EX.ED.DYSGE1 ---
HPI History of Present Illness Chief Complaint: Abscess Detail of Chief Complaint: Back abscess Informant: patient and family Onset/Context/Timing Onset: Weeks Context: Gradual Onset Timing: Continuous Current Severity: Mild Maximum Severity: Mild Narrative Narrative: 76-year-old male history of CAD, COPD prior lumbar back surgery with a pain pump and sees Dr. Byrd for chronic pain. He had a abscess on his back has developed over the last 2 weeks. Pain management doctor was evaluating today they asked him to look at it and he said in the emergency department be evaluated. He will for the patient to be on antibiotic Keflex. 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 Depression Dysgeusia Essential hypertension Former smoker High cholesterol History of atrial fibrillation History of pain when walking History of steroid therapy History of stress test Insomnia Intercostal myalgia Long-term use of high-risk medication Loss of hearing Mitral valve insufficiency Nonrheumatic mitral valve insufficiency Paroxysmal atrial fibrillation Presence of stent in coronary artery (~04/08/16) Prostate disease Pulmonary hypertension Pure hypercholesterolemia Restless legs Tobacco abuse Wears dentures Wears glasses Home Medications aspirin 81 mg tablet,delayed release 81 mg PO DAILY heart 04/19/17 [History Last Taken 10/18/21] finasteride 5 mg tablet 5 mg PO QHS prostate 04/19/17 [History Last Taken Unknown] tamsulosin 0.4 mg capsule 0.4 mg PO QHS urinary issues 04/19/17 [History Last Taken Unknown] nitroglycerin 0.4 mg sublingual tablet 0.4 mg sublingual Q5-15M PRN chest pain #25 tabs 03/19/20 [Rx Last Taken Unknown] albuterol sulfate 90 mcg/actuation aerosol inhaler (ProAir HFA) 2 puff inhalation Q4H PRN Shortness Of Breath Or Wheezing 07/10/20 [History Last Taken Unknown] pravastatin 40 mg tablet 40 mg PO QHS #90 tabs 03/26/21 [Rx Last Taken Unknown] duloxetine 60 mg capsule,delayed release (Cymbalta) 60 mg PO DAILY 07/27/21 [History Last Taken 10/19/21] oxycodone-acetaminophen 10 mg-325 mg tablet 1 tab PO Q4H 07/27/21 [History Last Taken 10/19/21] promethazine 25 mg tablet 25 mg PO TID PRN Nausea 07/27/21 [History Last Taken Unknown] trazodone 100 mg tablet 100 mg PO QHS 07/27/21 [History Last Taken Unknown] amiodarone 200 mg tablet 100 mg PO DAILY heart #90 tabs 12/14/21 [Rx Last Taken Unknown] amlodipine 5 mg tablet 5 mg PO DAILY #90 tabs 12/14/21 [Rx Last Taken Unknown] cephalexin 500 mg capsule 500 mg PO Q6 #40 caps 12/24/21 [Rx Last Taken Unknown] Allergy/AdvReac Type Severity Reaction Status Date / Time lisinopril AdvReac Severe Cough Verified 12/24/21 11:03 Family History Mother CVA (cerebral vascular accident) Brother CAD (coronary artery disease) Brother CAD (coronary artery disease) Surgical History Aortocoronary bypass status (~06/2006) History of arthroscopic knee surgery History of cardiac catheterization History of coronary artery bypass surgery (~07/01/06) History of cystoscopy History of hemorrhoidectomy History of lumbar surgery Hx of lumbar discectomy Hx of surgical amputation of finger Hx of transurethral destruction of bladder lesion Presence of coronary angioplasty implant and graft (~04/08/16) Social History Smoking Status: Former smoker quit date: 06/02/20 alcohol intake: never substance use type: does not use caffeine: Yes Type: coffee Number of servings: 2 ROS ROS ED ROS Narrative Denies recent illness. Review of Systems ROS Unobtainable: Denies due to encephalopathy Constitutional Constitutional ED: Denies chills or fever(s) Eyes Eyes: Denies blurry vision ENT ENT ED: Denies ear pain Cardiovascular Cardiovascular: Denies chest pain Respiratory/Chest Respiratory/Chest: Denies cough or dyspnea Gastrointestinal Gastrointestinal: Denies abdominal pain Genitourinary Genitourinary ED: Denies dysuria or hematuria Musculoskeletal Musculoskeletal: Reports back pain; Denies arthralgias Integumentary Reports abscess Neurologic Neurologic: Denies headache(s) Psychiatric Psychiatric: Denies anxiety Hematologic/Lymphatic Hematologic/Lymphatic: Reports none Allergic/Immunologic Allergic/Immunologic ED: Denies mouth swelling or tongue swelling EXAM Physical Exam Narrative Exam Narrative: 6-year-old male no acute distress. Vital signs stable afebrile. HEENT exam unremarkable. Lungs are clear. Heart regular rhythm no murmur. Abdomen soft. The mid back left side to the spine he has a half dollar size subcu abscess that needs to be drained. Tender to palpation. Fluctuant. No significant surrounding cellulitis. Specifically asked the patient and family he has had no injections at this site. It is involved and away from his prior back surgical site of the lumbar spine. Const Vital Signs: 12/24/21 11:03 12/24/21 11:06 12/24/21 14:06 Temperature 98.1 F 98.1 F Temperature Source Temporal Temporal Pulse Rate 62 62 14 L Respiratory Rate 18 18 Blood Pressure 146/69 H 146/69 H Blood Pressure Mean 94 94 Pulse Ox 99 99 Oxygen Delivery Method Room Air Room Air Positive well nourished and well developed; Negative for obese, cachectic, contractures or unkempt General Appearance ED: well developed and NAD; Negative for unkempt, cachectic, contractures, cyanotic or diaphoretic Nutritional Appearance: Negative for cachectic or obese HEENT Reports moist mucous membranes Negative for trauma or tenderness Eyes PERRL and EOMs intact bilaterally General Eye ED: Negative for pale conjunctiva or scleral icterus Neck no lymphadenopathy, supple and no JVD General: Negative for tenderness Lymph Lymphatic: Negative for other Chest Wall inspection of chest normal and palpation of chest normal Chest: Negative for other Resp normal respiratory effort and clear to auscultation bilaterally Effort and Inspection: Negative for retractions Auscultation: Negative for rales or rhonchi Cardio regular rate, regular rhythm, S1 normal heart sound, S2 normal heart sound and no murmurs GI normal to inspection, nondistended, normoactive bowel sounds, non-tender, non-distended and no masses Auscultation: normoactive bowel sounds Palpation: soft; Negative for tender Back/Spine no CVA tenderness Back/Spine Narrative: Subcu skin abscess mid to lower back lower thoracic spine lateral to the spine. About the size of a half dollar. Needs I&D. Tender. Fluctuant. Extremity normal to inspection General Extremety ED: Negative for edema or tenderness General Extremity: Negative for edema Neuro oriented x3 Sensorium / Orientation: alert Motor Exam: strength 5/5 throughout Psych mental status grossly normal Appearance: Negative for unkempt Attitude: No agitated Mood & Affect: Negative for depressed or anxious Skin no rashes or lesions noted and No no wounds Skin Narrative: Abscess mid left lower back. Rashes: No rashes noted Trauma: Negative for abrasion MDM MDM MDM Narrative Medical decision making narrative: 76-year-old with abscess on his back. This will need to be I&D. I&D performed. Patient did not want it anesthetized with subcu lidocaine so let was applied. I made about 1 to 2 cm vertical incision. Was able to express blood and a small amount of purulent fluid. I broke up any septations with forceps probed the wound. Placed about 3 to 4 inches of half-inch packing gauze. Patient tolerated procedure well. Dressing was applied. Family with him was instructed to pull the packing out in 3 to 4 days. Warm compresses. He will be placed on Keflex 500 mg 4 times a day for 10 days. Return if worse. Follow-up with his doctor if not improving. Single dose of Keflex p.o. given prior to discharge. Procedures Other Procedures Procedure(s): Back subcu abscess incised and drained. Let applied. Patient did not want subcu lidocaine. 1 to 2 cm vertical incision. Expressed blood and a small amount of purulent drainage. Broke up loculations with forceps. Placed 3 to 4 inches of half-inch packing gauze. Dressed and will be discharged. Instructed on wound care. Discharge Plan Triage Chief Complaint: Abscess ED Provider: Darryl Emanuel Dx/Rx/DC Orders Clinical Impression: Abscess of skin and subcutaneous tissue Instructions: ED Abscess Incision And Drainage Prescriptions: New cephalexin 500 mg capsule 500 mg PO Q6 Qty: 40 0RF No Action nitroglycerin 0.4 mg tablet, sublingual 0.4 mg SUBLINGUAL Q5-15M PRN (Reason: chest pain) Qty: 25 1RF Rx Instructions: do not exceed 3 doses per episode duloxetine [Cymbalta] 60 mg capsule,delayed release(DR/EC) 60 mg PO DAILY trazodone 100 mg tablet 100 mg PO QHS promethazine 25 mg tablet 25 mg PO TID PRN (Reason: Nausea) oxycodone-acetaminophen 10-325 mg tablet 1 tab PO Q4H tamsulosin 0.4 MG capsule 0.4 mg PO QHS finasteride 5 MG tablet 5 mg PO QHS aspirin 81 MG tablet,delayed release (DR/EC) 81 mg PO DAILY albuterol sulfate [ProAir HFA] 90 mcg/actuation HFA aerosol inhaler 2 puff INHALATION Q4H PRN (Reason: Shortness Of Breath Or Wheezing) pravastatin 40 mg tablet 40 mg PO QHS Qty: 90 3RF amiodarone 200 mg tablet 100 mg PO DAILY Qty: 90 3RF amlodipine 5 mg tablet 5 mg PO DAILY Qty: 90 3RF Primary Care Provider: Andrea Means Referrals: Andrea Means DO [Primary Care Provider] - 1 Week Activity Restrictions/Additional Instructions: Keflex 1 pill 4 times a day for 10 days. I sent the prescription to your pharmacy. Start that this evening. Tylenol for pain. Remove the packing in 4 days. That is to keep the wound open and draining. Follow-up with your doctor in 1 week to ensure this is improving. Disposition Disposition: Home, Self Care
[2021-12-24] MEDS: Lidocaine/Epi/Tetracaine 50 ML 1 APPLIC TOPICAL (13:10)
[2021-12-24 14:06] VITALS: PULSE 14
[2021-12-24] MEDS: Cephalexin 250 MG Capsule 500 MG PO (14:27)
[2021-12-24 14:31] VITALS: RESP 18
== END 2021-12-24 14:32 | disposition home or self-care (01) ==
PROVIDERS: Emergency Provider Emergency Medicine; PCP Family Medicine; Visit Provider Emergency Medicine
DX: L02.212 Cutaneous abscess of back [any part, except buttock and flank] (principal); J44.9 Chronic obstructive pulmonary disease, unspecified; I25.10 Atherosclerotic heart disease of native coronary artery without angina pectoris; I10 Essential (primary) hypertension; G89.29 Other chronic pain; E78.00 Pure hypercholesterolemia, unspecified; M54.9 Dorsalgia, unspecified; Z79.82 Long term (current) use of aspirin; Z79.899 Other long term (current) drug therapy; Z87.891 Personal history of nicotine dependence
CPT/HCPCS: 10061; 10060; 99283

== ENCOUNTER 2022-01-26 21:35 | Emergency (ER) | payer MEDICARE, SELFPAY ==
[2016-04-09 09:01] VITALS: BMI 28.3
[2022-01-26 21:36] VITALS: BP 128/78; PULSE 97; RESP 15; TEMP 37.9; O2SAT 97; BMI 28.1
--- NOTE | 2022-01-26 22:51 | EDS_ITS ---
HPI HPI - URI History of Present Illness Chief Complaint: Shortness of Breath Detail of Chief Complaint: Cough. Informant: patient Onset/Context/Timing Onset: Today and Yesterday Context: Gradual Onset Timing: Continuous Current Severity: Mild Maximum Severity: Mild Associated Symptoms Associated Symptoms: Positive for Nausea, Shortness of Breath and Productive Cough; Negative for Nasal Congestion, Headache, Sinus Pressure, Myalgias, Vomiting, Diarrhea, Chest Pain, Nonproductive cough or Hemoptysis Narrative Narrative: 76-year-old male history of CAD, CABG, CHF, COPD and A. fib on aspirin only no other blood thinners. States yesterday started with URI symptoms with fever and chills. Wants to make sure he does not have pneumonia. He has been vaccinated and boosted against COVID. He has some mild nausea no vomiting or diarrhea. Mild shortness of breath. No chest pain or hemoptysis. No leg swelling. Prior similar symptoms: Yes Recent Illness/Hospitalization: No ROS ROS ED ROS Narrative Fever. Cough. Nausea. Review of Systems ROS Unobtainable: Denies due to encephalopathy Constitutional Constitutional ED: Reports fever(s); Denies chills Eyes Eyes: Denies blurry vision ENT ENT ED: Denies ear pain, rhinorrhea or sore throat Cardiovascular Cardiovascular: Denies chest pain Respiratory/Chest Respiratory/Chest: Reports cough and dyspnea Gastrointestinal Gastrointestinal: Reports nausea; Denies abdominal pain, constipation, diarrhea, melena or vomiting Genitourinary Genitourinary ED: Denies dysuria Musculoskeletal Musculoskeletal: Denies arthralgias Integumentary Denies abscess Neurologic Neurologic: Denies headache(s) Psychiatric Psychiatric: Denies anxiety Endocrine Endocrinology: Denies cold intolerance Hematologic/Lymphatic Hematologic/Lymphatic: Denies easy bleeding Allergic/Immunologic Allergic/Immunologic ED: Denies mouth swelling or tongue swelling [facility] Medical History Abnormal chest CT Ambulates with cane Aortic dilatation Arthritis Atherosclerotic heart disease of [place] coronary artery without angina pectoris BPH (benign prostatic hyperplasia) Cancer Cardiology follow-up encounter Chest pain CHF NYHA class III (symptoms with mildly strenuous activities) COPD (chronic obstructive pulmonary disease) COPD (chronic obstructive pulmonary disease) with acute bronchitis 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 Depression Dysgeusia Essential hypertension Former smoker High cholesterol History of atrial fibrillation History of pain when walking History of steroid therapy History of stress test Insomnia Intercostal myalgia Long-term use of high-risk medication Loss of hearing Mitral valve insufficiency Nonrheumatic mitral valve insufficiency Paroxysmal atrial fibrillation Presence of stent in coronary artery (~04/08/16) Prostate disease Pulmonary hypertension Pure hypercholesterolemia Restless legs Tobacco abuse Wears dentures Wears glasses Home Medications aspirin 81 mg tablet,delayed release 81 mg PO DAILY heart 04/19/17 [History Last Taken 10/18/21] finasteride 5 mg tablet 5 mg PO QHS prostate 04/19/17 [History Last Taken Unknown] tamsulosin 0.4 mg capsule 0.4 mg PO QHS urinary issues 04/19/17 [History Last Taken Unknown] nitroglycerin 0.4 mg sublingual tablet 0.4 mg sublingual Q5-15M PRN chest pain #25 tabs 03/19/20 [Rx Last Taken Unknown] albuterol sulfate 90 mcg/actuation aerosol inhaler (ProAir HFA) 2 puff inhalation Q4H PRN Shortness Of Breath Or Wheezing 07/10/20 [History Last Taken Unknown] pravastatin 40 mg tablet 40 mg PO QHS #90 tabs 03/26/21 [Rx Last Taken Unknown] duloxetine 60 mg capsule,delayed release (Cymbalta) 60 mg PO DAILY 07/27/21 [History Last Taken 10/19/21] oxycodone-acetaminophen 10 mg-325 mg tablet 1 tab PO Q4H 07/27/21 [History Last Taken 10/19/21] promethazine 25 mg tablet 25 mg PO TID PRN Nausea 07/27/21 [History Last Taken Unknown] trazodone 100 mg tablet 100 mg PO QHS 07/27/21 [History Last Taken Unknown] amiodarone 200 mg tablet 100 mg PO DAILY heart #90 tabs 12/14/21 [Rx Last Taken Unknown] amlodipine 5 mg tablet 5 mg PO DAILY #90 tabs 12/14/21 [Rx Last Taken Unknown] cephalexin 500 mg capsule 500 mg PO Q6 #40 caps 12/24/21 [Rx Last Taken Unknown] azithromycin 250 mg tablet (Zithromax) 250 mg PO DAILY 4 days #4 tabs 01/27/22 [Rx Last Taken Unknown] Allergy/AdvReac Type Severity Reaction Status Date / Time lisinopril AdvReac Severe Cough Verified 10/25/22 21:36 Family History Mother CVA (cerebral vascular accident) Brother CAD (coronary artery disease) Brother CAD (coronary artery disease) Surgical History Aortocoronary bypass status (~06/2006) History of arthroscopic knee surgery History of cardiac catheterization History of coronary artery bypass surgery (~07/01/06) History of cystoscopy History of hemorrhoidectomy History of lumbar surgery Hx of lumbar discectomy Hx of surgical amputation of finger Hx of transurethral destruction of bladder lesion Presence of coronary angioplasty implant and graft (~04/08/16) Social History Smoking Status: Former smoker quit date: 06/02/20 alcohol intake: never substance use type: does not use caffeine: Yes Type: coffee Number of servings: 2 EXAM Physical Exam Narrative Exam Narrative: 76-year-old male no acute distress. Vital signs stable afebrile. Pulse ox 97% on room air no hypoxia. H EENT exam unremarkable. Neck nontender no ly mphadenopathy. Lungs clear to auscultation. Heart regular rhythm rate about 95 no murmur. Chest wall nontender. Abdomen soft nontender. Moving all 4 extremities. Calves are nontender without edema or cords. Back nontender. Neurologically is awake and alert with no focal motor deficits. He does not look septic or toxic. Const Vital Signs: 01/26/22 21:36 01/26/22 23:17 Temperature 100.2 F H Temperature Source Temporal Pulse Rate 97 Respiratory Rate 15 Respiratory Effort Normal Non-Labored Respiratory Depth Normal Respiratory Pattern Normal Blood Pressure 128/78 H Blood Pressure Mean 94 Pulse Ox 97 Oxygen Delivery Method Room Air Positive well nourished and well developed; Negative for obese, cachectic or contractures General Appearance ED: well developed and NAD; Negative for cachectic, contractures, cyanotic, diaphoretic or pallor Nutritional Appearance: Negative for cachectic or obese HEENT Reports moist mucous membranes; Denies dry mucous membranes normocephalic and atraumatic; Negative for scalp tenderness Face and Sinus: Negative for sinus tenderness Mouth ED: No dry mucous membranes Mouth: No dry mucous membranes Teeth and Gingiva: Negative for caries Throat: posterior oropharynx normal Eyes PERRL and EOMs intact bilaterally General Eye ED: Negative for pale conjunctiva or scleral icterus Neck no lymphadenopathy, supple, no meningeal signs and no JVD General: Negative for anterior neck swelling or lymphadenopathy Resp normal respiratory effort and clear to auscultation bilaterally Effort and Inspection: Negative for retractions Auscultation: Negative for rales, rhonchi or wheezes Cardio S1 normal heart sound, S2 normal heart sound and no murmurs Rate: regular rate; Negative for bradycardia or tachycardic Rhythm: regular rhythm GI non-tender, non-distended and no masses Inspection: Negative for abdominal distention Auscultation: normoactive bowel sounds Palpation: soft; Negative for tender, guarding or hepatomegaly Back/Spine no CVA tenderness and normal ROM General Back: Negative for CVA tenderness Cervical Spine: Negative for cervical spine tenderness Thoracic Spine / Upper Back: Negative for thoracic spinal tenderness Lumbar Spine / Lower Back: Negative for lumbar spinal tenderness Extremity normal to inspection and full ROM General Extremety ED: Negative for cyanosis or tenderness General Extremity: Negative for cyanosis Neuro oriented x3 and CN's II-XII intact bilaterally Sensorium / Orientation: alert, oriented to person, oriented to place and oriented to time; Negative for orientation impaired, lethargic, stuporous or other Motor Exam: strength 5/5 throughout; Negative for general weakness Psych mental status grossly normal Appearance: Negative for other Attitude: No agitated Mood & Affect: Negative for depressed, anxious or tearful Skin General Skin Exam: Negative for jaundice or pallor Lesions: no lesions Rashes: no rashes Trauma: Negative for abrasion MDM MDM MDM Narrative Medical decision making narrative: 76-year-old male no acute distress. Cough and URI symptoms. We given Zofran p.o. for his nausea. Chest x-ray and COVID test to be obtained. Clinically he does not look septic or toxic. Repeat exam he is doing well. He does not look septic or toxic. He is nonhypoxic. He feels and wants to go home. He will be started on Zithromax first dose given in the ER. Then once a day for 4 more days starting on . Lab Data Attestation: I reviewed the patient's lab results. Lab results narrative: Rapid COVID test negative. Radiography Diagnostic Testing: Chest x-ray, portable, single view interpreted by myself shows infiltrate left lower lung. He has had a history of pneumonia in the past will be treated as pneumonia. Normal cardiac silhouette. No effusions. Discharge Plan Triage Chief Complaint: Shortness of Breath ED Provider: Darryl Emanuel Dx/Rx/DC Orders Clinical Impression: Pneumonia Instructions: ED Pneumonia (Adult) Prescriptions: New azithromycin [Zithromax] 250 mg tablet 250 mg PO DAILY 4 Days Qty: 4 0RF Rx Instructions: start on day 2 of therapy No Action nitroglycerin 0.4 mg tablet, sublingual 0.4 mg SUBLINGUAL Q5-15M PRN (Reason: chest pain) Qty: 25 1RF Rx Instructions: do not exceed 3 doses per episode duloxetine [Cymbalta] 60 mg capsule,delayed release(DR/EC) 60 mg PO DAILY trazodone 100 mg tablet 100 mg PO QHS promethazine 25 mg tablet 25 mg PO TID PRN (Reason: Nausea) oxycodone-acetaminophen 10-325 mg tablet 1 tab PO Q4H tamsulosin 0.4 MG capsule 0.4 mg PO QHS finasteride 5 MG tablet 5 mg PO QHS aspirin 81 MG tablet,delayed release (DR/EC) 81 mg PO DAILY cephalexin 500 mg capsule 500 mg PO Q6 Qty: 40 0RF albuterol sulfate [ProAir HFA] 90 mcg/actuation HFA aerosol inhaler 2 puff INHALATION Q4H PRN (Reason: Shortness Of Breath Or Wheezing) pravastatin 40 mg tablet 40 mg PO QHS Qty: 90 3RF amiodarone 200 mg tablet 100 mg PO DAILY Qty: 90 3RF amlodipine 5 mg tablet 5 mg PO DAILY Qty: 90 3RF Primary Care Provider: Andrea Means Referrals: Andrea Means DO [Primary Care Provider] - 3-5 Days Activity Restrictions/Additional Instructions: Your COVID test is negative. Your chest x-ray is concerning for an early left lower lobe pneumonia. Zithromax once a day which is the antibiotic starting on . We will give your first dose tonight and this is now technically Tuesday morning. Plenty of fluids and rest. Tylenol for fever. Follow-up with your doctor to ensure you are improving return if you are feeling worse. Disposition Disposition: Home, Self Care
[2022-01-26] MEDS: Ondansetron ODT 4 MG Tablet PO (23:14)
--- NOTE | 2022-01-26 23:17 | RAD_ITS ---
EXAM: XR CHEST, 1 VIEW CLINICAL INDICATION: cough TECHNIQUE: Frontal view of the chest. This report was created using [employer] report generation technology. COMPARISON: Previous chest radiographs of 01/17/2021, 10/27/2019 and 10/25/2019. FINDINGS: LUNGS AND PLEURAL SPACES: Lungs remain hyperinflated with pruning of the peripheral pulmonary vascular markings due to pulmonary emphysema. Crowding of the basilar bronchovascular markings due to the mid to upper lung emphysematous changes. Subtle patchy airspace disease of the left lung base, suspicious for minimal pneumonia. No acute infiltrates on the right. No pleural effusion or pneumothorax. HEART: Heart size remains within normal limits. Previous CABG. No pulmonary venous hypertension. MEDIASTINUM: Stable mild elongation of the thoracic aorta. BONES/JOINTS: Previous median sternotomy. Thoracic degenerative spurring. Degenerative osteoarthritis of both shoulders, left greater than right. SOFT TISSUES: Unremarkable. RAD/Chest 1 View (Portable) IMPRESSION: Pulmonary emphysema. Findings suspicious for minimal patchy pneumonia at the left lung base. Electronically Signed: Ramana Hoffmann MD at 0:14 EDT ,
[2022-01-27] MEDS: Azithromycin 250 MG Tablet PO (00:12)
== END 2022-01-27 00:18 | disposition home or self-care (01) ==
PROVIDERS: Emergency Provider Emergency Medicine; PCP Family Medicine; Visit Provider Emergency Medicine
DX: J18.9 Pneumonia, unspecified organism (principal); J44.9 Chronic obstructive pulmonary disease, unspecified; I11.0 Hypertensive heart disease with heart failure; I50.9 Heart failure, unspecified; I48.0 Paroxysmal atrial fibrillation; E78.00 Pure hypercholesterolemia, unspecified; R11.0 Nausea; I25.10 Atherosclerotic heart disease of native coronary artery without angina pectoris; R06.02 Shortness of breath; Z95.1 Presence of aortocoronary bypass graft; Z86.16 Personal history of COVID-19; Z79.82 Long term (current) use of aspirin; Z87.891 Personal history of nicotine dependence; Z20.822 Contact with and (suspected) exposure to COVID-19
CPT/HCPCS: 71045; 87811; 99283

== ENCOUNTER → 2022-03-04 | Outpatient (CLI) | payer MEDICARE, SELFPAY ==
[2016-04-09 09:01] VITALS: BMI 28.3
--- NOTE | 2022-03-05 10:56 | PFT ---
INTRODUCTION: The patient is a 77-year-old male that presents for pulmonary function studies secondary to a diagnosis of amiodarone use. Respiratory therapy reported good patient effort. Bronchodilators were used during testing. INTERPRETATION: Forced expiration spirometry demonstrates the presence of a mild large airways obstructive ventilatory defect. There was no significant response to aerosolized bronchodilators. Spirograms are of good quality but do not plateau indicating slow emptying of the lungs. Body plethysmography was performed and demonstrated lung volumes to be within normal limits. Diffusing capacity by single breath CO is reduced at 65% of predicted. IMPRESSION: Irreversible mild large airways obstructive ventilatory defect with preserved lung volumes and mild reduction in diffusing capacity.
== END | disposition home or self-care (01) ==
LOC: PSN 07:39
PROVIDERS: Internal Medicine Cardiovascular Disease; PCP Family Medicine; Referring Provider Nurse Practitioner Family; Visit Provider Nurse Practitioner Family
DX: I48.0 Paroxysmal atrial fibrillation (principal); Z79.899 Other long term (current) drug therapy; Z95.5 Presence of coronary angioplasty implant and graft; E78.00 Pure hypercholesterolemia, unspecified; Z95.1 Presence of aortocoronary bypass graft; I10 Essential (primary) hypertension; I25.10 Atherosclerotic heart disease of native coronary artery without angina pectoris
CPT/HCPCS: 36415; 84443; 94060; 94726; 94729

== ENCOUNTER → 2022-03-30 | Outpatient (CLI) | payer MEDICARE, SELFPAY ==
[2016-04-09 09:01] VITALS: BMI 28.3
[2022-03-30 17:37] LABS: Hematocrit 41.1 % (40-54); Hemoglobin 13.1 g/dL (13.0-16.5); Mean Corp Hgb Conc 31.9 g/dL (32-36); Mean Corpuscular Hgb 27.1 pg (27.0-32.0); Mean Corpuscular Volume 85.1 fL (80-94); Mean Platelet Vol. 9.5 fl (6.2-12.0); Platelet Count 358 K/mm3 (150-450); RBC Distribution Width CV 13.6 % (11.6-14.6); RBC Distribution Width SD 42.5 fl (35.1-43.9); Red Blood Count 4.83 M/mm3 (4.6-6.2); White Blood Count 7.3 K/mm3 (4.4-11.0)
[2022-03-30 18:02] LABS: Iron 43 ug/dL (65-175)
== END | disposition home or self-care (01) ==
LOC: MTLAB 14:23
PROVIDERS: PCP Family Medicine; Referring Provider Internal Medicine Gastroenterology; Visit Provider Internal Medicine Gastroenterology
DX: K92.1 Melena (principal)
CPT/HCPCS: 36415; 83540; 85027

== ENCOUNTER 2022-05-25 10:10 | Emergency (ER) | payer MEDICARE, SELFPAY ==
[2016-04-09 09:01] VITALS: BMI 28.3
[2022-05-25 10:12] VITALS: BP 121/90; PULSE 79; RESP 130; TEMP 35.8; O2SAT 97; BMI 27.6
--- NOTE | 2022-05-25 10:28 | RAD_ITS ---
STUDY: X-RAY CHEST REASON FOR EXAM: Male, 77 years old. Weakness TECHNIQUE: Single AP portable view of the chest. COMPARISON: Comparison is made with prior study 01/26/2022. FINDINGS: Hyperinflation. Stable calcified granulomas at the lung bases with mild degree of the linear scarring. There is no demonstrated pleural abnormality. Sternal cerclage wires and vascular clips are present from a prior sternotomy and coronary artery bypass graft procedure (CABG). Normal mediastinum and [place]. Normal visualized pulmonary arteries. There is atherosclerotic calcification of the aortic arch with tortuosity. There are diffuse degenerative changes of the visualized thoracic spine. There is degenerative osteoarthritis of the bilateral shoulders. There is no demonstrated abnormality of the visualized soft tissue structures of the upper abdomen. RAD/Chest 1 View (Portable) IMPRESSION: Hyperinflation. No acute abnormality is seen. Stable examination. Electronically Signed: Fernando Barrett MD at 11:22 EST ,
--- NOTE | 2022-05-25 10:28 | EKG12_ITS ---
Test Reason : HEART RATE Blood Pressure : / mmHG Vent. Rate : 131 BPM Atrial Rate : 000 BPM P-R Int : 000 ms QRS Dur : 086 ms QT Int : 310 ms P-R-T Axes : 000 056 069 degrees QTc Int : 457 ms Atrial fibrillation Low voltage QRS (Limb Leads) Confirmed by BRANDON MARIE, HOSEA ([id number]), health editor SITA RONDON ([id number]) on 05/26/2022 8:48:26 AM Referred By: Hosea Henry Confirmed By:HOSEA TAYLOR MD
--- NOTE | 2022-05-25 10:30 | ED.VIS.CHEST ---
HPI History of Present Illness Chief Complaint: Chest Other Narrative Narrative: Patient presents with no complaints. He was due to have a colonoscopy and was found to be quite tachycardic and sent to the ED. He does have a history of atrial fibrillation, he is on amiodarone for this but he is not anticoagulated. He has no palpitations or chest pain, no recent weight loss. 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 Depression Dysgeusia Essential hypertension Former smoker High cholesterol History of atrial fibrillation History of pain when walking History of steroid therapy History of stress test Insomnia Intercostal myalgia Long-term use of high-risk medication Loss of hearing Mitral valve insufficiency Nonrheumatic mitral valve insufficiency Paroxysmal atrial fibrillation Presence of stent in coronary artery (~04/08/16) Prostate disease Pulmonary hypertension Pure hypercholesterolemia Restless legs Tobacco abuse Wears dentures Wears glasses Home Medications aspirin 81 mg tablet,delayed release 81 mg PO DAILY heart 04/19/17 [History Last Taken 10/18/21] finasteride 5 mg tablet 5 mg PO QHS prostate 04/19/17 [History Last Taken Unknown] nitroglycerin 0.4 mg sublingual tablet 0.4 mg sublingual Q5-15M PRN chest pain #25 tabs 03/19/20 [Rx Last Taken Unknown] albuterol sulfate 90 mcg/actuation aerosol inhaler (ProAir HFA) 2 puff inhalation Q4H PRN Shortness Of Breath Or Wheezing 07/10/20 [History Last Taken Unknown] pravastatin 40 mg tablet 40 mg PO QHS #90 tabs 03/26/21 [Rx Last Taken Unknown] duloxetine 60 mg capsule,delayed release (Cymbalta) 60 mg PO DAILY 07/27/21 [History Last Taken 10/19/21] promethazine 25 mg tablet 25 mg PO TID PRN Nausea 07/27/21 [History Last Taken Unknown] trazodone 100 mg tablet 100 mg PO QHS 07/27/21 [History Last Taken Unknown] amlodipine 5 mg tablet 5 mg PO DAILY #90 tabs 12/14/21 [Rx Last Taken Unknown] amiodarone 100 mg tablet 100 mg PO DAILY #90 tabs 02/18/22 [Rx Last Taken Unknown] tamsulosin 0.4 mg capsule 0.8 mg PO QHS urinary issues 02/18/22 [History Last Taken Unknown] levothyroxine 25 mcg tablet 25 mcg PO DAILY #90 tabs 03/04/22 [Rx Last Taken Unknown] amiodarone 200 mg tablet 200 mg PO DAILY #30 tabs 05/25/22 [Rx Last Taken Unknown] apixaban 5 mg (74 tabs) tablets in a dose pack ([employer] DVT-PE Treat 30D Start) 5 mg PO BID #74 tabs 05/25/22 [Rx Last Taken Unknown] metoprolol tartrate 25 mg tablet 25 mg PO BID #60 tabs 05/25/22 [Rx Last Taken Unknown] Allergy/AdvReac Type Severity Reaction Status Date / Time lisinopril AdvReac Severe Cough Verified 05/25/22 10:11 Family History Mother CVA (cerebral vascular accident) Brother CAD (coronary artery disease) Brother CAD (coronary artery disease) Surgical History Aortocoronary bypass status (~06/2006) History of arthroscopic knee surgery History of cardiac catheterization History of coronary artery bypass surgery (~07/01/06) History of cystoscopy History of hemorrhoidectomy History of lumbar surgery Hx of lumbar discectomy Hx of surgical amputation of finger Hx of transurethral destruction of bladder lesion Implantable intrathecal infusion pump present (~10/2021) Presence of coronary angioplasty implant and graft (~04/08/16) Social History Smoking Status: Former smoker quit date: 06/02/20 alcohol intake: never substance use type: does not use caffeine: Yes Type: coffee Number of servings: 2 ROS ROS ED ROS Narrative Past medical history: Reviewed, includes history of A-fib, CAD status post open heart surgery, CHF, COPD, pulmonary hypertension Medications: Reviewed Social history: Noncontributory Review of systems: All systems negative except as indicated General: No fever Eyes: No visual changes ENT: No upper airway congestion, normal voice Neck: No neck pain Cardiovascular: No chest pain. He does not feel any palpitations. Respiratory: No shortness of breath or cough Gastrointestinal: No abdominal pain, nausea vomiting or diarrhea Genitourinary: No dysuria Musculoskeletal: Denies myalgias no difficulty with ambulation Skin: No rash Neurological: No memory loss, confusion or any focal weakness Psych: No recent behavioral changes Hematologic: No easy bleeding or easy bruising EXAM Physical Exam Narrative Exam Narrative: Physical exam General: Patient appears comfortable in the room. Head: Normocephalic, Atraumatic Eyes: Conjunctiva not pale ENT: Moist mucous membranes Neck: Supple, Nontender, No lymphadenopathy Cardiovascular: Irregular tachycardia, no obvious murmur. Midline old scar. Respiratory: No distress, CTA bilaterally Abdomen: Soft, Nontender, Nondistended Back: Nontender, Normal Inspection. Negative for: CVA tenderness Extremities: Nontender, No edema Skin: Normal color, No rash Neurological: Alert, Normal Strength, Normal Sensation Psychological: Normal affect Const Vital Signs: 05/25/22 10:12 05/25/22 11:05 05/25/22 11:07 Temperature 96.4 F L Temperature Source Temporal Pulse Rate 79 132 H Respiratory Rate 130 H 18 Respiratory Effort Normal Non-Labored Blood Pressure 121/90 H 120/81 H Blood Pressure Mean 100 94 Pulse Ox 97 98 Oxygen Delivery Method Room Air Room Air 05/25/22 11:08 05/25/22 13:12 Temperature Temperature Source Pulse Rate 109 H Respiratory Rate 18 Respiratory Effort Blood Pressure 120/81 H Blood Pressure Mean 94 Pulse Ox 98 97 Oxygen Delivery Method Room Air Room Air [facility] Lab Data Labs: Laboratory Results - last 24 hr 05/25/22 05/25/22 10:50 10:50 WBC 9.4 RBC 5.21 Hgb 14.4 Hct 44.5 MCV 85.4 MCH 27.6 MCHC 32.4 RDW Std Deviation 44.8 H RDW Coeff of [place] 14.4 Plt Count 392 MPV 9.0 Immature Gran % (Auto) 0.700 Neut % (Auto) 70.6 H Lymph % (Auto) 21.0 [place] % (Auto) 7.5 Eos % (Auto) 0.1 Baso % (Auto) 0.1 Absolute Neuts (auto) 6.6 Absolute Lymphs (auto) 1.97 Nucleated RBC % 0 Sodium 141 Potassium 4.1 Chloride 107 Carbon Dioxide 27.0 Anion Gap 7 BUN 20 H Creatinine 0.97 Estim Creat Clear Calc 63.78 Est GFR (MDRD) Af Amer 97 Est GFR (MDRD) Non-Af 80 BUN/Creatinine Ratio 20.7 H Glucose 104 Calcium 9.7 Magnesium 2.4 Total Bilirubin 0.50 AST 10 L ALT 21 Alkaline Phosphatase 64 Troponin I High Sens 10 Total Protein 7.2 Albumin 3.4 Globulin 3.8 Albumin/Globulin Ratio 0.9 TSH 4.80 H Radiography Diagnostic Testing: Clinical Impression(s) from Imaging Studies Chest X-Ray 05/25/22 10:28 IMPRESSION: Hyperinflation. No acute abnormality is seen. Stable examination. Electronically Signed: Fernando Barrett MD at 11:22 EST , Chest x-ray read by me is unremarkable EKG Initial EKG: Comments: A-fib with a rate of 131. No ischemic changes repeat EKG shows A-fib with a rate of 88. Treatment and Re-Evaluation Narrative: A. Problems addressed: Patient is found to have A-fib. He is asymptomatic. He was given 10 mg of diltiazem and his heart rate is now in the 80s. He is still in A-fib. His CHADS2 score is a 3. I discussed the patient with Dr. Bueno. Since he is asymptomatic he can be discharged home, we will double up on the amiodarone back to 200 mg, we will add a small amount of beta-shun and he will need to be anticoagulated. Otherwise he can follow-up in the office. I believe this is quite reasonable. B. Amount and/or complexity of the data 1. CBC CMP were interpreted by me I discussed the patient with daughter who is in the room 2. Independent interpretation of test Telemetry: A-fib with a rate in the 100s 3. Discussion of management with Dr. Bueno C. Risk of complications and/or morbidity See above. Discharge Plan Triage Chief Complaint: Chest Other ED Provider: Hosea Henry Dx/Rx/DC Orders Clinical Impression: Atrial fibrillation, History of coronary artery disease Instructions: AFib Prescriptions: [employer] DVT-PE Treat 30D Start 5 mg (74 tabs) tablets,dose pack 5 mg PO BID Qty: 74 0RF metoprolol tartrate 25 mg tablet 25 mg PO BID Qty: 60 0RF amiodarone 200 mg tablet 200 mg PO DAILY Qty: 30 0RF No Action nitroglycerin 0.4 mg tablet, sublingual 0.4 mg SUBLINGUAL Q5-15M PRN (Reason: chest pain) Qty: 25 1RF Rx Instructions: do not exceed 3 doses per episode duloxetine [Cymbalta] 60 mg capsule,delayed release(DR/EC) 60 mg PO DAILY trazodone 100 mg tablet 100 mg PO QHS promethazine 25 mg tablet 25 mg PO TID PRN (Reason: Nausea) amiodarone 100 mg tablet 100 mg PO DAILY Qty: 90 3RF finasteride 5 MG tablet 5 mg PO QHS aspirin 81 MG tablet,delayed release (DR/EC) 81 mg PO DAILY tamsulosin 0.4 mg capsule 0.8 mg PO QHS albuterol sulfate [ProAir HFA] 90 mcg/actuation HFA aerosol inhaler 2 puff INHALATION Q4H PRN (Reason: Shortness Of Breath Or Wheezing) pravastatin 40 mg tablet 40 mg PO QHS Qty: 90 3RF amlodipine 5 mg tablet 5 mg PO DAILY Qty: 90 3RF levothyroxine 25 mcg tablet 25 mcg PO DAILY Qty: 90 3RF Primary Care Provider: Andrea Means Referrals: Andrea Means DO [Primary Care Provider] - Hosea Bueno MD [Med Staff - Active Staff] - 3-5 Days Activity Restrictions/Additional Instructions: Go back to 200 mg of amiodarone. Otherwise make sure you take your blood thinners seen to have a stroke. Follow-up with Dr. Bueno sometime next week. Disposition Disposition: Home, Self Care
[2022-05-25 10:57] LABS: Absolute Lymphocyte Count 1.97 X10^3/uL (0.83-4.51); Absolute Neutrophil Count 6.6 X10^3/uL (2.0-7.7); Basophil# 0.01 X10^3/uL; Basophil% 0.1 % (0-1); Eosinophil# 0.01 X10^3/uL; Eosinophils% 0.1 % (0-5); Hematocrit 44.5 % (40-54); Hemoglobin 14.4 g/dL (13.0-16.5); Lymphocyte # 1.97 X10^3/ul (0.83-4.51); Mean Corp Hgb Conc 32.4 g/dL (32-36); Mean Corpuscular Hgb 27.6 pg (27.0-32.0); Mean Corpuscular Volume 85.4 fL (80-94); Monocyte% 7.5 % (0-10); NRBC Flagged by Analyzer 0 % (0-5); Neutrophil # 6.63 X10^3/uL (2.7-7.7); Neutrophil % 70.6 % (47-70); Platelet Count 392 K/mm3 (150-450); RBC Distribution Width CV 14.4 % (11.6-14.6); RBC Distribution Width SD 44.8 fl (35.1-43.9); Red Blood Count 5.21 M/mm3 (4.6-6.2); White Blood Count 9.4 K/mm3 (4.4-11.0)
[2022-05-25 11:07] VITALS: BP 120/81; PULSE 132; RESP 18; O2SAT 98
[2022-05-25 11:08] VITALS: O2SAT 98
[2022-05-25] MEDS: dilTIAZem 25 MG/5 ML Vial 10 MG IV BOLUS (11:12)
[2022-05-25 11:20] LABS: ALB/GLOB Ratio 0.9 RATIO (0.9-2.4); AST(SGOT) 10 U/L (15-37); Alanine Aminotransfer ALT/SGPT 21 U/L (16-61); Albumin, Serum 3.4 g/dL (3.2-5.0); Alkaline Phosphatase 64 U/L (45-117); Anion Gap 7 (5-15); BUN 20 mg/dL (7-18); BUN/Creat Ratio 20.7 RATIO (10-20); Calcium,Total 9.7 mg/dL (8.5-10.1); Chloride 107 mmol/L (98-107); Creatinine, Serum 0.97 mg/dL (0.70-1.30); EST Glomerular Filtration Rate 80 mL/min (>60); Est Glom Filt Rate - Afr Amer 97 mL/min (>60); Estimated Creatinine Clearance 63.78 ml/min; Globulin 3.8 g/dL (2.2-4.2); Glucose 104 mg/dL (74-106); Magnesium 2.4 mg/dL (1.6-2.6); Potassium 4.1 mmol/L (3.5-5.1); Protein, Total 7.2 g/dL (6.4-8.2); Sodium Level 141 mmol/L (136-145); Troponin-I HS 10 pg/mL (3.0-78.0)
--- NOTE | 2022-05-25 11:51 | EKG12_ITS ---
Test Reason : HEART RATE Blood Pressure : / mmHG Vent. Rate : 088 BPM Atrial Rate : 088 BPM P-R Int : 000 ms QRS Dur : 084 ms QT Int : 376 ms P-R-T Axes : 000 043 053 degrees QTc Int : 454 ms Atrial fibrillation Low voltage QRS (Limb Leads) Confirmed by BRANDON MARIE, HOSEA ([id number]), staff editor SITA RONDON ([id number]) on 05/26/2022 8:46:46 AM Referred By: Hosea Henry Confirmed By:HOSEA TAYLOR MD
[2022-05-25 13:12] VITALS: BP 120/81; PULSE 109; RESP 18; O2SAT 97
[2022-05-25 14:28] VITALS: BP 129/61; PULSE 91; RESP 18; O2SAT 98
[2022-05-25 14:29] VITALS: BP 128/61; PULSE 91; RESP 18; O2SAT 97
== END 2022-05-25 14:30 | disposition home or self-care (01) ==
PROVIDERS: Emergency Provider Emergency Medicine; PCP Family Medicine; Referring Provider Emergency Medicine; Visit Provider Emergency Medicine
DX: I48.91 Unspecified atrial fibrillation (principal); J44.9 Chronic obstructive pulmonary disease, unspecified; I50.9 Heart failure, unspecified; I11.0 Hypertensive heart disease with heart failure; E78.00 Pure hypercholesterolemia, unspecified; Z87.891 Personal history of nicotine dependence; I25.10 Atherosclerotic heart disease of native coronary artery without angina pectoris
CPT/HCPCS: 71045; 80053; 83735; 84443; 84484; 85025; 93005; 96374; 99284; A4216

== ENCOUNTER 2022-11-13 09:18 | Emergency (ER) | payer MEDICARE, SELFPAY ==
[2016-04-09 09:01] VITALS: BMI 28.3
[2022-11-13 09:19] VITALS: BP 114/103; PULSE 118; RESP 20; TEMP 36.6; O2SAT 93; BMI 27.8
--- NOTE | 2022-11-13 09:36 | CT_ITS ---
STUDY: CT CERVICAL SPINE WITHOUT CONTRAST REASON FOR EXAM: Male, 77 years old. fall/neck trauma RADIATION DOSAGE (If Supplied By Facility): CTDIvol = ( 18.76 ) mGy, DLP = ( 401.24 ) mGycm TECHNIQUE: High resolution transaxial imaging was performed without contrast material. Sagittal and coronal images were reconstructed. Individualized dose optimization techniques were used for this CT. COMPARISON: None FINDINGS: Normal craniovertebral junction. There are degenerative changes of the anterior atlantoaxial articulation. Normal odontoid process. Normal cervical lordosis. Normal vertebral bodies and posterior osseous elements. C2-3: Moderate left facet hypertrophy produces mild left neural foraminal stenosis. Mild broad disc protrusion produces mild spinal stenosis. C3-4: Moderate left facet hypertrophy produces moderate left neural foraminal stenosis. Mild broad disc osteophyte complex and bilateral uncovertebral hypertrophy produces mild spinal stenosis. C4-5: Moderate left facet hypertrophy produces moderate left neural foraminal stenosis. Mild broad disc osteophyte complex with an inferiorly extending calcified disc extrusion and bilateral uncovertebral hypertrophy produces moderate spinal stenosis and moderate bilateral neural foraminal stenosis. C5-6: Moderate right facet hypertrophy produces moderate right neural foraminal stenosis. Mild broad disc osteophyte complex produces mild spinal stenosis. C6-7: Normal endplates. Normal disc height and morphology. Normal central canal and intervertebral neuroforamina. C7-T1: Normal endplates. Normal disc height and morphology. Normal central canal and intervertebral neuroforamina. Normal visualized soft tissue structures. CT/Spine Cervical without Contras IMPRESSION: No acute fracture or subluxation. Electronically Signed: iMlton Lares MD at 10:42 EDT ,
--- NOTE | 2022-11-13 09:45 | EX.ED.DYSGE1 ---
HPI History of Present Illness Chief Complaint: Other, Pain/Inj Detail of Chief Complaint: neck pain Informant: patient and family Narrative Narrative: Patient had a fall yesterday, he was putting his garbage can away and he tripped over the lid, falling to his left shoulder. His left arm is okay, its not bothering him, but later yesterday evening hours after the fall he started having progressively worsening pain in his neck and his shoulder blade area. He states his neck has been stiff and sore for the past month more than usual, and now worse since this occurred. He states it really hurts to move his head, moving his left arm and shoulder is not nearly as severe. He denies any numbness or tingling. Denies any weakness in his legs or arms. He has chronic pain in his low back, sees pain management and has an implanted pain pump that infuses medication into his spine. That is not helping with any of this. He has arthritis but not rheumatoid to his knowledge. He states he did not hit his head when he fell. Daughter also states he has been having a sore throat and some painful swallowing lately which the patient admits to. No trouble breathing. 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 Depression Dysgeusia Essential hypertension Former smoker High cholesterol History of atrial fibrillation History of pain when walking History of steroid therapy History of stress test Insomnia Intercostal myalgia Long-term use of high-risk medication Loss of hearing Mitral valve insufficiency Nonrheumatic mitral valve insufficiency Paroxysmal atrial fibrillation Presence of stent in coronary artery (~04/08/16) Prostate disease Pulmonary hypertension Pure hypercholesterolemia Restless legs Tobacco abuse Wears dentures Wears glasses Home Medications finasteride 5 mg tablet 5 mg PO QHS prostate 04/19/17 [History Last Taken Unknown] albuterol sulfate 90 mcg/actuation aerosol inhaler (ProAir HFA) 2 puff inhalation Q4H PRN Shortness Of Breath Or Wheezing 07/10/20 [History Last Taken Unknown] duloxetine 60 mg capsule,delayed release (Cymbalta) 60 mg PO DAILY 07/27/21 [History Last Taken 10/19/21] promethazine 25 mg tablet 25 mg PO TID PRN Nausea 07/27/21 [History Last Taken Unknown] trazodone 100 mg tablet 100 mg PO QHS 07/27/21 [History Last Taken Unknown] amlodipine 5 mg tablet 5 mg PO DAILY #90 tabs 12/14/21 [Rx Last Taken Unknown] tamsulosin 0.4 mg capsule 0.8 mg PO QHS urinary issues 02/18/22 [History Last Taken Unknown] levothyroxine 25 mcg tablet 25 mcg PO DAILY #90 tabs 03/04/22 [Rx Last Taken Unknown] amiodarone 200 mg tablet 200 mg PO DAILY #30 tabs 05/25/22 [Rx Last Taken Unknown] metoprolol tartrate 50 mg tablet 50 mg PO BID this is a dose increase #180 tabs 05/27/22 [Rx Last Taken Unknown] rivaroxaban 20 mg tablet (Xarelto) 20 mg PO QPM #30 tabs 05/27/22 [Rx Last Taken Unknown] pravastatin 40 mg tablet 40 mg PO QHS #90 tabs 06/10/22 [Rx Last Taken Unknown] nitroglycerin 0.4 mg sublingual tablet 0.4 mg sublingual Q5-15M PRN chest pain #25 tabs 08/23/22 [Rx Last Taken Unknown] orphenadrine citrate 100 mg tablet,extended release 100 mg PO BID PRN muscle pain #10 tabs 11/13/22 [Rx Last Taken Unknown] oxycodone-acetaminophen 5 mg-325 mg tablet 1 tab PO Q6H PRN PRN Pain 2 days #8 TABLETS 11/13/22 [Rx Last Taken Unknown] Allergy/AdvReac Type Severity Reaction Status Date / Time lisinopril AdvReac Severe Cough Verified 11/13/22 09:21 Family History Mother CVA (cerebral vascular accident) Brother CAD (coronary artery disease) Brother CAD (coronary artery disease) Surgical History Aortocoronary bypass status (~06/2006) History of arthroscopic knee surgery History of cardiac catheterization History of coronary artery bypass surgery (~07/01/06) History of cystoscopy History of hemorrhoidectomy History of lumbar surgery Hx of lumbar discectomy Hx of surgical amputation of finger Hx of transurethral destruction of bladder lesion Implantable intrathecal infusion pump present (~10/2021) Presence of coronary angioplasty implant and graft (~04/08/16) Social History Smoking Status: Former smoker quit date: 06/02/20 alcohol intake: never substance use type: does not use caffeine: Yes Type: coffee Number of servings: 2 ROS ROS ED Constitutional Constitutional ED: Denies chills or fever(s) Eyes Eyes: Denies blurry vision, change in vision or diplopia ENT ENT ED: Reports as per HPI, odynophagia and sore throat; Denies rhinorrhea Cardiovascular Cardiovascular: Denies chest pain or palpitations Respiratory/Chest Respiratory/Chest: Denies cough or dyspnea Gastrointestinal Gastrointestinal: Denies abdominal pain, diarrhea, nausea or vomiting Genitourinary Genitourinary ED: Denies dysuria or hematuria Musculoskeletal Musculoskeletal: Reports back pain and neck pain; Denies extremity pain Integumentary Denies abscess or rash Neurologic Neurologic: Denies headache(s), paresthesias or weakness Psychiatric Psychiatric: Denies anxiety or suicidal thoughts EXAM Physical Exam Const Vital Signs: 11/13/22 09:19 11/13/22 09:34 Temperature 97.8 F Temperature Source Temporal Pulse Rate 118 H Respiratory Rate 20 H Respiratory Effort Normal Respiratory Pattern Normal Blood Pressure 114/103 H Blood Pressure Mean 106 Pulse Ox 93 Oxygen Delivery Method Room Air Positive well nourished and well developed General Appearance ED: well developed and NAD HEENT Reports moist mucous membranes HEENT Narrative: Normal posterior oropharynx. No trismus. No stridor. Anterior neck nontender no enlarged thyroid. normocephalic and atraumatic Eyes PERRL and EOMs intact bilaterally Neck Neck Narrative: Diffuse tenderness. Mostly left paraspinal diffuse, but the entire neck is tender. No step-offs. Less tender in the midline for sure. Limited range of motion due to pain. Holding his head in neutral. General: tenderness Resp normal respiratory effort and clear to auscultation bilaterally Cardio regular rate, regular rhythm and no murmurs GI non-tender and non-distended Auscultation: normoactive bowel sounds Palpation: soft Back/Spine no CVA tenderness Back/Spine Narrative: Tender throughout the entire left trapezius and rhomboids, no bony left shoulder girdle/scapular tenderness. No midline significant tenderness. General Back: other FROM Extremity normal to inspection Extremity Narrative: Full range of motion left upper extremity including shoulder without difficulty, including abduction. Couple of ecchymoses on the left upper arm and forearm without bony tenderness or deformity. General Extremety ED: Negative for edema, pulses abnormal or tenderness General Extremity: Negative for edema or pulses abnormal Neuro oriented x3, CN's II-XII intact bilaterally and no sensory deficits noted Neuro Narrative: Normal gait although slow. Sensorium / Orientation: awake and alert Motor Exam: strength 5/5 throughout Psych mental status grossly normal Skin no rashes or lesions noted and no wounds MDM MDM MDM Narrative Medical decision making narrative: Obtained a CT of the cervical spine, I reviewed the imaging and the report which I agree with, negative for anything acute. In the meantime patient was treated with oxycodone and Norflex, this did help some. I am not expecting him to be pain-free which he understands, will give him short prescriptions and advised to follow-up with pain management he states he has an appointment after the weekend. Radiography Diagnostic Testing: Clinical Impression(s) from Imaging Studies Cervical Spine CT 11/13/22 09:36 IMPRESSION: No acute fracture or subluxation. Electronically Signed: Milton Lares MD at 10:42 EDT , Discharge Plan Triage Chief Complaint: Other, Pain/Inj ED Provider: Ramon Cary Dx/Rx/DC Orders Clinical Impression: Strain of cervical portion of left trapezius muscle Instructions: ED Neck Sprain or Strain Prescriptions: New oxycodone-acetaminophen [oxycodone-acetaminophen] 5-325 mg tablet 1 tab PO Q6H PRN PRN (Reason: Pain) 2 Days Qty: 8 0RF orphenadrine citrate 100 mg tablet extended release 100 mg PO BID PRN (Reason: muscle pain) Qty: 10 0RF No Action duloxetine [Cymbalta] 60 mg capsule,delayed release(DR/EC) 60 mg PO DAILY trazodone 100 mg tablet 100 mg PO QHS promethazine 25 mg tablet 25 mg PO TID PRN (Reason: Nausea) finasteride 5 MG tablet 5 mg PO QHS tamsulosin 0.4 mg capsule 0.8 mg PO QHS amiodarone 200 mg tablet 200 mg PO DAILY Qty: 30 0RF albuterol sulfate [ProAir HFA] 90 mcg/actuation HFA aerosol inhaler 2 puff INHALATION Q4H PRN (Reason: Shortness Of Breath Or Wheezing) amlodipine 5 mg tablet 5 mg PO DAILY Qty: 90 3RF levothyroxine 25 mcg tablet 25 mcg PO DAILY Qty: 90 3RF Xarelto 20 mg tablet 20 mg PO QPM Qty: 30 11RF Rx Instructions: must administer with evening meal metoprolol tartrate 50 mg tablet 50 mg PO BID Qty: 180 3RF pravastatin 40 mg tablet 40 mg PO QHS Qty: 90 3RF nitroglycerin 0.4 mg tablet, sublingual 0.4 mg SUBLINGUAL Q5-15M PRN (Reason: chest pain) Qty: 25 1RF Rx Instructions: do not exceed 3 doses per episode Primary Care Provider: Andrea Means Referrals: Andrea Means DO [Primary Care Provider] - (And/or your pain management physician after the weekend) Disposition Disposition: Home, Self Care
[2022-11-13] MEDS: Orphenadrine 60 MG/2 ML Ampul IM (10:02)
[2022-11-13] MEDS: oxyCODONE 5 MG Tablet PO (10:02)
[2022-11-13 11:38] VITALS: BP 148/68; PULSE 71; RESP 20; O2SAT 99
== END 2022-11-13 11:41 | disposition home or self-care (01) ==
PROVIDERS: Emergency Provider Emergency Medicine; PCP Family Medicine; Visit Provider Emergency Medicine
DX: S46.812A Strain of other muscles, fascia and tendons at shoulder and upper arm level, left arm, initial encounter (principal); J44.9 Chronic obstructive pulmonary disease, unspecified; E78.00 Pure hypercholesterolemia, unspecified; Z87.891 Personal history of nicotine dependence; Z96.82 Presence of neurostimulator; I25.10 Atherosclerotic heart disease of native coronary artery without angina pectoris; G89.29 Other chronic pain; I10 Essential (primary) hypertension; M19.90 Unspecified osteoarthritis, unspecified site; M54.9 Dorsalgia, unspecified; W01.0XXA Fall on same level from slipping, tripping and stumbling without subsequent striking against object, initial encounter
CPT/HCPCS: 72125; 96372; 99283

== ENCOUNTER → 2023-05-24 | Outpatient (CLI) | payer MEDICARE, SELFPAY ==
[2016-04-09 09:01] VITALS: BMI 28.3
--- OUTSIDE RECORDS SUMMARY | 2023-05-24 11:12 | XMS RPT_ITS | CCD ---
Author Name Unknown Address [address] [place] [address] Organization [facility] Care Team Providers Care Silo Erector Name Role Phone JOSE MARIA Mcfadden, Fay Gracia Unavailable Adela Mancia Unavailable Unavailable DELILAH MEANS Consulting Unavailable ALLISON PAUL DR Primary Care Unavailable ALLISON PAUL DR Attending Unavailable ALLISON PAUL DR Admitting Unavailable PROVIDER, UNKNOWN Consulting Unavailable DELILAH MEANS Consulting Unavailable ALLISON PAUL DR Primary Care Unavailable ALLISON PAUL DR Attending Unavailable ALLISON PAUL DR Admitting Unavailable PROVIDER, UNKNOWN Consulting Unavailable ALLISON PAUL DR Attending Unavailable ALLISON PAUL DR Admitting Unavailable ALLISON PAUL DR Primary Care Unavailable DELILAH MEANS Consulting Unavailable PROVIDER, UNKNOWN Consulting Unavailable DELILAH MEANS Consulting Unavailable ALLISON PAUL DR Primary Care Unavailable ALLISON PAUL DR Attending Unavailable ALLISON PAUL DR Admitting Unavailable PROVIDER, UNKNOWN Consulting Unavailable DELILAH MEANS Referring Unavailable DELILAH MEANS Consulting Unavailable HOWIE HARRIS DO Primary Care Unavailable HOWIE HARRIS DO Attending Unavailable HOWIE HARRIS DO Admitting Unavailable PROVIDER, UNKNOWN Consulting Unavailable DELILAH MEANS Consulting Unavailable DELILAH MEANS Referring Unavailable BELINDA VELASCO MD Primary Care Unavailable BELINDA VELASCO MD Attending Unavailable BELINDA VELASCO MD Admitting Unavailable PROVIDER, UNKNOWN Consulting Unavailable DELILAH MEANS Consulting Unavailable DELILAH MEANS Referring Unavailable KIRA CROW Primary Care Unavailable KIRA CROW Attending Unavailable KIRA CROW Admitting Unavailable PROVIDER, UNKNOWN Consulting Unavailable DELILAH MEANS Consulting Unavailable MIKEY MENDIOLA Primary Care Unavailable MIKEY MENDIOLA Attending Unavailable MIKEY MENDIOLA Admitting Unavailable PROVIDER, UNKNOWN Consulting Unavailable DELILAH MEANS Consulting Unavailable ALLISON PAUL DR Primary Care Unavailable ALLISON PAUL DR Attending Unavailable ALLISON PAUL DR Admitting Unavailable PROVIDER, UNKNOWN Consulting Unavailable DELILAH MEANS Consulting Unavailable ALLISON PAUL DR Primary Care Unavailable ALLISON PAUL DR Attending Unavailable ALLISON PAUL DR Admitting Unavailable PROVIDER, UNKNOWN Consulting Unavailable Allergies Allergy Classification Reported Allergen(s) Allergy Type Date of Onset Reaction(s) Facility (3 sources) simvastatin; Translations: [SIMVASTATIN] food allergy 11-26-2011 myalgias [facility] Work Phone: (1 source) STATINS (HMG-COA REDUCTASE INHIBITORS) Drug allergy (disorder) [facility] Repository Medications Completed/Discontinued Medications Medication Drug Class(es) Dates Sig (Normalized) Sig (Original) acetaminophen 325 mg / HYDROcodone bitartrate 5 mg oral tablet (6 sources) Opioid Agonist Start: 07-14-2015 End: 07-21-2015 HYDROCODONE-ACETAMI NOPHEN 5-325 MG TABS 1-2 tabs as needed at night for severe pain HYDROCODONE-ACETAMI NOPHEN [id number] Delilah Means DO Problems Active Problems Problem Classification Problem Date Documented Date Episodic/Chronic Aortic; peripheral; and visceral artery aneurysms (3 sources) Dilatation of aorta; Translations: [Aortic ectasia, unspecified site] Onset: 02-19-2015 02-19-2015 Chronic Cancer of bladder (1 source) Personal history of malignant neoplasm of bladder; Translations: [Personal history of malignant neoplasm of bladder] Onset: 03-07-2023 Episodic Cancer of head and neck (6 sources) Malignant tumor of oropharynx; Translations: [Malignant neoplasm of oropharynx, unspecified] Onset: 02-20-2014 Resolved: 03-13-2014 03-13-2014 Chronic Cardiac dysrhythmias (7 sources) Atrial fibrillation; Translations: [Paroxysmal atrial fibrillation] Onset: 05-02-2015 05-02-2015 Chronic Chronic obstructive pulmonary disease and bronchiectasis (13 sources) Mild chronic obstructive pulmonary disease; Translations: [Chronic obstructive lung disease] Onset: 07-30-2010 Resolved: 02-14-2015 07-04-2015 Chronic Coronary atherosclerosis and other heart disease (7 sources) 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; Translations: [Coronary arteriosclerosis] Onset: 04-04-1959 05-02-2015 Chronic Deficiency and other anemia (1 source) Anemia, unspecified; Translations: [Anemia, unspecified] Onset: 03-07-2023 Episodic Disorders of lipid metabolism (7 sources) Hyperlipidemia; Translations: [Mixed hyperlipidemia] Onset: 12-04-2010 12-04-2010 Chronic Esophageal disorders (1 source) Gastro-esophageal reflux disease without esophagitis; Translations: [Gastro-esophageal reflux disease without esophagitis] Onset: 03-07-2023 Chronic Essential hypertension (4 sources) Hypertensive disorder; Translations: [Essential (primary) hypertension] Onset: 01-05-2013 01-05-2013 Chronic Fluid and electrolyte disorders (1 source) Hyperosmolality and hypernatremia; Translations: [Hyperosmolality and hypernatremia] Onset: 03-07-2023 Episodic Heart valve disorders (6 sources) Mitral valve disorder; Translations: [Nonrheumatic mitral (valve) insufficiency] Onset: 02-10-2015 02-10-2015 Chronic Hyperplasia of prostate (4 sources) Benign prostatic hypertrophy with outflow obstruction; Translations: [Benign prostatic hyperplasia without lower urinary tract symptoms] Onset: 03-07-2010 03-07-2010 Chronic Immunizations and screening for infectious disease (1 source) Encounter for immunization; Translations: [Encounter for immunization] Onset: 03-07-2023 Episodic Osteoarthritis (7 sources) Osteoarthritis of knee; Translations: [Unilateral primary osteoarthritis, left hip] Onset: 02-16-2023 05-22-2009 Chronic Other aftercare (4 sources) Other intermediate (current) drug therapy; Translations: [Other intermediate (current) drug therapy] Onset: 07-30-2010 07-30-2010 Episodic Other aftercare (1 source) terminal operator (current) use of anticoagulants; Translations: [terminal operator (current) use of anticoagulants] Onset: 03-07-2023 Episodic Other nutritional; endocrine; and metabolic disorders (1 source) Obesity, unspecified; Translations: [Obesity, unspecified] Onset: 03-07-2023 Chronic Pulmonary heart disease (3 sources) Pulmonary hypertension; Translations: [Other secondary pulmonary hypertension] Onset: 07-04-2015 07-04-2015 Chronic Retinal detachments; defects; vascular occlusion; and retinopathy (1 source) Unspecified macular degeneration; Translations: [Unspecified macular degeneration] Onset: 03-07-2023 Chronic Screening or history of mental health and substance abuse (3 sources) Tobacco dependence syndrome; Translations: [Nicotine dependence, unspecified, uncomplicated] Onset: 07-30-2010 07-30-2010 Chronic Spondylosis; intervertebral disc disorders; other back problems (6 sources) Degeneration of lumbar intervertebral disc; Translations: [Degeneration of cervical intervertebral disc] Onset: 04-09-2015 07-28-2015 Chronic Unclassified (3 sources) Placement of stent in coronary artery ; Translations: [Presence of cardiac and vascular implant and graft, unspecified] Onset: 04-19-2016 04-19-2016 Unclassified (1 source) Acidosis, unspecified; Translations: [Acidosis, unspecified] Onset: 03-07-2023 Past or Other Problems Problem Classification Problem Date Documented Da te Episodic/Chronic Allergic reactions (3 sources) Sunburn of first degree; Translations: [Sunburn of first degree] Onset: 10-16-2015 Resolved: 10-23-2015 10-16-2015 Episodic Conditions associated with dizziness or vertigo (3 sources) Benign paroxysmal positional vertigo; Translations: [Benign paroxysmal vertigo, unspecified ear] Onset: 10-16-2015 10-16-2015 Episodic Coronary atherosclerosis and other heart disease (3 sources) Presence of aortocoronary bypass graft; Translations: [Presence of aortocoronary bypass graft] Onset: 07-30-2010 07-30-2010 Episodic Disorders of teeth and jaw (6 sources) Dental abscess; Translations: [Periapical abscess without sinus] Onset: 08-15-2009 Resolved: 03-07-2010 08-15-2009 Episodic Medical examination/evaluation (6 sources) Encounter for general adult medical examination without abnormal findings; Translations: [Encounter for general adult medical examination without abnormal findings] Resolved: 02-14-2015 02-14-2015 Episodic Other circulatory disease (3 sources) Abnormal result of cardiovascular function study, unspecified; Translations: [Abnormal result of cardiovascular function study, unspecified] Onset: 07-30-2010 07-30-2010 Episodic Other connective tissue disease (15 sources) Muscle pain; Translations: [Adhesive capsulitis of shoulder] Onset: 08-15-2009 Resolved: 08-11-2015 07-28-2015 Episodic Other lower respiratory disease (6 sources) Dyspnea; Translations: [Shortness of breath] Onset: 07-30-2010 Resolved: 05-10-2011 05-10-2011 Episodic Other nervous system disorders (3 sources) Taste sense altered; Translations: [Parageusia] Onset: 01-09-2014 01-09-2014 Episodic Other nutritional; endocrine; and metabolic disorders (12 sources) Body mass index (BMI) 28.0-28.9, adult; Translations: [Body mass index (BMI) 29.0-29.9, adult] Onset: 08-01-2014 11-08-2016 Episodic Other skin disorders (6 sources) Corns and callus; Translations: [Corns and callosities] Onset: 10-07-2011 Resolved: 02-14-2015 10-07-2011 Episodic Other upper respiratory disease (3 sources) Hoarse; Translations: [Dysphonia] Onset: 07-04-2015 07-04-2015 Episodic Otitis media and related conditions (3 sources) Dysfunction of eustachian tube; Translations: [Other specified disorders of Eustachian tube, left ear] Onset: 12-27-2014 Resolved: 01-03-2015 12-27-2014 Episodic Spondylosis; intervertebral disc disorders; other back problems (9 sources) Neck pain; Translations: [Low back pain] Onset: 04-08-2015 Resolved: 04-29-2015 04-09-2015 Episodic Unclassified (6 sources) Insomnia; Translations: [Tomography - chest abnormal] Onset: 05-10-2011 05-10-2011 Episodic Unclassified (6 sources) Influenza vaccination ; Translations: [Encounter for immunization] Onset: 12-27-2014 Resolved: 07-28-2015 07-28-2015 Unclassified (6 sources) Physical examination; Translations: [Encounter for general adult medical examination without abnormal findings] Onset: 06-08-2011 Resolved: 02-14-2015 02-14-2015 Unclassified (9 sources) Pneumococcal vaccination ; Translations: [Encounter for immunization] Onset: 01-09-2014 Resolved: 02-14-2015 01-09-2014 Results Test Name Value Interpretation Reference Range Facil ity Vital Signs Date Time Vital Sign Value Performing Clinician Missael herbert 11-08-2016 09:32-0400 BMI (Body Mass Index) 28.47 kg/m2 Adela Bueno [employer] Work Phone: 11-08-2016 09:32-0400 BP Diastolic 82 mm[Hg] Adela Bueno [facility] Work Phone: 11-08-2016 09:32-0400 BP Systolic 130 mm[Hg] Adela Bueno [facility] Work Phone: 11-08-2016 09:32-0400 Height 176.53 cm Adela Bueno [facility] Work Phone: 11-08-2016 09:32-0400 Pulse (Heart Rate) 60 /min Adela Bueno [facility] Work Phone: 11-08-2016 09:32-0400 Respiratory Rate 18 /min Adela Bueno [facility] Work Phone: 11-08-2016 09:32-0400 Weight 88.72 kg Adela Bueno [facility] Work Phone: 05-07-2016 14:39-0500 BSA (Body Surface Area) 2.08 m2 Adela Bueno [facility] Work Phone: 10-16-2015 15:16-0400 Body Temperature 98.2 [degF] Adela Bueno [facility] Work Phone: Encounters Encounter Date Encounter Type Care Provider Facility Start: 05-10-2023 End: 05-10-2023 Emergency department patient visit [facility] Start: 03-29-2023 End: 03-29-2023 Emergency department patient visit [facility] Start: 03-07-2023 End: 03-08-2023 ambulatory ALLISON PAUL [facility] Start: 02-16-2023 End: 02-16-2023 ambulatory DELILAH [facility] Start: 02-16-2023 End: 02-16-2023 Encounter for other preprocedural examination ALLISON PAUL [facility] Start: 12-14-2022 End: 12-14-2022 ambulatory [facility] Start: 11-15-2022 End: 11-15-2022 ambulatory DELILAH Champagne [facility] Start: 10-29-2022 End: 10-29-2022 Emergency department patient visit DELILAH Champagne [facility] Start: 09-28-2022 End: 09-28-2022 ambulatory DELILAH Champagne [facility] Start: 09-20-2022 End: 09-21-2022 ambulatory DELILAH [facility] Start: 09-15-2022 End: 09-15-2022 ambulatory [facility] Procedures Date Procedure Procedure Detail Performing Clinician Start: 11-08-2016 End: 11-08-2016 Follow Up Appt 6 months Fay vazquez PA-C Work Phone: Start: 11-08-2016 End: 11-08-2016 PFM Fay Mcfadden PA-C Work Phone: Start: 11-08-2016 End: 11-09-2016 Thyroid stimulating hormone (TSH) Fay Mcfadden PA-C Work Phone: Start: 11-08-2016 End: 11-09-2016 Thyroxine (T4) Fay Mcfadden PA-C Work Phone: Start: 05-07-2016 End: 05-28-2016 *Hepatic Function Panel Hosea Bueno MD Start: 05-07-2016 End: 05-07-2016 Follow Up Appt 6 months Hosea Bueno MD Start: 05-07-2016 End: 05-28-2016 Lipid panel [AGGREGATE] Hosea Bueno MD Start: 05-07-2016 End: 05-07-2016 MMM Hosea Bueno MD Start: 04-19-2016 End: 04-19-2016 Nurse, Teaching, Wound Check (no charge) Hosea Bueno MD Start: 2016 End: 2016 Follow Up Appt 6 weeks Fay dejesus PA-C Work Phone: Start: 2016 End: 2016 MMM Fay Mcfadden PA-C Work Phone: Start: 08-20-2015 End: 03-24-2016 *Hepatic Function Panel Hosea Bueno MD Start: 08-20-2015 End: 03-24-2016 Lipid panel [AGGREGATE] Hosea Bueno MD Start: 07-28-2015 End: 09-18-2015 Creatine kinase (CK) Delilah Mahi Miguelangel DO Work Phone: Start: 07-28-2015 End: 09-18-2015 Urinalysis complete panel - Urine Delilah Champagne Miguelangel DO Work Phone: Start: 07-07-2015 End: 09-18-2015 X-ray exam of lower spine Delilah Champagne Stutzmitesh n DO Work Phone: Start: 07-04-2015 End: 10-27-2016 Follow Up Appt 6 months Ina lam [facility] Work Phone: Start: 05-02-2015 End: 02-03-2016 Chest x-ray Hosea Bueno MD Start: 05-02-2015 End: 05-02-2015 Electrocardiogram, complete Hosea stewart MD Start: 05-02-2015 End: 05-02-2015 Follow Up Appt Other Hosea Bueno MD Start: 05-02-2015 End: 02-03-2016 Nuclear stress test -exercise Hosea ely MD Start: 04-08-2015 End: 09-18-2015 X-ray exam of neck spine Delilah Mahi Miguelangel DO Work Phone: Start: 04-01-2015 End: 12-29-2015 [facility] Work Phone: Start: 04-01-2015 End: 12-29-2015 Follow Up Appt 3 months Beck Urias Work Phone: Start: 04-01-2015 End: 12-29-2015 Pulmonary Function Test - complete Beck Urias Work Phone: Start: 04-01-2015 End: 12-29-2015 Pulmonary stress test/simple Beck parra Work Phone: Start: 03-07-2015 End: 02-03-2016 Pulmonary Referral Hosea Bueno MD Start: 02-19-2015 End: 02-03-2016 Ct thorax w/dye Hosea Bueno MD Start: 02-14-2015 End: 02-18-2015 *BMP Delilah Means DO Work Phone: Start: 02-10-2015 End: 02-19-2015 *Hepatic Function Panel Hosea Bueno MD Start: 02-10-2015 End: 02-19-2015 Echocardiography Hosea Bueno MD Start: 02-10-2015 End: 02-10-2015 Follow Up Appt 1 year Hosea Zapata Start: 02-10-2015 End: 02-19-2015 Lipid panel [AGGREGATE] Hosea Bueno MD Start: 02-10-2015 End: 02-10-2015 MMM Hosea Bueno MD Start: 08-01-2014 End: 08-02-2014 Documentation of current medications Fay Mcfadden PA-C Work Phone: Start: 08-01-2014 End: 02-03-2016 Follow Up Appt 6 months Fay vazquez PA-C Work Phone: Start: 08-01-2014 End: 02-03-2016 PFM Fay Mcfadden PA-C Work Phone: Start: 08-01-2014 End: 08-02-2014 Smoking cessation education Fay Garay PA-C Work Phone: Start: 02-15-2014 End: 10-27-2016 ENT referral Delilah Means DO [employer] Phone: Start: 02-15-2014 End: 09-18-2015 Follow-up visit Delilah Means DO [employer] Phone: Start: 02-15-2014 End: 09-18-2015 Tte, f-up or lmtd Delilah Means DO Work Phone: Start: 02-01-2014 End: 02-01-2014 Follow Up Appt 6 months Hosea Bueno MD Start: 02-01-2014 End: 02-01-2014 MMM Hosea Bueno MD Start: 01-09-2014 End: 01-14-2014 *B12FO Vitamin B12 and Folates Delilah Means DO Work Phone: Start: 01-09-2014 End: 01-14-2014 *CBC with Differential Delilah Carpenter Work Phone: Start: 01-09-2014 End: 01-14-2014 *CMP Complete Metabolic Panel Delilah maravilla DO Work Phone: Start: 01-09-2014 End: 09-18-2015 Follow Up Appt 6 months Delilah Means DO Work Phone: Start: 01-09-2014 End: 01-14-2014 Lipid panel [AGGREGATE] Delilah Means DO Work Phone: Start: 07-03-2013 End: 02-18-2015 *Hepatic Function Panel Fay vazquez PA-C Work Phone: Start: 07-03-2013 End: 02-18-2015 Lipid panel [AGGREGATE] Fay vazquez PA-C Work Phone: Start: 01-05-2013 End: 02-01-2013 *Hepatic Function Panel Fay vazquez PA-C Work Phone: Start: 01-05-2013 End: 01-05-2013 Follow Up Appt 6 months Fay vazquez PA-C Work Phone: Start: 01-05-2013 End: 02-01-2013 Lipid panel [AGGREGATE] Margaret Madrid MA Start: 01-05-2013 End: 01-05-2013 PFM Fay Mcfadden PA-C Work Phone: Start: 06-27-2012 End: 12-26-2012 *Hepatic Function Panel Hosea Bueno MD Start: 06-27-2012 End: 12-26-2012 Lipid panel [AGGREGATE] Hosea Bueno MD Start: 06-26-2012 End: 06-26-2012 Follow Up Appt 6 months Hosea Bueno MD Start: 06-26-2012 End: 12-26-2012 Follow Up Appt Other Hosea Bueno MD Start: 06-26-2012 End: 06-26-2012 MMM Hosea Bueno MD Start: 11-26-2011 End: 06-27-2012 *Hepatic Function Panel Hosea Bueno MD Start: 11-26-2011 End: 11-26-2011 Electrocardiogram, complete Hosea stewart MD Start: 11-26-2011 End: 12-26-2012 Follow Up Appt 6 months Hosea Bueno MD Start: 11-26-2011 End: 06-27-2012 Lipid panel [AGGREGATE] Hosea Bueno MD Start: 11-01-2011 End: 11-16-2011 *Hepatic Function Panel Hosea Bueno MD Start: 11-01-2011 End: 11-16-2011 Lipid panel [AGGREGATE] Hosea Bueno MD Start: 10-07-2011 End: 10-27-2016 Podiatry Referral Fernando Merritt MD Start: 06-08-2011 End: 10-27-2016 ENT referral Fernando Merritt MD Start: 03-07-2010 End: 03-30-2010 *PSA, Annual Screening Fernando Merritt MD Start: 03-07-2010 End: 03-30-2010 Us, transrectal Fernando Merritt MD Start: 08-15-2009 End: 08-15-2010 PT-Orthotics Fernando Merritt MD Start: 08-15-2009 End: 08-20-2009 X-ray exam of jaw joints Fernando Merritt MD Start: 08-15-2009 End: 08-20-2009 X-ray exam of shoulder Fernando Merritt MD Plan of Treatment Date Care Activity Detail Author Start: 06-27-2017 End: 06-27-2017 Appointment Appointment [facility] Work Phone: Start: 11-25-2016 End: 06-08-2016 *Hepatic Function Panel *Hepatic Function Panel [facility] Work Phone: Start: 11-25-2016 End: 06-08-2016 Lipid panel [AGGREGATE] *Lipid Profile CC PCP [facility] Work Phone: Start: 11-08-2016 End: 11-08-2016 Appointment Appointment [facility] Work Phone: Start: 11-08-2016 End: 11-08-2016 Follow Up Appt 6 months Follow Up Appt 6 months [facility] Work Phone: Start: 11-08-2016 End: 11-08-2016 PFM PFM [facility] Work Phone: Start: 11-08-2016 End: 11-08-2016 Pulmonary Function Test - complete Pulmonary Function Test - complete [facility] Work Phone: Start: 11-08-2016 End: 11-09-2016 Thyroid stimulating hormone (TSH) *TSH [facility] Work Phone: Start: 11-08-2016 End: 11-09-2016 Thyroxine (T4) *T4 (Total) [facility] Work Phone: Start: 05-07-2016 End: 05-28-2016 *Hepatic Function Panel *Hepatic Function Panel [facility] Work Phone: Start: 05-07-2016 End: 05-07-2016 Follow Up Appt 6 months Follow Up Appt 6 months [facility] Work Phone: Start: 05-07-2016 End: 05-28-2016 Lipid panel [AGGREGATE] *Lipid Profile CC PCP [facility] Work Phone: Start: 05-07-2016 End: 05-07-2016 MMM MMM [facility] Work Phone: Start: 2016 End: 2016 Follow Up Appt 6 weeks Follow Up Appt 6 weeks [facility] Work Phone: Start: 2016 End: 2016 MMM MMM [facility] Work Phone: Start: 08-20-2015 End: 03-24-2016 *Hepatic Function Panel *Hepatic Function Panel [facility] Work Phone: Start: 08-20-2015 End: 03-24-2016 Lipid panel [AGGREGATE] *Lipid Profile CC PCP [facility] Work Phone: Start: 07-28-2015 End: 09-18-2015 Creatine kinase (CK) *Creatine Kinase (CK) [facility] Work Phone: Start: 07-28-2015 End: 09-18-2015 Urinalysis complete panel - Urine *UAC- Urinalysis, Complete w/ Micro [facility] Work Phone: Start: 07-07-2015 End: 09-18-2015 X-ray exam of lower spine X-Ray, Spine, Lumbosacral 2-3 views [facility] Work Phone: Start: 07-04-2015 End: 10-27-2016 Follow Up Appt 6 months Follow Up Appt 6 months [facility] Work Phone: Start: 05-02-2015 End: 02-03-2016 Chest x-ray X-Ray, Chest, PA & Lateral [facility] Work Phone: Start: 05-02-2015 End: 05-02-2015 Electrocardiogram, complete EKG (In office) [facility] Work Phone: Start: 05-02-2015 End: 05-02-2015 Follow Up Appt Other Follow Up Appt Other [facility] Work Phone: Start: 05-02-2015 End: 05-02-2015 Nuclear stress test -exercise Nuclear stress test -exercise [facility] Work Phone: Start: 04-08-2015 End: 09-18-2015 X-ray exam of neck spine X-Ray, Spine, Cervical [facility] Work Phone: Start: 04-01-2015 End: 12-29-[address] [facility] Work Phone: Start: 04-01-2015 End: 12-29-2015 Follow Up Appt 3 months Follow Up Appt 3 months [facility] Work Phone: Start: 04-01-2015 End: 12-29-2015 Pulmonary Function Test - complete Pulmonary Function Test - complete [facility] Work Phone: Start: 04-01-2015 End: 12-29-2015 Pulmonary stress test/simple Pulmonary stress testing; simple (eg, 6-minute walk) [facility] Work Phone: Start: 03-07-2015 End: 03-07-2015 Pulmonary Referral Pulmonary Referral Beck Urias, [facility], [address], [place], [address] [facility] Work Phone: Start: 02-19-2015 End: 02-19-2015 Ct thorax w/dye CT Chest with Contrast [facility] Work Phone: Start: 02-14-2015 End: 02-18-2015 *BMP *BMP [facility] Work Phone: Start: 02-10-2015 End: 02-19-2015 *Hepatic Function Panel *Hepatic Function Panel [facility] [employer] Work Phone: Start: 02-10-2015 End: 02-10-2015 Echocardiography Echocardiogram (complete) [facility] Work Phone: Start: 02-10-2015 End: 02-10-2015 Follow Up Appt 1 year Follow Up Appt 1 year [facility] Phone: Start: 02-10-2015 End: 02-19-2015 Lipid panel [AGGREGATE] *Lipid Profile CC PCP [facility] Work Phone: Start: 02-10-2015 End: 02-10-2015 MMM MMM [facility] Work Phone: Start: 08-01-2014 End: 02-03-2016 Follow Up Appt 6 months Follow Up Appt 6 months [facility] Phone: Start: 08-01-2014 End: 02-03-2016 PFM PFM [facility] Work Phone: Start: 02-15-2014 End: 02-15-2014 ENT referral ENT referral [facility]man[facility], [address] [facility], [place], [address] [facility] Work Phone: Start: 02-15-2014 End: 09-18-2015 Follow-up visit Follow Up as needed [facility] Phone: Start: 02-15-2014 End: 09-18-2015 Tte, f-up or lmtd US Doppler 2D w/ M Mode, Limited [facility] Work Phone: Start: 02-01-2014 End: 02-01-2014 Follow Up Appt 6 months Follow Up Appt 6 months [employer] [employer] Work Phone: Start: 02-01-2014 End: 02-01-2014 MMM MMM [facility] Work Phone: Start: 01-09-2014 End: 01-14-2014 *B12FO Vitamin B12 and Folates *B12FO Vitamin B12 and Folates [facility] Work Phone: Start: 01-09-2014 End: 01-14-2014 *CBC with Differential *CBC with Differential [facility] Work Phone: Start: 01-09-2014 End: 01-14-2014 *CMP Complete Metabolic Panel *CMP Complete Metabolic Panel [facility] Phone: Start: 01-09-2014 End: 09-18-2015 Follow Up Appt 6 months Follow Up Appt 6 months [facility] Phone: Start: 01-09-2014 End: 01-14-2014 Lipid panel [AGGREGATE] *Lipid Profile [facility] Phone: Start: 01-09-2014 End: 09-18-2015 Ppsv23 vacc 2 yrs+ sc/im Pneumovax (Adult or immunosuppressed pt >2 yrs of age) [facility] Phone: Start: 07-03-2013 End: 02-18-2015 *Hepatic Function Panel *Hepatic Function Panel [facility] Phone: Start: 07-03-2013 End: 02-18-2015 Lipid panel [AGGREGATE] *Lipid Profile CC PCP [facility] Work Phone: Start: 01-05-2013 End: 02-01-2013 *Hepatic Function Panel *Hepatic Function Panel [facility] Phone: Start: 01-05-2013 End: 01-05-2013 Follow Up Appt 6 months Follow Up Appt 6 months [facility] Work Phone: Start: 01-05-2013 End: 02-01-2013 Lipid panel [AGGREGATE] *Lipid Profile CC PCP [facility] Work Phone: Start: 01-05-2013 End: 01-05-2013 PFM PFM [facility] Work Phone: Start: 06-27-2012 End: 12-26-2012 *Hepatic Function Panel *Hepatic Function Panel [facility] Work Phone: Start: 06-27-2012 End: 12-26-2012 Lipid panel [AGGREGATE] *Lipid Profile [facility] Work Phone: Start: 06-26-2012 End: 06-26-2012 Follow Up Appt 6 months Follow Up Appt 6 months [facility] Work Phone: Start: 06-26-2012 End: 12-26-2012 Follow Up Appt Other Follow Up Appt Other [facility] Work Phone: Start: 06-26-2012 End: 06-26-2012 MMM MMM [facility] Work Phone: Start: 11-26-2011 End: 06-27-2012 *Hepatic Function Panel *Hepatic Function Panel [facility] Work Phone: Start: 11-26-2011 End: 11-26-2011 Electrocardiogram, complete EKG (In office) [facility] Work Phone: Start: 11-26-2011 End: 12-26-2012 Follow Up Appt 6 months Follow Up Appt 6 months [facility] Work Phone: Start: 11-26-2011 End: 06-27-2012 Lipid panel [AGGREGATE] *Lipid Profile [facility] Work Phone: Start: 11-01-2011 End: 11-16-2011 *Hepatic Function Panel *Hepatic Function Panel [facility] Work Phone: Start: 11-01-2011 End: 11-16-2011 Lipid panel [AGGREGATE] *Lipid Profile [facility] Work Phone: Start: 10-07-2011 End: 10-27-2016 Podiatry Referral Podiatry Referral Caron Bertrand, [address] [facility], [place], [address] [facility] Work Phone: Start: 06-08-2011 End: 10-27-2016 ENT referral ENT referral [facility] Work Phone: Start: 03-07-2010 End: 03-30-2010 *PSA, Annual Screening *PSA, Annual Screening [facility] Work Phone: Start: 03-07-2010 End: 03-30-2010 Us, transrectal US Prostate (Transrectal) [facility] Work Phone: Start: 08-15-2009 End: 08-20-2009 PT-Orthotics PT-Orthotics [facility], [address] [place] [address], [id number] [facility] Work Phone: Start: 08-15-2009 End: 08-20-2009 X-ray exam of jaw joints X-Ray, TMJ [facility] Work Phone: Start: 08-15-2009 End: 08-20-2009 X-ray exam of shoulder X-Ray, Shoulder [facility] Work Phone: [facility] Work Phone: Immunizations Immunization Date Immunization Notes Care Provider Cuate sanabria 01-09-2014 pneumococcal polysac charide vaccine, 23 valent Adela Mancia [facility] Work Phone: Payers Date Payer Category Payer Unknown [id number] 2.16.8 [id number] 1945 Unknown [id number] 2.16.8 [id number] 1945 Unknown [id number] 2.16.8 [id number] 1945 Unknown [id number] 2.16.8 [id number] 1945 Unknown [id number] 2.16.8 [id number] 1945 Unknown [id number] 2.16.8 [id number] 1945 Unknown [id number] 2.16.8 [id number] 1945 Unknown [id number] 2.16.8 [id number] 1945 Unknown [id number] 2.16.84 [id number] 1945 Unknown [id number] 2.16.84 [id number] Medicare [id number] Clinical Note 04-13-2023 Note Date & Type Note Facility 04-13-2023 Note [facility] PROGRESS NOTE NAME ACCOUNT SEX AGE ADMIT DISCHARGE PT MED. RECORD# NUMBER DATE DATE TYPE DEREK, [id number] M [id number] 03/07/23 2 [place] [id number] ROOM: 302 DATE OF : 1945 DICTATING PHYSICIAN: Mona Eduardo DATE OF SERVICE: March 08, 2023 ATTENDING ORTHOPEDIC SURGEON: Dr. Allison Paul SUBJECTIVE: This 78-year-old male underwent a right total hip arthroplasty yesterday. Intraoperatively, it was uneventful. For details, please see dictated operative report. He was transferred to the third floor at [facility]. Pain in the right hip has been well-controlled overnight. He currently denies chest pain, shortness of breath, dizziness, or calf pain. He has been able to transfer from hospital bed to bedside chair this morning and is doing quite well. OBJECTIVE: VITAL SIGNS: Temperature 97.2, pulse 67, respiratory rate 16, blood pressure 101/56, SpO2 98% on room air. GENERAL: The patient is alert and oriented x3 in no acute distress at rest. He is breathing easily without respiratory distress. EXTREMITIES: Inspection of the right hip reveals a clean, dry waterproof dressing intact without active drainage, erythema, warmth, or signs of infection. No drainage on the dressing. Thigh is soft, supple, compressible without tenderness. Negative Shad's bilaterally without signs of DVT. Pedal pulse is present and equal bilaterally. Sensation is intact to light. The patient is able to actively plantar and dorsiflex bilateral ankles against resistance. Neurovascularly intact. DIAGNOSTIC DATA: Postoperative x-rays right hip and pelvis discussed and reviewed with Dr. Allison Paul and are consistent with remote left total hip arthroplasty, acute current right press-fit total hip arthroplasty, and one acetabular screw. Prosthesis is in good position without evidence of hardware failure or loosening skin. Loyda are intact over the surgical site. BMP results were reviewed this morning. Blood glucose is elevated at 136. CBC results reviewed, and white blood cell count elevated at 13.0, hemoglobin 7.0, hematocrit 23.0, and platelet count 300,000. ASSESSMENT/PLAN: 1. Status post right total hip arthroplasty postoperative day #1. 2. Begin PT/OT, weightbearing as tolerated right lower extremity with a walker with hip dislocation precautions. 3. Continue Oramorph and Percocet as needed for pain. 4. Deep venous thrombosis prophylaxis bilateral NOHEMI, sequential compression devices, Page 1 of 2 CHRISTIANO REED Progress Note CHIRSTIANO REED : 1945 and the patient is currently on Xarelto 10 mg daily. This is half of his preoperative dose. We will plan to continue this for the next 5 days as long. As he is not having any bleeding from the surgical site or into the thigh, we will then transition him back to his preoperative dose of Xarelto 20 mg daily. 5. Drop in hemoglobin and hematocrit likely resulting from acute blood loss hemodilution and preoperative anemia. The patient is currently asymptomatic. These findings were discussed and reviewed with Dr. Allison Paul. From an orthopedic standpoint, the patient is not outwardly symptomatic and his vitals seem stable. He does not seem to be bleeding into the surgical site. Our goal would be to avoid blood transfusion and continue to monitor with repeat CBC within the next several days. However, we do understand he has an underlying cardiac history and we would defer indications for blood transfusion to hospitalist if he felt it was medically necessary at this time. 6. Continue postoperative medical management per hospitalist. Further medical decision making on blood transfusion after their review. 7. Continue discharge planning with Case Management. The patient would like to be discharged with home health physical therapy. 8. The patient is orthopedically stable. We will plan to have him work with physical therapy today after evaluation by physical therapy and hospitalist. If blood transfusion is not deemed necessary and the patient is stable, we may consider a discharge to home later today. Dictated By: Mona Eduardo PA-C 03/08/23 07:47 JOB #: [id number] Transcribed By: am 03/08/23 09:12 Electronically signed by: E-sign Mona HALL 04/12/23 07:35 Page 2 of 2 CHRISTIANO REED Progress Note [facility] Clinical Note 10-31-2022 Note Date & Type Note Facility 10-31-2022 Note . MICRO - Microbiology PROCEDURE: Culture Wound Aerobic with Gram Stain [O1 *1] SOURCE: Wound (surface) BODY SITE: Shoulder COLLECTED DATE/TIME: 10/29/2022 14:40 EDT RECEIVED DATE/TIME: 10/29/2022 19:06 EDT START DATE/TIME: 10/29/2022 19:07 EDT FREE TEXT SOURCE: right shoulder FINAL REPORTS Final Report [] Verified Date/Time/Personnel: 10/31/2022 08:19 EDT Few normal skin osiel present. Sensitivity testing not indicated. PRELIMINARY REPORTS Preliminary Report [] Verified Date/Time/Personnel: 10/30/2022 09:43 EDT No growth to date STAINS GS [] Verified Date/Time/Personnel: 10/29/2022 23:06 EDT 2+ Gram Positive Cocci Order Comments O1: Culture Wound Aerobic with Gram Stain fax # [phone] Performing Locations *1: This test was performed at: [facility], [address] [place] [address], [facility] , [facility] ([place]) Clinical Note 10-07-2022 Note Date & Type Note Facility 10-07-2022 Note [facility] PROGRESS NOTE/DISCHARGE SUMMARY NAME ACCOUNT SEX AGE ADMIT DISCHARGE PT MED. RECORD# NUMBER DATE DATE TYPE DEREK [id number] M [id number] 09/20/22 2 [place] [id number] ROOM: [facility] DATE OF : 1945 DICTATING PHYSICIAN: Mona Eduardo DATE OF SERVICE: September 21, 2022 ATTENDING ORTHOPEDIC SURGEON: Dr. Allison Paul ADMITTING DIAGNOSES: 1. Left hip primary osteoarthritis 2. Atrial fibrillation taking Xarelto. 3. History of failed back surgeries currently with a pain pump. 4. Obesity. 5. Emphysema. 6. Hypertension. 7. History of myocardial infarction. 8. History of skin cancer. 9. Hyperlipidemia. 10. Chronic obstructive pulmonary disease. 11. Insomnia. 12. History of bladder cancer. 13. Benign prostatic hypertrophy. 14. Coronary artery disease. 15. Gastroesophageal reflux disease. 16. Macular degeneration. 17. Neuropathy. FINAL DIAGNOSES: 1. Left hip primary osteoarthritis 2. Atrial fibrillation taking Xarelto. 3. History of failed back surgeries currently with a pain pump. 4. Obesity. 5. Emphysema. 6. Hypertension. 7. History of myocardial infarction. 8. History of skin cancer. 9. Hyperlipidemia. 10. Chronic obstructive pulmonary disease. 11. Insomnia. 12. History of bladder cancer. 13. Benign prostatic hypertrophy. Page 1 of 3 CHRISTIANO REED Progress Note/Discharge Summary CHRISTIANO REED : 1945 14. Coronary artery disease. 15. Gastroesophageal reflux disease. 16. Macular degeneration. 17. Neuropathy. 18. Status post left total hip arthroplasty. SUBJECTIVE: The patient had an ongoing history of left hip pain. After failed conservative measures, the patient opted to proceed with left total hip arthroplasty. He underwent the above stated procedure yesterday. Intraoperatively was uneventful. For details, please see dictated operative report. He was transferred to the 3rd floor at [facility]. He has been able to work with physical therapy and transition from bed to chair at bedside. The pain in the left hip has been well-controlled. He does complain of some thigh pain. No chest pain, shortness of breath, dizziness, or calf pain. He seems to be doing well overall. His plan would be for discharge to home later today. OBJECTIVE: VITAL SIGNS: Temperature 98.3, pulse 76, respiratory rate 18, blood pressure 145/75, SpO2 93% on 2 liters nasal cannula. GENERAL: The patient is alert and oriented x3 in no acute distress at rest. He is breathing easily without respiratory distress. His is present at bedside during the exam. EXTREMITIES: Inspection of the left hip reveals a clean, dry waterproof dressing without active drainage, erythema, warmth, or signs of infection. Negative Shad's bilaterally without signs of DVT. The patient is able to actively plantar and dorsiflex the bilateral ankles against resistance. Sensation intact to light touch. Pedal pulse is present and equal bilaterally. Neurovascularly intact. DIAGNOSTIC DATA: CBC results were reviewed. White blood cell count is elevated at 12.8, hemoglobin 8.2, hematocrit 25.7, and platelet count 279,000. BMP results were reviewed. Blood glucose is elevated at 119. Sodium is low at 148. Postoperative x-rays were reviewed and consistent with press-fit left total hip arthroplasty. Prosthesis is in good position without evidence of hardware failure or loosening. Skin loyda are intact over surgical site, one acetabular screw through the acetabular shell in good position. ASSESSMENT/PLAN: 1. Status post left total hip arthroplasty postoperative day #1. 2. Continued Percocet as needed for pain. Prescription will be sent to [facility] in [place]. 3. Begin PT/OT, weightbearing as tolerated left lower extremity with a walker, and hip dislocation precautions. 4. Deep venous thrombosis prophylaxis with bilateral NOHEMI, sequential compression devices. We will resume Xarelto, but at a dose of 10 mg 1 p.o. every day times the first 5 days. As long as he is not bleeding into or out of the surgical site, we will plan to resume his preoperative dose of Xarelto 20 mg 1 p.o. every day at that time. 5. Leukocytosis afebrile without acute signs of surgical site infection likely resulting from Decadron versus acute stress response. Anticipate resolution over the next Page 2 of 3 CHRISTIANO REED Progress Note/Discharge Summary CHRISTIANO REED : 1945 several days. 6. Drop in hemoglobin and hematocrit likely a combination of hemodilution and acute blood loss currently without indications for transfusion. Continue to monitor. 7. Encourage incentive spirometry. 8. Continue postoperative medical management per Hospitalist. 9. Continue discharge planning with Case Management. Plan for discharge with home health physical therapy. 10. The patient is orthopedically stable and okay for discharge to home today if cleared medica (more content not included)... [facility] Summary Purpose Family History No Family History Records FoundNo Family History Records FoundNo Family History Records Found Advance Directives No Advanced Directives Records FoundNo Advanced Directives Records FoundNo Advanced Directives Records Found Additional Source Comments (unrecognized sect ion and content) No Status Records FoundNo Status Records FoundNo Status Records Found INFORMATION SOURCE (unrecogn ized section and content) DATE CREATED AUTHOR AUTHOR'S ORGANIZ ATION 03/14/2023 [facility] ([place]) DATE CREATED AUTHOR AUTHOR'S ORGANIZ ATION 05/11/2023 [facility] FOR RECORDS PERTAINING TO PATIENTS WHO ARE OR HAVE BEEN ENROLLED IN A CHEMICAL DEPENDENCY/SUBSTANCEABUSE PROGRAM, SOME INFORMATION MAY BE OMITTED. This clinical summary was aggregated from multiple sources. Caution should be exercised in using it in the provision of clinical care. This summary normalizes information from multiple sources, and as a consequence, information in this document may materially change the coding, format and clinical context of patient data. In addition, data may be omitted in some cases. CLINICAL DECISIONS SHOULD BE BASED ON THE PRIMARY CLINICAL RECORDS. [email or web address] [facility]. provides no warranty or guarantee of the accuracy or completeness of information in this document.
[2023-05-24 11:15] LABS: Absolute Lymphocyte Count 3.36 X10^3/uL (0.83-4.51); Absolute Neutrophil Count 3.7 X10^3/uL (2.0-7.7); Basophil# 0.05 X10^3/uL; Basophil% 0.6 % (0-1); Eosinophil# 0.15 X10^3/uL; Eosinophils% 1.8 % (0-5); Hematocrit 33.3 % (40-54); Lymphocyte # 3.36 X10^3/ul (0.83-4.51); Lymphocyte % 41.3 % (19-41); Mean Corpuscular Volume 76.6 fL (80-94); Mean Platelet Vol. 9.1 fl (6.2-12.0); Monocyte% 11.1 % (0-10); NRBC Flagged by Analyzer 0 % (0-5); Neutrophil # 3.67 X10^3/uL (2.7-7.7); Neutrophil % 45.1 % (47-70); Platelet Count 361 K/mm3 (150-450); RBC Distribution Width CV 15.4 % (11.6-14.6); RBC Distribution Width SD 42.5 fl (35.1-43.9); Red Blood Count 4.35 M/mm3 (4.6-6.2); White Blood Count 8.1 K/mm3 (4.4-11.0)
[2023-05-24 11:40] LABS: BNP,B-Type NATRIURETIC PEPTIDE 36.1 pg/mL (0-100)
[2023-05-24 11:51] LABS: ALB/GLOB Ratio 0.9 RATIO (0.9-2.4); AST(SGOT) 9 U/L (15-37); Alanine Aminotransfer ALT/SGPT 14 U/L (16-61); Albumin, Serum 3.6 g/dL (3.2-5.0); Alkaline Phosphatase 66 U/L (45-117); Anion Gap 6 (5-15); BUN 18 mg/dL (7-18); Calcium,Total 9.1 mg/dL (8.5-10.1); Chloride 107 mmol/L (98-107); Creatinine, Serum 1.06 mg/dL (0.70-1.30); EST Glomerular Filtration Rate 72 mL/min (>60); Est Glom Filt Rate - Afr Amer 87 mL/min (>60); Globulin 4.1 g/dL (2.2-4.2); Glucose 87 mg/dL (74-106); Magnesium 2.2 mg/dL (1.6-2.6); Potassium 4.2 mmol/L (3.5-5.1); Protein, Total 7.7 g/dL (6.4-8.2); Sodium Level 140 mmol/L (136-145); Thyroid Stim Hormone (TSH) 7.43 uIU/mL (0.358-3.74)
== END | disposition home or self-care (01) ==
LOC: LAB 10:32
PROVIDERS: PCP Family Medicine; Referring Provider Nurse Practitioner Family; Visit Provider Nurse Practitioner Family
DX: I25.10 Atherosclerotic heart disease of native coronary artery without angina pectoris (principal); I50.9 Heart failure, unspecified; I48.0 Paroxysmal atrial fibrillation; Z79.899 Other long term (current) drug therapy
CPT/HCPCS: 36415; 80053; 83735; 83880; 84439; 84443; 85025

== ENCOUNTER → 2023-08-18 | Outpatient (CLI) | payer MEDICARE, SELFPAY ==
[2016-04-09 09:01] VITALS: BMI 28.3
[2023-08-18 12:31] LABS: Absolute Lymphocyte Count 2.88 X10^3/uL (0.83-4.51); Absolute Neutrophil Count 3.6 X10^3/uL (2.0-7.7); Basophil# 0.04 X10^3/uL; Basophil% 0.5 % (0-1); Eosinophil# 0.15 X10^3/uL; Hematocrit 36.2 % (40-54); Hemoglobin 11.4 g/dL (13.0-16.5); Lymphocyte # 2.88 X10^3/ul (0.83-4.51); Lymphocyte % 38.1 % (19-41); Mean Corp Hgb Conc 31.5 g/dL (32-36); Mean Corpuscular Hgb 24.9 pg (27.0-32.0); Mean Platelet Vol. 9.2 fl (6.2-12.0); Monocyte% 11.9 % (0-10); NRBC Flagged by Analyzer 0 % (0-5); Neutrophil # 3.57 X10^3/uL (2.7-7.7); Neutrophil % 47.2 % (47-70); POSITIVE MORPHOLOGY YES; Platelet Count 291 K/mm3 (150-450); RBC Distribution Width CV 20.1 % (11.6-14.6); RBC Distribution Width SD 57.1 fl (35.1-43.9); Red Blood Count 4.58 M/mm3 (4.6-6.2); White Blood Count 7.6 K/mm3 (4.4-11.0)
[2023-08-18 12:38] LABS: Differential Indicated SCAN CRITERIA MET
[2023-08-18 13:02] LABS: Anisocytosis 2+; Differential Comment SCANNED; Macrocytosis 1+; Microcytosis 1+
[2023-08-18 13:10] LABS: Ferritin 53 ng/mL (26-388); Iron 36 ug/dL (65-175); PSA,Total- Diagnostic 0.17 ng/mL (0.0-4.0)
[2023-08-18 18:09] LABS: Vitamin B12 500 pg/mL (211-911)
== END | disposition home or self-care (01) ==
PROVIDERS: PCP Family Medicine; Referring Provider Urology; Visit Provider Family Medicine
DX: D50.9 Iron deficiency anemia, unspecified (principal); E53.8 Deficiency of other specified B group vitamins; R97.20 Elevated prostate specific antigen [PSA]
CPT/HCPCS: 36415; 82607; 82728; 83540; 84153; 85025

== ENCOUNTER → 2024-02-07 | Outpatient (CLI) | payer MEDICARE, SELFPAY ==
[2016-04-09 09:01] VITALS: BMI 28.3
[2024-02-07 17:42] LABS: Absolute Lymphocyte Count 2.88 X10^3/uL (0.83-4.51); Absolute Neutrophil Count 3.8 X10^3/uL (2.0-7.7); Basophil# 0.04 X10^3/uL; Basophil% 0.5 % (0-1); Eosinophil# 0.12 X10^3/uL; Eosinophils% 1.6 % (0-5); Hematocrit 38.2 % (40-54); Hemoglobin 12.5 g/dL (13.0-16.5); Lymphocyte # 2.88 X10^3/ul (0.83-4.51); Lymphocyte % 37.7 % (19-41); Mean Corp Hgb Conc 32.7 g/dL (32-36); Mean Corpuscular Hgb 28.7 pg (27.0-32.0); Mean Corpuscular Volume 87.6 fL (80-94); Mean Platelet Vol. 9.4 fl (6.2-12.0); Monocyte# 0.82 X10^3/uL; Monocyte% 10.7 % (0-10); NRBC Flagged by Analyzer 0 % (0-5); Neutrophil # 3.75 X10^3/uL (2.7-7.7); Neutrophil % 49.1 % (47-70); Platelet Count 297 K/mm3 (150-450); RBC Distribution Width CV 13.9 % (11.6-14.6); RBC Distribution Width SD 44.9 fl (35.1-43.9); Red Blood Count 4.36 M/mm3 (4.6-6.2); White Blood Count 7.6 K/mm3 (4.4-11.0)
[2024-02-07 18:22] LABS: ALB/GLOB Ratio 0.9 RATIO (0.9-2.4); AST(SGOT) 11 U/L (15-37); Alanine Aminotransfer ALT/SGPT 16 U/L (16-61); Albumin, Serum 3.6 g/dL (3.2-5.0); Alkaline Phosphatase 69 U/L (45-117); Anion Gap 7 (5-15); BUN 17 mg/dL (7-18); BUN/Creat Ratio 15.5 RATIO (10-20); Calcium,Total 9.5 mg/dL (8.5-10.1); Chloride 106 mmol/L (98-107); EST Glomerular Filtration Rate 69 mL/min (>60); Est Glom Filt Rate - Afr Amer 83 mL/min (>60); Globulin 4.2 g/dL (2.2-4.2); Glucose 77 mg/dL (74-106); LDH 189 U/L (87-241); Potassium 4.2 mmol/L (3.5-5.1); Protein, Total 7.8 g/dL (6.4-8.2); Sodium Level 138 mmol/L (136-145)
== END | disposition home or self-care (01) ==
LOC: BFHLAB 14:41
PROVIDERS: PCP Family Medicine; Referring Provider Family Medicine; Visit Provider Family Medicine
DX: R63.4 Abnormal weight loss (principal); E86.0 Dehydration; D64.9 Anemia, unspecified; E03.2 Hypothyroidism due to medicaments and other exogenous substances
CPT/HCPCS: 36415; 80053; 83615; 84443; 85025

== ENCOUNTER → 2024-12-17 | Outpatient (CLI) | payer MEDICARE, SELFPAY ==
[2016-04-09 09:01] VITALS: BMI 28.3
[2024-12-17 18:30] LABS: Cholesterol 146 mg/dL (<=200); Low Density Lipoprotein Calc. 84 mg/dL; Triglycerides 86 mg/dL; Very Low Density Lipoprotein 17 mg/dL (5-40); cholesterol:hdl ratio screen 3.24
== END | disposition home or self-care (01) ==
LOC: BFHLAB 16:27
PROVIDERS: PCP Family Medicine; Visit Provider Family Medicine
DX: T46.2X1A Poisoning by other antidysrhythmic drugs, accidental (unintentional), initial encounter (principal); E03.2 Hypothyroidism due to medicaments and other exogenous substances; I10 Essential (primary) hypertension
CPT/HCPCS: 36415; 80061; 84439; 84443